=== PATIENT | male | born 1965 | race Caucasian/White ===

== ENCOUNTER 2016-12-20 04:27 | Emergency (ER) | payer SELFPAY ==
[~2016-12-20] VITALS: Ht 185.4 cm; Wt 84.0 kg
[2016-12-20 04:33] VITALS: BP 142/86; PULSE 84; RESP 14; TEMP 98.7; O2SAT 97
--- NOTE | 2016-12-20 04:48 | PD ---
HPI Chief Complaint: Anxiety Time Seen by Provider: 04:47 Travel History International Travel<30 days: No Contact w/Intl Traveler<30days: No Traveled to known affect area: No History of Present Illness HPI The patient is a 51 year old male who presents to the [facility] emergency department with a history of anxiety that began over the last 2 days. He awoke with a panic attack prior to arrival. He usually takes Citalopram for anxiety. However he has not been on it for the last 6 months. The patient reports that when he has a panic attack he develops palpitations, chest tightness, and shortness of breath. The patient denies having any prior history of heart disease. He denies having any prior history of hypertension, hyperlipidemia, or diabetes mellitus. On review of systems, he denies any recent fevers, cough , congestion, neck pain, abdominal pain, nausea, vomiting, diarrhea, diaphoresis , urinary symptoms, or neurologic symptoms. PFSH Past Medical History Narrative Medical The patient's past medical history is significant for anxiety disorder first diagnosed 15 years ago. PCP: Dr. Knight. Anxiety: Yes Cardiovascular Problems: Yes Diminished Hearing: No Tetanus Vaccination: Unknown Influenza Vaccination: No Past Surgical History Surgical History: No Previous Surgery Other Surgery: Yes (rebeca knee) Social History Alcohol Use: No Tobacco Use: Yes (1ppd) Substance Use: No Allergies-Medications (Allergen,Severity, Reaction): Coded Allergies: No Known Allergies (Unverified , 01/09/15) Reported Meds & Prescriptions Reported Meds & Active Scripts Active Citalopram (Citalopram Hydrobromide) 10 Mg Tab 10 Mg PO DAILY Review of Systems Except as stated in HPI: all other systems reviewed are Neg General / Constitutional: No: Fever Eyes: No: Visual changes HENT: No: Headaches Cardiovascular: Positive: Chest Pain or Discomfort, Palpitations Respiratory: Positive: Shortness of Breath Gastrointestinal: No: Abdominal Pain Genitourinary: No: Dysuria Musculoskeletal: No: Pain Skin: No Rash Neurologic: No: Weakness Psychiatric: Positive: Anxiety, Mood Disorder, No: Depression, Suicidal Ideations, Disorder of Thought, Substance Abuse, Homicidal Ideation Endocrine: No: Polydipsia Hematologic/Lymphatic: No: Easy Bruising Physical Exam Narrative General: The patient is a well-developed well-nourished male, anxious appearing on arrival, otherwise in no acute distress. Head and Neck exam: Head is normocephalic atraumatic. Eyes: EOMI, pupils are equal round and reactive to light. Nose: Midline septum with pink mucous membranes Mouth: Dentition unremarkable. Moist mucus membranes. Posterior oropharynx is not erythematous. No tonsillar hypertrophy. Uvula midline. Airway patent. Neck: No palpable lymphadenopathy. No nuchal rigidity. No thyromegaly. Cardiovascular: Regular rate and rhythm without murmurs, gallops, or rubs. Lungs: Clear to auscultation bilaterally. No wheezes, rhonchi, or rales. Abdomen: Soft, without tenderness to palpation in all 4 quadrants of the abdomen. No guarding, rebound, or rigidity. Normal bowel sounds are audible. No tenderness on palpation of McBurney's point. Extremities: No clubbing, cyanosis, or edema. 2+ pulses in all 4 extremities. No calf tenderness on palpation. Negative Homans sign. No palpable cords. Back: No spinous process tenderness to palpation. No costovertebral angle tenderness to palpation. Neurologic Exam: Grossly nonfocal. Skin Exam: No rash noted. Intact skin that is warm and dry. Data Data Last Documented VS Vital Signs Date Time Temp Pulse Resp B/P (MAP) Pulse Ox O2 Delivery O2 Flow Rate FiO2 12/20/16 07:02 80 16 120/80 (93) 100 12/20/16 04:33 98.7 Orders Orders Electrocardiogram (12/20/16 05:18) Complete Blood Count With Diff (12/20/16 05:18) Basic Metabolic Panel (Bmp) (12/20/16 05:18) Creatine Kinase (Cpk) (12/20/16 05:18) Ckmb (Isoenzyme) Profile (12/20/16 05:18) Troponin I (12/20/16 05:18) Chest, Single Ap (12/20/16 05:18) Iv Access Insert/Monitor (12/20/16 05:18) Ecg Monitoring (12/20/16 05:18) Oximetry (12/20/16 05:18) Hydroxyzine Pamoate (Vistaril) (12/20/16 05:30) CKMB (12/20/16 05:40) CKMB% (12/20/16 05:40) Labs Laboratory Tests Test 12/20/16 05:40 White Blood Count 11.6 TH/MM3 Red Blood Count 4.94 MIL/MM3 Hemoglobin 15.6 GM/DL Hematocrit 45.3 % Mean Corpuscular Volume 91.5 FL Mean Corpuscular Hemoglobin 31.6 PG Mean Corpuscular Hemoglobin Concent 34.5 % Red Cell Distribution Width 13.8 % Platelet Count 142 TH/MM3 Mean Platelet Volume 7.8 FL Neutrophils (%) (Auto) 65.1 % Lymphocytes (%) (Auto) 19.4 % Monocytes (%) (Auto) 6.7 % Eosinophils (%) (Auto) 6.6 % Basophils (%) (Auto) 2.2 % Neutrophils # (Auto) 7.5 TH/MM3 Lymphocytes # (Auto) 2.2 TH/MM3 Monocytes # (Auto) 0.8 TH/MM3 Eosinophils # (Auto) 0.8 TH/MM3 Basophils # (Auto) 0.3 TH/MM3 CBC Comment DIFF FINAL Differential Comment Blood Urea Nitrogen 13 MG/DL Creatinine 0.70 MG/DL Random Glucose 91 MG/DL Calcium Level 8.3 MG/DL Sodium Level 142 MEQ/L Potassium Level 3.8 MEQ/L Chloride Level 105 MEQ/L Carbon Dioxide Level 28.8 MEQ/L Anion Gap 8 MEQ/L Estimat Glomerular Filtration Rate 119 ML/MIN Total Creatine Kinase 173 U/L Creatine Kinase MB 3.1 NG/ML Troponin I LESS THAN 0.02 NG/ML MDM Medical Decision Making Medical Screen Exam Complete: Yes Emergency Medical Condition: Yes Medical Record Reviewed: Yes Interpretation(s) Last Impressions Chest X-Ray 12/20/16 0518 Signed Impressions: Service Date/Time: Tuesday, December 20, 2016 05:39 - CONCLUSION: No acute disease. Juan Castillo Jr., MD Differential Diagnosis Anxiety disorder, versus acute coronary syndrome, versus acid reflux, versus pneumothorax Narrative Course During the course of the patients emergency department visit, the patients history, examination, and differential diagnosis were reviewed with the patient. The patient had IV access obtained and blood work sent for analysis. The patient was placed on a music artist with oximetry and blood pressure monitoring. An ECG was done on arrival. The patient's ECG reveals a sinus rhythm of 83, no acute ST segment elevation. The patient was initially provided aspirin 324 mg by mouth times one, Vistaril 25 mg by mouth 1. The patients laboratory studies were reviewed and remarkable for a CBC that shows a white count 11.6, hemoglobin 15.6, platelets 142 with 6.6 eosinophils, basic metabolic profile is remarkable for a calcium of 8.3, CPK 173, CK-MB 3.1, troponin I less than 0.02 Radiology studies were reviewed and remarkable for a chest x-ray that shows no acute cardiopulmonary disease. The patient will be started back on citalopram. The patient is resting comfortably and feels better, is alert and in no distress. The patients results and examination findings were discussed with the patient. The repeat examination is unremarkable and benign. The history, exam, diagnostic testing, and current condition do not suggest any significant pathology to warrant further testing, continued ED treatment, admission, or surgical evaluation at this point. The vital signs have been stable. The patient does not have uncontrollable pain, intractable vomiting, or other significant symptoms. The patient's condition is stable and appropriate for discharge. The patient will pursue further outpatient evaluation with a primary care physician or other designated or consulting physician as indicated in the discharge instructions. The patient expressed understanding and was agreeable with this plan. Diagnosis Primary Impression: Acute anxiety Referrals: Primary Care Physician 2 days Patient Instructions: Anxiety (ED), General Instructions Med/Other Pt SpecificInfo: Prescription(s) given Scripts Citalopram (Citalopram) 10 Mg Tab 10 MG PO DAILY for Control Depression, #30 TAB 0 Refills Prov: April Collado MD 12/20/16 Disposition: DISCHARGE HOME Condition: Stable April Collado MD Dec 20, 2016 04:48
[2016-12-20] MEDS ORDERED: CITA10TA4 PO (05:17)
[2016-12-20] MEDS ORDERED: hydrOXYzine PAMOATE 25 MG CAP PO ONE (05:30)
--- NOTE | 2016-12-20 05:54 | RADRPT ---
EXAM DATE/TIME: 12/20/2016 05:39 [facility] COMPARISON: No previous studies available for comparison. INDICATIONS : Chest pain. MEDICAL HISTORY : None. SURGICAL HISTORY : None. ENCOUNTER: Initial ACUITY: 1 day PAIN SCORE: 0/10 LOCATION: Bilateral chest FINDINGS: 2 frontal views of the chest demonstrate the lungs to be symmetrically aerated without evidence of ma ss, infiltrate or effusion. The cardiomediastinal contours are unremarkable. Osseous structures are intact. CONCLUSION: No acute disease. Juan Castillo Jr., MD on December 20, 2016 at 5:53 Board Certified Radiologist. This report was verified electronically.
[2016-12-20 06:28] LABS: AUTOMATED NEUTROPHIL # 7.5 TH/MM3 (1.8-7.7); BASOPHIL # 0.3 TH/MM3 (0-0.2); BASOPHIL % 2.2 % (0.0-2.0); EOSINOPHIL # 0.8 TH/MM3 (0-0.4); EOSINOPHIL % 6.6 % (0.0-4.0); HEMATOCRIT 45.3 % (39.0-51.0); HEMO FLAGS DIFF FINAL; LYMPH % 19.4 % (9.0-44.0); LYMPHOCYTE # 2.2 TH/MM3 (1.0-4.8); MEAN CELL VOLUME 91.5 FL (80.0-100.0); MEAN CORPUSCULAR HEMOGLOBIN 31.6 PG (27.0-34.0); MEAN CORPUSCULAR HGB CONC 34.5 % (32.0-36.0); MONO % 6.7 % (0.0-8.0); NEUT % 65.1 % (16.0-70.0); PLATELET COUNT 142 TH/MM3 (150-450); RED BLOOD COUNT 4.94 MIL/MM3 (4.50-5.90); RED CELL DISTRIBUTION WIDTH 13.8 % (11.6-17.2); WHITE BLOOD COUNT 11.6 TH/MM3 (4.0-11.0)
[2016-12-20 06:49] LABS: ANION GAP 8 MEQ/L (5-15); BICARBONATE 28.8 MEQ/L (21.0-32.0); BLOOD UREA NITROGEN 13 MG/DL (7-18); CHLORIDE 105 MEQ/L (98-107); GLOMERULAR FILTRATION RATE 119 ML/MIN (>89); POTASSIUM 3.8 MEQ/L (3.5-5.1); SODIUM (NA) 142 MEQ/L (136-145)
[2016-12-20 06:53] LABS: CREATINE KINASE 173 U/L (39-308)
[2016-12-20 07:02] VITALS: BP 120/80
[2016-12-20 07:07] LABS: CKMB 3.1 NG/ML (0.5-3.6)
--- NOTE | 2016-12-20 14:07 | EKG ---
Date Performed: 12/20/2016 Time Performed: 04:35:22 PTAGE: 51 years EKG: Sinus rhythm NORMAL ECG Compared to prior tracing no significant change PREVIOUS TRACING : 01/09/2015 12.03 DOCTOR: Eze Walker Interpretating Date/Time 12/20/2016 14:05:32
== END 2016-12-20 07:03 | disposition home or self-care (01) ==
LOC: NEPC 04:27
DX: F41.9 Anxiety disorder, unspecified (principal); R07.9 Chest pain, unspecified; R00.2 Palpitations; R06.02 Shortness of breath; F17.200 Nicotine dependence, unspecified, uncomplicated
CPT/HCPCS: 71010; 80048; 82550; 82552; 84484; 85025; 93005; 99285; Q0177

== ENCOUNTER 2017-05-13 21:58 | Inpatient (IN) | payer SELFPAY ==
[~2017-05-13] VITALS: Ht 185.4 cm; Wt 81.5 kg
[~2017-05-13 21:58] MED LIST: CITA10TA4 PO
[2017-05-13 22:02] VITALS: BP 171/99; PULSE 123; RESP 20; TEMP 98.7; O2SAT 99
[2017-05-13] MEDS ORDERED: ceFAZolin 2 GM PREMIX 50 ML IV ONE (22:15)
[2017-05-13] MEDS ORDERED: DIPHTH/TETANUS/ACEL PERTUSSIS (BOOSTER) 0.5 ML VIAL/PFS IM ONE (22:15)
[2017-05-13 22:23] VITALS: RESP 16; O2SAT 98
--- NOTE | 2017-05-13 22:26 | RADRPT ---
EXAM DATE/TIME: 05/13/2017 22:19 [facility] COMPARISON: CHEST SINGLE AP, December 20, 2016, 5:39. INDICATIONS : Chest pain after fall. MEDICAL HISTORY : Cardiovascular disease. SURGICAL HISTORY : None. ENCOUNTER: Initial ACUITY: 1 day PAIN SCORE: 6/10 LOCATION: Left upper chest FINDINGS: A single view of the chest demonstrates the lungs to be symmetrically aerated without evidence of mas s, infiltrate or effusion. The cardiomediastinal contours are unremarkable. Stable healed fracture posterolateral left 6th rib.. CONCLUSION: No infiltrates seen. No evidence of pneumothorax. Juan Sun MD on May 13, 2017 at 22:23 Board Certified Radiologist. This report was verified electronically.
--- NOTE | 2017-05-13 22:36 | RADRPT ---
EXAM DATE/TIME: 05/13/2017 22:22 [facility] COMPARISON: CT BRAIN W/O CONTRAST, January 09, 2015, 13:14. INDICATIONS : Trauma, fell and hit forehead. RADIATION DOSE: 45.81 CTDIvol (mGy) MEDICAL HISTORY : Cardiovascular disease. SURGICAL HISTORY : None. ENCOUNTER: Initial ACUITY: 1 day PAIN SCALE: 6/10 LOCATION: cranial TECHNIQUE: Multiple contiguous axial images were obtained of the head. Using automated exposure control and adj ustment of the mA and/or kV according to patient size, radiation dose was kept as low as reasonably a chievable to obtain optimal diagnostic quality images. DICOM format image data is available electro nically for review and comparison. FINDINGS: CEREBRUM: Abnormal. There is a lobular hematoma in the posterior left parasagittal occipital lobe measuring 4. 1 cm. There is loss of the hayden/white matter differentiation in this area. No effacement of the occ ipital horn. The ventricles are symmetric in size. No evidence of midline shift. No extra-axial fl uid or blood. The right hemisphere is grossly unremarkable. POSTERIOR FOSSA: The cerebellum and brainstem are intact. The 4th ventricle is midline. The cerebellopontine angle i s unremarkable. EXTRACRANIAL: Abnormal appearance to the right ethmoid sinuses, partial opacification of the solid portion of the r ight maxillary sinus and several small flecks of gas within the right orbit chest orbital fracture; C T facial bones is pending. SKULL: Prominent soft tissue swelling in the frontal region extending to the right supraorbital region and l ateral orbital region, measuring up to 2.3 cm in thickness. No radiopaque foreign bodies. CONCLUSION: 1. Greater than 4 cm parenchymal hematoma left occipital lobe and prominent soft tissue swelling in t he right periorbital and frontal region suggests contrecoup injury. No significant mass effect or ce rebral edema at this point. 2. Suspected abnormalities in the right orbit, ethmoid sinus, and maxillary sinus. CT facial bones t o be performed. Juan Sun MD on May 13, 2017 at 22:30 Board Certified Radiologist. This report was verified electronically.
[2017-05-13 22:42] LABS: AUTOMATED NEUTROPHIL # 6.9 TH/MM3 (1.8-7.7); BASOPHIL % 0.3 % (0.0-2.0); HEMATOCRIT 39.9 % (39.0-51.0); LYMPHOCYTE # 0.6 TH/MM3 (1.0-4.8); MEAN CELL VOLUME 93.5 FL (80.0-100.0); MEAN CORPUSCULAR HEMOGLOBIN 32.9 PG (27.0-34.0); MEAN CORPUSCULAR HGB CONC 35.1 % (32.0-36.0); MEAN PLATELET VOLUME 8.3 FL (7.0-11.0); MONO % 6.8 % (0.0-8.0); MONOCYTE # 0.5 TH/MM3 (0-0.9); NEUT % 85.9 % (16.0-70.0); PLATELET COUNT 96 TH/MM3 (150-450); RED BLOOD COUNT 4.26 MIL/MM3 (4.50-5.90); RED CELL DISTRIBUTION WIDTH 13.8 % (11.6-17.2)
--- NOTE | 2017-05-13 22:44 | RADRPT ---
EXAM DATE/TIME: 05/13/2017 22:22 [facility] COMPARISON: No previous studies available for comparison. INDICATIONS : Trauma, fell and hit forehead. RADIATION DOSE: 21.66 CTDIvol (mGy) MEDICAL HISTORY : Cardiovascular disease. SURGICAL HISTORY : None. ENCOUNTER: Initial ACUITY: 1 day PAIN SCALE: 2/10 LOCATION: neck TECHNIQUE: Volumetric scanning of the cervical spine was performed. Multiplanar reconstructions in the sagittal, coronal and oblique axial planes were performed. Using automated exposure control and adjustment o f the mA and/or kV according to patient size, radiation dose was kept as low as reasonably achievable to obtain optimal diagnostic quality images. DICOM format image data is available electronically f or review and comparison. FINDINGS: There is reversal of the cervical lordosis from C2-C4. There is 2 mm retrolisthesis of C4 with respe ct to C5. Vertebral body height is maintained. Moderate discogenic degenerative changes with inters pace narrowing and both anterior and posterior osteophytes at C4-C6 levels stopped the posterior aniak ents remain in normal alignment without evidence of locked or per facets. The spinous processes are intact. The atlantoaxial articulation is intact. C2-C3: No fracture seen. Mild right bony neural foraminal narrowing. C3-C4: No fracture seen. The neural foramina are patent. C4-C5: No fracture seen. Mild bilateral bony neural foraminal narrowing C5-C6: No fracture seen. Moderate left sided bony neural foraminal narrowing. C6-C7: No fracture seen. Severe bilateral bony neural foraminal narrowing. C7-T1: No fracture seen. The neural foramina are patent. CONCLUSION: Moderately advanced discogenic degenerative changes C4-C6 with associated retrolisthesis of C4 to C5 and reversal of the upper cervical lordosis. No fracture seen. Juan Sun MD on May 13, 2017 at 22:36 Board Certified Radiologist. This report was verified electronically.
[2017-05-13] MEDS ORDERED: LIDOCAINE HCL 1% 30 ML VIAL INFIL ONE (22:45)
--- NOTE | 2017-05-13 22:49 | RADRPT ---
EXAM DATE/TIME: 05/13/2017 22:22 [facility] COMPARISON: No previous studies available for comparison. INDICATIONS : Trauma, fell and hit forehead. RADIATION DOSE: 63.54 CTDIvol (mGy) MEDICAL HISTORY : Cardiovascular disease. SURGICAL HISTORY : None. ENCOUNTER: Initial ACUITY: 1 day PAIN SCORE: 6/10 LOCATION: facial TECHNIQUE: Volumetric scanning of the facial bones was performed. Using automated exposure control and adjustme nt of the mA and/or kV according to patient size, radiation dose was kept as low as reasonably achiev able to obtain optimal diagnostic quality images. DICOM format image data is available electronicall y for review and comparison. FINDINGS: There is prominent soft tissue and scalp swelling in the frontal region extending lateral to the righ t orbit in the pre-septal space. Soft tissue thickening measures up to 2.2 cm. No radiopaque foreig n body seen. There is a mildly displaced fracture of the floor of the orbit which extends along the infraorbital c anal. There is inferior displacement of the medial fragment; the inferior rectus muscle remains with in the cord. There are also comminuted fractures of the lamina papyracea along the medial wall of th e orbit with some mildly displaced fragments extending slightly into the orbit and causing obscuratio n of the medial rectus muscle interface. The nasal bone and zygomatic arch appears to be intact. The posterolateral wall of the right maxilla ry sinus and pterygoid plate is intact. There is almost complete opacification of the right maxillar y sinus and multiple opacified right ethmoid air cells. No fracture is seen on the left side. The m andible is intact. CONCLUSION: Multiple fractures of the right orbit including the inferior orbital wall and comminuted fractures of the medial orbital wall. Intraorbital muscles remain within the orbit. There is associated opacifi cation of the right ethmoids and right maxillary sinus. There is also prominent alyssa-orbital soft ti ssue swelling extending into the frontal region. Juan Sun MD on May 13, 2017 at 22:43 Board Certified Radiologist. This report was verified electronically.
--- NOTE | 2017-05-13 22:54 | PD ---
HPI Chief Complaint: Fall Time Seen by Provider: 22:07 Travel History International Travel<30 days: No Contact w/Intl Traveler<30days: No Traveled to known affect area: No History of Present Illness HPI 51-year-old male came to the emergency room with history of a trip and fall as per him at 3 AM early this morning. Since then he has noticed that both his eyelids have been swelling up and is almost swelling shot so he cannot see out of them. His brought him to the emergency room. Patient denied drinking but as per the he does drink alcohol every day. Currently patient is sober and answering questions. Patient denies any assault. Vital signs are stable. No history of vomiting or loss of consciousness as per the . Patient does not recall his last tetanus shot. [facility] Past Medical History Narrative Medical List of his past medical, surgical, social and family history is reviewed from the nursing note. Medical History: Denies Significant Hx Anxiety: Yes Cardiovascular Problems: Yes Diminished Hearing: No Tetanus Vaccination: > 5 Years Past Surgical History Other Surgery: Yes (rebeca knee) Social History Alcohol Use: No Tobacco Use: Yes (1ppd) Substance Use: No Allergies-Medications (Allergen,Severity, Reaction): Coded Allergies: No Known Allergies (Unverified Allergy, Unknown, 05/13/17) Comments No known drug allergies. Reported Meds & Prescriptions Reported Meds & Active Scripts Active Citalopram (Citalopram Hydrobromide) 10 Mg Tab 10 Mg PO DAILY Narrative Medication List of his home medications reviewed from the nursing note. Review of Systems Except as stated in HPI: all other systems reviewed are Neg Physical Exam Narrative GENERAL: Awake, alert, moderate distress SKIN: Focused skin assessment warm/dry. Multiple old bruises on bilateral shins. Patient has significant periorbital ecchymosis bilaterally. Unable to part the eyelids to look into the globe. Unable to assess the extraocular eye movement HEAD: Patient has some abrasions on the scalp on the vertex EYES: Pupils equal and round. No scleral icterus. No injection or drainage. ENT: No nasal bleeding or discharge. Mucous membranes pink and moist. Severe bilateral periorbital ecchymosis. Unable to look into the globe. Cannot assess extraocular eye movements. There are multiple lacerations on both right upper and lower eyelids. NECK: Trachea midline. No JVD. CARDIOVASCULAR: Regular rate and rhythm. No murmur appreciated. RESPIRATORY: No accessory muscle use. Clear to auscultation. Breath sounds equal bilaterally. GASTROINTESTINAL: Abdomen soft, non-tender, nondistended. Hepatic and splenic margins not palpable. MUSCULOSKELETAL: No obvious deformities. No clubbing. No cyanosis. No edema. NEUROLOGICAL: Awake and alert. No obvious cranial nerve deficits. Motor grossly within normal limits. Normal speech. PSYCHIATRIC: Appropriate mood and affect; insight and judgment normal. Data Data Last Documented VS Vital Signs Date Time Temp Pulse Resp B/P (MAP) Pulse Ox O2 Delivery O2 Flow Rate FiO2 05/13/17 22:23 16 98 05/13/17 22:02 98.7 123 Orders Orders Basic Metabolic Panel (Bmp) (05/13/17 22:08) Complete Blood Count With Diff (05/13/17 22:08) Prothrombin Time / Inr (Pt) (05/13/17 22:08) Act Partial Throm Time (Ptt) (05/13/17 22:08) Type And Screen (05/13/17 22:08) Chest, Single Ap (05/13/17 22:08) Ct Brain W/O Iv Contrast(Rout) (05/13/17 22:08) Ct Cerv Spine W/O Contrast (05/13/17 22:08) Ct Facial Bones W/O Iv Cont (05/13/17 22:08) Apply Cervical Collar (05/13/17 22:08) Iv Access Insert/Monitor (05/13/17 22:08) Ecg Monitoring (05/13/17 22:08) Oximetry (05/13/17 22:08) Oxygen Administration (05/13/17 22:08) [id number] (Booster) Inj (Boostrix (05/13/17 22:15) Sodium Chloride 0.9% Flush (Ns Flush) (05/13/17 22:15) Cefazolin 2 Gm Premix (Ancef 2 Gm Premix (05/13/17 22:15) Lidocaine 1% Inj (Xylocaine 1% Inj) (05/13/17 22:45) Alcohol (Ethanol) (05/13/17 22:54) Platelet Pheresis (05/13/17 22:59) Blood Product Administration (05/13/17 22:59) Sodium Chlor 0.9% 250 Ml Inj (Ns 250 Ml (05/13/17 23:00) Admit Order (Ed Use Only) (05/13/17 22:59) Labs Laboratory Tests Test 05/13/17 22:10 White Blood Count 8.0 TH/MM3 Red Blood Count 4.26 MIL/MM3 Hemoglobin 14.0 GM/DL Hematocrit 39.9 % Mean Corpuscular Volume 93.5 FL Mean Corpuscular Hemoglobin 32.9 PG Mean Corpuscular Hemoglobin Concent 35.1 % Red Cell Distribution Width 13.8 % Platelet Count 96 TH/MM3 Mean Platelet Volume 8.3 FL Neutrophils (%) (Auto) 85.9 % Lymphocytes (%) (Auto) 7.0 % Monocytes (%) (Auto) 6.8 % Eosinophils (%) (Auto) 0.0 % Basophils (%) (Auto) 0.3 % Neutrophils # (Auto) 6.9 TH/MM3 Lymphocytes # (Auto) 0.6 TH/MM3 Monocytes # (Auto) 0.5 TH/MM3 Eosinophils # (Auto) 0.0 TH/MM3 Basophils # (Auto) 0.0 TH/MM3 CBC Comment AUTO DIFF Differential Comment AUTO DIFF CONFIRMED Platelet Estimate LOW Platelet Morphology Comment NORMAL Prothrombin Time 10.1 SEC Prothromb Time International Ratio 1.0 RATIO Activated Partial Thromboplast Time 27.7 SEC Blood Urea Nitrogen 9 MG/DL Creatinine 1.16 MG/DL Random Glucose 116 MG/DL Calcium Level 9.3 MG/DL Sodium Level 132 MEQ/L Potassium Level 3.1 MEQ/L Chloride Level 94 MEQ/L Carbon Dioxide Level 30.9 MEQ/L Anion Gap 7 MEQ/L Estimat Glomerular Filtration Rate 66 ML/MIN Ethyl Alcohol Level LESS THAN 3 MG/DL MDM Medical Decision Making Medical Screen Exam Complete: Yes Emergency Medical Condition: Yes Medical Record Reviewed: Yes Interpretation(s) Twelve-lead EKG was reviewed by me. Normal sinus rhythm, normal axis, tachycardia, nonspecific ST-T wave changes. Heart rate of 108 bpm. Differential Diagnosis Intracranial bleed, facial fracture, skull fracture, cervical fracture Narrative Course 10:53 PM patient was given tetanus as well as Ancef. CT scan of the brain shows a brain bleed which seems like a contrecoup injury. Awaiting for the neurosurgeon to call back. Awaiting for CT maxillofacial and cervical spine results. Patient will require admission. Awaiting for blood test results. My PA will take a look at the laceration and repair them as needed. Please refer to his procedure note. 11:[address] shows right sided facial fracture. There is no muscle entrapment or retrobulbar hematoma. I discussed the case with Dr. Way who will consult on the patient in the morning. I also spoke with the trauma surgeon Dr. Menjivar wants the patient to be admitted to the ICU and to give one unit of platelet transfusion since platelet count is less than 100, 000. In my opinion this is probably secondary to his chronic drinking. Awaiting for the INR. Was also discussed with the neurosurgeon Dr. Craven who agrees with the current management and he'll consult on the patient in the morning. Critical Care Narrative Aggregate critical care time was 60 minutes. Time to perform other separately billable procedures was not included in the critical care time. My time did not include minutes spent treating any other patients simultaneously or on activities that did not directly contribute to the patient's treatment. The services I provided to this patient were to treat and/or prevent clinically significant deterioration that could result in: Fall, intracranial bleed, maxillofacial fractures I provided critical care services requiring my management, as noted below: Chart data review, documentation time, medication orders and management, vital sign assessments/reviewing monitor data, ordering and reviewing lab tests, ordering and interpreting/reviewing x-rays and diagnostic studies, care of the patient and discussion of the patient with the admitting physicians. Procedures EKG Prior to Arrival: No Physician Communication Physician Communication Dr. Way, Dr. Menjivar, Dr. Craven Diagnosis Primary Impression: Fall Qualified Codes: W19.XXXA - Unspecified fall, initial encounter Additional Impressions: Intracranial bleed Facial fracture due to fall Qualified Codes: S02.92XA - Unspecified fracture of facial bones, initial encounter for closed fracture; W19.XXXA - Unspecified fall, initial encounter Admitting Information Admitting Physician Requests: Thor Cuba MD May 13, 2017 22:54
[2017-05-13] MEDS ORDERED: SODIUM CHLOR 0.9% 250 ML INJ 250 ML IV ONE (23:00)
[2017-05-13 23:09] LABS: BICARBONATE 30.9 MEQ/L (21.0-32.0); CALCIUM 9.3 MG/DL (8.5-10.1); CREATININE 1.16 MG/DL (0.60-1.30)
[2017-05-13 23:14] LABS: PROTHROMBIN TIME - PATIENT 10.1 SEC (9.8-11.6)
[2017-05-13] MEDS ORDERED: MAGNESIUM HYDROXIDE SUSP 30 ML CUP PO PRN (23:30)
[2017-05-13] MEDS ORDERED: BISACODYL 10 MG SUPP RECTAL PRN (23:30)
[2017-05-13] MEDS ORDERED: CHLORHEXIDINE GLUCONATE 2 % 1 PACK (2 CLOTHS) TOP PRN (23:30)
[2017-05-13] MEDS ORDERED: SENNOSIDES 8.6 MG TAB PO PRN (23:30)
[2017-05-13] MEDS ORDERED: LACTULOSE SYRUP 20 GM/30 ML CUP PO PRN (23:30)
[2017-05-13] MEDS ORDERED: ONDANSETRON HCL 4 MG/2 ML VIAL IV PUSH PRN (23:30)
[2017-05-13] MEDS ORDERED: MISCELLANEOUS NURSING INFORMATION XX SCH (23:30)
--- NOTE | 2017-05-13 23:30 | PD ---
Physical Exam Date Seen by Provider: May 13, 2017 Time Seen by Provider: 23:27 Narrative 51 yo male here for head injury. I was asked by my attending to repair laceration. Refer to her note. Data Data Last Documented VS Vital Signs Date Time Temp Pulse Resp B/P (MAP) Pulse Ox O2 Delivery O2 Flow Rate FiO2 05/13/17 22:23 16 98 05/13/17 22:02 98.7 123 Orders Orders Basic Metabolic Panel (Bmp) (05/13/17 22:08) Complete Blood Count With Diff (05/13/17 22:08) Prothrombin Time / Inr (Pt) (05/13/17 22:08) Act Partial Throm Time (Ptt) (05/13/17:08) Type And Screen (05/13/17:08) Chest, Single Ap (05/13/17 22:08) Ct Brain W/O Iv Contrast(Rout) (05/13/17 22:08) Ct Cerv Spine W/O Contrast (05/13/17 22:08) Ct Facial Bones W/O Iv Cont (05/13/17 22:08) Apply Cervical Collar (05/13/17 22:08) Iv Access Insert/Monitor (05/13/17 22:08) Ecg Monitoring (05/13/17 22:08) Oximetry (05/13/17 22:08) Oxygen Administration (05/13/17 22:08) Pouc-Stj-Wytdkj (Booster) Inj (Boostrix (05/13/17 22:15) Sodium Chloride 0.9% Flush (Ns Flush) (05/13/17 22:15) Cefazolin 2 Gm Premix (Ancef 2 Gm Premix (05/13/17 22:15) Lidocaine 1% Inj (Xylocaine 1% Inj) (05/13/17 22:45) Alcohol (Ethanol) (05/13/17 22:54) Drug Screen, Random Urine (05/13/17 22:54) Platelet Pheresis (05/13/17 22:59) Blood Product Administration (05/13/17 22:59) Sodium Chlor 0.9% 250 Ml Inj (Ns 250 Ml (05/13/17 23:00) Admit Order (Ed Use Only) (05/13/17 22:59) Labs Laboratory Tests Test 05/13/17 22:10 White Blood Count 8.0 TH/MM3 Red Blood Count 4.26 MIL/MM3 Hemoglobin 14.0 GM/DL Hematocrit 39.9 % Mean Corpuscular Volume 93.5 FL Mean Corpuscular Hemoglobin 32.9 PG Mean Corpuscular Hemoglobin Concent 35.1 % Red Cell Distribution Width 13.8 % Platelet Count 96 TH/MM3 Mean Platelet Volume 8.3 FL Neutrophils (%) (Auto) 85.9 % Lymphocytes (%) (Auto) 7.0 % Monocytes (%) (Auto) 6.8 % Eosinophils (%) (Auto) 0.0 % Basophils (%) (Auto) 0.3 % Neutrophils # (Auto) 6.9 TH/MM3 Lymphocytes # (Auto) 0.6 TH/MM3 Monocytes # (Auto) 0.5 TH/MM3 Eosinophils # (Auto) 0.0 TH/MM3 Basophils # (Auto) 0.0 TH/MM3 CBC Comment AUTO DIFF Differential Comment AUTO DIFF CONFIRMED Platelet Estimate LOW Platelet Morphology Comment NORMAL Prothrombin Time 10.1 SEC Prothromb Time International Ratio 1.0 RATIO Activated Partial Thromboplast Time 50.1 SEC Blood Urea Nitrogen 9 MG/DL Creatinine 1.16 MG/DL Random Glucose 116 MG/DL Calcium Level 9.3 MG/DL Sodium Level 132 MEQ/L Potassium Level 3.1 MEQ/L Chloride Level 94 MEQ/L Carbon Dioxide Level 30.9 MEQ/L Anion Gap 7 MEQ/L Estimat Glomerular Filtration Rate 66 ML/MIN [facility] Medical Record Reviewed: Yes Supervised Visit with CARMELA: No Procedures Procedure Narrative LACERATION LOCATION: right upper eyelid LENGTH: 2 cm lac NUMBER OF STITCHES/THERESA: 9 sutures REPAIR: The area of the laceration was prepped with Betadine and sterilely draped. The laceration was infiltrated with 1% Xylocaine. The wound was copiously irrigated and explored without evidence of foreign body, tendon injury or neurovascular injury. The wound was closed using 5-0 Ethilone. This was a 1 layer repair. A sterile dressing was applied. The patient was advised to keep the dressing clean and dry. Patient tolerated the procedure well. LACERATION LOCATION: right upper eyelid LENGTH: 0.5 cm lac NUMBER OF STITCHES/THERESA: 4 sutures REPAIR: The area of the laceration was prepped with Betadine and sterilely draped. The laceration was infiltrated with 1% Xylocaine. The wound was copiously irrigated and explored without evidence of foreign body, tendon injury or neurovascular injury. The wound was closed using 5-0 Ethilone. This was a 1 layer repair. A sterile dressing was applied. The patient was advised to keep the dressing clean and dry. Patient tolerated the procedure well. LACERATION LOCATION: right lower eyelid LENGTH: 0.5 cm lac NUMBER OF STITCHES/THERESA: 3 sutures REPAIR: The area of the laceration was prepped with Betadine and sterilely draped. The laceration was infiltrated with 1% Xylocaine. The wound was copiously irrigated and explored without evidence of foreign body, tendon injury or neurovascular injury. The wound was closed using 5-0 Ethilone. This was a 1 layer repair. A sterile dressing was applied. The patient was advised to keep the dressing clean and dry. Patient tolerated the procedure well. Diagnosis Primary Impression: Fall Qualified Codes: W19.XXXA - Unspecified fall, initial encounter Additional Impressions: Intracranial bleed Facial fracture due to fall Qualified Codes: S02.92XA - Unspecified fracture of facial bones, initial encounter for closed fracture; W19.XXXA - Unspecified fall, initial encounter Hussein Sanchez May 13, 2017 23:30
[2017-05-14] VITALS (15 sets, daily range): BP systolic 127–174; BP diastolic 74–101; PULSE 78–113; RESP 16–35; TEMP 98.4–101.2; O2SAT 95–99
--- NOTE | 2017-05-14 00:11 | HHI.HP ---
History of Present Illness Primary Care Physician Gideon Knight, DO Admission Diagnosis fall, intracranial hemorrhage, facial fracture Diagnoses: History of Present Illness 51 y.o male fell from ladder about 20 hrs ago-he was seen and worked up by the ER team.GCS 15,HD normal,c/o pain lower back,periorbital swelling and ecchymoses b/l,blurry vision right eye,neuro intact Review of Systems Constitutional: DENIES: Diaphoretic episodes, Fatigue, Fever, Weight gain, Weight loss, Chills, Dizziness, Change in appetite, Night Sweats Endocrine: DENIES: Heat/cold intolerance, Polydipsia, Polyuria, Polyphagia Eyes: COMPLAINS OF: Blurred vision, DENIES: Diplopia, Eye inflammation, Eye pain, Vision loss, Photosensitivity, Double Vision Ears, nose, mouth, throat: DENIES: Tinnitus, Hearing loss, Vertigo, Nasal discharge, Oral lesions, Throat pain, Hoarseness, Ear Pain, Running Nose, Epistaxis, Sinus Pain, Toothache, Odynophagia Respiratory: DENIES: Apneas, Cough, Snoring, Wheezing, Hemoptysis, Sputum production, Shortness of breath Cardiovascular: DENIES: Chest pain, Palpitations, Syncope, Dyspnea on Exertion , PND, Lower Extremity Edema, Orthopnea, Claudication Gastrointestinal: DENIES: Abdominal pain, Black stools, Bloody stools, Constipation, Diarrhea, Nausea, Vomiting, Difficulty Swallowing, Anorexia Genitourinary: DENIES: Sexual dysfunction, Urinary frequency, Urinary incontinence, Urgency, Hematuria, Dysuria, Nocturia, Penile Discharge, Testicular Pain, Testicular Swelling Musculoskeletal: COMPLAINS OF: Back pain Integumentary: DENIES: Abnormal pigmentation, Nail changes, Pruritus, Rash Hematologic/lymphatic: DENIES: Bruising, Lymphadenopathy Immunologic/allergic: DENIES: Eczema, Urticaria Neurologic: DENIES: Abnormal gait, Headache, Localized weakness, Paresthesias, Seizures, Speech Problems, Tremor, Poor Balance Psychiatric: DENIES: Anxiety, Confusion, Mood changes, Depression, Hallucinations, Agitation, Suicidal Ideation, Homicidal Ideation, Delusions Past Family Social History Allergies: Coded Allergies: No Known Allergies (Unverified Allergy, Unknown, 05/13/17) Past Medical History none Past Surgical History b/l knee Reported Medications citalopram Family History none Social History +etoh Physical Exam Vital Signs Vital Signs Date Time Temp Pulse Resp B/P (MAP) Pulse Ox O2 Delivery O2 Flow Rate FiO2 05/13/17 22:23 16 98 05/13/17 22:02 98.7 123 20 171/99 (123) 99 Physical Exam GENERAL: This is a well-nourished, well-developed patient, in no apparent distress. SKIN: . Cool and dry. HEAD: Atraumatic-periorbital swelling b/l EYES:right eye conjunctivitis blurry vision,left eye intact ENT: Nose without bleedig, Airway patent. NECK: Trachea midline. Supple, nontender, no meningeal signs. CARDIOVASCULAR: Regular rate and rhythm without murmurs, gallops, or rubs. RESPIRATORY: Clear to auscultation. Breath sounds equal bilaterally. No wheezes , rales, or rhonchi. GASTROINTESTINAL: Abdomen soft, non-tender, nondistended. No guarding. MUSCULOSKELETAL: Extremities without clubbing, cyanosis, or edema. No joint tenderness, effusion, or edema noted. NEUROLOGICAL: Awake and alert. Cranial nerves II through XII intact. Motor and sensory grossly within normal limits. Five out of 5 muscle strength in all muscle groups. Normal speech. Laboratory Laboratory Tests Test 05/13/17 22:10 White Blood Count 8.0 Red Blood Count 4.26 Hemoglobin 14.0 Hematocrit 39.9 Mean Corpuscular Volume 93.5 Mean Corpuscular Hemoglobin 32.9 Mean Corpuscular Hemoglobin Concent 35.1 Red Cell Distribution Width 13.8 Platelet Count 96 Mean Platelet Volume 8.3 Neutrophils (%) (Auto) 85.9 Lymphocytes (%) (Auto) 7.0 Monocytes (%) (Auto) 6.8 Eosinophils (%) (Auto) 0.0 Basophils (%) (Auto) 0.3 Neutrophils # (Auto) 6.9 Lymphocytes # (Auto) 0.6 Monocytes # (Auto) 0.5 Eosinophils # (Auto) 0.0 Basophils # (Auto) 0.0 CBC Comment AUTO DIFF Differential Comment AUTO DIFF CONFIRMED Platelet Estimate LOW Platelet Morphology Comment NORMAL Prothrombin Time 10.1 Prothromb Time International Ratio 1.0 Activated Partial Thromboplast Time 50.1 Blood Urea Nitrogen 9 Creatinine 1.16 Random Glucose 116 Calcium Level 9.3 Sodium Level 132 Potassium Level 3.1 Chloride Level 94 Carbon Dioxide Level 30.9 Anion Gap 7 Estimat Glomerular Filtration Rate 66 Result Diagram: 05/13/17220905/13/172209 Caprini VTE Risk Assessment Caprini VTE Risk Assessment: Mod/High Risk (score >= 2) VTE Pharm Contraindication: High risk for bleeding Caprini Risk Assessment Model Point Value = 1 Point Value = 2 Point Value = 3 Point Value = 5 Age 41-60 Minor surgery BMI > 25 kg/m2 Swollen legs Varicose veins or History of unexplained or recurrent spontaneous Oral contraceptives or hormone replacement Sepsis (< 1 month) Serious lung disease, including pneumonia (< 1 month) Abnormal pulmonary function Acute myocardial infarction Congestive heart failure (< 1 month) History of inflammatory bowel disease Medical patient at bed rest Age 61-74 Arthroscopic surgery Major open surgery (> 45 min) Laparoscopic surgery (> 45 min) Malignancy Confined to bed (> 72 hours) Immobilizing plaster cast Central venous access Age >= 75 History of VTE Family history of VTE Factor V Leiden Prothrombin [id number] Lupus anticoagulant Anticardiolipin antibodies Elevated serum homocysteine Heparin-induced thrombocytopenia Other congenital or acquired thrombophilia Stroke (< 1 month) Elective arthroplasty Hip, pelvis, or leg fracture Acute spinal cord injury (< 1 month) Prophylaxis Regimen Total Risk Factor Score Risk Level Prophylaxis Regimen 0-1 Low Early ambulation 2 Moderate Order ONE of the following: *Sequential Compression Device (SCD) *Heparin 5000 units SQ BID 3-4 Higher Order ONE of the following medications: *Heparin 5000 units SQ TID *Enoxaparin/Lovenox 40 mg SQ daily (WT < 150 kg, CrCl > 30 mL/min) *Enoxaparin/Lovenox 30 mg SQ daily (WT < 150 kg, CrCl > 10-29 mL/min) *Enoxaparin/Lovenox 30 mg SQ BID (WT < 150 kg, CrCl > 30 mL/min) AND/OR *Sequential Compression Device (SCD) 5 or more Highest Order ONE of the following medications: *Heparin 5000 units SQ TID (Preferred with Epidurals) *Enoxaparin/Lovenox 40 mg SQ daily (WT < 150 kg, CrCl > 30 mL/min) *Enoxaparin/Lovenox 30 mg SQ daily (WT < 150 kg, CrCl > 10-29 mL/min) *Enoxaparin/Lovenox 30 mg SQ BID (WT < 150 kg, CrCl > 30 mL/min) AND *Sequential Compression Device (SCD) Assessment and Plan Assessment and Plan TBI-IPH left occipital facial fx right orbital wall trauma right eye thrombocytopenia admit to ICU repeat CT head in AM CT AP/ chest NS,ophthalmology consult plt transfusion to keep plt >100.000 pain control Donna Menjivar MD May 14, 2017 00:10
[2017-05-14] MEDS: SODIUM CHLOR 0.9% 1000 ML INJ 1,000 ML IV SCH ×3 (00:20→20:59)
[2017-05-14] MEDS: ACETAMINOPHEN 1000 MG/100 ML 100 ML IV SCH ×4 (00:21→18:00)
--- NOTE | 2017-05-14 00:21 | PD.CONS ---
[facility] Service Critical Care Medicine Consult Requested By Primary Care Physician Gideon Knight DO History of Present Illness 51-year-old male came to the emergency room with history of a trip and fall as per him at 3 AM early this morning. Since then he has noticed that both his eyelids have been swelling up and is almost swelling shot so he cannot see. His brought him to the emergency room. Patient denied drinking but as per the he does drink alcohol every day. Currently patient is sober and answering questions. Patient denies any assault. Vital signs are stable. No history of vomiting or loss of consciousness as per the . Review of Systems Constitutional: DENIES: Diaphoretic episodes, Fatigue, Fever, Weight gain, Weight loss, Chills, Dizziness, Change in appetite, Night Sweats Endocrine: DENIES: Heat/cold intolerance, Polydipsia, Polyuria, Polyphagia Eyes: COMPLAINS OF: Blurred vision, DENIES: Diplopia, Eye inflammation, Eye pain, Vision loss, Photosensitivity, Double Vision Ears, nose, mouth, throat: DENIES: Tinnitus, Hearing loss, Vertigo, Nasal discharge, Oral lesions, Throat pain, Hoarseness, Ear Pain, Running Nose, Epistaxis, Sinus Pain, Toothache, Odynophagia Respiratory: DENIES: Apneas, Cough, Snoring, Wheezing, Hemoptysis, Sputum production, Shortness of breath Cardiovascular: DENIES: Chest pain, Palpitations, Syncope, Dyspnea on Exertion , PND, Lower Extremity Edema, Orthopnea, Claudication Gastrointestinal: DENIES: Abdominal pain, Black stools, Bloody stools, Constipation, Diarrhea, Nausea, Vomiting, Difficulty Swallowing, Anorexia Genitourinary: DENIES: Sexual dysfunction, Urinary frequency, Urinary incontinence, Urgency, Hematuria, Dysuria, Nocturia, Penile Discharge, Testicular Pain, Testicular Swelling Musculoskeletal: DENIES: Joint pain, Muscle aches, Stiffness, Joint Swelling, Back pain, Neck pain Integumentary: DENIES: Abnormal pigmentation, Nail changes, Pruritus, Rash Hematologic/lymphatic: DENIES: Bruising, Lymphadenopathy Immunologic/allergic: DENIES: Eczema, Urticaria Neurologic: COMPLAINS OF: Headache, DENIES: Abnormal gait, Localized weakness, Paresthesias, Seizures, Speech Problems, Tremor, Poor Balance Psychiatric: DENIES: Anxiety, Confusion, Mood changes, Depression, Hallucinations, Agitation, Suicidal Ideation, Homicidal Ideation, Delusions Past Family Social History Allergies: Coded Allergies: No Known Allergies (Unverified Allergy, Unknown, 05/13/17) Past Medical History No significant past medical history Past Surgical History No surgeries Reported Medications Reported Meds & Active Scripts Active Citalopram (Citalopram Hydrobromide) 10 Mg Tab 10 Mg PO DAILY Active Ordered Medications Current Medications Medications (Trade) Dose Ordered Sig/Rose Route PRN Reason Start Time Stop Time Status Last Admin Dose Admin Sodium Chloride (NS Flush) 2 ml UNSCH PRN IVF FLUSH AFTER USING IV ACCESS 05/13/17 22:15 Sodium Chloride 250 ml @ 15 mls/hr ONCE ONCE IV 05/13/17 23:00 05/14/17 15:39 Sodium Chloride 1,000 ml @ 100 mls/hr Q10H IV 05/13/17 23:30 Famotidine (Pepcid Inj) 20 mg Q12HR IV PUSH 05/14/17 09:00 Ondansetron HCl (Zofran Inj) 4 mg Q6H PRN IV PUSH NAUSEA OR VOMITING 05/13/17 23:30 Miscellaneous Information 1 [id number] XX 05/13/17 23:30 Chlorhexidine Gluconate (Chlorhexidine 2% Cloth) 3 pack Taper DAILY@04 TOP 05/14/17 04:00 05/10/18 03:59 Chlorhexidine Gluconate (Chlorhexidine 2% Cloth) 3 pack UNSCH PRN TOP HYGIENIC CARE 05/13/17 23:30 Senna/Docusate Sodium (Riya-Colace) 1 tab BID PO 05/14/17 09:00 Magnesium Hydroxide (Milk Of Magnesia Liq) 30 ml Q12H PRN PO Mild constipation 05/13/17 23:30 Sennosides (Senokot) 17.2 mg Q12H PRN PO Moderate constipation 05/13/17 23:30 Bisacodyl (Dulcolax Supp) 10 mg DAILY PRN RECTAL SEVERE CONSITIPATION 05/13/17 23:30 Lactulose (Lactulose Liq) 30 ml DAILY PRN PO SEVERE CONSITIPATION 05/13/17 23:30 Levetriacetam 500 mg/Sodium Chloride 105 ml @ 420 mls/hr Q12HR IV 05/13/17 23:45 Acetaminophen 100 ml @ 400 mls/hr Q6HR IV 05/14/17 00:00 05/14/17 18:14 Oxycodone HCl (Roxicodone) 5 mg Q4H PRN PO PAIN SCALE 4 TO 6 05/13/17 23:45 Oxycodone HCl (Roxicodone) 10 mg Q4H PRN PO PAIN SCALE 7 TO 10 05/13/17 23:45 Family History No family history significant of ICH Social History Smoked one pack per day Drinks daily socially No illicit drug abuse Physical Exam Vital Signs Vital Signs Date Time Temp Pulse Resp B/P (MAP) Pulse Ox O2 Delivery O2 Flow Rate FiO2 05/13/17 22:23 16 98 05/13/17 22:02 98.7 123 20 171/99 (123) 99 Physical Exam GENERAL: Awake, alert, moderate distress SKIN: Focused skin assessment warm/dry. Multiple old bruises on bilateral shins. Patient has significant periorbital ecchymosis bilaterally. Unable to part the eyelids to look into the globe. Unable to assess the extraocular eye movement HEAD: Patient has some abrasions on the scalp on the vertex EYES: Pupils equal and round. No scleral icterus. No injection or drainage. ENT: No nasal bleeding or discharge. Mucous membranes pink and moist. Severe bilateral periorbital ecchymosis. Unable to look into the globe. Cannot assess extraocular eye movements. There are multiple lacerations on both right upper and lower eyelids. NECK: Trachea midline. No JVD. CARDIOVASCULAR: Regular rate and rhythm. No murmur appreciated. RESPIRATORY: No accessory muscle use. Clear to auscultation. Breath sounds equal bilaterally. GASTROINTESTINAL: Abdomen soft, non-tender, nondistended. Hepatic and splenic margins not palpable. MUSCULOSKELETAL: No obvious deformities. No clubbing. No cyanosis. No edema. NEUROLOGICAL: Awake and alert. No obvious cranial nerve deficits. Motor grossly within normal limits. Normal speech. Laboratory Laboratory Tests Test 05/13/17 22:10 White Blood Count 8.0 Red Blood Count 4.26 Hemoglobin 14.0 Hematocrit 39.9 Mean Corpuscular Volume 93.5 Mean Corpuscular Hemoglobin 32.9 Mean Corpuscular Hemoglobin Concent 35.1 Red Cell Distribution Width 13.8 Platelet Count 96 Mean Platelet Volume 8.3 Neutrophils (%) (Auto) 85.9 Lymphocytes (%) (Auto) 7.0 Monocytes (%) (Auto) 6.8 Eosinophils (%) (Auto) 0.0 Basophils (%) (Auto) 0.3 Neutrophils # (Auto) 6.9 Lymphocytes # (Auto) 0.6 Monocytes # (Auto) 0.5 Eosinophils # (Auto) 0.0 Basophils # (Auto) 0.0 CBC Comment AUTO DIFF Differential Comment AUTO DIFF CONFIRMED Platelet Estimate LOW Platelet Morphology Comment NORMAL Prothrombin Time 10.1 Prothromb Time International Ratio 1.0 Activated Partial Thromboplast Time 50.1 Blood Urea Nitrogen 9 Creatinine 1.16 Random Glucose 116 Calcium Level 9.3 Sodium Level 132 Potassium Level 3.1 Chloride Level 94 Carbon Dioxide Level 30.9 Anion Gap 7 Estimat Glomerular Filtration Rate 66 Result Diagram: 05/13/17220905/13/172209 Imaging Last [address] 05/13/172207 Signed Impressions: Service Date/Time: Saturday, May 13, 2017 22:22 - CONCLUSION: Multiple fractures of the right orbit including the inferior orbital wall and comminuted fractures of the medial orbital wall. Intraorbital muscles remain within the orbit. There is associated opacification of the right ethmoids and right maxillary sinus. There is also prominent riya-orbital soft tissue swelling extending into the frontal region. Juan Sun MD Head CT 05/13/172207 Signed Impressions: Service Date/Time: Saturday, May 13, 2017 22:22 - CONCLUSION: 1. Greater than 4 cm parenchymal hematoma left occipital lobe and prominent soft tissue swelling in the right periorbital and frontal region suggests contrecoup injury. No significant mass effect or cerebral edema at this point. 2. Suspected abnormalities in the right orbit, ethmoid sinus, and maxillary sinus. CT facial bones to be performed. Juan Sun MD Chest X-Ray 05/13/172207 Signed Impressions: Service Date/Time: Saturday, May 13, 2017 22:19 - CONCLUSION: No infiltrates seen. No evidence of pneumothorax. Juan Sun MD Cervical Spine CT 05/13/172207 Signed Impressions: Service Date/Time: Saturday, May 13, 2017 22:22 - CONCLUSION: Moderately advanced discogenic degenerative changes C4-C6 with associated retrolisthesis of C4 to C5 and reversal of the upper cervical lordosis. No fracture seen. Juan Sun MD Septic Shock Reassessment Septic shock perfusion: reassessment completed Assessment and Plan Assessment and Plan ICH - Admit to ICU - Likely post fall - Transfuse platelets to keep count of 100 - Neuro checks per unit protocol - Further per neurosurgery - Kecesarra for seizure prophylaxis Multiple fractures of the right orbit - OMFS consultation Thrombocytopenia - EtOH??? - Transfuse to keep count > 100 Possible alcoholism - CIWA protocol - Benzodiazepines indicated DVT GI prophylaxis - Teds SCDs - No pharmacological DVT prophylaxis due to ICH - Early aggressive mobilization - Pepcid Critical Care: The total critical care time was 35 minutes. Time to perform other separately billable procedures was not included in the critical care time. João Jewell MD May 14, 2017 00:21
[2017-05-14] MEDS ORDERED: IOHEXOL 350 MG/ML 10 ML VIAL (for RAD DIAG) IVCONTRAST ONE (00:39)
--- NOTE | 2017-05-14 01:09 | RADRPT ---
EXAM DATE/TIME: 05/14/2017 00:39 [facility] COMPARISON: No previous studies available for comparison. INDICATIONS : Trauma; fall. IV CONTRAST: 94 cc Omnipaque 350 (iohexol) IV ; Cumulative dose for multiple exams. RADIATION DOSE: 12.71 CTDIvol (mGy) ; Combined studies - Thorax/Abdomen/Pelvis MEDICAL HISTORY : Cardiovascular disease. SURGICAL HISTORY : None. ENCOUNTER: Initial ACUITY: 1 day PAIN SCALE: 3/10 LOCATION: chest TECHNIQUE: Volumetric scanning of the chest was performed. Using automated exposure control and adjustment of t he mA and/or kV according to patient size, radiation dose was kept as low as reasonably achievable to obtain optimal diagnostic quality images. DICOM format image data is available electronically for review and comparison. Follow-up recommendations for detected pulmonary nodules are based at a minimum on nodule size and pa tient risk factors according to Fleischner Society Guidelines. FINDINGS: LUNGS: There is no consolidation or pneumothorax. No concerning pulmonary nodule is visualized. PLEURA: There is no pleural thickening or pleural effusion. MEDIASTINUM: The heart and great vessels demonstrate no acute abnormality. There is no mediastinal or hilar lymph adenopathy. AXILLAE: Within normal limits. No lymphadenopathy. SKELETAL: Within normal limits for patient age. MISCELLANEOUS: The visualized upper abdominal organs demonstrate no acute abnormality. CONCLUSION: 1. Negative for acute traumatic injury within the thorax. Fatty infiltration of the liver. Arsh Leslie MD on May 14, 2017 at 1:03 Board Certified Radiologist. This report was verified electronically.
--- NOTE | 2017-05-14 01:24 | RADRPT ---
EXAM DATE/TIME: 05/14/2017 00:39 [facility] COMPARISON: No previous studies available for comparison. INDICATIONS : Trauma; fall. IV CONTRAST: 94 cc Omnipaque 350 (iohexol) IV ; Cumulative dose for multiple exams. ORAL CONTRAST: No oral contrast ingested. RADIATION DOSE: 12.71 CTDIvol (mGy) ; Combined studies - Thorax/Abdomen/Pelvis MEDICAL HISTORY : None SURGICAL HISTORY : None. ENCOUNTER: Initial ACUITY: 1 day PAIN SCALE: 5/10 LOCATION: abdomen TECHNIQUE: Volumetric scanning of the abdomen and pelvis was performed. Using automated exposure control and ad justment of the mA and/or kV according to patient size, radiation dose was kept as low as reasonably achievable to obtain optimal diagnostic quality images. DICOM format image data is available electro nically for review and comparison. FINDINGS: Minimal dependent atelectasis in the lungs. Diffuse fatty liver. Spleen, adrenals, kidneys and pancre as unremarkable. No calcified gallstones or biliary ductal dilatation. No free fluid. No bowel obstruction. No adenopathy. CONCLUSION: 1. Negative for acute traumatic injury within the abdomen or pelvis. Fatty liver. Arsh Leslie MD on May 14, 2017 at 1:20 Board Certified Radiologist. This report was verified electronically.
[2017-05-14] MEDS: levETIRAcetam INJ 500 MG in SODIUM CHLORIDE 0.9% INJ 100 ML IV SCH ×3 (01:43→20:59)
[2017-05-14] MEDS: CHLORHEXIDINE GLUCONATE 2 % 1 PACK (2 CLOTHS) TOP SCH ×2 (03:52→20:01)
[2017-05-14 05:33] LABS: AUTOMATED NEUTROPHIL # 6.2 TH/MM3 (1.8-7.7); BASOPHIL % 0.5 % (0.0-2.0); EOSINOPHIL % 0.1 % (0.0-4.0); HEMATOCRIT 34.8 % (39.0-51.0); HEMOGLOBIN 12.3 GM/DL (13.0-17.0); LYMPH % 9.5 % (9.0-44.0); LYMPHOCYTE # 0.7 TH/MM3 (1.0-4.8); MEAN CELL VOLUME 93.3 FL (80.0-100.0); MEAN CORPUSCULAR HGB CONC 35.4 % (32.0-36.0); MEAN PLATELET VOLUME 8.2 FL (7.0-11.0); MONO % 6.7 % (0.0-8.0); MONOCYTE # 0.5 TH/MM3 (0-0.9); NEUT % 83.2 % (16.0-70.0); PLATELET COUNT 103 TH/MM3 (150-450); RED BLOOD COUNT 3.73 MIL/MM3 (4.50-5.90); RED CELL DISTRIBUTION WIDTH 14.1 % (11.6-17.2); WHITE BLOOD COUNT 7.4 TH/MM3 (4.0-11.0)
[2017-05-14 05:46] LABS: PROTHROMBIN TIME - PATIENT 10.4 SEC (9.8-11.6)
[2017-05-14 06:13] LABS: BICARBONATE 29.7 MEQ/L (21.0-32.0); CALCIUM 8.6 MG/DL (8.5-10.1); CREATININE 0.83 MG/DL (0.60-1.30)
[2017-05-14] MEDS ORDERED: MAGNESIUM SULFATE INJ 2 GM in SODIUM CHLORIDE 0.9% INJ 96 ML IV PRN (07:15)
[2017-05-14] MEDS ORDERED: ICU - D/C ICU ELECTROLYTE ORDERS PRN (07:15)
[2017-05-14] MEDS ORDERED: POTASSIUM PHOSPHATE MONOBASIC 500 MG TAB PO PRN (07:15)
[2017-05-14] MEDS ORDERED: ICU - MAGNESIUM SULFATE 2 GM/NS 100 ML IV PRN ×2 (07:15)
[2017-05-14] MEDS ORDERED: POTASSIUM PHOSPHATE MONOBASIC 500 MG TAB PO/TUBE PRN (07:15)
[2017-05-14] MEDS ORDERED: ICU - SODIUM PHOSPHATE 30 MMOL/NS 250 ML IV PRN ×2 (07:15)
[2017-05-14] MEDS ORDERED: MAGNESIUM SULFATE INJ 4 GM in SODIUM CHLORIDE 0.9% INJ 92 ML IV PRN (07:15)
[2017-05-14] MEDS ORDERED: ICU - MAGNESIUM SULFATE 4 GM/NS 100 ML IV PRN ×2 (07:15)
[2017-05-14] MEDS ORDERED: SODIUM PHOSPHATE INJ 30 MMOL in SODIUM CHLOR 0.9% 250 ML INJ 240 ML IV PRN (07:15)
[2017-05-14] MEDS ORDERED: MAGNESIUM OXIDE 400 MG TAB PO PRN (07:15)
[2017-05-14] MEDS ORDERED: POTASSIUM CHLOR 20 MEQ PREMIX 100 ML IV PRN ×2 (07:15)
[2017-05-14] MEDS ORDERED: POTASSIUM PHOSPHATE INJ 30 MMOL in SODIUM CHLOR 0.9% 250 ML INJ 250 ML IV PRN (07:15)
[2017-05-14] MEDS ORDERED: ICU - CALL ORDERING PHYSICIAN PRN (07:15)
[2017-05-14] MEDS ORDERED: POTASSIUM CHLOR 40 MEQ PREMIX 100 ML IV PRN ×2 (07:15)
[2017-05-14] MEDS ORDERED: ICU - POTASSIUM PHOSPHATE 30 MMOL/NS 250 ML IV PRN ×2 (07:15)
[2017-05-14] MEDS ORDERED: ICU - POTASSIUM CHLORIDE/AQUEOUS SOLN 40 MEQ/100 ML IVPB IV PRN (07:15)
[2017-05-14] MEDS ORDERED: ICU - POTASSIUM PHOSPHATE MONOBASIC 500 MG TAB PO PRN (07:15)
[2017-05-14] MEDS ORDERED: POTASSIUM CHLORIDE 25 MEQ EFFERVESCENT TAB PO PRN (07:15)
[2017-05-14] MEDS ORDERED: ICU - MAGNESIUM OXIDE 400 MG TAB PO PRN (07:15)
[2017-05-14] MEDS ORDERED: LORazepam 2 MG/ML VIAL IV PUSH PRN ×2 (08:30→09:45)
[2017-05-14] MEDS ORDERED: PNEUMOCOCCAL POLYVALENT INJ 25 MCG/0.5 ML SYR IM ONE (09:00)
[2017-05-14] MEDS ORDERED: POTASSIUM CHLORIDE 25 MEQ EFFERVESCENT TAB PO ONE (09:00)
[2017-05-14] MEDS ORDERED: INFLUENZA VIRUS VACCINE (QUADRIVALENT) 0.5 ML SYR IM ONE (09:00)
[2017-05-14] MEDS: DIAZEPAM 5 MG TAB PO SCH ×3 (09:39→23:31)
[2017-05-14] MEDS: DOCUSATE SODIUM 50 MG/SENNA 8.6 MG TAB PO SCH ×2 (09:39→20:00)
[2017-05-14] MEDS: FAMOTIDINE 20 MG/2 ML VIAL IV PUSH SCH ×2 (09:39→20:58)
[2017-05-14] MEDS: ICU - POTASSIUM CHLORIDE/AQUEOUS SOLN 20 MEQ/100 ML IVPB IV PRN (09:40)
[2017-05-14] MEDS: FOLIC ACID 1 MG TAB PO SCH (11:00)
[2017-05-14] MEDS: MULTIVITAMINS/MINERALS THERAPEUTIC TAB PO SCH (11:00)
[2017-05-14] MEDS: THIAMINE HCL 100 MG TAB PO SCH (11:00)
[2017-05-14] MEDS: SODIUM CHLORIDE 1 GRAM TAB PO SCH (11:00)
--- NOTE | 2017-05-14 12:51 | HHI.CCPN ---
Subjective Brief History 51-year-old male came to the emergency room with history of a trip and fall as per him at 3 AM early this morning. Since then he has noticed that both his eyelids have been swelling up and is almost swelling shot so he cannot see. His brought him to the emergency room. Patient denied drinking but as per the he does drink alcohol every day. Currently patient is sober and answering questions. Patient denies any assault. Vital signs are stable. No history of vomiting or loss of consciousness as per the . 24 Hour Review/Hospital Course 05/15 Patient was slightly confused in the morning he urinated to the floor Since then he has been more stable Patient is alcoholic he was started on the CIWA protocol The CT scan of the head is pending, his GCS is [address] scan of the abdomen and pelvis and chest were negative for any injuries Neurosurgical ophthalmology and OMFS consults are pending Objective Vital Signs Date Time Temp Pulse Resp B/P (MAP) Pulse Ox O2 Delivery O2 Flow Rate FiO2 05/14/17 08:00 98.5 85 24 142/74 (96) 98 05/14/17 07:00 Room Air Intake and Output 05/14/17 05/14/17 05/15/17 08:00 16:00 00:00 Intake Total 294 ml Output Total 300 ml Balance -6 ml Result Diagram: 05/14/17 0505 05/14/17 0505 Imaging Last [address] 05/14/17 0000 Signed Impressions: Service Date/Time: Sunday, May 14, 2017 00:39 - CONCLUSION: 1. Negative for acute traumatic injury within the thorax. Fatty infiltration of the liver. Arsh Leslie MD Abdomen/Pelvis CT 05/14/17 0000 Signed Impressions: Service Date/Time: Sunday, May 14, 2017 00:39 - CONCLUSION: 1. Negative for acute traumatic injury within the abdomen or pelvis. Fatty liver. Arsh Leslie MD Maxillofacial CT 05/13/17 2208 Signed Impressions: Service Date/Time: Saturday, May 13, 2017 22:22 - CONCLUSION: Multiple fractures of the right orbit including the inferior orbital wall and comminuted fractures of the medial orbital wall. Intraorbital muscles remain within the orbit. There is associated opacification of the right ethmoids and right maxillary sinus. There is also prominent alyssa-orbital soft tissue swelling extending into the frontal region. Juan Sun MD Head CT 05/13/172207 Signed Impressions: Service Date/Time: Saturday, May 13, 2017 22:22 - CONCLUSION: 1. Greater than 4 cm parenchymal hematoma left occipital lobe and prominent soft tissue swelling in the right periorbital and frontal region suggests contrecoup injury. No significant mass effect or cerebral edema at this point. 2. Suspected abnormalities in the right orbit, ethmoid sinus, and maxillary sinus. CT facial bones to be performed. Juan Sun MD Chest X-Ray 05/13/172207 Signed Impressions: Service Date/Time: Saturday, May 13, 2017 22:19 - CONCLUSION: No infiltrates seen. No evidence of pneumothorax. Juan Sun MD Cervical Spine CT 05/13/172207 Signed Impressions: Service Date/Time: Saturday, May 13, 2017 22:22 - CONCLUSION: Moderately advanced discogenic degenerative changes C4-C6 with associated retrolisthesis of C4 to C5 and reversal of the upper cervical lordosis. No fracture seen. Juan Sun MD Exam ASSEMBLY HAND Guy Coma Score is 15 Hemodynamic/Cardiac Stable Pulmonary/Respiratory Clear breath sounds bilateral Abdomen/GI Nutrition Soft Urinary Catheter Assessment Urinary Catheter: No Vascular Central Line Catheter Vascular Central Line Catheter: No Assessment and Plan Plan Traumatic brain injury with large occipital intraparenchymal hemorrhage, facial fractures, possible injury of the right eye Repeat CT of the head today Continue Keppra, monitor sodium and start patient on salt tablets Continue to monitor in the ICU Donna Menjivar MD May 14, 2017 12:51
[2017-05-14] MEDS ORDERED: LORazepam 2 MG TAB PO ONE (13:00)
--- NOTE | 2017-05-14 13:11 | PD.CONS ---
History of Present Illness Service Neurosurgery Consult Requested By General surgery trauma service Reason for Consult Traumatic brain injury Primary Care Physician Gideon Knight DO Diagnoses: History of Present Illness The patient is a 51-year-old male who reportedly fell from a ladder approximately 3 AM on 05/13/2017. He waited until last evening to come to the emergency room, apparently due to progressive swelling around his eyes. No seizure activity reported. No emesis reported. No definite loss of consciousness. He does have a history of alcohol abuse. He complains of blurred vision. Review of Systems Constitutional: DENIES: Fever Eyes: COMPLAINS OF: Blurred vision Ears, nose, mouth, throat: DENIES: Hearing loss, Vertigo Respiratory: DENIES: Shortness of breath Cardiovascular: DENIES: Chest pain Gastrointestinal: DENIES: Abdominal pain, Nausea, Vomiting Genitourinary: DENIES: Urinary incontinence Musculoskeletal: COMPLAINS OF: Back pain, DENIES: Neck pain Hematologic/lymphatic: COMPLAINS OF: Bruising Neurologic: DENIES: Abnormal gait, Headache Psychiatric: DENIES: Confusion Past Family Social History Allergies: Coded Allergies: No Known Allergies (Unverified Allergy, Unknown, 05/13/17) Past Medical History No history of significant cardiac, gastrointestinal, pulmonary disease, diabetes or hypertension Past Surgical History Knee surgery Reported Medications Reported Meds & Active Scripts Active Citalopram (Citalopram Hydrobromide) 10 Mg Tab 10 Mg PO DAILY Family History Negative cancer, diabetes, cardiac disease Social History Drinks alcohol. No cigarettes Physical Exam Vital Signs Vital Signs Date Time Temp Pulse Resp B/P (MAP) Pulse Ox O2 Delivery O2 Flow Rate FiO2 05/14/17 08:00 98.5 85 24 142/74 (96) 98 05/14/17 07:00 91 05/14/17 07:00 100 Room Air 05/14/17 04:45 142/85 (104) 05/14/17 04:00 99.5 100 35 171/77 (108) 98 05/14/17 03:00 97 Room Air 05/14/17 03:00 142/84 (103) 05/14/17 02:41 101.2 98 22 150/80 (103) 97 05/14/17 01:54 05/14/17 01:45 100.0 91 16 98 05/14/17 00:55 99.7 101 16 157/101 97 05/14/17 00:21 113 16 157/101 (119) 97 05/13/17 22:23 16 98 05/13/17 22:02 98.7 123 20 171/99 (123) 99 Physical Exam GENERAL: This is a well-nourished, well-developed patient, no apparent distress. SKIN: No abrasions, contusion, rash noted. Skin warm and dry. HEAD: Right frontal edema and ecchymosis, subgaleal hematoma. Focal right scalp contusion over the forehead. EYES: Right greater than left periorbital edema, ecchymosis. Right conjunctival edema, ecchymosis ENT: Positive right facial edema and ecchymosis. Positive periorbital edema. No CSF otorrhea or rhinorrhea. No palpable facial fracture or deformity. NECK: Trachea midline. No cervical spine tenderness. CARDIOVASCULAR: Regular rate and rhythm without murmurs, gallops, or rubs. RESPIRATORY: Clear to auscultation. Breath sounds equal bilaterally. No wheezes , rales, or rhonchi. GASTROINTESTINAL: Abdomen soft, non-tender, nondistended. No hepato-splenomegaly , or palpable masses. No guarding. MUSCULOSKELETAL: Extremities without cyanosis, or edema. No joint tenderness, or edema noted. No calf tenderness. Dorsalis pedis pulses 2+ bilateral NEUROLOGICAL: Mild lethargy. Arouses easily to voice Oriented X 3 Speech is mildly slow but clear Conversant and appropriate Follow simple commands well Answers questions appropriately Reasonable judgment and insight Recent and remote memory are intact No evidence of anxiety or depression Pupils are equal and reactive to accommodation. Extra-ocular movements, visual kern to confrontation appear within normal limits, difficult to accurately assess due to periorbital edema. Facial sensorimotor, tongue, palate, sternocleidomastoid testing, hearing to finger rub testing, and bilateral shoulder shrug are all intact. Sensation is intact to light touch in all extremities Strength normal major flexion and extension groups all extremities Miguelina's absent bilaterally No ankle clonus Plantar responses absent bilateral Fine motor movements intact upper extremities Laboratory Laboratory Tests Test 05/13/17 22:10 05/14/17 05:05 White Blood Count 8.0 7.4 Red Blood Count 4.26 3.73 Hemoglobin 14.0 12.3 Hematocrit 39.9 34.8 Mean Corpuscular Volume 93.5 93.3 Mean Corpuscular Hemoglobin 32.9 33.0 Mean Corpuscular Hemoglobin Concent 35.1 35.4 Red Cell Distribution Width 13.8 14.1 Platelet Count 96 103 Mean Platelet Volume 8.3 8.2 Neutrophils (%) (Auto) 85.9 83.2 Lymphocytes (%) (Auto) 7.0 9.5 Monocytes (%) (Auto) 6.8 6.7 Eosinophils (%) (Auto) 0.0 0.1 Basophils (%) (Auto) 0.3 0.5 Neutrophils # (Auto) 6.9 6.2 Lymphocytes # (Auto) 0.6 0.7 Monocytes # (Auto) 0.5 0.5 Eosinophils # (Auto) 0.0 0.0 Basophils # (Auto) 0.0 0.0 CBC Comment AUTO DIFF DIFF FINAL Differential Comment AUTO DIFF CONFIRMED Platelet Estimate LOW Platelet Morphology Comment NORMAL Prothrombin Time 10.1 10.4 Prothromb Time International Ratio 1.0 1.0 Activated Partial Thromboplast Time 27.7 Blood Urea Nitrogen 9 8 Creatinine 1.16 0.83 Random Glucose 116 102 Calcium Level 9.3 8.6 Sodium Level 132 134 Potassium Level 3.1 2.9 Chloride Level 94 97 Carbon Dioxide Level 30.9 29.7 Anion Gap 7 7 Estimat Glomerular Filtration Rate 66 98 Ethyl Alcohol Level LESS THAN 3 Phosphorus Level 1.9 Result Diagram: 05/14/17 0505 05/14/17 0505 Imaging 05/13/2017 CT scan head, cervical spine, maxillofacial CT images are reviewed by the undersigned. Agree with findings as noted below: Chest CT 05/14/17 0000 Signed Impressions: Service Date/Time: Sunday, May 14, 2017 00:39 - CONCLUSION: 1. Negative for acute traumatic injury within the thorax. Fatty infiltration of the liver. Arsh Leslie MD Abdomen/Pelvis CT 05/14/17 0000 Signed Impressions: Service Date/Time: Sunday, May 14, 2017 00:39 - CONCLUSION: 1. Negative for acute traumatic injury within the abdomen or pelvis. Fatty liver. Arsh Leslie MD Maxillofacial CT 05/13/17 2208 Signed Impressions: Service Date/Time: Saturday, May 13, 2017 22:22 - CONCLUSION: Multiple fractures of the right orbit including the inferior orbital wall and comminuted fractures of the medial orbital wall. Intraorbital muscles remain within the orbit. There is associated opacification of the right ethmoids and right maxillary sinus. There is also prominent alyssa-orbital soft tissue swelling extending into the frontal region. Juan Sun MD Head CT 05/13/172207 Signed Impressions: Service Date/Time: Saturday, May 13, 2017 22:22 - CONCLUSION: 1. Greater than 4 cm parenchymal hematoma left occipital lobe and prominent soft tissue swelling in the right periorbital and frontal region suggests contrecoup injury. No significant mass effect or cerebral edema at this point. 2. Suspected abnormalities in the right orbit, ethmoid sinus, and maxillary sinus. CT facial bones to be performed. Juan Sun MD Chest X-Ray 05/13/172207 Signed Impressions: Service Date/Time: Saturday, May 13, 2017 22:19 - CONCLUSION: No infiltrates seen. No evidence of pneumothorax. Juan Sun MD Cervical Spine CT 05/13/172207 Signed Impressions: Service Date/Time: Saturday, May 13, 2017 22:22 - CONCLUSION: Moderately advanced discogenic degenerative changes C4-C6 with associated retrolisthesis of C4 to C5 and reversal of the upper cervical lordosis. No fracture seen. Juan Sun MD Assessment and Plan Assessment and Plan Impression: 1. Traumatic brain injury with left occipital hemorrhagic contusion. 2. Right frontal contusion with subgaleal hematoma 3. Right orbital fracture Plan: Continue ISC neurologic checks Follow-up CT scan 05/14/2017 Non-chemical DVT prophylaxis Ulcer prophylaxis Mobilize out of bed as tolerated Advance diet as tolerated Regan Craven MD May 14, 2017 13:11
[2017-05-14] MEDS: LORazepam 2 MG/ML VIAL IV PUSH PRN (14:00)
[2017-05-14] MEDS: DEXMEDETOMIDINE INJ 200 MCG in SODIUM CHLORIDE 0.9% INJ 50 ML IV PRN ×4 (14:30→23:31)
--- NOTE | 2017-05-14 15:58 | PD.CONS ---
History of Present Illness Service Ophthalmology Consult Requested By Reason for Consult injury to right eye Primary Care Physician Gideon Knight, DO Diagnoses: History of Present Illness 51 yo M who fell 2 nights ago - did not come to the ED until the following day due to progressive swelling around the eyes. CT parenchymal hematoma of the right occipital lobe, inferior and medial wall right orbital fracture. Ophthalmology consulted because the patient was complaining of blurry vision. Currently the pt is very agitated, restrained, and refusing to cooperate or answer questions. Past Family Social History Allergies: Coded Allergies: No Known Allergies (Unverified Allergy, Unknown, 05/13/17) Physical Exam Vital Signs Vital Signs Date Time Temp Pulse Resp B/P (MAP) Pulse Ox O2 Delivery O2 Flow Rate FiO2 05/14/17 15:00 93 05/14/17 12:00 98.4 92 31 140/94 (109) 98 05/14/17 08:00 98.5 85 24 142/74 (96) 98 05/14/17 07:00 91 05/14/17 07:00 100 Room Air 05/14/17 04:45 142/85 (104) 05/14/17 04:00 99.5 100 35 171/77 (108) 98 05/14/17 03:00 97 Room Air 05/14/17 03:00 142/84 (103) 05/14/17 02:41 101.2 98 22 150/80 (103) 97 05/14/17 01:54 05/14/17 01:45 100.0 91 16 98 05/14/17 00:55 99.7 101 16 157/101 97 05/14/17 00:21 113 16 157/101 (119) 97 05/13/17 22:23 16 98 05/13/17 22:02 98.7 123 20 171/99 (123) 99 Physical Exam Va unable EOM full OU CVF unable Pupils 2-1 no APD OU IOP normal to palpation OU Anterior exam OD - eyelid sutures, ecchymoses, ANGELICA, K clear, AC deep, pupil round, lens clear OS - eyelid ecchymoses,ANGELICA, K clear, AC deep, pupil round, lens clear Laboratory Laboratory Tests Test 05/13/17 22:10 05/14/17 05:05 White Blood Count 8.0 7.4 Red Blood Count 4.26 3.73 Hemoglobin 14.0 12.3 Hematocrit 39.9 34.8 Mean Corpuscular Volume 93.5 93.3 Mean Corpuscular Hemoglobin 32.9 33.0 Mean Corpuscular Hemoglobin Concent 35.1 35.4 Red Cell Distribution Width 13.8 14.1 Platelet Count 96 103 Mean Platelet Volume 8.3 8.2 Neutrophils (%) (Auto) 85.9 83.2 Lymphocytes (%) (Auto) 7.0 9.5 Monocytes (%) (Auto) 6.8 6.7 Eosinophils (%) (Auto) 0.0 0.1 Basophils (%) (Auto) 0.3 0.5 Neutrophils # (Auto) 6.9 6.2 Lymphocytes # (Auto) 0.6 0.7 Monocytes # (Auto) 0.5 0.5 Eosinophils # (Auto) 0.0 0.0 Basophils # (Auto) 0.0 0.0 CBC Comment AUTO DIFF DIFF FINAL Differential Comment AUTO DIFF CONFIRMED Platelet Estimate LOW Platelet Morphology Comment NORMAL Prothrombin Time 10.1 10.4 Prothromb Time International Ratio 1.0 1.0 Activated Partial Thromboplast Time 27.7 Blood Urea Nitrogen 9 8 Creatinine 1.16 0.83 Random Glucose 116 102 Calcium Level 9.3 8.6 Sodium Level 132 134 Potassium Level 3.1 2.9 Chloride Level 94 97 Carbon Dioxide Level 30.9 29.7 Anion Gap 7 7 Estimat Glomerular Filtration Rate 66 98 Ethyl Alcohol Level LESS THAN 3 Phosphorus Level 1.9 Result Diagram: 05/14/17 0505 05/14/17 0505 Assessment and Plan Problem List: (1) Traumatic ecchymosis of eyelid ICD Codes: S00.10XA - Contusion of unspecified eyelid and periocular area, initial encounter Plan: s/p sutures to RUL. No ocular seen on exam. (2) Subconjunctival hemorrhage of both eyes ICD Codes: H11.33 - Conjunctival hemorrhage, bilateral Plan: Will resolve on its own. Unable to check vision due to lack of cooperation. Follow up as outpatient PRN. Marilyn Gonzalez MD May 14, 2017 15:58
--- NOTE | 2017-05-14 16:37 | MB ---
cc: FEDERICO WAY DMD DATE OF CONSULTATION 05/14/2017 REASON FOR CONSULTATION Facial fractures. HISTORY OF THE PRESENT ILLNESS There is a 51-year-old male who apparently tripped and fell early yesterday morning. He did not come to the ER until the evening because he noticed that his eyes began to swell up bilaterally. He has got a history of alcohol use daily. I have seen and examined this patient today. His nurse is at bedside. She is feeding him lunch. He is alert, awake but not very oriented. He denies any facial pain. Any visual disturbances. PAST MEDICAL HISTORY As per the report. History of anxiety. ALLERGIES NO KNOWN DRUG ALLERGIES. MEDICATIONS Citalopram. SOCIAL HISTORY Drains alcohol. PHYSICAL EXAMINATION VITAL SIGNS: Temperature 98.5, pulse is 85, respirations 24, blood pressure 142/74, oxygen saturation of 98%. HEAD AND NECK: Examination of the facial and nasal bones have been palpated. No crepitus. No tenderness noted. Bilateral periorbital ecchymosis and edema that is noted. Able to gently open up the eyes. He has got bilateral subconjunctival hemorrhage. Pupils are equal, round, react to light and accommodation. Extraocular movements are intact. No entrapment noted. Appears to have positive good visual acuity. Has got some little bruising, some edema on the forehead but no gross tenderness to palpation at this point. The rest of the facial bones have been palpated. Bite appears to be in occlusion. No tenderness. No false point of movement of the maxilla or the mandible. IMAGING The CT scan of the facial bones shows a minimally displaced right orbital floor fracture. Appears to have an maxillary sinus fracture. Appears to have an old fracture of the left zygoma. Also the right orbital wall appears to have a fracture extending to the medial orbital wall. I do not appreciate any entrapment clinically or radiographically. Fluid levels noted in the right maxillary sinus. LABORATORY DATA White count is 10.4 with H&H of 12.3 and 34.8 with platelets of 103. PT is 10.4. INR is 1.0. IMPRESSION AND PLAN This is a 51-year-old male status post fall with bilateral periorbital edema / ecchymosis, appears to be slowly resolving. Minimally displaced right orbital floor fracture, nondisplaced right maxillary sinus fracture. Fluid in the right maxillary sinus. Appears to have also some old fractures on the left zygoma region. At this point surgical intervention needed from oral maxillofacial surgery standpoint. Advised the patient be with on sinus precautions. Ice on bilateral face / eye region 20 minutes on and 20 minutes off for 24 hours. Oral maxillofacial surgery service signing off. Please recall as required. Federico Way DMD RRT/FRANCK /2:05 PM /4:02 PM
--- NOTE | 2017-05-14 17:05 | EKG ---
Date Performed: 05/13/2017 Time Performed: 22:10:54 PTAGE: 51 years EKG: SINUS TACHYCARDIA ABNORMAL RHYTHM ECG Compared to prior tracing, rate has increased DOCTOR: Mike Ni Interpretating Date/Time 05/14/2017 17:04:22
--- NOTE | 2017-05-14 20:10 | RADRPT ---
EXAM DATE/TIME: 05/14/2017 19:31 [facility] COMPARISON: CT BRAIN W/O CONTRAST, May 13, 2017, 22:22. INDICATIONS : Altered mental status. RADIATION DOSE: 55.69 CTDIvol (mGy) MEDICAL HISTORY : Stroke. SURGICAL HISTORY : Non-responsive. ENCOUNTER: Initial ACUITY: 1 day PAIN SCALE: Non-responsive LOCATION: Bilateral head TECHNIQUE: Multiple contiguous axial images were obtained of the head. Using automated exposure control and adj ustment of the mA and/or kV according to patient size, radiation dose was kept as low as reasonably a chievable to obtain optimal diagnostic quality images. DICOM format image data is available electro nically for review and comparison. FINDINGS: Stable lobular shape hematoma in the left posterior parasagittal occipital lobe. The opacity and siz e is unchanged. The ventricles are similar in appearance. No new areas of hemorrhage seen. No evid ence of intraventricular blood. No midline shift. Posterior fossa structures are intact. Wide wind ows for bony detail demonstrate the calvarium to be intact. There is stable opacification of the rig ht maxillary sinus and stable soft tissue swelling/hematoma in the right frontal and periorbital renée on measuring up to 1.7 cm. CONCLUSION: No acute findings. Stable 4 cm left occipital hematoma and stable right frontal scalp swelling/hemat dano. Juan Sun MD on May 14, 2017 at 20:05 Board Certified Radiologist. This report was verified electronically.
[2017-05-15] VITALS (9 sets, daily range): BP systolic 125–153; BP diastolic 79–89; PULSE 82–98; RESP 23–36; TEMP 98.6–99.5; O2SAT 90–100
[2017-05-15] MEDS: ICU - POTASSIUM CHLORIDE/AQUEOUS SOLN 20 MEQ/100 ML IVPB IV PRN ×6 (00:19→21:12)
[2017-05-15] MEDS: LORazepam 2 MG/ML VIAL IV PUSH PRN ×6 (02:43→22:52)
[2017-05-15] MEDS: DEXMEDETOMIDINE INJ 200 MCG in SODIUM CHLORIDE 0.9% INJ 50 ML IV PRN ×4 (02:46→08:55)
--- NOTE | 2017-05-15 05:21 | RADRPT ---
EXAM DATE/TIME: 05/15/2017 05:06 [facility] COMPARISON: CT BRAIN W/O CONTRAST, May 14, 2017, 19:31. INDICATIONS : Follow bleed. RADIATION DOSE: 60.21 CTDIvol (mGy) ; Tabletop CT Head MEDICAL HISTORY : Non-responsive. SURGICAL HISTORY : Non-responsive. ENCOUNTER: Subsequent ACUITY: 1 day PAIN SCALE: Non-responsive LOCATION: cranial TECHNIQUE: Multiple contiguous axial images were obtained of the head. Using automated exposure control and adj ustment of the mA and/or kV according to patient size, radiation dose was kept as low as reasonably a chievable to obtain optimal diagnostic quality images. DICOM format image data is available electro nically for review and comparison. FINDINGS: Reidentified is a hematoma in the left occipital lobe with surrounding edema. On the current examinat ion the area of edema and hemorrhage measures approximately 6 cm in maximal dimension, previously 5.3 cm. There is a small amount of intraventricular hemorrhage in the posterior horn of left lateral tiffanie tricle. Opacification of the right maxillary sinus and ethmoid air cells is identified. There is righ t frontal scalp hematoma. CONCLUSION: Left occipital hematoma and right frontal scalp hematoma identified. The extent of edema in the left occipital lobe is slightly increased in size today. Dion Lugo MD on May 15, 2017 at 5:17 Board Certified Radiologist. This report was verified electronically.
[2017-05-15] MEDS: SODIUM CHLOR 0.9% 1000 ML INJ 1,000 ML IV SCH ×2 (05:29→10:41)
[2017-05-15 06:48] LABS: AUTOMATED NEUTROPHIL # 5.6 TH/MM3 (1.8-7.7); BASOPHIL % 0.6 % (0.0-2.0); EOSINOPHIL % 0.2 % (0.0-4.0); HEMATOCRIT 33.7 % (39.0-51.0); LYMPH % 10.4 % (9.0-44.0); LYMPHOCYTE # 0.7 TH/MM3 (1.0-4.8); MEAN CORPUSCULAR HEMOGLOBIN 33.3 PG (27.0-34.0); MEAN CORPUSCULAR HGB CONC 35.5 % (32.0-36.0); MEAN PLATELET VOLUME 8.8 FL (7.0-11.0); MONOCYTE # 0.4 TH/MM3 (0-0.9); NEUT % 82.8 % (16.0-70.0); PLATELET COUNT 83 TH/MM3 (150-450); RED BLOOD COUNT 3.58 MIL/MM3 (4.50-5.90); RED CELL DISTRIBUTION WIDTH 13.7 % (11.6-17.2); WHITE BLOOD COUNT 6.8 TH/MM3 (4.0-11.0)
[2017-05-15 07:09] LABS: ALBUMIN 2.7 GM/DL (3.4-5.0); AST (GOT) 217 U/L (15-37); BICARBONATE 23.1 MEQ/L (21.0-32.0); BLOOD UREA NITROGEN 9 MG/DL (7-18); CALCIUM 8.4 MG/DL (8.5-10.1); CHLORIDE 100 MEQ/L (98-107); CREATININE 0.57 MG/DL (0.60-1.30); GLOMERULAR FILTRATION RATE 151 ML/MIN (>89); GLUCOSE,RANDOM 83 MG/DL (74-106); SODIUM (NA) 132 MEQ/L (136-145)
[2017-05-15 07:11] LABS: ALT (GPT) 135 U/L (12-78)
[2017-05-15 07:12] LABS: ALKALINE PHOSPHATASE 145 U/L (45-117); TOTAL PROTEIN 6.4 GM/DL (6.4-8.2)
[2017-05-15 07:44] LABS: BANDS 15 % (0-6); BASOPHILS 2 % (0-2); LYMPHOCYTES 14 % (9-44); MONOCYTES 1 % (0-8); NEUTROPHIL # MANUAL DIFF 5.6 TH/MM3 (1.8-7.7); POLYS (SEG NEUTROPHILS) 68 % (16-70)
[2017-05-15] MEDS: DIAZEPAM 5 MG TAB PO SCH ×2 (08:36→18:24)
[2017-05-15] MEDS: SODIUM CHLORIDE 1 GRAM TAB PO SCH (08:36)
[2017-05-15] MEDS: levETIRAcetam INJ 500 MG in SODIUM CHLORIDE 0.9% INJ 100 ML IV SCH ×2 (08:36→20:36)
[2017-05-15] MEDS: FOLIC ACID 1 MG TAB PO SCH (08:36)
[2017-05-15] MEDS: FAMOTIDINE 20 MG/2 ML VIAL IV PUSH SCH ×2 (08:36→20:37)
[2017-05-15] MEDS: MULTIVITAMINS/MINERALS THERAPEUTIC TAB PO SCH (08:36)
[2017-05-15] MEDS: DOCUSATE SODIUM 50 MG/SENNA 8.6 MG TAB PO SCH ×2 (08:36→20:37)
[2017-05-15] MEDS: THIAMINE HCL 100 MG TAB PO SCH (08:36)
--- NOTE | 2017-05-15 09:45 | HHI.NSPN ---
History Interval History History of Present Illness The patient is a 51-year-old male who reportedly fell from a ladder approximately 3 AM on 05/13/2017. He waited until last evening to come to the emergency room, apparently due to progressive swelling around his eyes. No seizure activity reported. No emesis reported. No definite loss of consciousness. He does have a history of alcohol abuse. He complains of blurred vision. 05/15/17: Remains confused. He was agitated last evening-placed on Precedex Exam Results Vital Signs Date Time Temp Pulse Resp B/P (MAP) Pulse Ox O2 Delivery O2 Flow Rate FiO2 05/15/17 04:00 98.9 88 30 144/89 (107) 91 05/14/17 20:00 Room Air Intake and Output 05/15/17 05/15/17 05/15/17 07:59 15:59 23:59 Intake Total 1860 ml Output Total 850 ml Balance 1010 ml Physical Examination Patient is in bed in 4. restraints He has mild to moderate dysarthria, moderate slowing of speech and thought processes. He does not know where he is. Remains moderately confused with mild agitation. Pupils mid range reactive. Facial motor intact. Extraocular movements and visual kern to confrontation intact Sensation intact light touch all extremities Moves all extremities with good strength to command Lab, Micro, Other Results 05/15/2017 CT scan head images reviewed by the undersigned. Relatively stable left occipital hemorrhagic contusion. Head CT 05/15/17 0600 Signed Impressions: Service Date/Time: Monday, May 15, 2017 05:06 - CONCLUSION: Left occipital hematoma and right frontal scalp hematoma identified. The extent of edema in the left occipital lobe is slightly increased in size today. Dion Lugo MD Laboratory Tests Test 05/14/17 23:07 05/15/17 05:30 Potassium Level 3.2 MEQ/L 3.8 MEQ/L White Blood Count 6.8 TH/MM3 Red Blood Count 3.58 MIL/MM3 Hemoglobin 12.0 GM/DL Hematocrit 33.7 % Mean Corpuscular Volume 94.0 FL Mean Corpuscular Hemoglobin 33.3 PG Mean Corpuscular Hemoglobin Concent 35.5 % Red Cell Distribution Width 13.7 % Platelet Count 83 TH/MM3 Mean Platelet Volume 8.8 FL Neutrophils (%) (Auto) 82.8 % Lymphocytes (%) (Auto) 10.4 % Monocytes (%) (Auto) 6.0 % Eosinophils (%) (Auto) 0.2 % Basophils (%) (Auto) 0.6 % Neutrophils # (Auto) 5.6 TH/MM3 Lymphocytes # (Auto) 0.7 TH/MM3 Monocytes # (Auto) 0.4 TH/MM3 Eosinophils # (Auto) 0.0 TH/MM3 Basophils # (Auto) 0.0 TH/MM3 CBC Comment AUTO DIFF Differential Total Cells Counted 100 Neutrophils % (Manual) 68 % Band Neutrophils % 15 % Lymphocytes % 14 % Monocytes % 1 % Basophils % 2 % Neutrophils # (Manual) 5.6 TH/MM3 Differential Comment FINAL DIFF MANUAL Platelet Estimate LOW Platelet Morphology Comment NORMAL Blood Urea Nitrogen 9 MG/DL Creatinine 0.57 MG/DL Random Glucose 83 MG/DL Total Protein 6.4 GM/DL Albumin 2.7 GM/DL Calcium Level 8.4 MG/DL Alkaline Phosphatase 145 U/L Aspartate Amino Transf (AST/SGOT) 217 U/L Alanine Aminotransferase (ALT/SGPT) 135 U/L Total Bilirubin 1.0 MG/DL Sodium Level 132 MEQ/L Chloride Level 100 MEQ/L Carbon Dioxide Level 23.1 MEQ/L Anion Gap 9 MEQ/L Estimat Glomerular Filtration Rate 151 ML/MIN Medical Decision Making Impression and Plan Impression: 1. Traumatic brain injury with left occipital hemorrhagic contusion. Relatively stable on follow-up CT scan of 05/15/17-mild increased edema. 2. Right frontal scalp contusion with subgaleal hematoma 3. Right orbital fracture Plan: Continue ISC neurologic checks Discussed with nursing staff. Weaning off Precedex as tolerated today Continue Non-chemical DVT prophylaxis Ulcer prophylaxis Mobilize out of bed as tolerated Advance diet as tolerated Regan Craven MD May 15, 2017 09:45
[2017-05-15] MEDS: SODIUM CHLORIDE 23.4% INJ 188 MEQ in SODIUM CHLOR 0.9% 1000 ML INJ 1,000 ML IV SCH (10:41)
[2017-05-15] MEDS ORDERED: DEXMEDETOMIDINE INJ 1,000 MCG in SODIUM CHLOR 0.9% 250 ML INJ 240 ML IV PRN (13:00)
--- NOTE | 2017-05-15 15:30 | HHI.CCPN ---
Subjective Brief History 51-year-old male came to the emergency room with history of a trip and fall as per him at 3 AM early this morning. Since then he has noticed that both his eyelids have been swelling up and is almost swelling shot so he cannot see. His brought him to the emergency room. Patient denied drinking but as per the he does drink alcohol every day. Currently patient is sober and answering questions. Patient denies any assault. Vital signs are stable. No history of vomiting or loss of consciousness as per the . 24 Hour Review/Hospital Course 05/15 Patient was slightly confused in the morning he urinated to the floor Since then he has been more stable Patient is alcoholic he was started on the CIWA protocol The CT scan of the head is pending, his GCS is [address] scan of the abdomen and pelvis and chest were negative for any injuries Neurosurgical ophthalmology and OMFS consults are pending 05/15/2017 This morning patient is somewhat confused but awake Adamantly denies alcohol use however went into delirium tremens had to be placed on Precedex drip and CIWA protocol Pupils equal reactive bruising over the both orbits and forehead Hemodynamically stable Bilateral good breath sounds Neurologically patient remains stable and can transfer to the floor once off Precedex Patient remains in the ICU due to delirium tremens and no specific traumatic injury Objective Vital Signs Date Time Temp Pulse Resp B/P (MAP) Pulse Ox O2 Delivery O2 Flow Rate FiO2 05/15/17 15:00 89 05/15/17 12:00 99.1 24 132/80 (97) 95 05/15/17 08:00 Room Air Intake and Output 05/15/17 05/15/17 05/16/17 08:00 16:00 00:00 Intake Total 1860 ml Output Total 850 ml Balance 1010 ml Result Diagram: 05/15/17 0530 05/15/17 0530 Imaging Last [address] 05/15/17 0600 Signed Impressions: Service Date/Time: Monday, May 15, 2017 05:06 - CONCLUSION: Left occipital hematoma and right frontal scalp hematoma identified. The extent of edema in the left occipital lobe is slightly increased in size today. Dion Lugo MD Exam [employer] This morning patient is somewhat confused but awake Adamantly denies alcohol use however went into delirium tremens had to be placed on Precedex drip and CIWA protocol Pupils equal reactive bruising over the both orbits and forehead Hemodynamic/Cardiac Hemodynamically intact Pulmonary/Respiratory Hemodynamically stable Bilateral good breath sounds Neurologically patient remains stable and can transfer to the floor once off Precedex Patient remains in the ICU due to delirium tremens and no specific traumatic injury Abdomen/GI Nutrition Abdomen soft diet tolerated Metabolic/Acid-Base Preserved renal function Assessment and Plan Plan Traumatic brain injury with large occipital intraparenchymal hemorrhage, facial fractures, possible injury of the right eye Repeat CT of the head today Continue Keppra, monitor sodium and start patient on salt tablets Continue to monitor in the ICU Attestation Critical care time 32 minutes Douglas Tinsley MD May 15, 2017 15:30
--- NOTE | 2017-05-15 18:12 | HHI.CCPN ---
Subjective Remarks/Hospital Course Hospital Course: 51-year-old male came to the emergency room with history of a trip and fall as per him at 3 AM early this morning. Since then he has noticed that both his eyelids have been swelling up and is almost swelling shot so he cannot see. His brought him to the emergency room. Patient denied drinking but as per the he does drink alcohol every day. Currently patient is sober and answering questions. Patient denies any assault. Vital signs are stable. No history of vomiting or loss of consciousness as per the . Subjective: 05/15: still delirious, in etoh withdraw. some increase in cerebral edema, bleeds stable in size. remains on precedex. Objective Vital Signs Date Time Temp Pulse Resp B/P (MAP) Pulse Ox O2 Delivery O2 Flow Rate FiO2 05/15/17 15:00 89 05/15/17 12:00 99.1 24 132/80 (97) 95 05/15/17 08:00 Room Air Intake and Output 05/15/17 05/15/17 05/16/17 08:00 16:00 00:00 Intake Total 1860 ml Output Total 850 ml Balance 1010 ml Result Diagram: 05/15/17 0530 05/15/17 1615 Imaging Last [address] 05/13/172207 Signed Impressions: Service Date/Time: Saturday, May 13, 2017 22:22 - CONCLUSION: Multiple fractures of the right orbit including the inferior orbital wall and comminuted fractures of the medial orbital wall. Intraorbital muscles remain within the orbit. There is associated opacification of the right ethmoids and right maxillary sinus. There is also prominent alyssa-orbital soft tissue swelling extending into the frontal region. Juan Sun MD Head CT 05/13/172207 Signed Impressions: Service Date/Time: Saturday, May 13, 2017 22:22 - CONCLUSION: 1. Greater than 4 cm parenchymal hematoma left occipital lobe and prominent soft tissue swelling in the right periorbital and frontal region suggests contrecoup injury. No significant mass effect or cerebral edema at this point. 2. Suspected abnormalities in the right orbit, ethmoid sinus, and maxillary sinus. CT facial bones to be performed. Juan Sun MD Chest X-Ray 05/13/172207 Signed Impressions: Service Date/Time: Saturday, May 13, 2017 22:19 - CONCLUSION: No infiltrates seen. No evidence of pneumothorax. Juan Sun MD Cervical Spine CT 05/13/172207 Signed Impressions: Service Date/Time: Saturday, May 13, 2017 22:22 - CONCLUSION: Moderately advanced discogenic degenerative changes C4-C6 with associated retrolisthesis of C4 to C5 and reversal of the upper cervical lordosis. No fracture seen. Juan Sun MD Objective Remarks GENERAL: Awake, CAM+, delirious. 4-point restraints. SKIN: Focused skin assessment warm/dry. Multiple old bruises on bilateral shins. Patient has significant periorbital ecchymosis bilaterally. HEAD: Patient has some abrasions on the scalp on the vertex EYES: Pupils equal and round. ENT: No nasal bleeding or discharge. Mucous membranes pink and moist. Severe bilateral periorbital ecchymosis. NECK: Trachea midline. No JVD. CARDIOVASCULAR: Regular rate and rhythm. RESPIRATORY: No accessory muscle use. equal chest rise. GASTROINTESTINAL: Abdomen soft, non-tender, nondistended. MUSCULOSKELETAL: No obvious deformities. No clubbing. No cyanosis. No edema. NEUROLOGICAL: RASS +1. CAM+. follows commands. very agitated and delirious. A/P Assessment and Plan Assessment: 51yM with etoh withdraw and ICH s/p fall. Agitated Delirium remains severe requiring iv sedation with dexmedetomidine. continue to wean as tolerated. frequent neuro checks for ICH. Agree with 2% for cerebral edema. Agitated Delirium Etoh Withdraw - scheduled benzos - precedex - frequent neuro checks - difficult to balance benzos/sedatives for etoh withdraw with need for accurate neuro assessment with ICH. ICH - remain in ICU - Likely post fall - Transfuse platelets to keep count of 100 - Neuro checks per unit protocol - Further per neurosurgery - Fadyra for seizure prophylaxis Multiple fractures of the right orbit - OMFS consultation: non-op Thrombocytopenia - EtOH??? - Transfuse to keep count > 100 - 4t score: low probability for HIT. no recent heparin exposure. DVT GI prophylaxis - Teds SCDs - No pharmacological DVT prophylaxis due to ICH - Early aggressive mobilization - Panchito Cheney MD May 15, 2017 18:12
[2017-05-16] VITALS (7 sets, daily range): BP systolic 110–141; BP diastolic 67–80; PULSE 85–104; RESP 24–35; TEMP 98.5–101.8; O2SAT 93–97
[2017-05-16] MEDS: DIAZEPAM 5 MG TAB PO SCH ×3 (01:00→17:25)
[2017-05-16] MEDS: SODIUM CHLOR 0.9% 1000 ML INJ 1,000 ML IV SCH ×3 (01:30→11:36)
[2017-05-16] MEDS: CHLORHEXIDINE GLUCONATE 2 % 1 PACK (2 CLOTHS) TOP SCH (01:57)
[2017-05-16 05:22] LABS: AUTOMATED NEUTROPHIL # 6.9 TH/MM3 (1.8-7.7); BASOPHIL % 0.6 % (0.0-2.0); EOSINOPHIL % 0.2 % (0.0-4.0); HEMATOCRIT 32.7 % (39.0-51.0); HEMOGLOBIN 11.6 GM/DL (13.0-17.0); LYMPH % 12.8 % (9.0-44.0); LYMPHOCYTE # 1.1 TH/MM3 (1.0-4.8); MEAN CORPUSCULAR HEMOGLOBIN 33.4 PG (27.0-34.0); MEAN CORPUSCULAR HGB CONC 35.5 % (32.0-36.0); MEAN PLATELET VOLUME 8.5 FL (7.0-11.0); MONO % 7.5 % (0.0-8.0); MONOCYTE # 0.7 TH/MM3 (0-0.9); NEUT % 78.9 % (16.0-70.0); PLATELET COUNT 95 TH/MM3 (150-450); RED BLOOD COUNT 3.48 MIL/MM3 (4.50-5.90); RED CELL DISTRIBUTION WIDTH 13.7 % (11.6-17.2); WHITE BLOOD COUNT 8.7 TH/MM3 (4.0-11.0)
[2017-05-16 05:43] LABS: ALBUMIN 2.4 GM/DL (3.4-5.0); ALT (GPT) 91 U/L (12-78); AST (GOT) 103 U/L (15-37); BICARBONATE 22.3 MEQ/L (21.0-32.0); BLOOD UREA NITROGEN 12 MG/DL (7-18); CALCIUM 7.7 MG/DL (8.5-10.1); CHLORIDE 98 MEQ/L (98-107); CREATININE 0.59 MG/DL (0.60-1.30); GLOMERULAR FILTRATION RATE 145 ML/MIN (>89); GLUCOSE,RANDOM 85 MG/DL (74-106); SODIUM (NA) 130 MEQ/L (136-145)
[2017-05-16 05:44] LABS: ALKALINE PHOSPHATASE 130 U/L (45-117); TOTAL BILIRUBIN ADULT 0.9 MG/DL (0.2-1.0); TOTAL PROTEIN 6.2 GM/DL (6.4-8.2)
[2017-05-16] MEDS: ICU - POTASSIUM CHLORIDE/AQUEOUS SOLN 20 MEQ/100 ML IVPB IV PRN ×2 (05:47→07:57)
[2017-05-16 06:44] LABS: BANDS 17 % (0-6); LYMPHOCYTES 10 % (9-44); MONOCYTES 5 % (0-8); NEUTROPHIL # MANUAL DIFF 7.4 TH/MM3 (1.8-7.7); POLYS (SEG NEUTROPHILS) 68 % (16-70)
[2017-05-16] MEDS: FAMOTIDINE 20 MG/2 ML VIAL IV PUSH SCH ×2 (08:01→20:14)
[2017-05-16] MEDS: FOLIC ACID 1 MG TAB PO SCH (08:01)
[2017-05-16] MEDS: DOCUSATE SODIUM 50 MG/SENNA 8.6 MG TAB PO SCH ×2 (08:01→20:04)
[2017-05-16] MEDS: MULTIVITAMINS/MINERALS THERAPEUTIC TAB PO SCH (08:01)
[2017-05-16] MEDS: THIAMINE HCL 100 MG TAB PO SCH (08:01)
[2017-05-16] MEDS: SODIUM CHLORIDE 0.9% FLUSH 10 ML FLUSH IVF PRN ×2 (08:01→20:15)
[2017-05-16] MEDS: levETIRAcetam INJ 500 MG in SODIUM CHLORIDE 0.9% INJ 100 ML IV SCH (08:01)
--- NOTE | 2017-05-16 08:23 | PD.HHIRBSE ---
Patient History Record/History Review Reason for Referral: The patient is a 51 year old right handed male status post traumatic brain injury secondary to a fall from a ladder sustained on 05/13/2017. His GCS was 15 on admission. He has a history of ETOH abuse. Head CT showed left occipital hemorrhage contusion. Presently, he is in alcohol withdrawals and has been placed on CIWA protocol and Precedex drip. He is referred for baseline neurobehavioral status examination per trauma protocol to assess cognitive, behavioral and emotional aspects of the injury and to provide treatment recommendations. Neuropsych Precautions: To be determined. Past Surgical/Medical History Past Surgery: Yes (right knee) Major surgery in last 100 days: Unknown Hx Anesthesia Reactions: No Hx Orthopedic Surgery: Yes (right hand ) Hx Cardiac Surgery: No Hx Chest Surgery: No Hx Abdominal Surgery: No Hx Genitourinary Surgery: No Hx Endocrine Surgery: No Hx Eye Surgery: No Hx Ear Surgery: No Hx Oral Surgery: Yes History of Transplant: No Hx Seizures: No Cephalgia (Headaches): Yes Hx Migraines: Yes Hx Head Injury: No Hx Falls: Yes (2018) Hx Cerebrovascular Accident: No Hx Dizziness: No Hx Numbness: No Hx Arthritis: Yes (hands ) Hx Osteoporosis: No Hx Neck Problems: No Hx Back Problem: Yes (pain, back goes out) Hx of Cardiovascular Prob: No Hypertension (High Blood Press: No Hx Clotting Problems: No Venous Thromboembolism Present: No Hx Chest Pain: No Hx Lightheadedness: No Hx Congestive Heart Failure: No Syncope (Fainting): Yes Hx of Respiratory Problem: No Hx Asthma: No Hx Wheezing: No Hx Chronic Obstructive Pulmona: No Hx Dyspnea: No Hx Snoring: No Hx Emphysema: No Hx Sleep Apnea: No Hx of GI Problems: No (black and bloody stools prior to admission) Hx Heartburn: Yes (rare) Hx Hiatal Hernia: No Hx Ulcer: No Hx Liver Disease: Yes Hx Gallbladder Disease: No Hx Inflammatory Bowel Disease: No Hx of Problems: No Hx of Immuno Disor: No Hx Autoimmune Disease: No Hx of Endocrine Problems: No Hx Thyroid Disease: No Hx Diabetes: No Hx of Eye Probl: No Hx Dental Problems: Yes Dental Problems: Chipped Teeth Hx Anxiety: Yes Hx Blood Dyscrasias: No Hx of MDRO: No Hx of Tuberculosis: No Hx Chicken Pox: Yes Hx Measles: Yes Hx of Body/Medical Devices: No Blood Transfusion History Will receive Blood /Blood prod: Yes Hx Blood Transfusions: No Medication Active Medications Dexmedetomidine HCl 1000 mcg/ Sodium Chloride 250 ml @ 4.33 mls/hr TITRATE PRN IV Last administered on 05/15/17at 13:28; Admin Dose 17.34 MLS/HR; Start 03/20 at 13:00 Sodium Chloride 188 meq/Sodium Chloride 1,047 ml @ 40 mls/hr Q24H IV Last administered on 05/15/17at 10:41; Admin Dose 40 MLS/HR; Start 05/15/17 at 11:00 Mental Status Assessment Orientation: oriented to Self, disoriented to Place, disoriented to Time, disoriented to Situation Mental Status: WFL: Language/Interactions, Impaired: Thought processing, Attention, Learning/Memory, Problem-Solving Observation The patient is alert but only consistently oriented to person; he is not consistently oriented to place, time and circumstances surrounding the reason for hospitalization. In terms of attention skills, the patient was able to remain on task and remember basic but not complex instructions. In terms of memory functioning, the patient was unable] to demosntrate adequate carryover of information. The patient initiated spontaneous conversation. Speech was characterized by adequate prosody, grammar, articulation, volume and rate. Basic naming skills were intact. Language repetition skills were deferred. The patients comprehensions for basic one- and two-stage commands was attenuated by his delirium. Basic verbal abstraction and problem-solving skills were deferred. The patient appears to posses poor insight and awareness into their situation and within the limits of this brief evaluation, poor judgment. Adjustment/Coping Assessment Adjustment/Coping: Severe: Awareness, Insight Observation The patients thought content was free from suicidal, homicidal or paranoid ideation, and the patients thought processes were tangential and bradyphrenic. The patients mood was anxious, and the affect was labile. LTG Status: Deferred STG Status: Deferred Team Members: Neuropsychologist Behavior Assessment Agitation: Moderate Treatment Engagement: Minimal Observation Behaviorally, the patient demonstrated signs of agitation, impulsivity and disinhibition related to his withdrawal issues. There was no remarkable evidence of a formal thought disorder or psychosis. LTG - Status: Deferred STG Status: Deferred Team Members: Neuropsychologist Diagnosis/Discharge Plan Impression 51 year old male s/p TBI 2T fall from ladder on 05/13/2017, now in alcohol withdrawals. Diagnosis: (1) Alcohol dependence in controlled environment (2) Mild major neurocognitive disorder due to traumatic brain injury with behavioral disturbance [facility] Level: IV:Confused/Agitated-maximal assist Maximizing acute care outcome It is recommended that the patient be monitored for emergent behavioral impulsivity as the medical condition evolves. This patients neuropathological challenges may limit his rehabilitation potential going forward, and these challenges will require specialized therapeutic skills to maximize outcome. At this point in the recovery process, the patient does not have cognitive capacity as the patient is unable to understand a situation and its likely consequences, nor is he able to manipulate information rationally. Cognitive capacity will be assessed throughout the recovery process. Discharge Planning Anticipated Problems Ongoing areas of concern will include behavioral impulsivity, lack of insight and judgment, which is expected to improve with time and treatment. Presently , the patient is in delirium 2T alcohol withdrawals. Given the severity of the patient's injuries it is my clinical opinion that this patient will be unable to return to any type of productive employment for at least one year, perhaps longer and likely never. This patient is not considered safe to discharge home with supervision. Treatment Plan This clinician will continue to follow with you throughout the course of this patients critical care treatment, and I will be available to meet with the patients family/support system to facilitate their understanding and the ongoing care of their family member. The goals of neuropsychological intervention shall be both educational and supportive to the family/support system as is deemed clinically appropriate. Discharge Needs To be determined. Thank you Thank you for the opportunity to assist in this patients care. Meño Angel, Ph.D., ABPP Board Certified in Clinical Neuropsychology [place] [employer] [place] Licensed Psychologist #[id number] Meño Angel PhD May 16, 2017 8:23 am
--- NOTE | 2017-05-16 08:59 | HHI.NSPN ---
(Andi Green) History Chief Complaint: Cough (Eriberto Greeneden SHI) Interval History 05/14: The patient is a 51-year-old male who reportedly fell from a ladder approximately 3 AM on 05/13/2017. He waited until last evening to come to the emergency room, apparently due to progressive swelling around his eyes. No seizure activity reported. No emesis reported. No definite loss of consciousness. He does have a history of alcohol abuse. He complains of blurred vision. 05/15/17: Remains confused. He was agitated last evening-placed on Precedex 05/16: This morning the patient is awake and alert in bed visiting with his . The dexmedetomidine drip is on hold. He does have a soft wrist restraint to the right wrist due to his pulling at the [place]. He says he is doing well. He denies any headache or dizziness. He has some blurry vision when he first opens his eyes but it quickly clears. He denies any double vision. He denies any pain, numbness, tingling or weakness to the extremities. His only complaint is an occasional cough. His muscle strength and sensation remain intact. His confusion and speech are improved. (NormaAndi SHI) Exam Results 05/14/17 05/14/17 05/15/17 05/15/17 05/16/17 05/16/17 06:00 18:00 06:00 18:00 06:00 18:00 Intake Total 294 ml 600 ml 1860 ml 359 ml 1316 ml 120 ml Output Total 300 ml 850 ml 850 ml 750 ml Balance -6 ml -250 ml 1010 ml 359 ml 1316 ml -630 ml Intake Oral 600 ml 420 ml 120 ml IV Total 100 ml 1440 ml 359 ml 1316 ml Platelets 194 ml Output Urine Total 300 ml 850 ml 850 ml 750 ml # Bowel Movements 2 3 Vital Signs Date Time Temp Pulse Resp B/P (MAP) Pulse Ox O2 Delivery O2 Flow Rate FiO2 05/16/17 04:00 98.5 89 35 118/70 (86) 95 05/16/17 00:00 98.5 89 27 128/78 (95) 95 05/15/17 23:00 90 05/15/17 22:00 98.6 91 30 130/80 (97) 97 05/15/17 20:00 94 Room Air 05/15/17 20:00 99.3 98 36 153/79 (103) 90 05/15/17 16:00 99.2 88 23 125/81 (96) 95 05/15/17 15:00 89 05/15/17 12:00 99.1 84 24 132/80 (97) 95 05/15/17 08:00 95 Room Air 05/15/17 08:00 99.5 86 28 132/89 (103) 95 05/15/17 08:00 87 05/15/17 04:00 98.9 88 30 144/89 (107) 91 05/15/17 00:00 99.0 82 24 134/85 (101) 100 05/14/17 23:00 93 05/14/17 20:30 141/87 (105) 05/14/17 20:00 99 Room Air 05/14/17 20:00 99.5 78 25 174/93 (120) 99 05/14/17 16:00 98.5 86 20 127/90 (102) 95 05/14/17 15:00 93 05/14/17 12:00 98.4 92 31 140/94 (109) 98 05/14/17 08:00 98.5 85 24 142/74 (96) 98 05/14/17 07:00 91 05/14/17 07:00 100 Room Air 05/14/17 04:45 142/85 (104) 05/14/17 04:00 99.5 100 35 171/77 (108) 98 05/14/17 03:00 97 Room Air 05/14/17 03:00 142/84 (103) 05/14/17 02:41 101.2 98 22 150/80 (103) 97 05/14/17 01:54 05/14/17 01:45 100.0 91 16 98 05/14/17 00:55 99.7 101 16 157/101 97 05/14/17 00:21 113 16 157/101 (119) 97 05/13/17 22:23 16 98 2/10/18 22:02 98.7 123 20 171/99 (123) 99 (Andi Green) Physical Examination GENERAL: Awake & alert in bed visiting w/his . Readily interacts. Affect essentially normal. No evident distress. The dexmedetomidine drip is on hold. HEENT: Right-sided facial swelling, ecchymosis, abrasions & lacerations. Bilateral periorbital ecchymosis. PERRLA 3 mm brisk, bilateral subconjuctival haemorrhages, EOMI. No otorrhea or rhinorrhea. MMM & pink, tongue midline to protrusion. MUSCULOSKELETAL: THIBODEAUX w/o difficulty. No evident clubbing or deformity. NEUROLOGICAL: Awake & alert, oriented to person, place, president & year but not month. Speech fairly clear, some mild dysarthria, mild slowing of speech and though processes. CN II to XII appear grossly intact. Sensation is intact to light touch to all extremities. Muscle strength is 5/5 to all major flexion & extension muscle groups of the extremities, to include wrist flexors & extensors and hand intrinsics & extrinsics. (Andi Green) Lab, Micro, Other Results Recent Impressions Head CT 05/15/17 0600 Signed Impressions: Service Date/Time: Monday, May 15, 2017 05:06 - CONCLUSION: Left occipital hematoma and right frontal scalp hematoma identified. The extent of edema in the left occipital lobe is slightly increased in size today. Dion Lugo MD Head CT 05/14/17 0600 Signed Impressions: Service Date/Time: Sunday, May 14, 2017 19:31 - CONCLUSION: No acute findings. Stable 4 cm left occipital hematoma and stable right frontal scalp swelling/hematoma. Juan Sun MD Chest CT 05/14/17 0000 Signed Impressions: Service Date/Time: Sunday, May 14, 2017 00:39 - CONCLUSION: 1. Negative for acute traumatic injury within the thorax. Fatty infiltration of the liver. Arsh Leslie MD Abdomen/Pelvis CT 05/14/17 0000 Signed Impressions: Service Date/Time: Sunday, May 14, 2017 00:39 - CONCLUSION: 1. Negative for acute traumatic injury within the abdomen or pelvis. Fatty liver. Arsh Leslie MD Maxillofacial CT 05/13/178 Signed Impressions: Service Date/Time: Saturday, May 13, 2017 22:22 - CONCLUSION: Multiple fractures of the right orbit including the inferior orbital wall and comminuted fractures of the medial orbital wall. Intraorbital muscles remain within the orbit. There is associated opacification of the right ethmoids and right maxillary sinus. There is also prominent alyssa-orbital soft tissue swelling extending into the frontal region. Juan Sun MD Head CT 05/13/172207 Signed Impressions: Service Date/Time: Saturday, May 13, 2017 22:22 - CONCLUSION: 1. Greater than 4 cm parenchymal hematoma left occipital lobe and prominent soft tissue swelling in the right periorbital and frontal region suggests contrecoup injury. No significant mass effect or cerebral edema at this point. 2. Suspected abnormalities in the right orbit, ethmoid sinus, and maxillary sinus. CT facial bones to be performed. Juan Sun MD Chest X-Ray 05/13/172207 Signed Impressions: Service Date/Time: Saturday, May 13, 2017 22:19 - CONCLUSION: No infiltrates seen. No evidence of pneumothorax. Juan Sun MD Cervical Spine CT 05/13/172207 Signed Impressions: Service Date/Time: Saturday, May 13, 2017 22:22 - CONCLUSION: Moderately advanced discogenic degenerative changes C4-C6 with associated retrolisthesis of C4 to C5 and reversal of the upper cervical lordosis. No fracture seen. Juan Sun MD Laboratory Tests Test 05/13/17 22:10 05/14/17 05:05 05/14/17 23:07 05/15/17 05:30 White Blood Count 8.0 TH/MM3 7.4 TH/MM3 6.8 TH/MM3 Red Blood Count 4.26 MIL/MM3 3.73 MIL/MM3 3.58 MIL/MM3 Hemoglobin 14.0 GM/DL 12.3 GM/DL 12.0 GM/DL Hematocrit 39.9 % 34.8 % 33.7 % Mean Corpuscular Volume 93.5 FL 93.3 FL 94.0 FL Mean Corpuscular Hemoglobin 32.9 PG 33.0 PG 33.3 PG Mean Corpuscular Hemoglobin Concent 35.1 % 35.4 % 35.5 % Red Cell Distribution Width 13.8 % 14.1 % 13.7 % Platelet Count 96 TH/MM3 103 TH/MM3 83 TH/MM3 Mean Platelet Volume 8.3 FL 8.2 FL 8.8 FL Neutrophils (%) (Auto) 85.9 % 83.2 % 82.8 % Lymphocytes (%) (Auto) 7.0 % 9.5 % 10.4 % Monocytes (%) (Auto) 6.8 % 6.7 % 6.0 % Eosinophils (%) (Auto) 0.0 % 0.1 % 0.2 % Basophils (%) (Auto) 0.3 % 0.5 % 0.6 % Neutrophils # (Auto) 6.9 TH/MM3 6.2 TH/MM3 5.6 TH/MM3 Lymphocytes # (Auto) 0.6 TH/MM3 0.7 TH/MM3 0.7 TH/MM3 Monocytes # (Auto) 0.5 TH/MM3 0.5 TH/MM3 0.4 TH/MM3 Eosinophils # (Auto) 0.0 TH/MM3 0.0 TH/MM3 0.0 TH/MM3 Basophils # (Auto) 0.0 TH/MM3 0.0 TH/MM3 0.0 TH/MM3 CBC Comment AUTO DIFF DIFF FINAL AUTO DIFF Differential Comment AUTO DIFF CONFIRMED FINAL DIFF MANUAL Platelet Estimate LOW LOW Platelet Morphology Comment NORMAL NORMAL Prothrombin Time 10.1 SEC 10.4 SEC Prothromb Time International Ratio 1.0 RATIO 1.0 RATIO Activated Partial Thromboplast Time 27.7 SEC Blood Urea Nitrogen 9 MG/DL 8 MG/DL 9 MG/DL Creatinine 1.16 MG/DL 0.83 MG/DL 0.57 MG/DL Random Glucose 116 MG/DL 102 MG/DL 83 MG/DL Calcium Level 9.3 MG/DL 8.6 MG/DL 8.4 MG/DL Sodium Level 132 MEQ/L 134 MEQ/L 132 MEQ/L Potassium Level 3.1 MEQ/L 2.9 MEQ/L 3.2 MEQ/L 3.8 MEQ/L Chloride Level 94 MEQ/L 97 MEQ/L 100 MEQ/L Carbon Dioxide Level 30.9 MEQ/L 29.7 MEQ/L 23.1 MEQ/L Anion Gap 7 MEQ/L 7 MEQ/L 9 MEQ/L Estimat Glomerular Filtration Rate 66 ML/MIN 98 ML/MIN 151 ML/MIN Ethyl Alcohol Level LESS THAN 3 MG/DL Phosphorus Level 1.9 MG/DL Differential Total Cells Counted 100 Neutrophils % (Manual) 68 % Band Neutrophils % 15 % Lymphocytes % 14 % Monocytes % 1 % Basophils % 2 % Neutrophils # (Manual) 5.6 TH/MM3 Total Protein 6.4 GM/DL Albumin 2.7 GM/DL Alkaline Phosphatase 145 U/L Aspartate Amino Transf (AST/SGOT) 217 U/L Alanine Aminotransferase (ALT/SGPT) 135 U/L Total Bilirubin 1.0 MG/DL Test 05/15/17 16:15 05/16/17 05:01 Potassium Level 3.4 MEQ/L 3.3 MEQ/L White Blood Count 8.7 TH/MM3 Red Blood Count 3.48 MIL/MM3 Hemoglobin 11.6 GM/DL Hematocrit 32.7 % Mean Corpuscular Volume 94.0 FL Mean Corpuscular Hemoglobin 33.4 PG Mean Corpuscular Hemoglobin Concent 35.5 % Red Cell Distribution Width 13.7 % Platelet Count 95 TH/MM3 Mean Platelet Volume 8.5 FL Neutrophils (%) (Auto) 78.9 % Lymphocytes (%) (Auto) 12.8 % Monocytes (%) (Auto) 7.5 % Eosinophils (%) (Auto) 0.2 % Basophils (%) (Auto) 0.6 % Neutrophils # (Auto) 6.9 TH/MM3 Lymphocytes # (Auto) 1.1 TH/MM3 Monocytes # (Auto) 0.7 TH/MM3 Eosinophils # (Auto) 0.0 TH/MM3 Basophils # (Auto) 0.0 TH/MM3 CBC Comment AUTO DIFF Differential Total Cells Counted 100 Neutrophils % (Manual) 68 % Band Neutrophils % 17 % Lymphocytes % 10 % Monocytes % 5 % Neutrophils # (Manual) 7.4 TH/MM3 Differential Comment FINAL DIFF MANUAL Platelet Estimate LOW Platelet Morphology Comment NORMAL Blood Urea Nitrogen 12 MG/DL Creatinine 0.59 MG/DL Random Glucose 85 MG/DL Total Protein 6.2 GM/DL Albumin 2.4 GM/DL Calcium Level 7.7 MG/DL Alkaline Phosphatase 130 U/L Aspartate Amino Transf (AST/SGOT) 103 U/L Alanine Aminotransferase (ALT/SGPT) 91 U/L Total Bilirubin 0.9 MG/DL Sodium Level 130 MEQ/L Chloride Level 98 MEQ/L Carbon Dioxide Level 22.3 MEQ/L Anion Gap 10 MEQ/L Estimat Glomerular Filtration Rate 145 ML/MIN (Andi Green) Medical Decision Making Impression and Plan Impression: 1. Traumatic brain injury with left occipital hemorrhagic contusion. 2. Right frontal scalp contusion with subgaleal hematoma 3. Right orbital fracture The patient is doing better today. He is more oriented, his speech is improved and he is less agitated. Still requires soft wrist restraint on right due to pulling at [place]. His dexmedetomidine drip is on hold. Reviewed labs for today. Mild decrease in haemoglobin. Interval improvement in thrombocytopenia. Sodium 130. Hypokalemia. Improvement in LFTs. CT brain w/relatively stable occipital haemorrhage, mild increase in edema. Plan: Primary management per Trauma. Critical care management per Watch Inspector Final Movement. Neuro checks. Stat CT brain for any decline in neuro status. Hold pharmacological DVT prophylaxis. Mechanical DVT prophylaxis. Stress ulcer prophylaxis. Mobilise patient w/assistance. Physical, Occupational & Speech Therapy. Monitor sodium level and keep WNL w/2% hypertonic saline. (Andi Green) Attending Statement The exam, history, and the medical decision-making described in the above note were completed with the assistance of the mid-level provider. I reviewed and agree with the findings presented. I attest that I had a [id number] encounter with the patient on the same day, and personally performed and documented my assessment and findings in the medical record. On my examination 05/16/2017, the patient is a little more alert and cooperative. He is off the Precedex drip. Still with moderate confusion. No focal motor deficit 05/15/17 CT scan head with relatively stable left occipital hemorrhage. Continue to increase diet, activity as tolerated Continue therapy modalities. (Regan Craven MD) Andi Green May 16, 2017 08:59 Regan Craven MD May 16, 2017 20:35
--- NOTE | 2017-05-16 12:00 | HHI.CCPN ---
Subjective Remarks/Hospital Course Hospital Course: 51-year-old male came to the emergency room with history of a trip and fall as per him at 3 AM early this morning. Since then he has noticed that both his eyelids have been swelling up and is almost swelling shot so he cannot see. His brought him to the emergency room. Patient denied drinking but as per the he does drink alcohol every day. Currently patient is sober and answering questions. Patient denies any assault. Vital signs are stable. No history of vomiting or loss of consciousness as per the . Subjective: 05/15: still delirious, in etoh withdraw. some increase in cerebral edema, bleeds stable in size. remains on precedex. 05/16: Remains on Precedex gtt. Drowsy, arousable. Objective Vital Signs Date Time Temp Pulse Resp B/P (MAP) Pulse Ox O2 Delivery O2 Flow Rate FiO2 05/16/17 08:00 85 05/16/17 08:00 93 Room Air 05/16/17 08:00 99.0 26 110/74 (86) Intake and Output 05/16/17 05/16/17 05/17/17 08:00 16:00 00:00 Intake Total 1136 ml Output Total 750 ml Balance 386 ml Result Diagram: 05/16/17 0501 05/16/17 0501 Imaging Last [address] 05/13/172207 Signed Impressions: Service Date/Time: Saturday, May 13, 2017 22:22 - CONCLUSION: Multiple fractures of the right orbit including the inferior orbital wall and comminuted fractures of the medial orbital wall. Intraorbital muscles remain within the orbit. There is associated opacification of the right ethmoids and right maxillary sinus. There is also prominent alyssa-orbital soft tissue swelling extending into the frontal region. Juan Sun MD Head CT 05/13/172207 Signed Impressions: Service Date/Time: Saturday, May 13, 2017 22:22 - CONCLUSION: 1. Greater than 4 cm parenchymal hematoma left occipital lobe and prominent soft tissue swelling in the right periorbital and frontal region suggests contrecoup injury. No significant mass effect or cerebral edema at this point. 2. Suspected abnormalities in the right orbit, ethmoid sinus, and maxillary sinus. CT facial bones to be performed. Juan Sun MD Chest X-Ray 05/13/172207 Signed Impressions: Service Date/Time: Saturday, May 13, 2017 22:19 - CONCLUSION: No infiltrates seen. No evidence of pneumothorax. Juan Sun MD Cervical Spine CT 05/13/172207 Signed Impressions: Service Date/Time: Saturday, May 13, 2017 22:22 - CONCLUSION: Moderately advanced discogenic degenerative changes C4-C6 with associated retrolisthesis of C4 to C5 and reversal of the upper cervical lordosis. No fracture seen. Juan Sun MD Objective Remarks GENERAL: Awake, CAM+, delirious. 4-point restraints. SKIN: Focused skin assessment warm/dry. Multiple old bruises on bilateral shins. Patient has significant periorbital ecchymosis bilaterally. HEAD: Patient has some abrasions on the scalp on the vertex EYES: Pupils equal and round. ENT: No nasal bleeding or discharge. Mucous membranes pink and moist. Severe bilateral periorbital ecchymosis. NECK: Trachea midline. No JVD. CARDIOVASCULAR: Regular rate and rhythm. RESPIRATORY: No accessory muscle use. equal chest rise. GASTROINTESTINAL: Abdomen soft, non-tender, nondistended. MUSCULOSKELETAL: No obvious deformities. No clubbing. No cyanosis. No edema. NEUROLOGICAL: RASS +1. CAM+. follows commands. very agitated and delirious. A/P Assessment and Plan Assessment: 51yM with etoh withdraw and ICH s/p fall. Agitated Delirium remains severe requiring iv sedation with dexmedetomidine. continue to wean as tolerated. frequent neuro checks for ICH. Agree with 2% for cerebral edema. Agitated Delirium Etoh Withdraw - scheduled benzos - precedex - frequent neuro checks - difficult to balance benzos/sedatives for etoh withdraw with need for accurate neuro assessment with ICH. ICH - remain in ICU - Likely post fall - Transfuse platelets to keep count of 100 - Neuro checks per unit protocol - Further per neurosurgery - Keppra for seizure prophylaxis Multiple fractures of the right orbit - OMFS consultation: non-op Thrombocytopenia - EtOH??? - Transfuse to keep count > 100 - 4t score: low probability for HIT. no recent heparin exposure. DVT GI prophylaxis - Teds SCDs - No pharmacological DVT prophylaxis due to ICH - Early aggressive mobilization - Cristiano Bartlett MD May 16, 2017 12:00
--- NOTE | 2017-05-16 12:22 | RADRPT ---
EXAM DATE/TIME: 05/16/2017 10:30 [facility] COMPARISON: No previous studies available for comparison. INDICATIONS : Syncope. MEDICAL HISTORY : Arthritis. Syncope. Migraines. Liver disease. Anxiety. Tobacco use. SURGICAL HISTORY : Oral lesions. Right hand surgery. ENCOUNTER: Initial ACUITY: 1 week PAIN SCORE: 4/10 LOCATION: Bilateral neck PEAK SYSTOLIC VELOCITIES (cm/sec): ICA/CCA RATIO: Right: 0.7 Left: 0.7 ICA: Right: 76 Left: 63 CCA: Right: 115 Left: 92 ECA: Right: 87 Left: 92 VERTEBRAL: Right: 46 antegrade Left: 55 antegrade Elevated flow velocities and ICA/CCA ratios have been found to correlate with increased degrees of vessel stenosis, calculated as percentage of diameter relative to a normal segment of distal ICA/CCA FINDINGS: RIGHT CAROTID: Minimal plaque. No significant stenosis is visualized. The waveforms are within normal limits. LEFT CAROTID: Scattered atherosclerotic plaque present involving the common carotid artery. No significant stenosis is visualized. The waveforms are within normal limits. VERTEBRAL ARTERIES: Antegrade flow is seen in both vertebral arteries. MISCELLANEOUS: None. CONCLUSION: 1. Mild plaque with patent carotid arteries bilaterally. 2. Antegrade flow involving both vertebral arteries. Juan Castillo Jr., MD on May 16, 2017 at 12:18 Board Certified Radiologist. This report was verified electronically.
[2017-05-16] MEDS: SODIUM CHLORIDE 23.4% INJ 188 MEQ in SODIUM CHLOR 0.9% 1000 ML INJ 1,000 ML IV SCH (13:08)
--- NOTE | 2017-05-16 15:35 | HHI.CCPN ---
Subjective Brief History 51-year-old male came to the emergency room with history of a trip and fall as per him at 3 AM early this morning. Since then he has noticed that both his eyelids have been swelling up and is almost swelling shot so he cannot see. His brought him to the emergency room. Patient denied drinking but as per the he does drink alcohol every day. Currently patient is sober and answering questions. Patient denies any assault. Vital signs are stable. No history of vomiting or loss of consciousness as per the . 24 Hour Review/Hospital Course 05/15 Patient was slightly confused in the morning he urinated to the floor Since then he has been more stable Patient is alcoholic he was started on the CIWA protocol The CT scan of the head is pending, his GCS is [address] scan of the abdomen and pelvis and chest were negative for any injuries Neurosurgical ophthalmology and OMFS consults are pending 05/15/2017 This morning patient is somewhat confused but awake Adamantly denies alcohol use however went into delirium tremens had to be placed on Precedex drip and CIWA protocol Pupils equal reactive bruising over the both orbits and forehead Hemodynamically stable Bilateral good breath sounds Neurologically patient remains stable and can transfer to the floor once off Precedex Patient remains in the ICU due to delirium tremens and no specific traumatic injury 05/16/2017 Patient doing much better today neurologically Off Precedex Per neuropsychologist patient placed on appropriate regimen int face of alcoholism He is awake alert but disoriented at times Communicates with short sentences Pupils equal reactive and facial bruising is slowly receding Moves all 4 extremities does not have appreciable motoric deficit Bilateral breath sounds good inspiratory effort Tolerates diet well Transfer to floor when bed available Objective Vital Signs Date Time Temp Pulse Resp B/P (MAP) Pulse Ox O2 Delivery O2 Flow Rate FiO2 05/16/17 12:00 98.7 90 26 119/67 (84) 96 05/16/17 08:00 Room Air Intake and Output 05/16/17 05/16/17 05/17/17 08:00 16:00 00:00 Intake Total 1136 ml Output Total 750 ml Balance 386 ml Result Diagram: 05/16/17 0501 05/16/17 0501 Imaging Last 24 hours Impressions Carotid Artery Ultrasound 05/16/17 0000 Signed Impressions: Service Date/Time: Tuesday, May 16, 2017 10:30 - CONCLUSION: 1. Mild plaque with patent carotid arteries bilaterally. 2. Antegrade flow involving both vertebral arteries. Juan Castillo Jr., MD Disinhibition Score: 21.00 Aggression Score: 14.00 Lability Score: 14.00 Agitated Behavior Total Score: 18 Assessment and Plan Plan Traumatic brain injury with large occipital intraparenchymal hemorrhage, facial fractures, possible injury of the right eye Repeat CT of the head today Continue Keppra, monitor sodium and start patient on salt tablets Continue to monitor in the ICU Attestation Critical care time 32 minutes Douglas Tinsley MD May 16, 2017 15:35
[2017-05-16] MEDS: levETIRAcetam 500 MG TAB PO SCH (20:14)
[2017-05-16] MEDS: ACETAMINOPHEN 325 MG TAB PO PRN (20:24)
[2017-05-16] MEDS: LORazepam 2 MG/ML VIAL IV PUSH PRN (22:09)
[2017-05-17] VITALS (13 sets, daily range): BP systolic 113–145; BP diastolic 66–85; PULSE 85–117; RESP 18–58; TEMP 98.9–102.4; O2SAT 94–100
[2017-05-17] MEDS: DIAZEPAM 5 MG TAB PO SCH ×2 (00:01→09:00)
[2017-05-17] MEDS: LORazepam 2 MG/ML VIAL IV PUSH PRN ×7 (00:18→05:57)
[2017-05-17] MEDS ORDERED: LORazepam 2 MG/ML VIAL IV PUSH PRN ×4 (02:00)
[2017-05-17] MEDS ORDERED: LORazepam 1 MG TAB PO PRN (02:00)
[2017-05-17] MEDS ORDERED: LORazepam 2 MG TAB PO PRN (02:00)
[2017-05-17] MEDS ORDERED: FLUMAZENIL 0.5 MG/5 ML VIAL IV PUSH PRN (02:00)
[2017-05-17] MEDS: chlordiazePOXIDE 25 MG CAP PO SCH ×4 (02:00→20:29)
--- NOTE | 2017-05-17 02:08 | HHI.CCPN ---
Subjective Remarks/Hospital Course Hospital Course: 51-year-old male came to the emergency room with history of a trip and fall as per him at 3 AM early this morning. Since then he has noticed that both his eyelids have been swelling up and is almost swelling shot so he cannot see. His brought him to the emergency room. Patient denied drinking but as per the he does drink alcohol every day. Currently patient is sober and answering questions. Patient denies any assault. Vital signs are stable. No history of vomiting or loss of consciousness as per the . Subjective: 05/15: still delirious, in etoh withdraw. some increase in cerebral edema, bleeds stable in size. remains on precedex. 05/16: Remains on Precedex gtt. Drowsy, arousable. 05/17: At 2 AM rapid response team called for patients tachypnea tachycardia and altered mental status. Has received 10 mg of Ativan per [facility] Nurse orders Objective Vital Signs Date Time Temp Pulse Resp B/P (MAP) Pulse Ox O2 Delivery O2 Flow Rate FiO2 05/17/17 00:00 99.9 97 18 132/77 (95) 96 05/16/17 19:00 Room Air Result Diagram: 05/16/17 0501 05/16/17 0501 Imaging Last [address] 05/13/172207 Signed Impressions: Service Date/Time: Saturday, May 13, 2017 22:22 - CONCLUSION: Multiple fractures of the right orbit including the inferior orbital wall and comminuted fractures of the medial orbital wall. Intraorbital muscles remain within the orbit. There is associated opacification of the right ethmoids and right maxillary sinus. There is also prominent alyssa-orbital soft tissue swelling extending into the frontal region. Juan Sun MD Head CT 05/13/172207 Signed Impressions: Service Date/Time: Saturday, May 13, 2017 22:22 - CONCLUSION: 1. Greater than 4 cm parenchymal hematoma left occipital lobe and prominent soft tissue swelling in the right periorbital and frontal region suggests contrecoup injury. No significant mass effect or cerebral edema at this point. 2. Suspected abnormalities in the right orbit, ethmoid sinus, and maxillary sinus. CT facial bones to be performed. Juan Sun MD Chest X-Ray 05/13/172207 Signed Impressions: Service Date/Time: Saturday, May 13, 2017 22:19 - CONCLUSION: No infiltrates seen. No evidence of pneumothorax. Juan Sun MD Cervical Spine CT 05/13/172207 Signed Impressions: Service Date/Time: Saturday, May 13, 2017 22:22 - CONCLUSION: Moderately advanced discogenic degenerative changes C4-C6 with associated retrolisthesis of C4 to C5 and reversal of the upper cervical lordosis. No fracture seen. Juan Sun MD Objective Remarks GENERAL: Awake, CAM+, delirious SKIN: Focused skin assessment warm/dry. Multiple old bruises on bilateral shins. Patient has significant periorbital ecchymosis bilaterally. HEAD: Patient has some abrasions on the scalp on the vertex EYES: Pupils equal and round. ENT: No nasal bleeding or discharge. Mucous membranes pink and moist. Severe bilateral periorbital ecchymosis. NECK: Trachea midline. No JVD. CARDIOVASCULAR: Regular rate and rhythm. RESPIRATORY: No accessory muscle use. equal chest rise. GASTROINTESTINAL: Abdomen soft, non-tender, nondistended. MUSCULOSKELETAL: No obvious deformities. No clubbing. No cyanosis. No edema. NEUROLOGICAL: RASS +1. CAM+. follows commands. very agitated and delirious. A/P Assessment and Plan Assessment: 51yM with etoh withdraw and ICH s/p fall. Agitated Delirium remains severe requiring iv sedation with dexmedetomidine. Patient was transferred to [facility] floor by trauma services Dr. Tinsley . The Precedex drip was discontinued, the patient developed severe alcohol withdrawals requiring transfer back to ICU. Agitated Delirium Etoh Withdraw - Librium taper - precedex when necessary - frequent neuro checks - difficult to balance benzos/sedatives for etoh withdraw with need for accurate neuro assessment with ICH. ICH - re-admit to in ICU - ICH post fall - CT head stat - Transfuse platelets to keep count of 100 - Neuro checks per unit protocol - Further per neurosurgery - Tuyetra for seizure prophylaxis Multiple fractures of the right orbit - OMFS consultation: non-op Thrombocytopenia - EtOH??? - Transfuse to keep count > 100 - 4t score: low probability for HIT. no recent heparin exposure. DVT GI prophylaxis - Teds SCDs - No pharmacological DVT prophylaxis due to ICH - Early aggressive mobilization - Pepcid Patient transferred back to ICU due to severe alcohol withdrawal/delirium. Critical Care: The total critical care time was 35 minutes. Time to perform other separately billable procedures was not included in the critical care time. João Jewell MD May 17, 2017 2:08 am
[2017-05-17] MEDS ORDERED: POTASSIUM CHLORIDE 25 MEQ EFFERVESCENT TAB PO PRN (02:45)
[2017-05-17] MEDS ORDERED: POTASSIUM CHLOR 20 MEQ PREMIX 100 ML IV PRN (02:45)
[2017-05-17] MEDS ORDERED: POTASSIUM PHOSPHATE INJ 30 MMOL in SODIUM CHLOR 0.9% 250 ML INJ 250 ML IV PRN (02:45)
[2017-05-17] MEDS ORDERED: SODIUM PHOSPHATE INJ 30 MMOL in SODIUM CHLOR 0.9% 250 ML INJ 240 ML IV PRN (02:45)
[2017-05-17] MEDS ORDERED: MAGNESIUM SULFATE INJ 2 GM in SODIUM CHLORIDE 0.9% INJ 96 ML IV PRN (02:45)
[2017-05-17] MEDS ORDERED: POTASSIUM PHOSPHATE MONOBASIC 500 MG TAB PO PRN (02:45)
[2017-05-17] MEDS ORDERED: MAGNESIUM SULFATE INJ 4 GM in SODIUM CHLORIDE 0.9% INJ 92 ML IV PRN (02:45)
[2017-05-17] MEDS ORDERED: MAGNESIUM OXIDE 400 MG TAB PO PRN (02:45)
[2017-05-17] MEDS ORDERED: POTASSIUM CHLOR 40 MEQ PREMIX 100 ML IV PRN ×2 (02:45)
[2017-05-17] MEDS ORDERED: POTASSIUM PHOSPHATE MONOBASIC 500 MG TAB PO/TUBE PRN (02:45)
--- NOTE | 2017-05-17 02:57 | RADRPT ---
EXAM DATE/TIME: 05/17/2017 02:29 [facility] COMPARISON: CT BRAIN W/O CONTRAST, May 15, 2017, 5:06. INDICATIONS : Change in mental status; trauma three days ago. RADIATION DOSE: 35.82 CTDIvol (mGy) ; Patient motion MEDICAL HISTORY : ETOH abuse. SURGICAL HISTORY : None. ENCOUNTER: Initial ACUITY: 1 day PAIN SCALE: 8/10 LOCATION: Bilateral cranial TECHNIQUE: Multiple contiguous axial images were obtained of the head. Using automated exposure control and adj ustment of the mA and/or kV according to patient size, radiation dose was kept as low as reasonably a chievable to obtain optimal diagnostic quality images. DICOM format image data is available electro nically for review and comparison. FINDINGS: Circumferential mucosal thickening and air-fluid level in the right maxillary sinus and anterior ethm oid opacification. Right frontal scalp soft tissue swelling is noted. A left occipital hematoma with surrounding vasogenic edema is again noted, with a small amount of hemorrhage in the posterior horn o f left lateral ventricle again seen. The extent of edema is slightly decreased today to 5.6 cm. There is no midline shift. No new areas of hemorrhage are seen. CONCLUSION: Slightly decreased edema left occipital hematoma. No new bleed. Dion Lugo MD on May 17, 2017 at 2:53 Board Certified Radiologist. This report was verified electronically.
[2017-05-17] MEDS: FLUMAZENIL 0.5 MG/5 ML VIAL IV PUSH PRN ×2 (03:03→03:35)
[2017-05-17] MEDS: ACETAMINOPHEN 1000 MG/100 ML 100 ML IV PRN ×2 (03:28→12:30)
[2017-05-17] MEDS: CHLORHEXIDINE GLUCONATE 2 % 1 PACK (2 CLOTHS) TOP SCH (04:00)
[2017-05-17] MEDS ORDERED: MULTIVITAMIN INJ 10 ML, THIAMINE INJ 100 MG, FOLIC ACID INJ 1 MG in SODIUM CHLOR 0.45% ... IV ONE (04:00)
[2017-05-17 05:13] LABS: AUTOMATED NEUTROPHIL # 6.2 TH/MM3 (1.8-7.7); BASOPHIL % 0.3 % (0.0-2.0); EOSINOPHIL % 0.2 % (0.0-4.0); HEMATOCRIT 31.7 % (39.0-51.0); HEMOGLOBIN 11.1 GM/DL (13.0-17.0); LYMPH % 6.3 % (9.0-44.0); LYMPHOCYTE # 0.5 TH/MM3 (1.0-4.8); MEAN CELL VOLUME 93.9 FL (80.0-100.0); MEAN CORPUSCULAR HEMOGLOBIN 32.8 PG (27.0-34.0); MEAN CORPUSCULAR HGB CONC 34.9 % (32.0-36.0); MEAN PLATELET VOLUME 7.9 FL (7.0-11.0); MONO % 10.6 % (0.0-8.0); MONOCYTE # 0.8 TH/MM3 (0-0.9); NEUT % 82.6 % (16.0-70.0); PLATELET COUNT 130 TH/MM3 (150-450); RED BLOOD COUNT 3.37 MIL/MM3 (4.50-5.90); RED CELL DISTRIBUTION WIDTH 13.6 % (11.6-17.2); WHITE BLOOD COUNT 7.5 TH/MM3 (4.0-11.0)
[2017-05-17 05:29] LABS: ALBUMIN 2.4 GM/DL (3.4-5.0); ALT (GPT) 88 U/L (12-78); AST (GOT) 107 U/L (15-37); BICARBONATE 23.6 MEQ/L (21.0-32.0); BLOOD UREA NITROGEN 9 MG/DL (7-18); CALCIUM 7.7 MG/DL (8.5-10.1); CHLORIDE 100 MEQ/L (98-107); CREATININE 0.56 MG/DL (0.60-1.30); GLOMERULAR FILTRATION RATE 154 ML/MIN (>89); GLUCOSE,RANDOM 100 MG/DL (74-106); PHOSPHORUS 2.3 MG/DL (2.5-4.9); SODIUM (NA) 133 MEQ/L (136-145)
[2017-05-17 05:31] LABS: ALKALINE PHOSPHATASE 124 U/L (45-117); TOTAL BILIRUBIN ADULT 0.9 MG/DL (0.2-1.0); TOTAL PROTEIN 6.2 GM/DL (6.4-8.2)
[2017-05-17] MEDS: ICU - POTASSIUM CHLORIDE/AQUEOUS SOLN 20 MEQ/100 ML IVPB IV PRN ×4 (05:38→12:53)
[2017-05-17] MEDS: POTASSIUM CHLOR 20 MEQ PREMIX 100 ML IV PRN (05:40)
--- NOTE | 2017-05-17 08:22 | HHI.PR ---
Neuropsych Behavior Behavior: Mild: Impulsive/Agitated, Unable to Asses: Behavior, Coping/ Acceptance, Cooperative w/ Treatment, Motivation, Frustration Tolerance/[place], Suicidal/Homicidal Risk Cognitive Cognitive: Severe: Cognitive, Attention/Concentration, Confused/Orientation, Insight/Awareness, Judgement/Problem-Solving, Memory Progress Notes/Response to Tx Contents of Sessions: Adjustment, Level of Consciousness Time with Patient: 15 minutes Premorbid psychological status Premorbid Cognitive, Emotional and Behavioral Status: Stable. The patient has high school years of education and recently took a job in [employer]. The patient has no known prior psychiatric difficulties, as described above. Substance abuse history includes alcohol dependence. Behavioral Reactions of Patient and Family/Support System: Deferred. The patients family is experiencing ongoing issues of adjustment given the nature of the injury, and this aspect of recovery will require ongoing monitoring. Emotional/Behavioral Status of Patient and Family/Support System: Stable. Pertinent issues, if appropriate to this patients clinical care, are described in detail above. Maximizing acute care outcome It is recommended that the patient be monitored for emergent behavioral impulsivity as the medical condition evolves. This patients neuropathological challenges may limit his rehabilitation potential going forward, and these challenges will require specialized therapeutic skills to maximize outcome. At this point in the recovery process, the patient does not have cognitive capacity as the patient is unable to understand a situation and its likely consequences, nor is he able to manipulate information rationally. Cognitive capacity will be assessed throughout the recovery process. Anticipated Problems Ongoing areas of concern will include behavioral impulsivity, lack of insight and judgment, which is expected to improve with time and treatment. Presently , the patient is in delirium 2T alcohol withdrawals. Given the severity of the patient's injuries it is my clinical opinion that this patient will be unable to return to any type of productive employment for at least one year, perhaps longer and likely never. This patient is not considered safe to discharge home with supervision. Treatment Plan This clinician will continue to follow with you throughout the course of this patients acute care treatment, and I will be available to meet with the patient s family/support system to facilitate their understanding and the ongoing care of their family member. The goals of neuropsychological intervention shall be both educational and supportive to the family/support system as is deemed clinically appropriate. [facility] Level: IV:Confused/Agitated-maximal assist Disinhibition Score: 22.68 Aggression Score: 14.00 Lability Score: 18.62 Agitated Behavior Total Score: 20 Impression 51 year old male s/p TBI 2T fall from ladder on 05/13/2017, now in alcohol withdrawals. Diagnosis: (1) Alcohol dependence in controlled environment (2) Mild major neurocognitive disorder due to traumatic brain injury with behavioral disturbance Progress Note Narrative PTD 4. The patient was improving but had episode of tachycardia exacerbated with alcohol withdrawal delirium. His agitation/restlessness scores reflect such neurobehavioral issues, with ABS of 20 (22.6,14, 18.6). He was transferred to the floor last night from the ICU where he was administered over the course of ninety minutes 10 mg of Ativan as part of the CIWA protocol, which required a return to the ICU. At this point, the patient remains quite lethargic, and Dr. Chilel instructed the trauma team to d/c CIWA. In order to manage this patient's agitation/restlessness, the following was started to manage both brain injury agitation sequelae and residual alcohol withdrawal issues, including Valproic Acid 250 TID, Seroquel 50 q8H and Haldol PRN. The patient is a [place]o IV. I will continue to closely follow this patient. Meño Angel PhD May 17, 2017 8:22 am
[2017-05-17] MEDS: levETIRAcetam 500 MG TAB PO SCH (09:00)
[2017-05-17] MEDS: DOCUSATE SODIUM 50 MG/SENNA 8.6 MG TAB PO SCH ×2 (09:00→20:37)
--- NOTE | 2017-05-17 09:46 | HHI.NSPN ---
(Andi Green) History Chief Complaint: Unable to obtain due to patient's mental status. (Andi Green) Interval History 05/14: The patient is a 51-year-old male who reportedly fell from a ladder approximately 3 AM on 05/13/2017. He waited until last evening to come to the emergency room, apparently due to progressive swelling around his eyes. No seizure activity reported. No emesis reported. No definite loss of consciousness. He does have a history of alcohol abuse. He complains of blurred vision. 05/15/17: Remains confused. He was agitated last evening-placed on Precedex 05/16: This morning the patient is awake and alert in bed visiting with his . The dexmedetomidine drip is on hold. He does have a soft wrist restraint to the right wrist due to his pulling at the [place]. He says he is doing well. He denies any headache or dizziness. He has some blurry vision when he first opens his eyes but it quickly clears. He denies any double vision. He denies any pain, numbness, tingling or weakness to the extremities. His only complaint is an occasional cough. His muscle strength and sensation remain intact. His confusion and speech are improved. 05/17: When seen this morning the patient had returned to [facility] from the med/surg floor due to delirium tremens and being overdosed on lorazepam. He was given flumazenil to reverse the lorazepam. He had a decrease level of consciousness but did interact with coaxing and followed some commands correctly. (Andi Green) System Review Comments Unable to obtain due to patient's mental status. (Andi Green) Exam Results 05/15/17 05/15/17 05/16/17 05/16/17 05/17/17 05/17/17 06:00 18:00 06:00 18:00 06:00 18:00 Intake Total 1860 ml 359 ml 1316 ml 1952 ml 900 ml 275 ml Output Total 850 ml 1550 ml Balance 1010 ml 359 ml 1316 ml 402 ml 900 ml 275 ml Intake Oral 420 ml 1180 ml IV Total 1440 ml 359 ml 1316 ml 772 ml 900 ml 275 ml Output Urine Total 850 ml 1550 ml # Bowel Movements 2 9 4 Vital Signs Date Time Temp Pulse Resp B/P (MAP) Pulse Ox O2 Delivery O2 Flow Rate FiO2 05/17/17 07:00 98 Nasal Cannula 2.00 05/17/17 06:00 102 05/17/17 04:00 112 05/17/17 04:00 101.5 112 28 145/78 (100) 99 05/17/17 03:15 94 Nasal Cannula 2.00 05/17/17 03:00 108 05/17/17 01:00 98.9 117 58 145/85 (105) 94 05/17/17 00:00 99.9 97 18 132/77 (95) 96 05/16/17 21:15 18 05/16/17 20:00 101.8 104 26 141/80 (100) 97 05/16/17 19:00 98 Room Air 05/16/17 16:00 98.8 99 24 130/69 (89) 93 05/16/17 15:00 98 05/16/17 12:00 98.7 90 26 119/67 (84) 96 05/16/17 08:00 85 05/16/17 08:00 93 Room Air 05/16/17 08:00 99.0 85 26 110/74 (86) 93 05/16/17 04:00 98.5 89 35 118/70 (86) 95 05/16/17 00:00 98.5 89 27 128/78 (95) 95 05/15/17 23:00 90 05/15/17 22:00 98.6 91 30 130/80 (97) 97 05/15/17 20:00 94 Room Air 05/15/17 20:00 99.3 98 36 153/79 (103) 90 05/15/17 16:00 99.2 88 23 125/81 (96) 95 05/15/17 15:00 89 05/15/17 12:00 99.1 84 24 132/80 (97) 95 05/15/17 08:00 95 Room Air 05/15/17 08:00 99.5 86 28 132/89 (103) 95 05/15/17 08:00 87 05/15/17 04:00 98.9 88 30 144/89 (107) 91 05/15/17 00:00 99.0 82 24 134/85 (101) 100 05/14/17 23:00 93 05/14/17 20:30 141/87 (105) 05/14/17 20:00 99 Room Air 05/14/17 20:00 99.5 78 25 174/93 (120) 99 05/14/17 16:00 98.5 86 20 127/90 (102) 95 05/14/17 15:00 93 05/14/17 12:00 98.4 92 31 140/94 (109) 98 (Andi Green) Physical Examination GENERAL: Drowsy in bed. Tremors to upper extremities noted. Interacts with coaxing. Minimally distressed. HEENT: Right-sided facial swelling, ecchymosis, abrasions & lacerations. Bilateral periorbital ecchymosis. PERRLA 3 mm brisk, bilateral subconjuctival haemorrhages. No otorrhea or rhinorrhea. MMM & pink,. MUSCULOSKELETAL: THIBODEAUX w/o difficulty. No evident clubbing or deformity. NEUROLOGICAL: Drowsy, oriented to person, place, & year but not month. Speech garbled, dysarthric, slowing of speech and though processes. Follows some commands correctly with coaxing. Unable to assess CN function. Muscle strength appears normal but patient not able to fully cooperate with assessment. (Andi Green) Lab, Micro, Other Results This practitioner reviewed the CT brain completed this morning and compared it with that on . There was continued evolution of the left occipital haematoma w/o any evidence of a new haemorrhage. Recent Impressions Head CT 05/17/17 0000 Signed Impressions: Service Date/Time: Wednesday, May 17, 2017 02:29 - CONCLUSION: Slightly decreased edema left occipital hematoma. No new bleed. Dion Lugo MD Carotid Artery Ultrasound 05/16/17 0000 Signed Impressions: Service Date/Time: Tuesday, May 16, 2017 10:30 - CONCLUSION: 1. Mild plaque with patent carotid arteries bilaterally. 2. Antegrade flow involving both vertebral arteries. Juan Castillo Jr., MD Head CT 05/15/17 0600 Signed Impressions: Service Date/Time: Monday, May 15, 2017 05:06 - CONCLUSION: Left occipital hematoma and right frontal scalp hematoma identified. The extent of edema in the left occipital lobe is slightly increased in size today. Dion Lugo MD Laboratory Tests Test 05/14/17 23:07 05/15/17 05:30 05/15/17 16:15 05/16/17 05:01 Potassium Level 3.2 MEQ/L 3.8 MEQ/L 3.4 MEQ/L 3.3 MEQ/L White Blood Count 6.8 TH/MM3 8.7 TH/MM3 Red Blood Count 3.58 MIL/MM3 3.48 MIL/MM3 Hemoglobin 12.0 GM/DL 11.6 GM/DL Hematocrit 33.7 % 32.7 % Mean Corpuscular Volume 94.0 FL 94.0 FL Mean Corpuscular Hemoglobin 33.3 PG 33.4 PG Mean Corpuscular Hemoglobin Concent 35.5 % 35.5 % Red Cell Distribution Width 13.7 % 13.7 % Platelet Count 83 TH/MM3 95 TH/MM3 Mean Platelet Volume 8.8 FL 8.5 FL Neutrophils (%) (Auto) 82.8 % 78.9 % Lymphocytes (%) (Auto) 10.4 % 12.8 % Monocytes (%) (Auto) 6.0 % 7.5 % Eosinophils (%) (Auto) 0.2 % 0.2 % Basophils (%) (Auto) 0.6 % 0.6 % Neutrophils # (Auto) 5.6 TH/MM3 6.9 TH/MM3 Lymphocytes # (Auto) 0.7 TH/MM3 1.1 TH/MM3 Monocytes # (Auto) 0.4 TH/MM3 0.7 TH/MM3 Eosinophils # (Auto) 0.0 TH/MM3 0.0 TH/MM3 Basophils # (Auto) 0.0 TH/MM3 0.0 TH/MM3 CBC Comment AUTO DIFF AUTO DIFF Differential Total Cells Counted 100 100 Neutrophils % (Manual) 68 % 68 % Band Neutrophils % 15 % 17 % Lymphocytes % 14 % 10 % Monocytes % 1 % 5 % Basophils % 2 % Neutrophils # (Manual) 5.6 TH/MM3 7.4 TH/MM3 Differential Comment FINAL DIFF MANUAL FINAL DIFF MANUAL Platelet Estimate LOW LOW Platelet Morphology Comment NORMAL NORMAL Blood Urea Nitrogen 9 MG/DL 12 MG/DL Creatinine 0.57 MG/DL 0.59 MG/DL Random Glucose 83 MG/DL 85 MG/DL Total Protein 6.4 GM/DL 6.2 GM/DL Albumin 2.7 GM/DL 2.4 GM/DL Calcium Level 8.4 MG/DL 7.7 MG/DL Alkaline Phosphatase 145 U/L 130 U/L Aspartate Amino Transf (AST/SGOT) 217 U/L 103 U/L Alanine Aminotransferase (ALT/SGPT) 135 U/L 91 U/L Total Bilirubin 1.0 MG/DL 0.9 MG/DL Sodium Level 132 MEQ/L 130 MEQ/L Chloride Level 100 MEQ/L 98 MEQ/L Carbon Dioxide Level 23.1 MEQ/L 22.3 MEQ/L Anion Gap 9 MEQ/L 10 MEQ/L Estimat Glomerular Filtration Rate 151 ML/MIN 145 ML/MIN Test 05/17/17 04:30 White Blood Count 7.5 TH/MM3 Red Blood Count 3.37 MIL/MM3 Hemoglobin 11.1 GM/DL Hematocrit 31.7 % Mean Corpuscular Volume 93.9 FL Mean Corpuscular Hemoglobin 32.8 PG Mean Corpuscular Hemoglobin Concent 34.9 % Red Cell Distribution Width 13.6 % Platelet Count 130 TH/MM3 Mean Platelet Volume 7.9 FL Neutrophils (%) (Auto) 82.6 % Lymphocytes (%) (Auto) 6.3 % Monocytes (%) (Auto) 10.6 % Eosinophils (%) (Auto) 0.2 % Basophils (%) (Auto) 0.3 % Neutrophils # (Auto) 6.2 TH/MM3 Lymphocytes # (Auto) 0.5 TH/MM3 Monocytes # (Auto) 0.8 TH/MM3 Eosinophils # (Auto) 0.0 TH/MM3 Basophils # (Auto) 0.0 TH/MM3 CBC Comment DIFF FINAL Differential Comment Blood Urea Nitrogen 9 MG/DL Creatinine 0.56 MG/DL Random Glucose 100 MG/DL Total Protein 6.2 GM/DL Albumin 2.4 GM/DL Calcium Level 7.7 MG/DL Phosphorus Level 2.3 MG/DL Alkaline Phosphatase 124 U/L Aspartate Amino Transf (AST/SGOT) 107 U/L Alanine Aminotransferase (ALT/SGPT) 88 U/L Total Bilirubin 0.9 MG/DL Sodium Level 133 MEQ/L Potassium Level 3.0 MEQ/L Chloride Level 100 MEQ/L Carbon Dioxide Level 23.6 MEQ/L Anion Gap 9 MEQ/L Estimat Glomerular Filtration Rate 154 ML/MIN (Andi Green) Medical Decision Making Impression and Plan Impression: 1. Traumatic brain injury with left occipital hemorrhagic contusion. 2. Right frontal scalp contusion with subgaleal hematoma 3. Right orbital fracture The patient has deterioration of mental status and ability to cooperate due to delirium tremens. He is oriented though to person, place and year but is not able to follow commands consistently. T max 101.8 yesterday evening. Reviewed labs for today. Mild decrease in haemoglobin. Interval improvement in thrombocytopenia. Improvement in sodium level to 133. Interval worsening of hypokalemia. Mixed changes in LFTs. CT brain demonstrated continued evolution of the left occipital haematoma w/slight decrease in edema. No evidence of a new haemorrhage. Plan: Primary management per Trauma. Critical care management per Blood Bank Worker. Neuro checks. Stat CT brain for any decline in neuro status. Hold pharmacological DVT prophylaxis. Mechanical DVT prophylaxis. Stress ulcer prophylaxis. Mobilise patient w/assistance. Physical, Occupational & Speech Therapy. Monitor sodium level and keep WNL w/2% hypertonic saline. (Andi Green) Attending Statement The exam, history, and the medical decision-making described in the above note were completed with the assistance of the mid-level provider. I reviewed and agree with the findings presented. I attest that I had a [id number] encounter with the patient on the same day, and personally performed and documented my assessment and findings in the medical record. Examination remains relatively stable. Continued agitation likely related to alcohol a trial Persistent hyponatremia Continue close neurologic checks Follow-up sodium (Regan Craven MD) Andi Green May 17, 2017 09:46 Regan Craven MD Jun 02, 2017 20:36
[2017-05-17] MEDS: SODIUM CHLOR 0.9% 1000 ML INJ 1,000 ML IV SCH ×2 (11:02→22:00)
[2017-05-17] MEDS: SODIUM CHLORIDE 23.4% INJ 188 MEQ in SODIUM CHLOR 0.9% 1000 ML INJ 1,000 ML IV SCH (11:15)
[2017-05-17] MEDS: QUEtiapine FUMARATE 25 MG TAB PO SCH ×2 (12:00→20:00)
--- NOTE | 2017-05-17 12:19 | RADRPT ---
EXAM DATE/TIME: 05/17/2017 11:56 [facility] COMPARISON: CHEST SINGLE AP, May 13, 2017, 22:19. INDICATIONS : Evaluate for aspiration. MEDICAL HISTORY : Cardiovascular disease. SURGICAL HISTORY : None. ENCOUNTER: Subsequent ACUITY: 4 - 6 days PAIN SCORE: 0/10 LOCATION: Bilateral chest FINDINGS: A single view of the chest demonstrates the lungs to be hypoinflated. Bibasilar areas of increased de nsity could represent atelectatic changes however, bibasilar pneumonic infiltrates is also a possibil ity. Heart size is normal. Osseous structures are intact CONCLUSION: 1. Hypoinflation with bibasilar areas of increased density characteristic of either atelectasis or ea rly infiltrates. 2. Heart size is normal Tristan Valle MD on May 17, 2017 at 12:15 Board Certified Radiologist. This report was verified electronically.
[2017-05-17] MEDS: FAMOTIDINE 20 MG/2 ML VIAL IV PUSH SCH ×2 (12:44→20:29)
[2017-05-17] MEDS ORDERED: VALPROIC ACID 250 MG CAP PO SCH (13:00)
--- NOTE | 2017-05-17 13:16 | HHI.CCPN ---
Subjective Brief History 51-year-old male came to the emergency room with history of a trip and fall as per him at 3 AM early this morning. Since then he has noticed that both his eyelids have been swelling up and is almost swelling shot so he cannot see. His brought him to the emergency room. Patient denied drinking but as per the he does drink alcohol every day. Currently patient is sober and answering questions. Patient denies any assault. Vital signs are stable. No history of vomiting or loss of consciousness as per the . 24 Hour Review/Hospital Course 05/15 Patient was slightly confused in the morning he urinated to the floor Since then he has been more stable Patient is alcoholic he was started on the CIWA protocol The CT scan of the head is pending, his GCS is [address] scan of the abdomen and pelvis and chest were negative for any injuries Neurosurgical ophthalmology and OMFS consults are pending 05/15/2017 This morning patient is somewhat confused but awake Adamantly denies alcohol use however went into delirium tremens had to be placed on Precedex drip and CIWA protocol Pupils equal reactive bruising over the both orbits and forehead Hemodynamically stable Bilateral good breath sounds Neurologically patient remains stable and can transfer to the floor once off Precedex Patient remains in the ICU due to delirium tremens and no specific traumatic injury 05/16/2017 Patient doing much better today neurologically Off Precedex Per neuropsychologist patient placed on appropriate regimen int face of alcoholism He is awake alert but disoriented at times Communicates with short sentences Pupils equal reactive and facial bruising is slowly receding Moves all 4 extremities does not have appreciable motoric deficit Bilateral breath sounds good inspiratory effort Tolerates diet well Transfer to floor when bed available 05/17/2017 Patient with above noted head injury was transferred to floor yesterday but became restless was given 10 mg of Ativan within 15 minute time which of course lead to respiratory depression, hypotension and distress and patient was transferred back to the ICU Patient remains confused with [place] Coma Scale of about 11 CT scan reveals resolving left occipital cerebral contusion/ hematoma Hemodynamically patient is stable Bilateral breath sounds decreased over the both lung kern consistent with likely aspiration into the both lungs Chest x-ray also reveals bilateral pulmonary infiltrates in the bases I found patient this morning lying in Trendelenburg position which is invariably the cause of patient's aspiration Abdomen is soft Plan Medications have been adjusted with brain injury patient can be a candidate for Ativan CIWA protocol yet administering 10 mg of Ativan in very short period of time is clearly not the way to go Ativan has been DC'd Assistance from Dr. Angel is greatly appreciated Will manage patient expectantly and if he worsens he will require intubation and ventilatory support to the lung function improves Objective Vital Signs Date Time Temp Pulse Resp B/P (MAP) Pulse Ox O2 Delivery O2 Flow Rate FiO2 05/17/17 07:00 98 Nasal Cannula 2.00 05/17/17 06:00 102 05/17/17 04:00 101.5 28 145/78 (100) Intake and Output 05/17/17 05/17/17 05/18/17 08:00 16:00 00:00 Intake Total 1175 ml 329 ml Balance 1175 ml 329 ml Result Diagram: 05/17/17 0430 05/17/17 0430 Other Results Laboratory Tests Test 05/17/17 11:40 Blood Gas Puncture Site RT RADIAL Blood Gas Patient Temperature 98.6 Blood Gas HCO3 23 mmol/L (22-26) Blood Gas Base Excess -0.4 mmol/L (-2-2) Blood Gas Oxygen Saturation 95 % (90-100) Arterial Blood pH 7.47 (7.380-7.420) Arterial Blood Partial Pressure CO2 32 mmHg (38-42) Arterial Blood Partial Pressure O2 80 mmHG (61-120) Arterial Blood Oxygen Content 14.7 Vol % (12.0-20.0) Arterial Blood Carboxyhemoglobin 1.8 % (0-4) Arterial Blood Methemoglobin 0.5 % (0-2) Blood Gas Hemoglobin 11.0 G/DL (12.0-16.0) Oxygen Delivery Device NASAL CANNULA Blood Gas Liter Flow 2 L/M Imaging Last [address] 05/17/17 0000 Signed Impressions: Service Date/Time: Wednesday, May 17, 2017 02:29 - CONCLUSION: Slightly decreased edema left occipital hematoma. No new bleed. Dion Lugo MD Chest X-Ray 05/17/17 0000 Signed Impressions: Service Date/Time: Wednesday, May 17, 2017 11:56 - CONCLUSION: 1. Hypoinflation with bibasilar areas of increased density characteristic of either atelectasis or early infiltrates. 2. Heart size is normal Tristan Valle MD Disinhibition Score: 22.68 Aggression Score: 14.00 Lability Score: 18.62 Agitated Behavior Total Score: 20 Exam [employer] [place] Coma Scale around 11 Patient answer simple questions and then doses off Does not clear secretions very well Hemodynamic/Cardiac Hemodynamically stable Pulmonary/Respiratory bilateral breath sounds decreased so the both lung fieldsBasally consistent with bilateral pulmonary infiltrates Abdomen/GI Nutrition Abdomen soft diet as tolerated Renal/I&O Preserved renal function Assessment and Plan Plan Traumatic brain injury with large occipital intraparenchymal hemorrhage, facial fractures, possible injury of the right eye Repeat CT of the head today Continue Keppra, monitor sodium and start patient on salt tablets Continue to monitor in the ICU Attestation Critical care time 38 minutes Douglas Tinsley MD May 17, 2017 13:16
[2017-05-17 13:38] LABS: BILIRUBIN, URINE NEG (NEG); BLOOD, URINE TRACE (NEG); GLUCOSE,URINE NEG (NEG); KETONE, URINE 10 mg/dL (NEG); NITRITE,URINE NEG (NEG); PH, URINE 6.5 (5.0-8.5); SQUAMOUS EPITHELIAL CELL URINE <1 /hpf (0-5); URINE COLOR YELLOW (YELLW/STRAW); URINE LEUKOCYTE ESTERASE NEG (NEG)
[2017-05-17] MEDS ORDERED: ACETAMINOPHEN 1000 MG/100 ML 100 ML IV PRN (18:00)
[2017-05-17] MEDS: VALPROATE INJ 250 MG in SODIUM CHLORIDE 0.9% INJ 100 ML IV SCH ×2 (18:03→22:00)
[2017-05-17] MEDS: BISACODYL 10 MG SUPP RECTAL SCH (20:00)
[2017-05-17] MEDS: levETIRAcetam INJ 500 MG in SODIUM CHLORIDE 0.9% INJ 100 ML IV SCH (20:30)
[2017-05-18] VITALS (13 sets, daily range): BP systolic 102–151; BP diastolic 58–77; PULSE 86–110; RESP 25–39; TEMP 98.4–100.2; O2SAT 94–100
[2017-05-18] MEDS: chlordiazePOXIDE 25 MG CAP PO SCH ×4 (01:20→20:00)
[2017-05-18] MEDS: QUEtiapine FUMARATE 25 MG TAB PO SCH ×3 (03:08→21:27)
[2017-05-18] MEDS: SODIUM CHLOR 0.9% 1000 ML INJ 1,000 ML IV SCH ×4 (03:30→21:30)
[2017-05-18] MEDS: CHLORHEXIDINE GLUCONATE 2 % 1 PACK (2 CLOTHS) TOP SCH ×2 (04:00→21:31)
[2017-05-18 04:39] LABS: AUTOMATED NEUTROPHIL # 5.6 TH/MM3 (1.8-7.7); BASOPHIL % 0.5 % (0.0-2.0); EOSINOPHIL % 0.4 % (0.0-4.0); HEMATOCRIT 32.1 % (39.0-51.0); HEMOGLOBIN 11.2 GM/DL (13.0-17.0); LYMPH % 10.1 % (9.0-44.0); LYMPHOCYTE # 0.8 TH/MM3 (1.0-4.8); MEAN CELL VOLUME 95.1 FL (80.0-100.0); MEAN CORPUSCULAR HEMOGLOBIN 33.3 PG (27.0-34.0); MONO % 16.1 % (0.0-8.0); MONOCYTE # 1.2 TH/MM3 (0-0.9); NEUT % 72.9 % (16.0-70.0); PLATELET COUNT 160 TH/MM3 (150-450); RED BLOOD COUNT 3.37 MIL/MM3 (4.50-5.90); RED CELL DISTRIBUTION WIDTH 13.7 % (11.6-17.2); WHITE BLOOD COUNT 7.7 TH/MM3 (4.0-11.0)
[2017-05-18 04:58] LABS: ALBUMIN 2.2 GM/DL (3.4-5.0); AST (GOT) 76 U/L (15-37); BICARBONATE 24.5 MEQ/L (21.0-32.0); BLOOD UREA NITROGEN 5 MG/DL (7-18); CALCIUM 8.1 MG/DL (8.5-10.1); CHLORIDE 101 MEQ/L (98-107); CREATININE 0.54 MG/DL (0.60-1.30); GLOMERULAR FILTRATION RATE 160 ML/MIN (>89); GLUCOSE,RANDOM 77 MG/DL (74-106); SODIUM (NA) 137 MEQ/L (136-145)
[2017-05-18 05:02] LABS: ALKALINE PHOSPHATASE 109 U/L (45-117); ALT (GPT) 74 U/L (12-78); TOTAL BILIRUBIN ADULT 0.9 MG/DL (0.2-1.0)
[2017-05-18] MEDS: VALPROATE INJ 250 MG in SODIUM CHLORIDE 0.9% INJ 100 ML IV SCH ×3 (05:15→22:06)
[2017-05-18] MEDS: SODIUM CHLORIDE 23.4% INJ 188 MEQ in SODIUM CHLOR 0.9% 1000 ML INJ 1,000 ML IV SCH ×2 (06:01→22:05)
[2017-05-18] MEDS: ICU - POTASSIUM CHLORIDE/AQUEOUS SOLN 20 MEQ/100 ML IVPB IV PRN ×4 (06:25→12:29)
--- NOTE | 2017-05-18 08:09 | HHI.PR ---
Neuropsych Emotional Emotional: UnabletoAssess: Emotional, Anxious/Fearful, Depressed/Sad, Hostile/ Resentful, Irritable/Angry/Frustrate, Labile, Constricted/Blunted Behavior Behavior: Intact: Impulsive/Agitated, Unable to Asses: Behavior, Coping/ Acceptance, Cooperative w/ Treatment, Motivation, Frustration Tolerance/[place], Suicidal/Homicidal Risk Cognitive Cognitive: Unable to Asses: Cognitive, Attention/Concentration, Confused/ Orientation, Insight/Awareness, Judgement/Problem-Solving, Memory Psychosocial Psychosocial: Moderate: Psychosocial, Family/Other Adjustment, Realistic Expectation, Unable to Asses: Self-Esteem/Confidence Progress Notes/Response to Tx Contents of Sessions: Adjustment, Level of Consciousness Time with Patient: 30 minutes Premorbid psychological status Premorbid Cognitive, Emotional and Behavioral Status: Stable. The patient has high school years of education and recently took a job in [place]. The patient has no known prior psychiatric difficulties, as described above. Substance abuse history includes alcohol dependence. Behavioral Reactions of Patient and Family/Support System: Deferred. The patients family is experiencing ongoing issues of adjustment given the nature of the injury, and this aspect of recovery will require ongoing monitoring. Emotional/Behavioral Status of Patient and Family/Support System: Stable. Pertinent issues, if appropriate to this patients clinical care, are described in detail above. Maximizing acute care outcome It is recommended that the patient be monitored for emergent behavioral impulsivity as the medical condition evolves. This patients neuropathological challenges may limit his rehabilitation potential going forward, and these challenges will require specialized therapeutic skills to maximize outcome. At this point in the recovery process, the patient does not have cognitive capacity as the patient is unable to understand a situation and its likely consequences, nor is he able to manipulate information rationally. Cognitive capacity will be assessed throughout the recovery process. Anticipated Problems Ongoing areas of concern will include behavioral impulsivity, lack of insight and judgment, which is expected to improve with time and treatment. Presently , the patient is in delirium 2T alcohol withdrawals. Given the severity of the patient's injuries it is my clinical opinion that this patient will be unable to return to any type of productive employment for at least one year, perhaps longer and likely never. This patient is not considered safe to discharge home with supervision. Treatment Plan This clinician will continue to follow with you throughout the course of this patients acute care treatment, and I will be available to meet with the patient s family/support system to facilitate their understanding and the ongoing care of their family member. The goals of neuropsychological intervention shall be both educational and supportive to the family/support system as is deemed clinically appropriate. [place] Level: IV:Confused/Agitated-maximal assist Disinhibition Score: 19.18 Aggression Score: 14.00 Lability Score: 14.00 Agitated Behavior Total Score: 17 Impression 51 year old male s/p TBI 2T fall from ladder on 05/13/2017, now in alcohol withdrawals. Diagnosis: (1) Alcohol dependence in controlled environment (2) Mild major neurocognitive disorder due to traumatic brain injury with behavioral disturbance Progress Note Narrative PTD 5. The patient's agitation/restlessness is better controlled with Valproic Acid 250 TID and Seroquel 50 TID, and he has not required Haldol PRN. Also started by trauma surgeon was propranolol 10 q8H. CIWA was discontinued per trauma surgeon. His ABS is 17 (19.18,14,14) down significantly from yesterday which was 20 (22.6, 14, 18.6), and as such his current agitation scores are not clinically significant meaning that he is adequately managed. He remains Ranch[place] IV. I will follow. Meño Angel PhD May 18, 2017 8:09 am
[2017-05-18] MEDS: DOCUSATE SODIUM 50 MG/SENNA 8.6 MG TAB PO SCH ×2 (09:00→21:29)
[2017-05-18] MEDS: BISACODYL 10 MG SUPP RECTAL SCH (09:00)
[2017-05-18] MEDS: FAMOTIDINE 20 MG/2 ML VIAL IV PUSH SCH ×2 (09:01→21:28)
[2017-05-18] MEDS: levETIRAcetam INJ 500 MG in SODIUM CHLORIDE 0.9% INJ 100 ML IV SCH ×2 (09:01→21:28)
--- NOTE | 2017-05-18 09:12 | HHI.NSPN ---
(Andi Green) History Chief Complaint: "A little bit" of a headache. (Andi Green) Interval History 05/14: The patient is a 51-year-old male who reportedly fell from a ladder approximately 3 AM on 05/13/2017. He waited until last evening to come to the emergency room, apparently due to progressive swelling around his eyes. No seizure activity reported. No emesis reported. No definite loss of consciousness. He does have a history of alcohol abuse. He complains of blurred vision. 05/15/17: Remains confused. He was agitated last evening-placed on Precedex 05/16: This morning the patient is awake and alert in bed visiting with his . The dexmedetomidine drip is on hold. He does have a soft wrist restraint to the right wrist due to his pulling at the [place]. He says he is doing well. He denies any headache or dizziness. He has some blurry vision when he first opens his eyes but it quickly clears. He denies any double vision. He denies any pain, numbness, tingling or weakness to the extremities. His only complaint is an occasional cough. His muscle strength and sensation remain intact. His confusion and speech are improved. 05/17: When seen this morning the patient had returned to [facility] from the med/surg floor due to delirium tremens and being overdosed on lorazepam. He was given flumazenil to reverse the lorazepam. He had a decrease level of consciousness but did interact with coaxing and followed some commands correctly. 05/18: The patient is in four point soft restraints when seen this morning. He was asleep but awoke to voice. Mild tremors were noted to his upper extremities when awake. He did endorse "A little bit" of a headache but no dizziness or blurry or double vision. He had no pain, numbness, tingling or weakness to the extremities. He did follow commands and his muscle strength and sensation were good. (Andi Green) Exam Results 2/13/18 2/1305/17/17 05/17/17 05/18/17 05/18/17 06:00 18:00 06:00 18:00 06:00 18:00 Intake Total 1316 ml 1952 ml 900 ml 1992 ml 2779 ml Output Total 1550 ml 1150 ml 1200 ml Balance 1316 ml 402 ml 900 ml 842 ml 1579 ml Intake Oral 1180 ml 50 ml 480 ml IV Total 1316 ml 772 ml 900 ml 1942 ml 2299 ml Output Urine Total 1550 ml 800 ml 1200 ml Stool Total 350 ml # Bowel Movements 2 9 4 1 2 Vital Signs Date Time Temp Pulse Resp B/P (MAP) Pulse Ox O2 Delivery O2 Flow Rate FiO2 05/18/17 07:00 99 Nasal Cannula 2.00 05/18/17 06:00 102 05/18/17 04:00 99.4 91 28 136/77 (96) 100 05/18/17 04:00 91 05/18/17 02:00 86 05/18/17 00:00 99.9 96 25 128/63 (84) 94 05/18/17 00:00 96 05/17/17 22:00 104 05/17/17 20:00 110 05/17/17 20:00 101.4 104 28 144/74 (97) 97 05/17/17 19:00 100 Nasal Cannula 2.00 05/17/17 18:00 112 05/17/17 16:00 93 05/17/17 16:00 101.5 112 39 113/66 (82) 99 05/17/17 14:00 85 05/17/17 12:00 103 05/17/17 12:00 102.4 103 43 133/70 (91) 97 05/17/17 10:00 103 05/17/17 08:00 101.3 105 28 136/83 (100) 100 05/17/17 08:00 105 05/17/17 07:00 98 Nasal Cannula 2.00 05/17/17 06:00 102 05/17/17 04:00 112 05/17/17 04:00 101.5 112 28 145/78 (100) 99 05/17/17 03:15 94 Nasal Cannula 2.00 05/17/17 03:00 108 05/17/17 01:00 98.9 117 58 145/85 (105) 94 05/17/17 00:00 99.9 97 18 132/77 (95) 96 05/16/17 21:15 18 05/16/17 20:00 101.8 104 26 141/80 (100) 97 05/16/17 19:00 98 Room Air 05/16/17 16:00 98.8 99 24 130/69 (89) 93 05/16/17 15:00 98 05/16/17 12:00 98.7 90 26 119/67 (84) 96 05/16/17 08:00 85 05/16/17 08:00 93 Room Air 05/16/17 08:00 99.0 85 26 110/74 (86) 93 05/16/17 04:00 98.5 89 35 118/70 (86) 95 05/16/17 00:00 98.5 89 27 128/78 (95) 95 05/15/17 23:00 90 05/15/17 22:00 98.6 91 30 130/80 (97) 97 05/15/17 20:00 94 Room Air 05/15/17 20:00 99.3 98 36 153/79 (103) 90 05/15/17 16:00 99.2 88 23 125/81 (96) 95 05/15/17 15:00 89 05/15/17 12:00 99.1 84 24 132/80 (97) 95 (Andi Green) Physical Examination GENERAL: Asleep but awakens to voice. Tremors to upper extremities noted when awake. Interacts, requires some coaxing. No apparent distress. In 4 point soft restraints. HEENT: Right-sided facial swelling, ecchymosis, abrasions & lacerations. Bilateral periorbital ecchymosis. PERRLA 3 mm brisk, bilateral subconjuctival haemorrhages. No otorrhea or rhinorrhea. MMM & pink, tongue midline to protrusion. MUSCULOSKELETAL: THIBODEAUX w/o difficulty. No evident clubbing or deformity. NEUROLOGICAL: Drowsy, oriented to person, place, & year but not month. Speech garbled, dysarthric, slowing of speech and though processes. Follows simple commands correctly with minimal coaxing. CN II through XII appear grossly intact. Sensation intact to light touch to all extremities. Muscle strength strong to limited testing due to restraints. (Andi Green) Lab, Micro, Other Results Recent Impressions Head CT 05/17/17 0000 Signed Impressions: Service Date/Time: Wednesday, May 17, 2017 02:29 - CONCLUSION: Slightly decreased edema left occipital hematoma. No new bleed. Dion Lugo MD Chest X-Ray 05/17/17 0000 Signed Impressions: Service Date/Time: Wednesday, May 17, 2017 11:56 - CONCLUSION: 1. Hypoinflation with bibasilar areas of increased density characteristic of either atelectasis or early infiltrates. 2. Heart size is normal Tristan Valle MD Carotid Artery Ultrasound 05/16/17 0000 Signed Impressions: Service Date/Time: Tuesday, May 16, 2017 10:30 - CONCLUSION: 1. Mild plaque with patent carotid arteries bilaterally. 2. Antegrade flow involving both vertebral arteries. Juan Castillo Jr., MD Laboratory Tests Test 05/15/17 16:15 05/16/17 05:01 05/17/17 04:30 05/17/17 10:50 Potassium Level 3.4 MEQ/L 3.3 MEQ/L 3.0 MEQ/L White Blood Count 8.7 TH/MM3 7.5 TH/MM3 Red Blood Count 3.48 MIL/MM3 3.37 MIL/MM3 Hemoglobin 11.6 GM/DL 11.1 GM/DL Hematocrit 32.7 % 31.7 % Mean Corpuscular Volume 94.0 FL 93.9 FL Mean Corpuscular Hemoglobin 33.4 PG 32.8 PG Mean Corpuscular Hemoglobin Concent 35.5 % 34.9 % Red Cell Distribution Width 13.7 % 13.6 % Platelet Count 95 TH/MM3 130 TH/MM3 Mean Platelet Volume 8.5 FL 7.9 FL Neutrophils (%) (Auto) 78.9 % 82.6 % Lymphocytes (%) (Auto) 12.8 % 6.3 % Monocytes (%) (Auto) 7.5 % 10.6 % Eosinophils (%) (Auto) 0.2 % 0.2 % Basophils (%) (Auto) 0.6 % 0.3 % Neutrophils # (Auto) 6.9 TH/MM3 6.2 TH/MM3 Lymphocytes # (Auto) 1.1 TH/MM3 0.5 TH/MM3 Monocytes # (Auto) 0.7 TH/MM3 0.8 TH/MM3 Eosinophils # (Auto) 0.0 TH/MM3 0.0 TH/MM3 Basophils # (Auto) 0.0 TH/MM3 0.0 TH/MM3 CBC Comment AUTO DIFF DIFF FINAL Differential Total Cells Counted 100 Neutrophils % (Manual) 68 % Band Neutrophils % 17 % Lymphocytes % 10 % Monocytes % 5 % Neutrophils # (Manual) 7.4 TH/MM3 Differential Comment FINAL DIFF MANUAL Platelet Estimate LOW Platelet Morphology Comment NORMAL Blood Urea Nitrogen 12 MG/DL 9 MG/DL Creatinine 0.59 MG/DL 0.56 MG/DL Random Glucose 85 MG/DL 100 MG/DL Total Protein 6.2 GM/DL 6.2 GM/DL Albumin 2.4 GM/DL 2.4 GM/DL Calcium Level 7.7 MG/DL 7.7 MG/DL Alkaline Phosphatase 130 U/L 124 U/L Aspartate Amino Transf (AST/SGOT) 103 U/L 107 U/L Alanine Aminotransferase (ALT/SGPT) 91 U/L 88 U/L Total Bilirubin 0.9 MG/DL 0.9 MG/DL Sodium Level 130 MEQ/L 133 MEQ/L Chloride Level 98 MEQ/L 100 MEQ/L Carbon Dioxide Level 22.3 MEQ/L 23.6 MEQ/L Anion Gap 10 MEQ/L 9 MEQ/L Estimat Glomerular Filtration Rate 145 ML/MIN 154 ML/MIN Phosphorus Level 2.3 MG/DL Ammonia LESS THAN 10 MCMOL/L Test 05/17/17 11:40 05/17/17 13:10 05/18/17 03:51 Blood Gas Puncture Site RT RADIAL Blood Gas Patient Temperature 98.6 Blood Gas HCO3 23 mmol/L Blood Gas Base Excess -0.4 mmol/L Blood Gas Oxygen Saturation 95 % Arterial Blood pH 7.47 Arterial Blood Partial Pressure CO2 32 mmHg Arterial Blood Partial Pressure O2 80 mmHG Arterial Blood Oxygen Content 14.7 Vol % Arterial Blood Carboxyhemoglobin 1.8 % Arterial Blood Methemoglobin 0.5 % Blood Gas Hemoglobin 11.0 G/DL Oxygen Delivery Device NASAL CANNULA Blood Gas Liter Flow 2 L/M Urine Color YELLOW Urine Turbidity CLEAR Urine pH 6.5 Urine Specific Latty 1.015 Urine Protein TRACE mg/dL Urine Glucose (UA) NEG mg/dL Urine Ketones 10 mg/dL Urine Occult Blood TRACE Urine Nitrite NEG Urine Bilirubin NEG Urine Urobilinogen LESS THAN 2.0 MG/DL Urine Leukocyte Esterase NEG Urine RBC 2 /hpf Urine WBC 2 /hpf Urine Squamous Epithelial Cells <1 /hpf Microscopic Urinalysis Comment CULT NOT INDICATED White Blood Count 7.7 TH/MM3 Red Blood Count 3.37 MIL/MM3 Hemoglobin 11.2 GM/DL Hematocrit 32.1 % Mean Corpuscular Volume 95.1 FL Mean Corpuscular Hemoglobin 33.3 PG Mean Corpuscular Hemoglobin Concent 35.0 % Red Cell Distribution Width 13.7 % Platelet Count 160 TH/MM3 Mean Platelet Volume 8.0 FL Neutrophils (%) (Auto) 72.9 % Lymphocytes (%) (Auto) 10.1 % Monocytes (%) (Auto) 16.1 % Eosinophils (%) (Auto) 0.4 % Basophils (%) (Auto) 0.5 % Neutrophils # (Auto) 5.6 TH/MM3 Lymphocytes # (Auto) 0.8 TH/MM3 Monocytes # (Auto) 1.2 TH/MM3 Eosinophils # (Auto) 0.0 TH/MM3 Basophils # (Auto) 0.0 TH/MM3 CBC Comment DIFF FINAL Differential Comment Blood Urea Nitrogen 5 MG/DL Creatinine 0.54 MG/DL Random Glucose 77 MG/DL Total Protein 6.0 GM/DL Albumin 2.2 GM/DL Calcium Level 8.1 MG/DL Alkaline Phosphatase 109 U/L Aspartate Amino Transf (AST/SGOT) 76 U/L Alanine Aminotransferase (ALT/SGPT) 74 U/L Total Bilirubin 0.9 MG/DL Sodium Level 137 MEQ/L Potassium Level 3.1 MEQ/L Chloride Level 101 MEQ/L Carbon Dioxide Level 24.5 MEQ/L Anion Gap 12 MEQ/L Estimat Glomerular Filtration Rate 160 ML/MIN (Andi Green) Medical Decision Making Impression and Plan Impression: 1. Traumatic brain injury with left occipital hemorrhagic contusion. 2. Right frontal scalp contusion with subgaleal hematoma 3. Right orbital fracture The patient has improvement in his mental status today. He is oriented to person , place & year, follows simple commands and his muscle strength and sensation are intact. T max 102.4 yesterday at noon. Reviewed labs for today. Haemoglobin level essentially stable. Interval resolution in thrombocytopenia. Improvement in sodium level to 137. Minimal interval improvement in hypokalemia. Interval improvement in AST, ALT & alk phos CT brain demonstrated continued evolution of the left occipital haematoma w/slight decrease in edema. No evidence of a new haemorrhage. Plan: Discussed plan of care with patient and . Primary management per Trauma. Critical care management per Credit Director. Neuro checks. Stat CT brain for any decline in neuro status. Hold pharmacological DVT prophylaxis. Mechanical DVT prophylaxis. Stress ulcer prophylaxis. Mobilise patient w/assistance. Physical, Occupational & Speech Therapy. Monitor sodium level and keep WNL w/2% hypertonic saline. (Andi Green) Attending Statement The exam, history, and the medical decision-making described in the above note were completed with the assistance of the mid-level provider. I reviewed and agree with the findings presented. I attest that I had a [id number] encounter with the patient on the same day, and personally performed and documented my assessment and findings in the medical record. Remains agitated, confused but improved compared to past 2 days prior to examination of 05/18/2017. 05/17/2017 CT scan head with anticipated evolution of hemorrhagic contusion. Stable overall neurologic exam Continuing close ISC neurochecks Restraints as needed for agitation Follow-up sodium (Regan Craven MD) Andi Green May 18, 2017 09:12 Regan Craven MD Jun 02, 2017 20:38
[2017-05-18] MEDS: HEPARIN SODIUM - SQ 10,000 UNITS/ML VIAL SQ SCH ×2 (12:49→21:29)
--- NOTE | 2017-05-18 15:39 | HHI.CCPN ---
Subjective Brief History 51-year-old male came to the emergency room with history of a trip and fall as per him at 3 AM early this morning. Since then he has noticed that both his eyelids have been swelling up and is almost swelling shot so he cannot see. His brought him to the emergency room. Patient denied drinking but as per the he does drink alcohol every day. Currently patient is sober and answering questions. Patient denies any assault. Vital signs are stable. No history of vomiting or loss of consciousness as per the . 24 Hour Review/Hospital Course 05/15 Patient was slightly confused in the morning he urinated to the floor Since then he has been more stable Patient is alcoholic he was started on the CIWA protocol The CT scan of the head is pending, his GCS is [address] scan of the abdomen and pelvis and chest were negative for any injuries Neurosurgical ophthalmology and OMFS consults are pending 05/15/2017 This morning patient is somewhat confused but awake Adamantly denies alcohol use however went into delirium tremens had to be placed on Precedex drip and CIWA protocol Pupils equal reactive bruising over the both orbits and forehead Hemodynamically stable Bilateral good breath sounds Neurologically patient remains stable and can transfer to the floor once off Precedex Patient remains in the ICU due to delirium tremens and no specific traumatic injury 05/16/2017 Patient doing much better today neurologically Off Precedex Per neuropsychologist patient placed on appropriate regimen int face of alcoholism He is awake alert but disoriented at times Communicates with short sentences Pupils equal reactive and facial bruising is slowly receding Moves all 4 extremities does not have appreciable motoric deficit Bilateral breath sounds good inspiratory effort Tolerates diet well Transfer to floor when bed available 05/17/2017 Patient with above noted head injury was transferred to floor yesterday but became restless was given 10 mg of Ativan within 15 minute time which of course lead to respiratory depression, hypotension and distress and patient was transferred back to the ICU Patient remains confused with [place] Coma Scale of about 11 CT scan reveals resolving left occipital cerebral contusion/ hematoma Hemodynamically patient is stable Bilateral breath sounds decreased over the both lung kern consistent with likely aspiration into the both lungs Chest x-ray also reveals bilateral pulmonary infiltrates in the bases I found patient this morning lying in Trendelenburg position which is invariably the cause of patient's aspiration Abdomen is soft Plan Medications have been adjusted with brain injury patient can be a candidate for Ativan CIWA protocol yet administering 10 mg of Ativan in very short period of time is clearly not the way to go Ativan has been DC'd Assistance from Dr. Angel is greatly appreciated Will manage patient expectantly and if he worsens he will require intubation and ventilatory support to the lung function improves 05/18 Patient is awake alert today in the morning His sodium is 136 breath sounds are equal bilaterally today Clearly more awake since the Ativan has been DC'd He is on Seroquel and valproic acid, swelling of his face is clearly better Abdomen is soft Objective Vital Signs Date Time Temp Pulse Resp B/P (MAP) Pulse Ox O2 Delivery O2 Flow Rate FiO2 05/18/17 14:00 105 05/18/17 12:00 100.1 30 117/70 (86) 94 05/18/17 07:00 Nasal Cannula 2.00 Intake and Output 05/18/17 05/18/17 05/19/17 08:00 16:00 00:00 Intake Total 2779 ml 100 ml Output Total 1200 ml Balance 1579 ml 100 ml Result Diagram: 05/18/17 0351 05/18/17 1130 Disinhibition Score: 19.18 Aggression Score: 14.00 Lability Score: 14.00 Agitated Behavior Total Score: 17 Exam HEEL BLACKER gcs 14 Hemodynamic/Cardiac stable Pulmonary/Respiratory Clear bilateral Abdomen/GI Nutrition Soft benign Vascular Central Line Catheter Vascular Central Line Catheter: No Assessment and Plan Plan Continue current care like that the sodium in the hot high 130s at least Start DVT prophylaxis Continue measures for alcohol withdrawal Patient has MRSA in blood will start him on vancomycin and will get an ID consult as well continue ICU treatment Donna Menjivar MD May 18, 2017 15:39
--- NOTE | 2017-05-18 18:13 | HHI.CCPN ---
Subjective Remarks/Hospital Course Hospital Course: 51-year-old male came to the emergency room with history of a trip and fall as per him at 3 AM early this morning. Since then he has noticed that both his eyelids have been swelling up and is almost swelling shot so he cannot see. His brought him to the emergency room. Patient denied drinking but as per the he does drink alcohol every day. Currently patient is sober and answering questions. Patient denies any assault. Vital signs are stable. No history of vomiting or loss of consciousness as per the . Subjective: 05/15: still delirious, in etoh withdraw. some increase in cerebral edema, bleeds stable in size. remains on precedex. 05/16: Remains on Precedex gtt. Drowsy, arousable. 05/17: At 2 AM rapid response team called for patients tachypnea tachycardia and altered mental status. Has received 10 mg of Ativan per [facility] Nurse orders 05/18: Tachypneic with fluctuating mental status today. Blood cultures growing MRSA. Patient is drowsy but easily arousable, following commands. Knows he is in the hospital. On 2 L nasal cannula maintaining O2 sats around 92%. Gets tachypneic with respiratory rate 30s at times. Objective Vital Signs Date Time Temp Pulse Resp B/P (MAP) Pulse Ox O2 Delivery O2 Flow Rate FiO2 05/18/17 16:00 98 05/18/17 16:00 100.2 39 102/58 (73) 96 05/18/17 07:00 Nasal Cannula 2.00 Intake and Output 05/18/17 05/18/17 05/19/17 08:00 16:00 00:00 Intake Total 2779 ml 100 ml Output Total 1200 ml Balance 1579 ml 100 ml Result Diagram: 05/18/17 0351 05/18/17 1605 Other Results Laboratory Tests Test 05/18/17 17:53 Blood Gas Puncture Site RT RADIAL Blood Gas Patient Temperature 98.6 Blood Gas HCO3 22 mmol/L (22-26) Blood Gas Base Excess -1.5 mmol/L (-2-2) Blood Gas Oxygen Saturation 92 % (90-100) Arterial Blood pH 7.49 (7.380-7.420) Arterial Blood Partial Pressure CO2 28 mmHg (38-42) Arterial Blood Partial Pressure O2 66 mmHg (61-120) Arterial Blood Oxygen Content 12.2 Vol % (12.0-20.0) Arterial Blood Carboxyhemoglobin 1.9 % (0-4) Arterial Blood Methemoglobin 0.7 % (0-2) Blood Gas Hemoglobin 9.4 G/DL (12.0-16.0) Oxygen Delivery Device NASAL CANNULA Blood Gas Liter Flow 4 L/M Imaging Last [address] 05/13/172207 Signed Impressions: Service Date/Time: Saturday, May 13, 2017 22:22 - CONCLUSION: Multiple fractures of the right orbit including the inferior orbital wall and comminuted fractures of the medial orbital wall. Intraorbital muscles remain within the orbit. There is associated opacification of the right ethmoids and right maxillary sinus. There is also prominent alyssa-orbital soft tissue swelling extending into the frontal region. Juan Sun MD Head CT 05/13/172207 Signed Impressions: Service Date/Time: Saturday, May 13, 2017 22:22 - CONCLUSION: 1. Greater than 4 cm parenchymal hematoma left occipital lobe and prominent soft tissue swelling in the right periorbital and frontal region suggests contrecoup injury. No significant mass effect or cerebral edema at this point. 2. Suspected abnormalities in the right orbit, ethmoid sinus, and maxillary sinus. CT facial bones to be performed. Juan Sun MD Chest X-Ray 05/13/172207 Signed Impressions: Service Date/Time: Saturday, May 13, 2017 22:19 - CONCLUSION: No infiltrates seen. No evidence of pneumothorax. Juan Sun MD Cervical Spine CT 05/13/172207 Signed Impressions: Service Date/Time: Saturday, May 13, 2017 22:22 - CONCLUSION: Moderately advanced discogenic degenerative changes C4-C6 with associated retrolisthesis of C4 to C5 and reversal of the upper cervical lordosis. No fracture seen. Juan Sun MD Disinhibition Score: 19.18 Aggression Score: 14.00 Lability Score: 14.00 Agitated Behavior Total Score: 17 Objective Remarks GENERAL: Awake, CAM+, delirious SKIN: Focused skin assessment warm/dry. Multiple old bruises on bilateral shins. Patient has significant periorbital ecchymosis bilaterally. HEAD: Patient has some abrasions on the scalp on the vertex EYES: Pupils equal and round. ENT: No nasal bleeding or discharge. Mucous membranes pink and moist. Severe bilateral periorbital ecchymosis. NECK: Trachea midline. No JVD. CARDIOVASCULAR: Regular rate and rhythm. RESPIRATORY: No accessory muscle use. equal chest rise. GASTROINTESTINAL: Abdomen soft, non-tender, nondistended. MUSCULOSKELETAL: No obvious deformities. No clubbing. No cyanosis. No edema. NEUROLOGICAL: Drowsy, easily arousable, knows he is at the hospital. Moves all 4 extremities. Vascular Central Line Catheter: No A/P Assessment and Plan Assessment: 51yM with etoh withdraw and ICH s/p fall. Agitated Delirium remains severe requiring iv sedation with dexmedetomidine. Patient was transferred to [facility] floor by trauma services. Transferred back to ICU for altered mental status thought to be secondary to Ativan with subsequent fevers, delirium and MRSA bacteremia. Agitated Delirium Etoh Withdraw -Off benzodiazepines. On Seroquel and valproate per trauma team. - precedex gtt ordered for delirium - frequent neuro checks ICH - re-admit to in ICU - ICH post fall - CT head stat - Transfuse platelets to keep count of 100 - Neuro checks per unit protocol - Remains on 2% saline to bring up sodium levels closer to 145 - Further per neurosurgery - Keppra for seizure prophylaxis Multiple fractures of the right orbit - OMFS consultation: non-op MRSA bacteremia Severe sepsis Being started on IV vancomycin. ID consulted by trauma team. Probably has MRSA pneumonia as primary source. Does not have any central lines. Peripheral IV sites look good. Check ABG and lactic acid. Add CMP labs drawn earlier. Follow-up chest x-ray Thrombocytopenia - EtOH??? - Transfuse to keep count > 100 - 4t score: low probability for HIT. no recent heparin exposure. DVT GI prophylaxis - Teds SCDs - No pharmacological DVT prophylaxis due to ICH - Early aggressive mobilization - Pepcid Discussed with Dr. Menjivar. Critical care will continue to follow. Cristiano Hamilton MD May 18, 2017 18:13
[2017-05-18] MEDS ORDERED: DEXMEDETOMIDINE HCL 200 MCG/2 ML VIAL IV PUSH ONE (18:15)
[2017-05-18] MEDS: VANCOMYCIN INJ 1,000 MG in SODIUM CHLOR 0.9% 250 ML INJ 250 ML IV SCH (18:22)
[2017-05-18] MEDS: DEXMEDETOMIDINE INJ 200 MCG in SODIUM CHLORIDE 0.9% INJ 50 ML IV PRN ×2 (18:23→21:30)
--- NOTE | 2017-05-18 18:44 | RADRPT ---
EXAM DATE/TIME: 05/18/2017 18:06 [facility] COMPARISON: CHEST SINGLE AP, May 17, 2017, 11:56. INDICATIONS : Evaluate for infiltrates MEDICAL HISTORY : Cardiovascular disease. SURGICAL HISTORY : None. ENCOUNTER: Subsequent ACUITY: 4 - 6 days PAIN SCORE: 10/10 LOCATION: chest FINDINGS: A single view of the chest demonstrates cardiomegaly. Slight increase in perihilar and basilar airspa ce disease since May 17. No effusions or pneumothorax. The no acute bony abnormality. CONCLUSION: 1. Slight worsening of perihilar airspace disease. Differential diagnosis includes pulmonary edema an d infection. Arsh Leslie MD on May 18, 2017 at 18:41 Board Certified Radiologist. This report was verified electronically.
[2017-05-18] MEDS ORDERED: FUROSEMIDE 20 MG/2 ML VIAL IV PUSH ONE (20:00)
[2017-05-18 23:03] LABS: ALT (GPT) 70 U/L (12-78); AST (GOT) 83 U/L (15-37); BICARBONATE 24.5 MEQ/L (21.0-32.0); BLOOD UREA NITROGEN 4 MG/DL (7-18); CALCIUM 7.6 MG/DL (8.5-10.1); CHLORIDE 103 MEQ/L (98-107); CREATININE 0.45 MG/DL (0.60-1.30); GLOMERULAR FILTRATION RATE 198 ML/MIN (>89); GLUCOSE,RANDOM 108 MG/DL (74-106); SODIUM (NA) 136 MEQ/L (136-145)
[2017-05-18 23:06] LABS: ALKALINE PHOSPHATASE 106 U/L (45-117); TOTAL BILIRUBIN ADULT 0.7 MG/DL (0.2-1.0); TOTAL PROTEIN 5.9 GM/DL (6.4-8.2)
[2017-05-18] MEDS: POTASSIUM CHLOR 20 MEQ PREMIX 100 ML IV PRN (23:58)
[2017-05-19] VITALS (14 sets, daily range): BP systolic 104–126; BP diastolic 60–67; PULSE 56–86; RESP 27–34; TEMP 98.7–99.8; O2SAT 3–97
[2017-05-19] MEDS: chlordiazePOXIDE 25 MG CAP PO SCH ×4 (01:41→19:21)
[2017-05-19] MEDS: QUEtiapine FUMARATE 25 MG TAB PO SCH ×3 (01:41→19:21)
[2017-05-19] MEDS: DEXMEDETOMIDINE INJ 200 MCG in SODIUM CHLORIDE 0.9% INJ 50 ML IV PRN ×3 (03:15→17:13)
[2017-05-19 04:22] LABS: AUTOMATED NEUTROPHIL # 6.8 TH/MM3 (1.8-7.7); BASOPHIL % 0.4 % (0.0-2.0); EOSINOPHIL % 0.5 % (0.0-4.0); HEMATOCRIT 29.3 % (39.0-51.0); HEMOGLOBIN 10.2 GM/DL (13.0-17.0); LYMPH % 11.1 % (9.0-44.0); MEAN CELL VOLUME 94.7 FL (80.0-100.0); MEAN CORPUSCULAR HEMOGLOBIN 33.1 PG (27.0-34.0); MEAN CORPUSCULAR HGB CONC 34.9 % (32.0-36.0); MEAN PLATELET VOLUME 7.9 FL (7.0-11.0); MONO % 11.7 % (0.0-8.0); MONOCYTE # 1.1 TH/MM3 (0-0.9); NEUT % 76.3 % (16.0-70.0); PLATELET COUNT 227 TH/MM3 (150-450); RED CELL DISTRIBUTION WIDTH 13.6 % (11.6-17.2)
[2017-05-19] MEDS: POTASSIUM CHLOR 20 MEQ PREMIX 100 ML IV PRN (04:24)
[2017-05-19 04:44] LABS: BICARBONATE 25.7 MEQ/L (21.0-32.0); CALCIUM 7.8 MG/DL (8.5-10.1); CREATININE 0.44 MG/DL (0.60-1.30)
[2017-05-19] MEDS: HEPARIN SODIUM - SQ 10,000 UNITS/ML VIAL SQ SCH ×3 (06:01→21:38)
[2017-05-19] MEDS: VALPROATE INJ 250 MG in SODIUM CHLORIDE 0.9% INJ 100 ML IV SCH ×3 (06:02→21:37)
--- NOTE | 2017-05-19 08:04 | HHI.CCPN ---
Subjective Remarks/Hospital Course Hospital Course: 51-year-old male came to the emergency room with history of a trip and fall as per him at 3 AM early this morning. Since then he has noticed that both his eyelids have been swelling up and is almost swelling shot so he cannot see. His brought him to the emergency room. Patient denied drinking but as per the he does drink alcohol every day. Currently patient is sober and answering questions. Patient denies any assault. Vital signs are stable. No history of vomiting or loss of consciousness as per the . Subjective: 05/15: still delirious, in etoh withdraw. some increase in cerebral edema, bleeds stable in size. remains on precedex. 05/16: Remains on Precedex gtt. Drowsy, arousable. 05/17: At 2 AM rapid response team called for patients tachypnea tachycardia and altered mental status. Has received 10 mg of Ativan per [facility] Nurse orders 05/18: Tachypneic with fluctuating mental status today. Blood cultures growing MRSA. Patient is drowsy but easily arousable, following commands. Knows he is in the hospital. On 2 L nasal cannula maintaining O2 sats around 92%. Gets tachypneic with respiratory rate 30s at times. 05/19: Remains tachypneic. Bilateral crackles. Stop iv fluid and start diuretics. Apparently agitated last night. Calm now on precedex. Objective Vital Signs Date Time Temp Pulse Resp B/P (MAP) Pulse Ox O2 Delivery O2 Flow Rate FiO2 05/19/17 07:00 93 Nasal Cannula 4.00 05/19/17 06:00 76 05/19/17 04:00 98.7 28 110/67 (81) Intake and Output 05/19/17 05/19/17 05/20/17 08:00 16:00 00:00 Intake Total 240 ml Output Total 2203 ml Balance -1963 ml Result Diagram: 05/19/17 0344 05/19/17 0344 Other Results Laboratory Tests Test 05/18/17 17:53 Blood Gas Puncture Site RT RADIAL Blood Gas Patient Temperature 98.6 Blood Gas HCO3 22 mmol/L (22-26) Blood Gas Base Excess -1.5 mmol/L (-2-2) Blood Gas Oxygen Saturation 92 % (90-100) Arterial Blood pH 7.49 (7.380-7.420) Arterial Blood Partial Pressure CO2 28 mmHg (38-42) Arterial Blood Partial Pressure O2 66 mmHg (61-120) Arterial Blood Oxygen Content 12.2 Vol % (12.0-20.0) Arterial Blood Carboxyhemoglobin 1.9 % (0-4) Arterial Blood Methemoglobin 0.7 % (0-2) Blood Gas Hemoglobin 9.4 G/DL (12.0-16.0) Oxygen Delivery Device NASAL CANNULA Blood Gas Liter Flow 4 L/M Imaging Last [address] 05/13/172207 Signed Impressions: Service Date/Time: Saturday, May 13, 2017 22:22 - CONCLUSION: Multiple fractures of the right orbit including the inferior orbital wall and comminuted fractures of the medial orbital wall. Intraorbital muscles remain within the orbit. There is associated opacification of the right ethmoids and right maxillary sinus. There is also prominent alyssa-orbital soft tissue swelling extending into the frontal region. Juan Sun MD Head CT 05/13/172207 Signed Impressions: Service Date/Time: Saturday, May 13, 2017 22:22 - CONCLUSION: 1. Greater than 4 cm parenchymal hematoma left occipital lobe and prominent soft tissue swelling in the right periorbital and frontal region suggests contrecoup injury. No significant mass effect or cerebral edema at this point. 2. Suspected abnormalities in the right orbit, ethmoid sinus, and maxillary sinus. CT facial bones to be performed. Juan Sun MD Chest X-Ray 05/13/172207 Signed Impressions: Service Date/Time: Saturday, May 13, 2017 22:19 - CONCLUSION: No infiltrates seen. No evidence of pneumothorax. Juan Sun MD Cervical Spine CT 05/13/172207 Signed Impressions: Service Date/Time: Saturday, May 13, 2017 22:22 - CONCLUSION: Moderately advanced discogenic degenerative changes C4-C6 with associated retrolisthesis of C4 to C5 and reversal of the upper cervical lordosis. No fracture seen. Juan Sun MD Disinhibition Score: 26.18 Aggression Score: 17.50 Lability Score: 14.00 Agitated Behavior Total Score: 21 Objective Remarks GENERAL: Awake, CAM+, delirious SKIN: Focused skin assessment warm/dry. Multiple old bruises on bilateral shins , periorbital ecchymosis bilaterally. HEAD: Patient has some dry abrasions on the scalp on the vertex EYES: Pupils equal and round. ENT: No nasal bleeding or discharge. Mucous membranes pink and moist. Severe bilateral periorbital ecchymosis. NECK: Trachea midline, airway widely patent. CARDIOVASCULAR: Regular rate and rhythm. Neck veins are full. RESPIRATORY: No accessory muscle use. equal chest rise. Crackles. GASTROINTESTINAL: Abdomen soft, non-tender, nondistended. BS active. MUSCULOSKELETAL: No obvious deformities. No clubbing. No cyanosis. No edema. NEUROLOGICAL: Drowsy, arousable, knows he is at the hospital. Moves all 4 extremities. A/P Assessment and Plan Assessment: 51yM with etoh withdraw and ICH s/p fall. Agitated Delirium remains severe requiring iv sedation with dexmedetomidine. Patient was transferred to [facility] floor by trauma services. Transferred back to ICU for altered mental status thought to be secondary to Ativan with subsequent fevers, delirium and MRSA bacteremia. Agitated Delirium Etoh Withdraw -Off benzodiazepines. On Seroquel and valproate per trauma team. - precedex gtt ordered for delirium - frequent neuro checks ICH - re-admit to in ICU - ICH post fall - CT head stat - Transfuse platelets to keep count of 100 - Neuro checks per unit protocol - Remains on 2% saline to bring up sodium levels closer to 145 - Further per neurosurgery - Rob for seizure prophylaxis Multiple fractures of the right orbit - OMFS consultation: non-op MRSA bacteremia Severe sepsis Being started on IV vancomycin. ID consulted by trauma team. Probably has MRSA pneumonia as primary source. Does not have any central lines. Peripheral IV sites look good. Check ABG and lactic acid. Add CMP labs drawn earlier. Follow-up chest x-ray Thrombocytopenia - EtOH??? - Transfuse to keep count > 100 - 4t score: low probability for HIT. no recent heparin exposure. DVT GI prophylaxis - Teds SCDs - No pharmacological DVT prophylaxis due to ICH - Early aggressive mobilization - Pepcid Overall impression: Calm on precedex. Apparently received 10 mg ativan on floor. Suspect fluid overload. Winston Myers MD May 19, 2017 08:04
--- NOTE | 2017-05-19 08:13 | HHI.PR ---
Neuropsych Behavior Behavior: Moderate: Impulsive/Agitated Cognitive Cognitive: Severe: Cognitive, Attention/Concentration, Confused/Orientation, Insight/Awareness, Judgement/Problem-Solving, Memory Psychosocial Psychosocial: Mild: Psychosocial, Family/Other Adjustment, Realistic Expectation, Unable to Asses: Self-Esteem/Confidence Progress Notes/Response to Tx Contents of Sessions: Adjustment, Level of Consciousness Time with Patient: 15 minutes Premorbid psychological status Premorbid Cognitive, Emotional and Behavioral Status: Stable. 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 The patient has no known prior psychiatric difficulties, as described above. Substance abuse history includes alcohol dependence. Behavioral Reactions of Patient and Family/Support System: Deferred. The patients family is experiencing ongoing issues of adjustment given the nature of the injury, and this aspect of recovery will require ongoing monitoring. Emotional/Behavioral Status of Patient and Family/Support System: Stable. Pertinent issues, if appropriate to this patients clinical care, are described in detail above. Maximizing acute care outcome It is recommended that the patient be monitored for emergent behavioral impulsivity as the medical condition evolves. This patients neuropathological challenges may limit his rehabilitation potential going forward, and these challenges will require specialized therapeutic skills to maximize outcome. At this point in the recovery process, the patient does not have cognitive capacity as the patient is unable to understand a situation and its likely consequences, nor is he able to manipulate information rationally. Cognitive capacity will be assessed throughout the recovery process. Anticipated Problems Ongoing areas of concern will include behavioral impulsivity, lack of insight and judgment, which is expected to improve with time and treatment. Presently , the patient is in delirium 2T alcohol withdrawals. Given the severity of the patient's injuries it is my clinical opinion that this patient will be unable to return to any type of productive employment for at least one year, perhaps longer and likely never. This patient is not considered safe to discharge home with supervision. Treatment Plan This clinician will continue to follow with you throughout the course of this patients acute care treatment, and I will be available to meet with the patient s family/support system to facilitate their understanding and the ongoing care of their family member. The goals of neuropsychological intervention shall be both educational and supportive to the family/support system as is deemed clinically appropriate. [facility] Level: IV:Confused/Agitated-maximal assist Disinhibition Score: 26.18 Aggression Score: 17.50 Lability Score: 14.00 Agitated Behavior Total Score: 21 Impression 51 year old male s/p TBI 2T fall from ladder on 05/13/2017, now in alcohol withdrawals. Diagnosis: (1) Alcohol dependence in controlled environment (2) Mild major neurocognitive disorder due to traumatic brain injury with behavioral disturbance Progress Note Narrative PTD 6. The patient is awake and more alert, less sedated now off Ativan. He did become somewhat agitated last night, calmed with Precedex. He remains on Valproic Acid 250 TID and Seroquel 50 TID, and yesterday started propranolol 10 q8H. Still noted to be tachypneic. His ABS score today is 21 (26.1, 17, 14) up from 17 yesterday. Still recovering from withdrawal issues with additional sequelae from TBI agitation. He is [place]o IV. I will follow. Meño Angel PhD May 19, 2017 8:13 am
[2017-05-19] MEDS ORDERED: FUROSEMIDE 40 MG/4 ML VIAL IV PUSH ONE (08:15)
[2017-05-19] MEDS: DOCUSATE SODIUM 50 MG/SENNA 8.6 MG TAB PO SCH ×2 (09:00→21:00)
[2017-05-19] MEDS: BISACODYL 10 MG SUPP RECTAL SCH (09:00)
[2017-05-19] MEDS: levETIRAcetam INJ 500 MG in SODIUM CHLORIDE 0.9% INJ 100 ML IV SCH ×2 (09:11→19:20)
[2017-05-19] MEDS: FAMOTIDINE 20 MG/2 ML VIAL IV PUSH SCH ×2 (09:12→19:20)
--- NOTE | 2017-05-19 09:57 | HHI.NSPN ---
(Andi Green) History Chief Complaint: Unable to specify other than "It's a little rough this morning." (NormaAndi SHI) Interval History 05/14: The patient is a 51-year-old male who reportedly fell from a ladder approximately 3 AM on 05/13/2017. He waited until last evening to come to the emergency room, apparently due to progressive swelling around his eyes. No seizure activity reported. No emesis reported. No definite loss of consciousness. He does have a history of alcohol abuse. He complains of blurred vision. 05/15/17: Remains confused. He was agitated last evening-placed on Precedex 05/16: This morning the patient is awake and alert in bed visiting with his . The dexmedetomidine drip is on hold. He does have a soft wrist restraint to the right wrist due to his pulling at the [place]. He says he is doing well. He denies any headache or dizziness. He has some blurry vision when he first opens his eyes but it quickly clears. He denies any double vision. He denies any pain, numbness, tingling or weakness to the extremities. His only complaint is an occasional cough. His muscle strength and sensation remain intact. His confusion and speech are improved. 05/17: When seen this morning the patient had returned to [facility] from the med/surg floor due to delirium tremens and being overdosed on lorazepam. He was given flumazenil to reverse the lorazepam. He had a decrease level of consciousness but did interact with coaxing and followed some commands correctly. 05/18: The patient is in four point soft restraints when seen this morning. He was asleep but awoke to voice. Mild tremors were noted to his upper extremities when awake. He did endorse "A little bit" of a headache but no dizziness or blurry or double vision. He had no pain, numbness, tingling or weakness to the extremities. He did follow commands and his muscle strength and sensation were good. 05/19: This morning the patient seems to be lethargic. He does awaken to voice but drifts back off to sleep readily. He stated that "It's a little rough this morning." He interacted with repeated verbal stimulation. His motor and sensory exam were stable. He is confused as to time. He is now in contact isolation due to blood cultures with MRSA in three bottles. (Andi Green) Exam Results 05/17/17 05/17/17 05/18/17 05/18/17 05/19/17 05/19/17 06:00 18:00 06:00 18:00 06:00 18:00 Intake Total 900 ml 1992 ml 2779 ml 760 ml 2213 ml Output Total 1150 ml 1200 ml 1300 ml 2553 ml Balance 900 ml 842 ml 1579 ml -540 ml -340 ml Intake Oral 50 ml 480 ml 360 ml 240 ml IV Total 900 ml 1942 ml 2299 ml 400 ml 1973 ml Output Urine Total 800 ml 1200 ml 1300 ml 2550 ml Stool Total 350 ml 3 ml # Bowel Movements 4 1 2 3 Vital Signs Date Time Temp Pulse Resp B/P (MAP) Pulse Ox O2 Delivery O2 Flow Rate FiO2 05/19/17 08:00 75 05/19/17 08:00 98.8 74 31 104/60 (75) 93 05/19/17 07:00 93 Nasal Cannula 4.00 05/19/17 06:00 76 05/19/17 04:00 98.7 81 28 110/67 (81) 93 05/19/17 04:00 56 05/19/17 03:43 95 Nasal Cannula 4.00 05/19/17 02:00 76 05/19/17 00:00 98.9 85 34 106/60 (75) 3 05/19/17 00:00 85 05/18/17 22:00 91 05/18/17 20:47 98 Nasal Cannula 4.00 05/18/17 20:00 99.2 96 27 134/65 (88) 96 05/18/17 20:00 86 05/18/17 19:00 92 Nasal Cannula 4.00 05/18/17 18:00 101 05/18/17 16:00 98 05/18/17 16:00 100.2 98 39 102/58 (73) 96 05/18/17 14:00 105 05/18/17 12:00 100.1 110 30 117/70 (86) 94 05/18/17 12:00 110 05/18/17 10:00 101 05/18/17 08:00 103 05/18/17 08:00 98.4 103 31 151/77 (101) 100 05/18/17 07:00 99 Nasal Cannula 2.00 05/18/17 06:00 102 05/18/17 04:00 99.4 91 28 136/77 (96) 100 05/18/17 04:00 91 05/18/17 02:00 86 05/18/17 00:00 99.9 96 25 128/63 (84) 94 05/18/17 00:00 96 05/17/17 22:00 104 05/17/17 20:00 110 05/17/17 20:00 101.4 104 28 144/74 (97) 97 05/17/17 19:00 100 Nasal Cannula 2.00 05/17/17 18:00 112 05/17/17 16:00 93 05/17/17 16:00 101.5 112 39 113/66 (82) 99 05/17/17 14:00 85 05/17/17 12:00 103 05/17/17 12:00 102.4 103 43 133/70 (91) 97 05/17/17 10:00 103 05/17/17 08:00 101.3 105 28 136/83 (100) 100 05/17/17 08:00 105 05/17/17 07:00 98 Nasal Cannula 2.00 05/17/17 06:00 102 05/17/17 04:00 112 05/17/17 04:00 101.5 112 28 145/78 (100) 99 05/17/17 03:15 94 Nasal Cannula 2.00 05/17/17 03:00 108 05/17/17 01:00 98.9 117 58 145/85 (105) 94 05/17/17 00:00 99.9 97 18 132/77 (95) 96 05/16/17 21:15 18 05/16/17 20:00 101.8 104 26 141/80 (100) 97 05/16/17 19:00 98 Room Air 05/16/17 16:00 98.8 99 24 130/69 (89) 93 05/16/17 15:00 98 05/16/17 12:00 98.7 90 26 119/67 (84 96 (Andi Green) Physical Examination GENERAL: Lethargic but awakens briefly to voice. Requires repeated verbal stimulation in order to interact. No apparent distress. In soft wrist restraints. HEENT: Right-sided facial swelling, ecchymosis, abrasions & lacerations. Bilateral periorbital ecchymosis w/crusting to right eyelid. PERRLA 3 mm brisk, bilateral subconjuctival haemorrhages. No otorrhea or rhinorrhea. MUSCULOSKELETAL: THIBODEAUX w/o difficulty. No evident clubbing or deformity. NEUROLOGICAL: Lethargic requiring repeated verbal stimulation, oriented to person & place but not time. No eye opening to voice or command. Speech garbled, dysarthric, slowing of speech and though processes. Follows some simple commands with coaxing. Sensation intact to light touch to all extremities. Muscle strength remains strong to all extremities. (Andi Green) Lab, Micro, Other Results Recent Impressions Chest X-Ray 05/18/17 0000 Signed Impressions: Service Date/Time: May 18:06 - CONCLUSION: 1. Slight worsening of perihilar airspace disease. Differential diagnosis includes pulmonary edema and infection. Arsh Leslie MD Head CT 05/17/17 0000 Signed Impressions: Service Date/Time: Wednesday, May 17, 2017 02:29 - CONCLUSION: Slightly decreased edema left occipital hematoma. No new bleed. Dion Lugo MD Chest X-Ray 05/17/17 0000 Signed Impressions: Service Date/Time: Wednesday, May 17, 2017 11:56 - CONCLUSION: 1. Hypoinflation with bibasilar areas of increased density characteristic of either atelectasis or early infiltrates. 2. Heart size is normal Tristan Valle MD Laboratory Tests Test 05/17/17 04:30 05/17/17 10:50 05/17/17 11:40 05/17/17 13:10 White Blood Count 7.5 TH/MM3 Red Blood Count 3.37 MIL/MM3 Hemoglobin 11.1 GM/DL Hematocrit 31.7 % Mean Corpuscular Volume 93.9 FL Mean Corpuscular Hemoglobin 32.8 PG Mean Corpuscular Hemoglobin Concent 34.9 % Red Cell Distribution Width 13.6 % Platelet Count 130 TH/MM3 Mean Platelet Volume 7.9 FL Neutrophils (%) (Auto) 82.6 % Lymphocytes (%) (Auto) 6.3 % Monocytes (%) (Auto) 10.6 % Eosinophils (%) (Auto) 0.2 % Basophils (%) (Auto) 0.3 % Neutrophils # (Auto) 6.2 TH/MM3 Lymphocytes # (Auto) 0.5 TH/MM3 Monocytes # (Auto) 0.8 TH/MM3 Eosinophils # (Auto) 0.0 TH/MM3 Basophils # (Auto) 0.0 TH/MM3 CBC Comment DIFF FINAL Differential Comment Blood Urea Nitrogen 9 MG/DL Creatinine 0.56 MG/DL Random Glucose 100 MG/DL Total Protein 6.2 GM/DL Albumin 2.4 GM/DL Calcium Level 7.7 MG/DL Phosphorus Level 2.3 MG/DL Alkaline Phosphatase 124 U/L Aspartate Amino Transf (AST/SGOT) 107 U/L Alanine Aminotransferase (ALT/SGPT) 88 U/L Total Bilirubin 0.9 MG/DL Sodium Level 133 MEQ/L Potassium Level 3.0 MEQ/L Chloride Level 100 MEQ/L Carbon Dioxide Level 23.6 MEQ/L Anion Gap 9 MEQ/L Estimat Glomerular Filtration Rate 154 ML/MIN Ammonia LESS THAN 10 MCMOL/L Blood Gas Puncture Site RT RADIAL Blood Gas Patient Temperature 98.6 Blood Gas HCO3 23 mmol/L Blood Gas Base Excess -0.4 mmol/L Blood Gas Oxygen Saturation 95 % Arterial Blood pH 7.47 Arterial Blood Partial Pressure CO2 32 mmHg Arterial Blood Partial Pressure O2 80 mmHG Arterial Blood Oxygen Content 14.7 Vol % Arterial Blood Carboxyhemoglobin 1.8 % Arterial Blood Methemoglobin 0.5 % Blood Gas Hemoglobin 11.0 G/DL Oxygen Delivery Device NASAL CANNULA Blood Gas Liter Flow 2 L/M Urine Color YELLOW Urine Turbidity CLEAR Urine pH 6.5 Urine Specific [place] 1.015 Urine Protein TRACE mg/dL Urine Glucose (UA) NEG mg/dL Urine Ketones 10 mg/dL Urine Occult Blood TRACE Urine Nitrite NEG Urine Bilirubin NEG Urine Urobilinogen LESS THAN 2.0 MG/DL Urine Leukocyte Esterase NEG Urine RBC 2 /hpf Urine WBC 2 /hpf Urine Squamous Epithelial Cells <1 /hpf Microscopic Urinalysis Comment CULT NOT INDICATED Test 05/18/17 03:51 05/18/17 11:30 05/18/17 15:15 05/18/17 16:05 White Blood Count 7.7 TH/MM3 Red Blood Count 3.37 MIL/MM3 Hemoglobin 11.2 GM/DL Hematocrit 32.1 % Mean Corpuscular Volume 95.1 FL Mean Corpuscular Hemoglobin 33.3 PG Mean Corpuscular Hemoglobin Concent 35.0 % Red Cell Distribution Width 13.7 % Platelet Count 160 TH/MM3 Mean Platelet Volume 8.0 FL Neutrophils (%) (Auto) 72.9 % Lymphocytes (%) (Auto) 10.1 % Monocytes (%) (Auto) 16.1 % Eosinophils (%) (Auto) 0.4 % Basophils (%) (Auto) 0.5 % Neutrophils # (Auto) 5.6 TH/MM3 Lymphocytes # (Auto) 0.8 TH/MM3 Monocytes # (Auto) 1.2 TH/MM3 Eosinophils # (Auto) 0.0 TH/MM3 Basophils # (Auto) 0.0 TH/MM3 CBC Comment DIFF FINAL Differential Comment Blood Urea Nitrogen 5 MG/DL Creatinine 0.54 MG/DL Random Glucose 77 MG/DL Total Protein 6.0 GM/DL Albumin 2.2 GM/DL Calcium Level 8.1 MG/DL Alkaline Phosphatase 109 U/L Aspartate Amino Transf (AST/SGOT) 76 U/L Alanine Aminotransferase (ALT/SGPT) 74 U/L Total Bilirubin 0.9 MG/DL Sodium Level 137 MEQ/L 136 MEQ/L 136 MEQ/L Potassium Level 3.1 MEQ/L 3.3 MEQ/L Chloride Level 101 MEQ/L Carbon Dioxide Level 24.5 MEQ/L Anion Gap 12 MEQ/L Estimat Glomerular Filtration Rate 160 ML/MIN Stool C. difficile Toxin (PCR) NEGATIVE Stl C. difficile Toxin Epiderm 027 PRESUMPTIVE NEGATIVE Test 05/18/17 17:53 05/18/17 17:54 05/18/17 22:20 05/19/17 03:44 Blood Gas Puncture Site RT RADIAL Blood Gas Patient Temperature 98.6 Blood Gas HCO3 22 mmol/L Blood Gas Base Excess -1.5 mmol/L Blood Gas Oxygen Saturation 92 % Arterial Blood pH 7.49 Arterial Blood Partial Pressure CO2 28 mmHg Arterial Blood Partial Pressure O2 66 mmHg Arterial Blood Oxygen Content 12.2 Vol % Arterial Blood Carboxyhemoglobin 1.9 % Arterial Blood Methemoglobin 0.7 % Blood Gas Hemoglobin 9.4 G/DL Oxygen Delivery Device NASAL CANNULA Blood Gas Liter Flow 4 L/M Lactic Acid Level 0.8 mmol/L Blood Urea Nitrogen 4 MG/DL 5 MG/DL Creatinine 0.45 MG/DL 0.44 MG/DL Random Glucose 108 MG/DL 99 MG/DL Total Protein 5.9 GM/DL Albumin 2.0 GM/DL Calcium Level 7.6 MG/DL 7.8 MG/DL Alkaline Phosphatase 106 U/L Aspartate Amino Transf (AST/SGOT) 83 U/L Alanine Aminotransferase (ALT/SGPT) 70 U/L Total Bilirubin 0.7 MG/DL Sodium Level 136 MEQ/L 140 MEQ/L Potassium Level 3.1 MEQ/L 3.3 MEQ/L Chloride Level 103 MEQ/L 105 MEQ/L Carbon Dioxide Level 24.5 MEQ/L 25.7 MEQ/L Anion Gap 9 MEQ/L 8 MEQ/L Estimat Glomerular Filtration Rate 198 ML/MIN 203 ML/MIN White Blood Count 9.0 TH/MM3 Red Blood Count 3.10 MIL/MM3 Hemoglobin 10.2 GM/DL Hematocrit 29.3 % Mean Corpuscular Volume 94.7 FL Mean Corpuscular Hemoglobin 33.1 PG Mean Corpuscular Hemoglobin Concent 34.9 % Red Cell Distribution Width 13.6 % Platelet Count 227 TH/MM3 Mean Platelet Volume 7.9 FL Neutrophils (%) (Auto) 76.3 % Lymphocytes (%) (Auto) 11.1 % Monocytes (%) (Auto) 11.7 % Eosinophils (%) (Auto) 0.5 % Basophils (%) (Auto) 0.4 % Neutrophils # (Auto) 6.8 TH/MM3 Lymphocytes # (Auto) 1.0 TH/MM3 Monocytes # (Auto) 1.1 TH/MM3 Eosinophils # (Auto) 0.0 TH/MM3 Basophils # (Auto) 0.0 TH/MM3 CBC Comment DIFF FINAL Differential Comment (Andi Green) Medical Decision Making Impression and Plan Impression: 1. Traumatic brain injury with left occipital hemorrhagic contusion. 2. Right frontal scalp contusion with subgaleal hematoma 3. Right orbital fracture The patient is lethargic today and confused as to time. He is oriented to person & place, follows simple commands and his muscle strength and sensation are intact. T max 100.2 yesterday at noon. Reviewed labs for today. Interval drop in haemoglobin level. Improvement in sodium level to 139. Interval improvement in hypokalemia from last night. CT brain demonstrated continued evolution of the left occipital haematoma w/slight decrease in edema. No evidence of a new haemorrhage. Plan: Discussed plan of care with patient and . Primary management per Trauma. Critical care management per Electrical Engineer Mep. Neuro checks. Stat CT brain for any decline in neuro status. Hold pharmacological DVT prophylaxis. Mechanical DVT prophylaxis. Stress ulcer prophylaxis. Mobilise patient w/assistance. Physical, Occupational & Speech Therapy. Monitor sodium level and keep WNL w/2% hypertonic saline. (Andi Green) Attending Statement The exam, history, and the medical decision-making described in the above note were completed with the assistance of the mid-level provider. I reviewed and agree with the findings presented. I attest that I had a [id number] encounter with the patient on the same day, and personally performed and documented my assessment and findings in the medical record. Remains with moderate confusion, mild agitation No focal neurologic deficit Continuing ISC neurologic checks Follow-up CT scan next week (Regan Craven MD) Andi Green May 19, 2017 09:56 Regan Craven MD Jun 02, 2017 20:39
[2017-05-19] MEDS: ICU - POTASSIUM CHLORIDE/AQUEOUS SOLN 20 MEQ/100 ML IVPB IV PRN ×2 (10:00→12:42)
[2017-05-19] MEDS: SODIUM CHLORIDE 23.4% INJ 188 MEQ in SODIUM CHLOR 0.9% 1000 ML INJ 1,000 ML IV SCH (12:00)
--- NOTE | 2017-05-19 14:57 | HHI.CCPN ---
Subjective Brief History 51-year-old male came to the emergency room with history of a trip and fall as per him at 3 AM early this morning. Since then he has noticed that both his eyelids have been swelling up and is almost swelling shot so he cannot see. His brought him to the emergency room. Patient denied drinking but as per the he does drink alcohol every day. Currently patient is sober and answering questions. Patient denies any assault. Vital signs are stable. No history of vomiting or loss of consciousness as per the . 24 Hour Review/Hospital Course 05/15 Patient was slightly confused in the morning he urinated to the floor Since then he has been more stable Patient is alcoholic he was started on the CIWA protocol The CT scan of the head is pending, his GCS is [address] scan of the abdomen and pelvis and chest were negative for any injuries Neurosurgical ophthalmology and OMFS consults are pending 05/15/2017 This morning patient is somewhat confused but awake Adamantly denies alcohol use however went into delirium tremens had to be placed on Precedex drip and CIWA protocol Pupils equal reactive bruising over the both orbits and forehead Hemodynamically stable Bilateral good breath sounds Neurologically patient remains stable and can transfer to the floor once off Precedex Patient remains in the ICU due to delirium tremens and no specific traumatic injury 05/16/2017 Patient doing much better today neurologically Off Precedex Per neuropsychologist patient placed on appropriate regimen int face of alcoholism He is awake alert but disoriented at times Communicates with short sentences Pupils equal reactive and facial bruising is slowly receding Moves all 4 extremities does not have appreciable motoric deficit Bilateral breath sounds good inspiratory effort Tolerates diet well Transfer to floor when bed available 05/17/2017 Patient with above noted head injury was transferred to floor yesterday but became restless was given 10 mg of Ativan within 15 minute time which of course lead to respiratory depression, hypotension and distress and patient was transferred back to the ICU Patient remains confused with [place] Coma Scale of about 11 CT scan reveals resolving left occipital cerebral contusion/ hematoma Hemodynamically patient is stable Bilateral breath sounds decreased over the both lung kern consistent with likely aspiration into the both lungs Chest x-ray also reveals bilateral pulmonary infiltrates in the bases I found patient this morning lying in Trendelenburg position which is invariably the cause of patient's aspiration Abdomen is soft Plan Medications have been adjusted with brain injury patient can be a candidate for Ativan CIWA protocol yet administering 10 mg of Ativan in very short period of time is clearly not the way to go Ativan has been DC'd Assistance from Dr. Angel is greatly appreciated Will manage patient expectantly and if he worsens he will require intubation and ventilatory support to the lung function improves 05/18 Patient is awake alert today in the morning His sodium is 136 breath sounds are equal bilaterally today Clearly more awake since the Ativan has been DC'd He is on Seroquel and valproic acid, swelling of his face is clearly better Abdomen is soft 05/19 Patient's tachypnea improved, he sats are mid 90s on supplemental oxygen His sodium is 136 he is on Precedex and ordered Blood cultures show MRSA and patient has been started on vancomycin His white cell count is within normal limits Chest x-ray yesterday showed fluid overload/infiltrate Patient is on hypertonic saline Objective Vital Signs Date Time Temp Pulse Resp B/P (MAP) Pulse Ox O2 Delivery O2 Flow Rate FiO2 05/19/17 12:00 82 05/19/17 12:00 99.8 32 126/67 (86) 95 05/19/17 07:00 Nasal Cannula 4.00 Intake and Output 05/19/17 05/19/17 05/20/17 08:00 16:00 00:00 Intake Total 240 ml Output Total 2203 ml Balance -1963 ml Result Diagram: 05/19/17 0344 05/19/17 1000 Other Results Laboratory Tests Test 05/18/17 17:53 Blood Gas Puncture Site RT RADIAL Blood Gas Patient Temperature 98.6 Blood Gas HCO3 22 mmol/L (22-26) Blood Gas Base Excess -1.5 mmol/L (-2-2) Blood Gas Oxygen Saturation 92 % (90-100) Arterial Blood pH 7.49 (7.380-7.420) Arterial Blood Partial Pressure CO2 28 mmHg (38-42) Arterial Blood Partial Pressure O2 66 mmHg (61-120) Arterial Blood Oxygen Content 12.2 Vol % (12.0-20.0) Arterial Blood Carboxyhemoglobin 1.9 % (0-4) Arterial Blood Methemoglobin 0.7 % (0-2) Blood Gas Hemoglobin 9.4 G/DL (12.0-16.0) Oxygen Delivery Device NASAL CANNULA Blood Gas Liter Flow 4 L/M Disinhibition Score: 21.00 Aggression Score: 14.00 Lability Score: 14.00 Agitated Behavior Total Score: 18 Exam FIN[employer]CIAL INSTITUTION MANAGER GCS 13 Hemodynamic/Cardiac stable Pulmonary/Respiratory crackles B/L Abdomen/GI Nutrition soft,npo Urinary Catheter Assessment Urinary Catheter: Yes Assessment and Plan Plan Patient diuresis today. For fluid overload by trauma service, this was continued by the batch maker I believe will need gradually to wean his hypertonic saline monitoring his sodium His mental status is secondary to combination of sepsis TBI and alcohol withdrawal Continue DVT prophylaxis Monitor respiratory status closely Continue Precedex for now Donna Menjivar MD May 19, 2017 14:57
[2017-05-19] MEDS: VANCOMYCIN INJ 1,000 MG in SODIUM CHLOR 0.9% 250 ML INJ 250 ML IV SCH (16:00)
--- NOTE | 2017-05-19 17:03 | PD.ID.CON ---
History of Present Illness Service ID Consult Requested By Reason for Consult Evaluation and Mment of MRSA bacteremia. Primary Care Physician Gideon Knight, DO Diagnoses: History of Present Illness Most of the history is obtained by review of medical records and also partly from patient's . Mr. Nogueira is a 51-year-old male with past medical history significant for alcoholism reportedly was in alcoholic anonymous and possibly relapsed per . Patient was brought into the emergency room with a history of fall at 3 AM on the day of admission 05/13/2017. Patient and his went to bed at approximately 12 midnight. Patient's was awoken up by the sound of her shouting out for help. When she went looking for him she noticed he was covered in blood and there was a puddle of blood on the floor as well. She goes on to report that she found blood in almost all the house especially on the [place]. Despite all this patient refuses admission and for approximately 12 hours continue to remain in his own home. Patient's noted that he had both eyelids are swelling up to the point that he could not see. His brought him to the emergency room. Patient denies drinking but as per the he does drink alcohol on most every day. Blood alcohol level was less than 3. No history of any trauma or assault. On arrival in the emergency department patient's vital signs are stable. There is no history of vomiting and no clear-cut history of loss of consciousness per the . Patient does not have any history of seizure disorder. It is not clear if patient was found down on the floor for an extended period of time even on repeated questioning the . Patient was evaluated by trauma team and admission. Patient had a CT scan maxillofacial which showed multiple fractures of the right orbit including the inferior orbital wall and community fractures of the medial orbital wall. Intraorbital muscles remain within the orbit. There is also prominent periorbital soft tissue swelling extending into the frontal region. Chest x-ray showed some perihilar disease consistent with either pulmonary edema or infection. A CT of the head shows left occipital hematoma. Patient was seen by oral maxillofacial surgeon and no surgical interventions planned. Patient was also seen by ophthalmology. On 212 patient became delirious appeared to be in alcohol withdrawal per notes. A CT showed increase in cerebral edema but the bleeds sites with stable. Patient is started on Precedex. On 214 a rapid response team was called for tachypnea and tachycardia and altered mental status and was evaluated by the [facility] Team. Patient did have fevers and the first day of admission with thereafter. To be resolved and then recurred leading to blood cultures. These blood cultures are positive for MRSA and infectious disease is consulted for evaluation of this MRSA bacteremia in a patient status post trauma. Upon discussion with the : No history of skin abscesses or MRSA in the past. No history of any trauma or skin tears in the recent past. No history of being treated for endocarditis for epidural abscess. No history of any intravenous drug abuse h/o myalgias and body aches with sniffles prior to admission. Review of Systems ROS Limitations: Altered Mental Status Past Family Social History Allergies: Coded Allergies: No Known Allergies (Unverified Allergy, Unknown, 05/13/17) Past Medical History Alcoholism Depression Past Surgical History Per history of presenting illness Reported Medications Reported Meds & Active Scripts Active Citalopram (Citalopram Hydrobromide) 10 Mg Tab 10 Mg PO DAILY Active Ordered Medications Current Medications Medications (Trade) Dose Ordered Sig/Rose Route Start Time Stop Time Status Last Admin (NS Flush) 2 ml UNSCH PRN IVF 05/13/17 22:15 05/16/17 20:15 (Pepcid Inj) 20 mg Q12HR IV PUSH 05/14/17 09:00 05/19/17 09:12 (Zofran Inj) 4 mg Q6H PRN IV PUSH 05/13/17 23:30 Miscellaneous Information 1 Q361D XX 05/13/17 23:30 (Chlorhexidine 2% Cloth) Taper DAILY@04 TOP 05/14/17 04:00 05/10/18 03:59 (Chlorhexidine 2% Cloth) 3 pack UNSCH PRN TOP 05/13/17 23:30 (Riya-Colace) 1 tab BID PO 05/14/17 09:00 05/18/17 21:29 (Milk Of Magnesia Liq) 30 ml Q12H PRN PO 05/13/17 23:30 (Senokot) 17.2 mg Q12H PRN PO 05/13/17 23:30 (Lactulose Liq) 30 ml DAILY PRN PO 05/13/17 23:30 (Roxicodone) 5 mg Q4H PRN PO 05/13/17 23:45 05/14/17 04:06 (Roxicodone) 10 mg Q4H PRN PO 05/13/17 23:45 05/16/17 20:15 Miscellaneous Information D/C ICU ELECTROLYTE ORDERS... UNSCH PRN .XX 05/14/17 07:15 Miscellaneous Information ICU - CALL ORDERING PHYSIC... UNSCH PRN .XX 05/14/17 07:15 Potassium Chloride 100 ml @ 25 mls/hr UNSCH PRN IV 05/14/17 07:15 (K-Lyte Cl Eff) 50 meq UNSCH PRN PO 05/14/17 07:15 Potassium Chloride 100 ml @ 50 mls/hr UNSCH PRN IV 05/14/17 07:15 05/19/17 12:42 Magnesium Sulfate 4 gm/Sodium Chloride 108 ml @ 54 mls/hr UNSCH PRN IV 05/14/17 07:15 Magnesium Sulfate 2 gm/Sodium Chloride 104 ml @ 52 mls/[facility] 05/14/17 07:15 (Mag-Ox) 800 mg UNSCH PRN PO 05/14/17 07:15 Sodium Phosphate 30 mmol/Sodium Chloride 260 ml @ 43.333 mls/ hr UNSCH PRN IV 05/14/17 07:15 (K-Phos) 2,000 mg [facility] PRN PO 05/14/17 07:15 Potassium Phosphate 30 mmol/ Sodium Chloride 260 ml @ 43.333 mls/ hr [facility] IV 05/14/17 07:15 (Valium) 5 mg Q8H PO 05/14/17 09:00 Future Hold 05/17/17 00:01 (Tylenol) 650 mg Q6HR PRN PO 05/16/17 10:15 05/16/17 20:24 (Librium) 25 mg Taper Q6H PO 05/17/17 02:00 05/25/17 01:59 05/19/17 12:42 Potassium Chloride 100 ml @ 50 mls/hr Q2H PRN IV 05/17/17 02:45 Potassium Chloride 100 ml @ 50 mls/hr Q2H PRN IV 05/17/17 02:45 05/19/17 04:24 (K-Lyte Cl Eff) 50 meq UNSCH PRN PO 05/17/17 02:45 Potassium Chloride 100 ml @ 25 mls/hr UNSCH PRN IV 05/17/17 02:45 Potassium Chloride 100 ml @ 50 mls/hr Q2H PRN IV 05/17/17 02:45 Magnesium Sulfate 4 gm/Sodium Chloride 100 ml @ 50 mls/hr UNSCH PRN IV 05/17/17 02:45 (Mag-Ox) 800 mg UNSCH PRN PO 05/17/17 02:45 Magnesium Sulfate 2 gm/Sodium Chloride 100 ml @ 50 mls/hr UNSCH PRN IV 05/17/17 02:45 (K-Phos) 2,000 mg Q4H PRN PO 05/17/17 02:45 Sodium Phosphate 30 mmol/Sodium Chloride 250 ml @ 42 mls/hr UNSCH PRN IV 05/17/17 02:45 (K-Phos) 2,000 mg UNSCH PRN PO/TUBE 05/17/17 02:45 Potassium Phosphate 30 mmol/ Sodium Chloride 260 ml @ 42 mls/hr UNSCH PRN IV 05/17/17 02:45 (SEROquel) 50 mg Q8H PO 05/17/17 12:00 05/19/17 12:41 (Haldol Inj) 5 mg Q6H PRN IV PUSH 05/17/17 09:45 Acetaminophen 100 ml @ 400 mls/hr Q6H PRN IV 05/17/17 18:00 05/17/17 22:51 (Dulcolax Supp) 10 mg DAILY RECTAL 05/17/17 20:00 Valproate Sodium 250 mg/Sodium Chloride 102.5 ml @ 105 mls/hr Q8HR IV 05/17/17 18:00 05/19/17 12:41 Levetriacetam 500 mg/Sodium Chloride 105 ml @ 420 mls/hr Q12HR IV 05/17/17 21:00 05/19/17 09:11 (Heparin Inj) 5,000 units Q8HR SQ 05/18/17 14:00 05/19/17 12:42 Vancomycin HCl 1000 mg/Sodium Chloride 250 ml @ 250 mls/hr Q24H IV 05/18/17 16:00 05/19/17 16:00 Dexmedetomidine HCl 200 mcg/ Sodium Chloride 52 ml @ 4.69 mls/hr TITRATE PRN IV 05/18/17 18:15 05/19/17 17:13 Sodium Chloride 188 meq/Sodium Chloride 1,047 ml @ 60 mls/hr [id number] IV 05/19/17 12:00 05/19/17 12:00 Family History Reviewed and noncontributory to current illness Social History Lives at home with his . Prior history of alcoholism. Smokes one pack per day for at least 40 years. No reported history of intravenous or other illicit drug abuse. Physical Exam Vital Signs Vital Signs Date Time Temp Pulse Resp B/P (MAP) Pulse Ox O2 Delivery O2 Flow Rate FiO2 05/19/17 12:00 82 05/19/17 12:00 99.8 82 32 126/67 (86) 95 05/19/17 10:00 86 05/19/17 08:00 75 05/19/17 08:00 98.8 74 31 104/60 (75) 93 05/19/17 07:00 93 Nasal Cannula 4.00 05/19/17 06:00 76 05/19/17 04:00 98.7 81 28 110/67 (81) 93 05/19/17 04:00 56 05/19/17 03:43 95 Nasal Cannula 4.00 05/19/17 02:00 76 05/19/17 00:00 98.9 85 34 106/60 (75) 3 05/19/17 00:00 85 05/18/17 22:00 91 05/18/17 20:47 98 Nasal Cannula 4.00 05/18/17 20:00 99.2 96 27 134/65 (88) 96 05/18/17 20:00 86 05/18/17 19:00 92 Nasal Cannula 4.00 05/18/17 18:00 101 Physical Exam GENERAL: Critically ill appearing patient, in no apparent distress. SKIN: Multiple areas of ecchymosis. HEAD: Atraumatic. Normocephalic. No temporal or scalp tenderness. EYES: Severe Periorbital edema and ecchymosis noted. On left forehead just above the eye there is a golf ball size. ENT: Nose without bleeding, purulent drainage or septal hematoma. Throat without erythema, tonsillar hypertrophy or exudate. Uvula midline. Airway patent. NECK: Trachea midline. Supple, nontender, no meningeal signs. CARDIOVASCULAR: HS audible. RESPIRATORY: Clear to auscultation. Breath sounds equal bilaterally. No wheezes , rales, or rhonchi. GASTROINTESTINAL: Abdomen soft, non-tender, nondistended. MUSCULOSKELETAL: Extremities without clubbing, cyanosis, or edema. NEUROLOGICAL: Drowsy,arousable, knows he is at the hospital. Moves all 4 extremities. Psych could not be assessed IV line sites with no e.o infection Laboratory Laboratory Tests Test 05/18/17 17:53 05/18/17 17:54 05/18/17 22:20 05/19/17 03:44 Blood Gas Puncture Site RT RADIAL Blood Gas Patient Temperature 98.6 Blood Gas HCO3 22 Blood Gas Base Excess -1.5 Blood Gas Oxygen Saturation 92 Arterial Blood pH 7.49 Arterial Blood Partial Pressure CO2 28 Arterial Blood Partial Pressure O2 66 Arterial Blood Oxygen Content 12.2 Arterial Blood Carboxyhemoglobin 1.9 Arterial Blood Methemoglobin 0.7 Blood Gas Hemoglobin 9.4 Oxygen Delivery Device NASAL CANNULA Blood Gas Liter Flow 4 Lactic Acid Level 0.8 Blood Urea Nitrogen 4 5 Creatinine 0.45 0.44 Random Glucose 108 99 Total Protein 5.9 Albumin 2.0 Calcium Level 7.6 7.8 Alkaline Phosphatase 106 Aspartate Amino Transf (AST/SGOT) 83 Alanine Aminotransferase (ALT/SGPT) 70 Total Bilirubin 0.7 Sodium Level 136 140 Potassium Level 3.1 3.3 Chloride Level 103 105 Carbon Dioxide Level 24.5 25.7 Anion Gap 9 8 Estimat Glomerular Filtration Rate 198 203 White Blood Count 9.0 Red Blood Count 3.10 Hemoglobin 10.2 Hematocrit 29.3 Mean Corpuscular Volume 94.7 Mean Corpuscular Hemoglobin 33.1 Mean Corpuscular Hemoglobin Concent 34.9 Red Cell Distribution Width 13.6 Platelet Count 227 Mean Platelet Volume 7.9 Neutrophils (%) (Auto) 76.3 Lymphocytes (%) (Auto) 11.1 Monocytes (%) (Auto) 11.7 Eosinophils (%) (Auto) 0.5 Basophils (%) (Auto) 0.4 Neutrophils # (Auto) 6.8 Lymphocytes # (Auto) 1.0 Monocytes # (Auto) 1.1 Eosinophils # (Auto) 0.0 Basophils # (Auto) 0.0 CBC Comment DIFF FINAL Differential Comment Test 05/19/17 10:00 Sodium Level 139 Date/Time Source Procedure Growth Status 05/17/17 13:55 Blood Peripheral Aerobic Blood Culture - Preliminary NO GROWTH IN 2 DAYS Resulted 05/17/17 13:55 Anaerobic Blood Culture - Preliminary S. Aureus Mrsa Resulted Result Diagram: 05/19/17 0344 05/19/17 1000 Imaging Last Impressions Chest X-Ray 05/18/17 0000 Signed Impressions: Service Date/Time: May 18:06 - CONCLUSION: 1. Slight worsening of perihilar airspace disease. Differential diagnosis includes pulmonary edema and infection. Arsh Leslie MD Head CT 05/17/17 0000 Signed Impressions: Service Date/Time: Wednesday, May 17, 2017 02:29 - CONCLUSION: Slightly decreased edema left occipital hematoma. No new bleed. Dion Lugo MD Carotid Artery Ultrasound 05/16/17 0000 Signed Impressions: Service Date/Time: Tuesday, May 16, 2017 10:30 - CONCLUSION: 1. Mild plaque with patent carotid arteries bilaterally. 2. Antegrade flow involving both vertebral arteries. Juan Castillo Jr., MD Chest CT 05/14/17 0000 Signed Impressions: Service Date/Time: Sunday, May 14, 2017 00:39 - CONCLUSION: 1. Negative for acute traumatic injury within the thorax. Fatty infiltration of the liver. Arsh Leslie MD Abdomen/Pelvis CT 05/14/17 0000 Signed Impressions: Service Date/Time: Sunday, May 14, 2017 00:39 - CONCLUSION: 1. Negative for acute traumatic injury within the abdomen or pelvis. Fatty liver. Arsh Leslie MD Maxillofacial CT 05/13/172207 Signed Impressions: Service Date/Time: Saturday, May 13, 2017 22:22 - CONCLUSION: Multiple fractures of the right orbit including the inferior orbital wall and comminuted fractures of the medial orbital wall. Intraorbital muscles remain within the orbit. There is associated opacification of the right ethmoids and right maxillary sinus. There is also prominent riya-orbital soft tissue swelling extending into the frontal region. Juan Sun MD Cervical Spine CT 05/13/172207 Signed Impressions: Service Date/Time: Saturday, May 13, 2017 22:22 - CONCLUSION: Moderately advanced discogenic degenerative changes C4-C6 with associated retrolisthesis of C4 to C5 and reversal of the upper cervical lordosis. No fracture seen. Juan Sun MD Assessment and Plan Assessment and Plan MRSA bacteremia: likely secondary to Infected hematoma. Other possibility is MRSA pneumonia (post flu or post aspiration) Multiple facial fractures Orbital fractures with periorbital hematoma Alcoholism Recs: Continue Vanco IV (target 15-20) Repeat blood cultures x 2 gives h/o myalgia and body ache prior to admission ? post influenza MRSA pneumonia. Check Influenza PCR by using Resp panel. If bacteremia is persistent and ECHO negative will consider US of hematoma and repeat imaging of CT facial bones to r/o abscess of periorbital and orbital region. Also sheila Chau possible need for aspirating or exploring the periorbital hematoma which could be infected. Follow cultures follow clinically. sheila Zurita patients danielito RN [place] covering for me this weekend. Olivia Hamilton MD May 19, 2017 17:03
[2017-05-19] MEDS ORDERED: Vancomycin Consult Pharmacy 1 EA OTHER SCH (18:00)
[2017-05-19] MEDS ORDERED: VANCOMYCIN 1 GM/200 ML PREMIX IV ONE (21:00)
[2017-05-20] VITALS (11 sets, daily range): BP systolic 93–139; BP diastolic 50–90; PULSE 8–90; RESP 20–31; TEMP 97.9–98.9; O2SAT 89–97
[2017-05-20 02:52] LABS: AUTOMATED NEUTROPHIL # 8.6 TH/MM3 (1.8-7.7); BASOPHIL # 0.1 TH/MM3 (0-0.2); EOSINOPHIL # 0.1 TH/MM3 (0-0.4); EOSINOPHIL % 0.9 % (0.0-4.0); HEMATOCRIT 31.5 % (39.0-51.0); HEMOGLOBIN 10.7 GM/DL (13.0-17.0); LYMPH % 8.7 % (9.0-44.0); LYMPHOCYTE # 0.9 TH/MM3 (1.0-4.8); MEAN CELL VOLUME 95.5 FL (80.0-100.0); MEAN CORPUSCULAR HEMOGLOBIN 32.4 PG (27.0-34.0); MEAN CORPUSCULAR HGB CONC 33.9 % (32.0-36.0); MEAN PLATELET VOLUME 8.1 FL (7.0-11.0); MONO % 8.8 % (0.0-8.0); MONOCYTE # 0.9 TH/MM3 (0-0.9); NEUT % 80.6 % (16.0-70.0); PLATELET COUNT 318 TH/MM3 (150-450); RED BLOOD COUNT 3.29 MIL/MM3 (4.50-5.90); WHITE BLOOD COUNT 10.7 TH/MM3 (4.0-11.0)
[2017-05-20 03:05] LABS: BICARBONATE 24.9 MEQ/L (21.0-32.0); CALCIUM 8.2 MG/DL (8.5-10.1); CREATININE 0.48 MG/DL (0.60-1.30)
[2017-05-20] MEDS: chlordiazePOXIDE 25 MG CAP PO SCH ×4 (03:24→20:44)
[2017-05-20] MEDS: CHLORHEXIDINE GLUCONATE 2 % 1 PACK (2 CLOTHS) TOP SCH (03:24)
[2017-05-20] MEDS: QUEtiapine FUMARATE 25 MG TAB PO SCH ×3 (03:24→21:33)
[2017-05-20] MEDS: DEXMEDETOMIDINE INJ 200 MCG in SODIUM CHLORIDE 0.9% INJ 50 ML IV PRN (03:29)
[2017-05-20] MEDS: VANCOMYCIN INJ 1,750 MG in SODIUM CHLORID 0.9% 500 ML INJ 500 ML IV SCH ×2 (05:10→18:12)
[2017-05-20] MEDS: VALPROATE INJ 250 MG in SODIUM CHLORIDE 0.9% INJ 100 ML IV SCH ×3 (05:11→21:32)
[2017-05-20] MEDS: HEPARIN SODIUM - SQ 10,000 UNITS/ML VIAL SQ SCH ×3 (05:22→21:32)
[2017-05-20] MEDS: SODIUM CHLORIDE 23.4% INJ 188 MEQ in SODIUM CHLOR 0.9% 1000 ML INJ 1,000 ML IV SCH (05:27)
--- NOTE | 2017-05-20 06:04 | RADRPT ---
EXAM DATE/TIME: 05/20/2017 04:37 [facility] COMPARISON: CHEST SINGLE AP, May 18, 2017, 18:06. INDICATIONS : Infiltrate. MEDICAL HISTORY : Cardiovascular disease. SURGICAL HISTORY : None. ENCOUNTER: Subsequent ACUITY: 1 week PAIN SCORE: 10/10 LOCATION: Bilateral chest FINDINGS: There is slight worsening in diffuse pulmonary edema bilaterally. Left basilar opacity is present may be due to a combination of consolidation and or pleural effusion. CONCLUSION: Worsening pulmonary edema. Netta Mojica MD on May 20, 2017 at 6:02 Board Certified Radiologist. This report was verified electronically.
[2017-05-20] MEDS: DOCUSATE SODIUM 50 MG/SENNA 8.6 MG TAB PO SCH ×2 (07:46→21:00)
[2017-05-20] MEDS: BISACODYL 10 MG SUPP RECTAL SCH (07:46)
[2017-05-20] MEDS: FAMOTIDINE 20 MG/2 ML VIAL IV PUSH SCH ×2 (07:46→20:44)
[2017-05-20] MEDS: levETIRAcetam INJ 500 MG in SODIUM CHLORIDE 0.9% INJ 100 ML IV SCH ×2 (07:47→20:44)
--- NOTE | 2017-05-20 13:35 | HHI.CCPN ---
Subjective Remarks/Hospital Course Hospital Course: 51-year-old male came to the emergency room with history of a trip and fall as per him at 3 AM early this morning. Since then he has noticed that both his eyelids have been swelling up and is almost swelling shot so he cannot see. His brought him to the emergency room. Patient denied drinking but as per the he does drink alcohol every day. Currently patient is sober and answering questions. Patient denies any assault. Vital signs are stable. No history of vomiting or loss of consciousness as per the . Subjective: 05/15: still delirious, in etoh withdraw. some increase in cerebral edema, bleeds stable in size. remains on precedex. 05/16: Remains on Precedex gtt. Drowsy, arousable. 05/17: At 2 AM rapid response team called for patients tachypnea tachycardia and altered mental status. Has received 10 mg of Ativan per [facility] Nurse orders 05/18: Tachypneic with fluctuating mental status today. Blood cultures growing MRSA. Patient is drowsy but easily arousable, following commands. Knows he is in the hospital. On 2 L nasal cannula maintaining O2 sats around 92%. Gets tachypneic with respiratory rate 30s at times. 05/19: Remains tachypneic. Bilateral crackles. Stop iv fluid and start diuretics. Apparently agitated last night. Calm now on precedex. 05/20: Persistent failure despite diuresis. Objective Vital Signs Date Time Temp Pulse Resp B/P (MAP) Pulse Ox O2 Delivery O2 Flow Rate FiO2 05/20/17 10:00 8 05/20/17 08:00 98.9 31 129/60 (83) 93 05/20/17 07:00 Nasal Cannula 4.00 Intake and Output 05/20/17 05/20/17 05/21/17 08:00 16:00 00:00 Intake Total 50 ml Output Total 1000 ml Balance -950 ml Result Diagram: 05/20/17 0224 05/20/17 0224 Other Results Microbiology Date/Time Source Procedure Growth Status 05/17/17 13:55 Blood Peripheral Aerobic Blood Culture - Final S. Aureus Mrsa Complete 05/17/17 13:55 Anaerobic Blood Culture - Final S. Aureus Mrsa Complete 05/17/17 13:50 Blood Peripheral Aerobic Blood Culture - Final S. Aureus Mrsa Complete 05/17/17 13:50 Anaerobic Blood Culture - Final S. Aureus Mrsa Complete Imaging Last [address] 05/13/172207 Signed Impressions: Service Date/Time: Saturday, May 13, 2017 22:22 - CONCLUSION: Multiple fractures of the right orbit including the inferior orbital wall and comminuted fractures of the medial orbital wall. Intraorbital muscles remain within the orbit. There is associated opacification of the right ethmoids and right maxillary sinus. There is also prominent alyssa-orbital soft tissue swelling extending into the frontal region. Juan Sun MD Head CT 05/13/172207 Signed Impressions: Service Date/Time: Saturday, May 13, 2017 22:22 - CONCLUSION: 1. Greater than 4 cm parenchymal hematoma left occipital lobe and prominent soft tissue swelling in the right periorbital and frontal region suggests contrecoup injury. No significant mass effect or cerebral edema at this point. 2. Suspected abnormalities in the right orbit, ethmoid sinus, and maxillary sinus. CT facial bones to be performed. Juan Sun MD Chest X-Ray 05/13/172207 Signed Impressions: Service Date/Time: Saturday, May 13, 2017 22:19 - CONCLUSION: No infiltrates seen. No evidence of pneumothorax. Juan Sun MD Cervical Spine CT 05/13/172207 Signed Impressions: Service Date/Time: Saturday, May 13, 2017 22:22 - CONCLUSION: Moderately advanced discogenic degenerative changes C4-C6 with associated retrolisthesis of C4 to C5 and reversal of the upper cervical lordosis. No fracture seen. Juan Sun MD Disinhibition Score: 19.18 Aggression Score: 14.00 Lability Score: 14.00 Agitated Behavior Total Score: 17 Objective Remarks GENERAL: Awake, CAM+, delirious SKIN: Focused skin assessment warm/dry. Multiple old bruises on bilateral shins , periorbital ecchymosis bilaterally. HEAD: Patient has some dry abrasions on the scalp on the vertex EYES: Pupils equal and round. ENT: No nasal bleeding or discharge. Mucous membranes pink and moist. Severe bilateral periorbital ecchymosis. NECK: Trachea midline, airway widely patent. CARDIOVASCULAR: Regular rate and rhythm. Neck veins are full. RESPIRATORY: No accessory muscle use. equal chest rise. Crackles. GASTROINTESTINAL: Abdomen soft, non-tender, nondistended. BS active. MUSCULOSKELETAL: No obvious deformities. No clubbing. No cyanosis. No edema. NEUROLOGICAL: Drowsy, arousable, knows he is at the hospital. Moves all 4 extremities. A/P Assessment and Plan Assessment: 51yM with etoh withdraw and ICH s/p fall. Agitated Delirium remains severe requiring iv sedation with dexmedetomidine. Patient was transferred to [facility] floor by trauma services. Transferred back to ICU for altered mental status thought to be secondary to Ativan with subsequent fevers, delirium and MRSA bacteremia. Agitated Delirium Etoh Withdraw -Off benzodiazepines. On Seroquel and valproate per trauma team. - precedex gtt ordered for delirium - frequent neuro checks ICH - re-admit to in ICU - ICH post fall - CT head stat - Transfuse platelets to keep count of 100 - Neuro checks per unit protocol - Remains on 2% saline to bring up sodium levels closer to 145 - Further per neurosurgery - Keppra for seizure prophylaxis Multiple fractures of the right orbit - OMFS consultation: non-op MRSA bacteremia Severe sepsis Being started on IV vancomycin. ID consulted by trauma team. Probably has MRSA pneumonia as primary source. Does not have any central lines. Peripheral IV sites look good. Check ABG and lactic acid. Add CMP labs drawn earlier. Follow-up chest x-ray Thrombocytopenia - EtOH??? - Transfuse to keep count > 100 - 4t score: low probability for HIT. no recent heparin exposure. DVT GI prophylaxis - Teds SCDs - No pharmacological DVT prophylaxis due to ICH - Early aggressive mobilization - Pepcid Pulmonary Edema/Heart Failure - BID lasix. - Reduce IV fluid. - ECHO pending Overall impression: Calm on precedex. Heart failure / fluid overload. Winston Myers MD May 20, 2017 13:35
--- NOTE | 2017-05-20 14:33 | HHI.CCPN ---
Subjective Brief History 51-year-old male came to the emergency room with history of a trip and fall as per him at 3 AM early this morning. Since then he has noticed that both his eyelids have been swelling up and is almost swelling shot so he cannot see. His brought him to the emergency room. Patient denied drinking but as per the he does drink alcohol every day. Currently patient is sober and answering questions. Patient denies any assault. Vital signs are stable. No history of vomiting or loss of consciousness as per the . 24 Hour Review/Hospital Course 05/15 Patient was slightly confused in the morning he urinated to the floor Since then he has been more stable Patient is alcoholic he was started on the CIWA protocol The CT scan of the head is pending, his GCS is [address] scan of the abdomen and pelvis and chest were negative for any injuries Neurosurgical ophthalmology and OMFS consults are pending 05/15/2017 This morning patient is somewhat confused but awake Adamantly denies alcohol use however went into delirium tremens had to be placed on Precedex drip and CIWA protocol Pupils equal reactive bruising over the both orbits and forehead Hemodynamically stable Bilateral good breath sounds Neurologically patient remains stable and can transfer to the floor once off Precedex Patient remains in the ICU due to delirium tremens and no specific traumatic injury 05/16/2017 Patient doing much better today neurologically Off Precedex Per neuropsychologist patient placed on appropriate regimen int face of alcoholism He is awake alert but disoriented at times Communicates with short sentences Pupils equal reactive and facial bruising is slowly receding Moves all 4 extremities does not have appreciable motoric deficit Bilateral breath sounds good inspiratory effort Tolerates diet well Transfer to floor when bed available 05/17/2017 Patient with above noted head injury was transferred to floor yesterday but became restless was given 10 mg of Ativan within 15 minute time which of course lead to respiratory depression, hypotension and distress and patient was transferred back to the ICU Patient remains confused with [place] Coma Scale of about 11 CT scan reveals resolving left occipital cerebral contusion/ hematoma Hemodynamically patient is stable Bilateral breath sounds decreased over the both lung kern consistent with likely aspiration into the both lungs Chest x-ray also reveals bilateral pulmonary infiltrates in the bases I found patient this morning lying in Trendelenburg position which is invariably the cause of patient's aspiration Abdomen is soft Plan Medications have been adjusted with brain injury patient can be a candidate for Ativan CIWA protocol yet administering 10 mg of Ativan in very short period of time is clearly not the way to go Ativan has been DC'd Assistance from Dr. Angel is greatly appreciated Will manage patient expectantly and if he worsens he will require intubation and ventilatory support to the lung function improves 05/18 Patient is awake alert today in the morning His sodium is 136 breath sounds are equal bilaterally today Clearly more awake since the Ativan has been DC'd He is on Seroquel and valproic acid, swelling of his face is clearly better Abdomen is soft 05/19 Patient's tachypnea improved, he sats are mid 90s on supplemental oxygen His sodium is 136 he is on Precedex and ordered Blood cultures show MRSA and patient has been started on vancomycin His white cell count is within normal limits Chest x-ray yesterday showed fluid overload/infiltrate Patient is on hypertonic saline 05/20/2018 Patient slightly improved Still seems to be confused and answering questions intermittently with nodding and grunting Hemodynamically stable Bilateral breath sounds with coarse rhonchi bilateral PO2 FiO2 gradient gradually improving as hypovolemia is being addressed in fluid overload has been addressed Abdomen is soft patient is taking p.o. diet with assistance Still swollen lower extremities and patient being diuresed gently MRSA blood cultures 3. In this particular individual this is not unusual or surprising for patient ripped out about 7 or 8 IV sites in the past and each time IV had to be restarted so at some point MRSA from the skin was introduced into the bloodstream Infectious disease help greatly appreciated Objective Vital Signs Date Time Temp Pulse Resp B/P (MAP) Pulse Ox O2 Delivery O2 Flow Rate FiO2 05/20/17 10:00 8 05/20/17 08:00 98.9 31 129/60 (83) 93 05/20/17 07:00 Nasal Cannula 4.00 Intake and Output 05/20/17 05/20/17 05/21/17 08:00 16:00 00:00 Intake Total 50 ml Output Total 1000 ml Balance -950 ml Result Diagram: 05/20/1722305/20/174 Imaging Last 24 hours Impressions Chest X-Ray 05/20/17 0600 Signed Impressions: Service Date/Time: Saturday, May 20, 2017 04:37 - CONCLUSION: Worsening pulmonary edema. Netta Mojica MD Disinhibition Score: 19.18 Aggression Score: 14.00 Lability Score: 14.00 Agitated Behavior Total Score: 17 Exam STAFF ELECTRICAL ENGINEER Still seems to be confused and answering questions intermittently with nodding and grunting Patient requiring sedation due to delirium tremens and confusion Remains on small dose Precedex, valproic acid and as needed Haldol As noted above patient received 10 mg of Ativan on the floor in the very short span of time and ended up in hemodynamic and respiratory distress has the return to the ICU Hemodynamic/Cardiac Hemodynamically stable Bilateral breath sounds with coarse rhonchi bilateral PO2 FiO2 gradient gradually improving as hypovolemia is being addressed in fluid overload has been addressed Abdomen/GI Nutrition Abdomen is soft patient is taking p.o. diet with assistance Still swollen lower extremities and patient being diuresed gently Hematologic MRSA blood cultures 3. In this particular individual this is not unusual or surprising for patient ripped out about 7 or 8 IV sites in the past and each time IV had to be restarted so at some point MRSA from the skin was introduced into the bloodstream Infectious disease help greatly appreciated Assessment and Plan Plan Patient diuresis today. For fluid overload by trauma service, this was continued by the key bed installer I believe will need gradually to wean his hypertonic saline monitoring his sodium His mental status is secondary to combination of sepsis TBI and alcohol withdrawal Continue DVT prophylaxis Monitor respiratory status closely Continue Precedex for now Attestation Critical care time 35 minutes Douglas Tinsley MD May 20, 2017 14:33
[2017-05-20] MEDS: POTASSIUM CHLOR 20 MEQ PREMIX 100 ML IV SCH ×2 (14:54→18:06)
[2017-05-20] MEDS: FUROSEMIDE 40 MG/4 ML VIAL IV PUSH SCH ×2 (14:57→18:12)
[2017-05-20] MEDS: MAGNESIUM HYDROXIDE SUSP 30 ML CUP PO SCH ×2 (14:57→23:30)
[2017-05-21] VITALS (8 sets, daily range): BP systolic 105–147; BP diastolic 63–81; PULSE 81–102; RESP 18–24; TEMP 98.2–99.9; O2SAT 92–100
[2017-05-21] MEDS: SODIUM CHLORIDE 23.4% INJ 188 MEQ in SODIUM CHLOR 0.9% 1000 ML INJ 1,000 ML IV SCH (02:57)
[2017-05-21] MEDS: chlordiazePOXIDE 25 MG CAP PO SCH ×4 (03:46→20:19)
[2017-05-21] MEDS: QUEtiapine FUMARATE 25 MG TAB PO SCH ×3 (03:46→20:19)
[2017-05-21] MEDS: CHLORHEXIDINE GLUCONATE 2 % 1 PACK (2 CLOTHS) TOP SCH (04:00)
--- NOTE | 2017-05-21 04:24 | RADRPT ---
EXAM DATE/TIME: 05/21/2017 02:52 [facility] COMPARISON: No previous studies available for comparison. INDICATIONS : Evaluate post Fall MEDICAL HISTORY : Cardiovascular disease. SURGICAL HISTORY : None. ENCOUNTER: Subsequent ACUITY: 1 week PAIN SCORE: Non-responsive. LOCATION: Bilateral chest FINDINGS: A single view of the chest demonstrates a basilar airspace disease, left greater than right slightly improved from 317. No significant effusion. No pneumothorax. CONCLUSION: Basilar airspace disease, improved from May 20. Arsh Leslie MD on May 21, 2017 at 4:22 Board Certified Radiologist. This report was verified electronically.
[2017-05-21] MEDS: HEPARIN SODIUM - SQ 10,000 UNITS/ML VIAL SQ SCH ×3 (05:09→22:38)
[2017-05-21] MEDS: VALPROATE INJ 250 MG in SODIUM CHLORIDE 0.9% INJ 100 ML IV SCH ×3 (05:09→23:00)
[2017-05-21] MEDS: VANCOMYCIN INJ 1,750 MG in SODIUM CHLORID 0.9% 500 ML INJ 500 ML IV SCH ×2 (05:31→17:41)
[2017-05-21] MEDS ORDERED: PHARMACY ORDERED LAB ONE ×2 (05:45)
[2017-05-21 06:25] LABS: CALCIUM 8.1 MG/DL (8.5-10.1); VANCOMYCIN TROUGH 14.1 MCG/ML (5.0-10.0)
[2017-05-21] MEDS: levETIRAcetam INJ 500 MG in SODIUM CHLORIDE 0.9% INJ 100 ML IV SCH (07:38)
[2017-05-21] MEDS: FAMOTIDINE 20 MG/2 ML VIAL IV PUSH SCH ×2 (07:38→20:20)
[2017-05-21] MEDS: POTASSIUM CHLOR 20 MEQ PREMIX 100 ML IV PRN ×2 (07:38→09:40)
[2017-05-21] MEDS: HALOPERIDOL LACTATE 5 MG/ML AMP IV PUSH PRN ×2 (07:41→23:04)
[2017-05-21] MEDS: BISACODYL 10 MG SUPP RECTAL SCH (09:00)
[2017-05-21] MEDS: DOCUSATE SODIUM 50 MG/SENNA 8.6 MG TAB PO SCH ×2 (09:00→20:19)
[2017-05-21] MEDS: FUROSEMIDE 40 MG/4 ML VIAL IV PUSH SCH ×2 (10:29→17:41)
[2017-05-21] MEDS: MAGNESIUM HYDROXIDE SUSP 30 ML CUP PO SCH ×2 (10:29→20:20)
[2017-05-21] MEDS: POTASSIUM CHLORIDE 10 MEQ CONTROLLED RELEASE TAB PO PRN ×2 (11:04→14:27)
--- NOTE | 2017-05-21 11:14 | HHI.CCPN ---
Subjective Remarks/Hospital Course Hospital Course: 51-year-old male came to the emergency room with history of a trip and fall as per him at 3 AM early this morning. Since then he has noticed that both his eyelids have been swelling up and is almost swelling shot so he cannot see. His brought him to the emergency room. Patient denied drinking but as per the he does drink alcohol every day. Currently patient is sober and answering questions. Patient denies any assault. Vital signs are stable. No history of vomiting or loss of consciousness as per the . Subjective: 05/15: still delirious, in etoh withdraw. some increase in cerebral edema, bleeds stable in size. remains on precedex. 05/16: Remains on Precedex gtt. Drowsy, arousable. 05/17: At 2 AM rapid response team called for patients tachypnea tachycardia and altered mental status. Has received 10 mg of Ativan per [facility] Nurse orders 05/18: Tachypneic with fluctuating mental status today. Blood cultures growing MRSA. Patient is drowsy but easily arousable, following commands. Knows he is in the hospital. On 2 L nasal cannula maintaining O2 sats around 92%. Gets tachypneic with respiratory rate 30s at times. 05/19: Remains tachypneic. Bilateral crackles. Stop iv fluid and start diuretics. Apparently agitated last night. Calm now on precedex. 05/20: Persistent failure despite diuresis. 05/21: Breathing much improved after 5.5 liter diuresis. CXR still reveals cephalization of flow and overload; continue BID lasix. Objective Vital Signs Date Time Temp Pulse Resp B/P (MAP) Pulse Ox O2 Delivery O2 Flow Rate FiO2 05/21/17 08:00 99.9 86 20 147/81 (103) 100 05/20/17 19:00 Nasal Cannula 4.00 Intake and Output 05/21/17 05/21/17 05/21/17 07:59 15:59 23:59 Intake Total 1300 ml 600 ml Output Total 2000 ml Balance -700 ml 600 ml Result Diagram: 05/20/17 0224 05/21/17 0525 Imaging Last [address] 05/13/17 2602 Signed Impressions: Service Date/Time: Saturday, May 13, 2017 22:22 - CONCLUSION: Multiple fractures of the right orbit including the inferior orbital wall and comminuted fractures of the medial orbital wall. Intraorbital muscles remain within the orbit. There is associated opacification of the right ethmoids and right maxillary sinus. There is also prominent alyssa-orbital soft tissue swelling extending into the frontal region. Juan Sun MD Head CT 05/13/172207 Signed Impressions: Service Date/Time: Saturday, May 13, 2017 22:22 - CONCLUSION: 1. Greater than 4 cm parenchymal hematoma left occipital lobe and prominent soft tissue swelling in the right periorbital and frontal region suggests contrecoup injury. No significant mass effect or cerebral edema at this point. 2. Suspected abnormalities in the right orbit, ethmoid sinus, and maxillary sinus. CT facial bones to be performed. Juan Sun MD Chest X-Ray 05/13/172207 Signed Impressions: Service Date/Time: Saturday, May 13, 2017 22:19 - CONCLUSION: No infiltrates seen. No evidence of pneumothorax. Juan Sun MD Cervical Spine CT 05/13/172207 Signed Impressions: Service Date/Time: Saturday, May 13, 2017 22:22 - CONCLUSION: Moderately advanced discogenic degenerative changes C4-C6 with associated retrolisthesis of C4 to C5 and reversal of the upper cervical lordosis. No fracture seen. Juan Sun MD Disinhibition Score: 19.18 Aggression Score: 14.00 Lability Score: 14.00 Agitated Behavior Total Score: 17 Objective Remarks GENERAL: Awake, conversant. SKIN: Focused skin assessment warm/dry. Multiple old bruises on bilateral shins , periorbital ecchymosis bilaterally, resolving. HEAD: Patient has some dry abrasions on the scalp on the vertex EYES: Pupils equal and round. ENT: No nasal bleeding or discharge. Mucous membranes pink and moist. Bilateral periorbital ecchymosis, resolving.. NECK: Trachea midline, airway widely patent. Clears throat well. CARDIOVASCULAR: Regular rate and rhythm. Neck veins remain full. RESPIRATORY: No accessory muscle use. Equal chest rise. Good air movement. GASTROINTESTINAL: Abdomen soft, non-tender, nondistended. BS active. No guarding. MUSCULOSKELETAL: No obvious deformities. No clubbing. No cyanosis. No edema. NEUROLOGICAL: Alert, cooperative. Follows commands. Moves all 4 extremities. A/P Assessment and Plan Assessment: 51yM with etoh withdraw and ICH s/p fall. Agitated Delirium remains severe requiring iv sedation with dexmedetomidine. Patient was transferred to [facility] floor by trauma services. Transferred back to ICU for altered mental status thought to be secondary to Ativan with subsequent fevers, delirium and MRSA bacteremia. Agitated Delirium Etoh Withdraw -Off benzodiazepines. On Seroquel and valproate per trauma team. - precedex gtt ordered for delirium - frequent neuro checks ICH - re-admit to in ICU - ICH post fall - CT head stat - Transfuse platelets to keep count of 100 - Neuro checks per unit protocol - Remains on 2% saline to bring up sodium levels closer to 145, reduce volume - Further per neurosurgery - Keppra for seizure prophylaxis Multiple fractures of the right orbit - OMFS consultation: non-op MRSA bacteremia Severe sepsis Being started on IV vancomycin. ID consulted by trauma team. Probably has MRSA pneumonia as primary source. Follow-up chest x-ray Thrombocytopenia - EtOH??? - Transfuse to keep count > 100 - 4t score: low probability for HIT. no recent heparin exposure. DVT GI prophylaxis - Teds SCDs - No pharmacological DVT prophylaxis due to ICH - Early aggressive mobilization - Pepcid Pulmonary Edema/Heart Failure - BID lasix. - Reduce IV fluid. - ECHO pending Overall impression: Calm on precedex. Heart failure / fluid overload improving, continue aggressive diuresis. Replace lytes. Winston Myers MD May 21, 2017 11:14
[2017-05-21] MEDS ORDERED: ARTIFICIAL TEARS OPTH SOLN 15 ML BTL EACH EYE PRN (12:00)
--- NOTE | 2017-05-21 13:51 | HHI.CCPN ---
Subjective Brief History 51-year-old male came to the emergency room with history of a trip and fall as per him at 3 AM early this morning. Since then he has noticed that both his eyelids have been swelling up and is almost swelling shot so he cannot see. His brought him to the emergency room. Patient denied drinking but as per the he does drink alcohol every day. Currently patient is sober and answering questions. Patient denies any assault. Vital signs are stable. No history of vomiting or loss of consciousness as per the . 24 Hour Review/Hospital Course 05/15 Patient was slightly confused in the morning he urinated to the floor Since then he has been more stable Patient is alcoholic he was started on the CIWA protocol The CT scan of the head is pending, his GCS is [address] scan of the abdomen and pelvis and chest were negative for any injuries Neurosurgical ophthalmology and OMFS consults are pending 05/15/2017 This morning patient is somewhat confused but awake Adamantly denies alcohol use however went into delirium tremens had to be placed on Precedex drip and CIWA protocol Pupils equal reactive bruising over the both orbits and forehead Hemodynamically stable Bilateral good breath sounds Neurologically patient remains stable and can transfer to the floor once off Precedex Patient remains in the ICU due to delirium tremens and no specific traumatic injury 05/16/2017 Patient doing much better today neurologically Off Precedex Per neuropsychologist patient placed on appropriate regimen int face of alcoholism He is awake alert but disoriented at times Communicates with short sentences Pupils equal reactive and facial bruising is slowly receding Moves all 4 extremities does not have appreciable motoric deficit Bilateral breath sounds good inspiratory effort Tolerates diet well Transfer to floor when bed available 05/17/2017 Patient with above noted head injury was transferred to floor yesterday but became restless was given 10 mg of Ativan within 15 minute time which of course lead to respiratory depression, hypotension and distress and patient was transferred back to the ICU Patient remains confused with [place] Coma Scale of about 11 CT scan reveals resolving left occipital cerebral contusion/ hematoma Hemodynamically patient is stable Bilateral breath sounds decreased over the both lung kern consistent with likely aspiration into the both lungs Chest x-ray also reveals bilateral pulmonary infiltrates in the bases I found patient this morning lying in Trendelenburg position which is invariably the cause of patient's aspiration Abdomen is soft Plan Medications have been adjusted with brain injury patient can be a candidate for Ativan CIWA protocol yet administering 10 mg of Ativan in very short period of time is clearly not the way to go Ativan has been DC'd Assistance from Dr. Angel is greatly appreciated Will manage patient expectantly and if he worsens he will require intubation and ventilatory support to the lung function improves 05/18 Patient is awake alert today in the morning His sodium is 136 breath sounds are equal bilaterally today Clearly more awake since the Ativan has been DC'd He is on Seroquel and valproic acid, swelling of his face is clearly better Abdomen is soft 05/19 Patient's tachypnea improved, he sats are mid 90s on supplemental oxygen His sodium is 136 he is on Precedex and ordered Blood cultures show MRSA and patient has been started on vancomycin His white cell count is within normal limits Chest x-ray yesterday showed fluid overload/infiltrate Patient is on hypertonic saline 05/20/2018 Patient slightly improved Still seems to be confused and answering questions intermittently with nodding and grunting Hemodynamically stable Bilateral breath sounds with coarse rhonchi bilateral PO2 FiO2 gradient gradually improving as hypovolemia is being addressed in fluid overload has been addressed Abdomen is soft patient is taking p.o. diet with assistance Still swollen lower extremities and patient being diuresed gently MRSA blood cultures 3. In this particular individual this is not unusual or surprising for patient ripped out about 7 or 8 IV sites in the past and each time IV had to be restarted so at some point MRSA from the skin was introduced into the bloodstream Infectious disease help greatly appreciated 05/21/[address] is [address] more awake and alert today Gets restless and requires small dose of Haldol or Librium but definitely greatly improved over last few days DC Precedex today Responds to simple questions appropriately tolerates diet p.o. 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 Arsh Leslie MD Disinhibition Score: 19.18 Aggression Score: 14.00 Lability Score: 14.00 Agitated Behavior Total Score: 17 Assessment and Plan Plan Patient diuresis today. For fluid overload by trauma service, this was continued by the director medicare sales I believe will need gradually to wean his hypertonic saline monitoring his sodium His mental status is secondary to combination of sepsis TBI and alcohol withdrawal Continue DVT prophylaxis Monitor respiratory status closely Continue Precedex for now Douglas Tinsley MD May 21, 2017 13:51
[2017-05-21 16:37] LABS: AUTOMATED NEUTROPHIL # 8.4 TH/MM3 (1.8-7.7); BASOPHIL # 0.1 TH/MM3 (0-0.2); BASOPHIL % 0.8 % (0.0-2.0); EOSINOPHIL # 0.1 TH/MM3 (0-0.4); EOSINOPHIL % 0.7 % (0.0-4.0); HEMOGLOBIN 10.6 GM/DL (13.0-17.0); LYMPH % 9.1 % (9.0-44.0); LYMPHOCYTE # 0.9 TH/MM3 (1.0-4.8); MEAN CELL VOLUME 96.5 FL (80.0-100.0); MEAN CORPUSCULAR HGB CONC 34.3 % (32.0-36.0); MEAN PLATELET VOLUME 8.1 FL (7.0-11.0); MONO % 7.8 % (0.0-8.0); MONOCYTE # 0.8 TH/MM3 (0-0.9); NEUT % 81.6 % (16.0-70.0); PLATELET COUNT 473 TH/MM3 (150-450); RED BLOOD COUNT 3.22 MIL/MM3 (4.50-5.90); WHITE BLOOD COUNT 10.3 TH/MM3 (4.0-11.0)
[2017-05-21] MEDS: levETIRAcetam 500 MG TAB PO SCH (20:19)
[2017-05-22] VITALS (12 sets, daily range): BP systolic 114–145; BP diastolic 66–79; PULSE 77–103; RESP 16–27; TEMP 98.1–99.9; O2SAT 92–100
[2017-05-22] MEDS: CHLORHEXIDINE GLUCONATE 2 % 1 PACK (2 CLOTHS) TOP SCH (02:56)
[2017-05-22] MEDS: QUEtiapine FUMARATE 25 MG TAB PO SCH ×3 (03:01→20:41)
[2017-05-22] MEDS: chlordiazePOXIDE 25 MG CAP PO SCH ×4 (03:01→20:42)
[2017-05-22] MEDS: SODIUM CHLORIDE 23.4% INJ 188 MEQ in SODIUM CHLOR 0.9% 1000 ML INJ 1,000 ML IV SCH (05:09)
[2017-05-22] MEDS: VANCOMYCIN INJ 1,750 MG in SODIUM CHLORID 0.9% 500 ML INJ 500 ML IV SCH (05:09)
[2017-05-22] MEDS: HEPARIN SODIUM - SQ 10,000 UNITS/ML VIAL SQ SCH ×3 (05:09→20:42)
[2017-05-22] MEDS: VALPROATE INJ 250 MG in SODIUM CHLORIDE 0.9% INJ 100 ML IV SCH ×3 (05:09→21:07)
[2017-05-22 05:13] LABS: BASOPHIL # 0.1 TH/MM3 (0-0.2); BASOPHIL % 0.8 % (0.0-2.0); EOSINOPHIL # 0.1 TH/MM3 (0-0.4); HEMATOCRIT 31.8 % (39.0-51.0); HEMOGLOBIN 10.7 GM/DL (13.0-17.0); LYMPH % 12.3 % (9.0-44.0); LYMPHOCYTE # 1.2 TH/MM3 (1.0-4.8); MEAN CELL VOLUME 96.2 FL (80.0-100.0); MEAN CORPUSCULAR HEMOGLOBIN 32.5 PG (27.0-34.0); MEAN CORPUSCULAR HGB CONC 33.7 % (32.0-36.0); MEAN PLATELET VOLUME 8.3 FL (7.0-11.0); MONO % 6.5 % (0.0-8.0); MONOCYTE # 0.7 TH/MM3 (0-0.9); NEUT % 79.4 % (16.0-70.0); PLATELET COUNT 468 TH/MM3 (150-450); WHITE BLOOD COUNT 10.1 TH/MM3 (4.0-11.0)
[2017-05-22 05:37] LABS: AST (GOT) 64 U/L (15-37); BICARBONATE 28.4 MEQ/L (21.0-32.0); BLOOD UREA NITROGEN 14 MG/DL (7-18); CALCIUM 8.7 MG/DL (8.5-10.1); CHLORIDE 109 MEQ/L (98-107); GLOMERULAR FILTRATION RATE 58 ML/MIN (>89); GLUCOSE,RANDOM 93 MG/DL (74-106); MAGNESIUM 2.1 MG/DL (1.5-2.5); SODIUM (NA) 146 MEQ/L (136-145)
[2017-05-22 05:41] LABS: ALKALINE PHOSPHATASE 91 U/L (45-117); ALT (GPT) 57 U/L (12-78); TOTAL BILIRUBIN ADULT 0.4 MG/DL (0.2-1.0); TOTAL PROTEIN 6.1 GM/DL (6.4-8.2)
--- NOTE | 2017-05-22 07:46 | HHI.CCPN ---
Subjective Remarks/Hospital Course Hospital Course: 51-year-old male came to the emergency room with history of a trip and fall as per him at 3 AM early this morning. Since then he has noticed that both his eyelids have been swelling up and is almost swelling shot so he cannot see. His brought him to the emergency room. Patient denied drinking but as per the he does drink alcohol every day. Currently patient is sober and answering questions. Patient denies any assault. Vital signs are stable. No history of vomiting or loss of consciousness as per the . Subjective: 05/15: still delirious, in etoh withdraw. some increase in cerebral edema, bleeds stable in size. remains on precedex. 05/16: Remains on Precedex gtt. Drowsy, arousable. 05/17: At 2 AM rapid response team called for patients tachypnea tachycardia and altered mental status. Has received 10 mg of [facility] Nurse orders 05/18: Tachypneic with fluctuating mental status today. Blood cultures growing MRSA. Patient is drowsy but easily arousable, following commands. Knows he is in the hospital. On 2 L nasal cannula maintaining O2 sats around 92%. Gets tachypneic with respiratory rate 30s at times. 05/19: Remains tachypneic. Bilateral crackles. Stop iv fluid and start diuretics. Apparently agitated last night. Calm now on precedex. 05/20: Persistent failure despite diuresis. 05/21: Breathing much improved after 5.5 liter diuresis. CXR still reveals cephalization of flow and overload; continue BID lasix. 05/22: Per nursing patient was agitated throughout the night. This AM more calm , awake, responding t some questions. Diuresed well, negative 2833 ml in the last 24 hours. His father is at bedside. ROS - limited by patient's mental status - but denies CP, SOB, palpitations, KENDRICK. Objective Vital Signs Date Time Temp Pulse Resp B/P (MAP) Pulse Ox O2 Delivery O2 Flow Rate FiO2 05/22/17 06:00 92 05/22/17 04:00 99.9 24 121/71 (88) 93 05/21/17 19:00 Room Air 05/21/17 08:00 4.00 Intake and Output 05/22/17 05/22/17 05/23/17 08:00 16:00 00:00 Intake Total 1087 ml Output Total 1800 ml Balance -713 ml Result Diagram: 05/22/17 0413 05/22/17 0413 Imaging Last [address] 05/13/172207 Signed Impressions: Service Date/Time: Saturday, May 13, 2017 22:22 - CONCLUSION: Multiple fractures of the right orbit including the inferior orbital wall and comminuted fractures of the medial orbital wall. Intraorbital muscles remain within the orbit. There is associated opacification of the right ethmoids and right maxillary sinus. There is also prominent alyssa-orbital soft tissue swelling extending into the frontal region. Juan Sun MD Head CT 05/13/172207 Signed Impressions: Service Date/Time: Saturday, May 13, 2017 22:22 - CONCLUSION: 1. Greater than 4 cm parenchymal hematoma left occipital lobe and prominent soft tissue swelling in the right periorbital and frontal region suggests contrecoup injury. No significant mass effect or cerebral edema at this point. 2. Suspected abnormalities in the right orbit, ethmoid sinus, and maxillary sinus. CT facial bones to be performed. Juan Sun MD Chest X-Ray 05/13/172207 Signed Impressions: Service Date/Time: Saturday, May 13, 2017 22:19 - CONCLUSION: No infiltrates seen. No evidence of pneumothorax. Juan Sun MD Cervical Spine CT 05/13/172207 Signed Impressions: Service Date/Time: Saturday, May 13, 2017 22:22 - CONCLUSION: Moderately advanced discogenic degenerative changes C4-C6 with associated retrolisthesis of C4 to C5 and reversal of the upper cervical lordosis. No fracture seen. Juan Sun MD Disinhibition Score: 35.00 Aggression Score: 35.00 Lability Score: 18.62 Agitated Behavior Total Score: 30 Objective Remarks GENERAL: Middle age gentleman, awake, agitated at times, ill appearing. SKIN: Focused skin assessment warm/dry. Multiple old bruises on bilateral shins , periorbital ecchymosis bilaterally, resolving. HEAD: Dry abrasions on the scalp on the vertex EYES: Pupils equal and round, reactive, subconjunctival hemorrhage. No icterus. ENT: No nasal bleeding or discharge. Mucous membranes dry, no thrush. Bilateral periorbital ecchymosis, resolving. NECK: Trachea midline, airway widely patent. CARDIOVASCULAR: Regular rate and rhythm. Neck veins remain full. RESPIRATORY: No cackles, no wheezes. Equal chest rise. Good air movement. GASTROINTESTINAL: Abdomen is soft, non-tender, nondistended. BS active. No guarding. No hepatomegaly, no splenomegaly. MUSCULOSKELETAL: No obvious deformities. No clubbing. No cyanosis. No edema. NEUROLOGICAL: Alert. Follows commands. Moves all 4 extremities. A/P Assessment and Plan Agitated Delirium Etoh Withdraw - Off benzodiazepines. On Seroquel and valproate per trauma team. - restart precedex as needed for agitation - frequent neuro checks ICH - re-admitted to ICU - ICH post fall - CT head stat with any change in neuro status - Neuro checks per unit protocol - Na at 146, on 2% NS - Further per neurosurgery - Off Keppra on Valproate Multiple fractures of the right orbit - OMFS consultation: non-op MRSA bacteremia Severe sepsis - On iv Vanco, followed by ID - Repeat blood cx are with NGTD - ECHO DVT GI prophylaxis - Teds SCDs - No pharmacological DVT prophylaxis due to ICH - Early aggressive mobilization - Pepcid Pulmonary Edema/Heart Failure - On lasix BID - Replete potassium, check magnesium - Reduce IV fluid - ECHO pending Todd Araujo MD May 22, 2017 07:46
--- NOTE | 2017-05-22 08:13 | HHI.PR ---
Neuropsych Behavior Behavior: Moderate: Impulsive/Agitated Cognitive Cognitive: Moderate: Cognitive, Attention/Concentration, Confused/Orientation, Insight/Awareness, Judgement/Problem-Solving, Memory Psychosocial Psychosocial: Moderate: Psychosocial, Family/Other Adjustment, Realistic Expectation, Unable to Asses: Self-Esteem/Confidence Progress Notes/Response to Tx Contents of Sessions: Adjustment, Level of Consciousness Time with Patient: 15 minutes Premorbid psychological status Premorbid Cognitive, Emotional and Behavioral Status: Stable. 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 The patient has no known prior psychiatric difficulties, as described above. Substance abuse history includes alcohol dependence. Behavioral Reactions of Patient and Family/Support System: Deferred. The patients family is experiencing ongoing issues of adjustment given the nature of the injury, and this aspect of recovery will require ongoing monitoring. Emotional/Behavioral Status of Patient and Family/Support System: Stable. Pertinent issues, if appropriate to this patients clinical care, are described in detail above. Maximizing acute care outcome It is recommended that the patient be monitored for emergent behavioral impulsivity as the medical condition evolves. This patients neuropathological challenges may limit his rehabilitation potential going forward, and these challenges will require specialized therapeutic skills to maximize outcome. At this point in the recovery process, the patient does not have cognitive capacity as the patient is unable to understand a situation and its likely consequences, nor is he able to manipulate information rationally. Cognitive capacity will be assessed throughout the recovery process. Anticipated Problems Ongoing areas of concern will include behavioral impulsivity, lack of insight and judgment, which is expected to improve with time and treatment. Presently , the patient is in delirium 2T alcohol withdrawals. Given the severity of the patient's injuries it is my clinical opinion that this patient will be unable to return to any type of productive employment for at least one year, perhaps longer and likely never. This patient is not considered safe to discharge home with supervision. Treatment Plan This clinician will continue to follow with you throughout the course of this patients acute care treatment, and I will be available to meet with the patient s family/support system to facilitate their understanding and the ongoing care of their family member. The goals of neuropsychological intervention shall be both educational and supportive to the family/support system as is deemed clinically appropriate. [facility] Level: IV:Confused/Agitated-maximal assist Disinhibition Score: 35.00 Aggression Score: 35.00 Lability Score: 18.62 Agitated Behavior Total Score: 30 Impression 51 year old male s/p TBI 2T fall from ladder on 05/13/2017, now in alcohol withdrawals. Diagnosis: (1) Alcohol dependence in controlled environment (2) Mild major neurocognitive disorder due to traumatic brain injury with behavioral disturbance Progress Note Narrative PTD 9. The patient, while improved neurologically, has been agitated throughout the night, receing Haldol PRN at 2304. Additional medications included Seroquel 50 TID and Valproic 250 TID. His ABS = 30 (35,35,18.6) which reflects moderate agitation. Unless medically contraindicated, consider increasing Seroquel to 75 TID or titrate precedex. He is Rancho IV. I will follow. Meño Angel PhD May 22, 2017 8:13 am
--- NOTE | 2017-05-22 09:02 | HHI.NSPN ---
(Eriberto Greeneden SHI) History Chief Complaint: "A little wobbly." (Andi GreenLorraine SHI) Interval History 05/14: The patient is a 51-year-old male who reportedly fell from a ladder approximately 3 AM on 05/13/2017. He waited until last evening to come to the emergency room, apparently due to progressive swelling around his eyes. No seizure activity reported. No emesis reported. No definite loss of consciousness. He does have a history of alcohol abuse. He complains of blurred vision. 05/15/17: Remains confused. He was agitated last evening-placed on Precedex 05/16: This morning the patient is awake and alert in bed visiting with his . The dexmedetomidine drip is on hold. He does have a soft wrist restraint to the right wrist due to his pulling at the [place]. He says he is doing well. He denies any headache or dizziness. He has some blurry vision when he first opens his eyes but it quickly clears. He denies any double vision. He denies any pain, numbness, tingling or weakness to the extremities. His only complaint is an occasional cough. His muscle strength and sensation remain intact. His confusion and speech are improved. 05/17: When seen this morning the patient had returned to [facility] from the med/surg floor due to delirium tremens and being overdosed on lorazepam. He was given flumazenil to reverse the lorazepam. He had a decrease level of consciousness but did interact with coaxing and followed some commands correctly. 05/18: The patient is in four point soft restraints when seen this morning. He was asleep but awoke to voice. Mild tremors were noted to his upper extremities when awake. He did endorse "A little bit" of a headache but no dizziness or blurry or double vision. He had no pain, numbness, tingling or weakness to the extremities. He did follow commands and his muscle strength and sensation were good. 05/19: This morning the patient seems to be lethargic. He does awaken to voice but drifts back off to sleep readily. He stated that "It's a little rough this morning." He interacted with repeated verbal stimulation. His motor and sensory exam were stable. He is confused as to time. He is now in contact isolation due to blood cultures with MRSA in three bottles. 05/22: The patient has his eyes closed this morning when seen but he is talking with his . He readily responds and interacts although his speech is somewhat garbled, dysarthric and slow. He is in four point soft restraints. He follows commands. He is confused and having hallucinations, reporting a flying saucer struck him. He denies any headache or dizziness but does state that he is "A little wobbly." He has no pain, numbness, tingling or weakness to the extremities. (Andi Green) Exam Results 05/20/17 05/20/17 05/21/17 05/21/17 05/22/17 05/22/17 06:00 18:00 06:00 18:00 06:00 18:00 Intake Total 1272.4 ml 780 ml 1400 ml 1480 ml 1087 ml Output Total 1000 ml 3500 ml 2000 ml 3600 ml 1800 ml Balance 272.4 ml -2720 ml -600 ml -2120 ml -713 ml Intake Oral 680 ml 200 ml 680 ml IV Total 1272.4 ml 100 ml 1200 ml 800 ml 1087 ml Output Urine Total 1000 ml 3500 ml 2000 ml 3600 ml 1800 ml # Bowel Movements 0 0 2 3 Vital Signs Date Time Temp Pulse Resp B/P (MAP) Pulse Ox O2 Delivery O2 Flow Rate FiO2 05/22/17 06:00 92 05/22/17 04:00 99.9 80 24 121/71 (88) 93 05/22/17 04:00 88 05/22/17 02:00 89 05/22/17 00:00 99.8 98 22 114/69 (84) 92 05/22/17 00:00 88 05/21/17 20:00 99.6 84 24 113/67 (82) 92 05/21/17 20:00 88 05/21/17 19:00 95 Room Air 05/21/17 16:00 95 Room Air 05/21/17 16:00 102 05/21/17 12:00 91 05/21/17 12:00 98.2 91 18 105/64 (78) 100 05/21/17 08:00 99.9 86 20 147/81 (103) 100 05/21/17 08:00 100 Nasal Cannula 4.00 05/21/17 08:00 86 18 06:00 90 18 04:00 81 05/21/17 04:00 98.9 81 19 118/70 (86) 97 05/21/17 02:00 87 05/21/17 00:00 85 05/21/17 00:00 98.9 87 21 115/63 (80) 97 05/20/17 22:00 89 05/20/17 20:00 89 05/20/17 20:00 97.9 89 20 93/50 (64) 97 05/20/17 19:00 93 Nasal Cannula 4.00 05/20/17 16:00 90 05/20/17 12:00 98.0 68 28 139/90 (106) 97 05/20/17 12:00 68 05/20/17 10:00 8 05/20/17 08:00 71 05/20/17 08:00 98.9 71 31 129/60 (83) 93 05/20/17 07:00 96 Nasal Cannula 4.00 05/20/17 06:08 97 Nasal Cannula 4.00 05/20/17 06:00 76 05/20/17 04:00 98.6 82 26 136/82 (100) 89 05/20/17 04:00 76 05/20/17 02:00 85 05/20/17 00:00 98.7 77 21 120/67 (84) 96 05/20/17 00:00 78 05/19/17 22:52 96 Nasal Cannula 4.00 05/19/17 22:00 75 18 20:00 98.9 73 27 97 18 20:00 79 18 19:00 95 Nasal Cannula 4.00 05/19/17 18:00 72 18 16:00 73 05/19/18 16:00 99.2 73 33 109/67 (81) 95 18 14:00 79 18 12:00 82 18 12:00 99.8 82 32 126/67 (86) 95 2/16/18 10:00 86 (Andi Green) Physical Examination GENERAL: Eyes closed but talking with . Readily responds & interacts. No apparent distress. In 4-point soft restraints. HEENT: Right-sided facial swelling & ecchymosis resolving w/abrasions & lacerations healing w/o complication. Bilateral periorbital ecchymosis. PERRLA 3 mm brisk, bilateral subconjuctival haemorrhages R>L. No otorrhea or rhinorrhea. MUSCULOSKELETAL: THIBODEAUX w/o difficulty. No evident clubbing or deformity. NEUROLOGICAL: Eyes closed but talking w/, readily responds & interacts. Ooriented to person, place & president but not time. Eye opening to command. Speech garbled, dysarthric, slowing of speech and though processes. Follows simple commands. Sensation intact to light touch to all extremities. Muscle strength w/o any apparent deffict. (Andi Green) Lab, Micro, Other Results Recent Impressions Chest X-Ray 05/21/17 06 Signed Impressions: Service Date/Time: Sunday, May 21, 2017 02:52 - CONCLUSION: Basilar airspace disease, improved from May 20. Arsh Leslie MD Chest X-Ray 05/20/17599 Signed Impressions: Service Date/Time: Saturday, May 20, 2017 04:37 - CONCLUSION: Worsening pulmonary edema. Netta Mojica MD Laboratory Tests Test 05/19/17 10:00 05/19/17 16:45 05/20/17 02:24 05/21/17 05:25 Sodium Level 139 MEQ/L 141 MEQ/L 143 MEQ/L 141 MEQ/L White Blood Count 10.7 TH/MM3 Red Blood Count 3.29 MIL/MM3 Hemoglobin 10.7 GM/DL Hematocrit 31.5 % Mean Corpuscular Volume 95.5 FL Mean Corpuscular Hemoglobin 32.4 PG Mean Corpuscular Hemoglobin Concent 33.9 % Red Cell Distribution Width 14.0 % Platelet Count 318 TH/MM3 Mean Platelet Volume 8.1 FL Neutrophils (%) (Auto) 80.6 % Lymphocytes (%) (Auto) 8.7 % Monocytes (%) (Auto) 8.8 % Eosinophils (%) (Auto) 0.9 % Basophils (%) (Auto) 1.0 % Neutrophils # (Auto) 8.6 TH/MM3 Lymphocytes # (Auto) 0.9 TH/MM3 Monocytes # (Auto) 0.9 TH/MM3 Eosinophils # (Auto) 0.1 TH/MM3 Basophils # (Auto) 0.1 TH/MM3 CBC Comment DIFF FINAL Differential Comment Blood Urea Nitrogen 11 MG/DL 12 MG/DL Creatinine 0.48 MG/DL 1.00 MG/DL Random Glucose 87 MG/DL 94 MG/DL Calcium Level 8.2 MG/DL 8.1 MG/DL Potassium Level 3.4 MEQ/L 2.9 MEQ/L Chloride Level 108 MEQ/L 104 MEQ/L Carbon Dioxide Level 24.9 MEQ/L 27.0 MEQ/L Anion Gap 10 MEQ/L 10 MEQ/L Estimat Glomerular Filtration Rate 184 ML/MIN 79 ML/MIN B-Type Natriuretic Peptide 427 PG/ML Vancomycin Level Trough 14.1 MCG/ML Test 05/21/17 13:42 05/21/17 14:30 05/21/17 16:07 05/22/17 04:13 Potassium Level 3.4 MEQ/L 3.1 MEQ/L White Blood Count 10.3 TH/MM3 10.1 TH/MM3 Red Blood Count 3.22 MIL/MM3 3.30 MIL/MM3 Hemoglobin 10.6 GM/DL 10.7 GM/DL Hematocrit 31.0 % 31.8 % Mean Corpuscular Volume 96.5 FL 96.2 FL Mean Corpuscular Hemoglobin 33.0 PG 32.5 PG Mean Corpuscular Hemoglobin Concent 34.3 % 33.7 % Red Cell Distribution Width 14.0 % 14.0 % Platelet Count 473 TH/MM3 468 TH/MM3 Mean Platelet Volume 8.1 FL 8.3 FL Neutrophils (%) (Auto) 81.6 % 79.4 % Lymphocytes (%) (Auto) 9.1 % 12.3 % Monocytes (%) (Auto) 7.8 % 6.5 % Eosinophils (%) (Auto) 0.7 % 1.0 % Basophils (%) (Auto) 0.8 % 0.8 % Neutrophils # (Auto) 8.4 TH/MM3 8.0 TH/MM3 Lymphocytes # (Auto) 0.9 TH/MM3 1.2 TH/MM3 Monocytes # (Auto) 0.8 TH/MM3 0.7 TH/MM3 Eosinophils # (Auto) 0.1 TH/MM3 0.1 TH/MM3 Basophils # (Auto) 0.1 TH/MM3 0.1 TH/MM3 CBC Comment DIFF FINAL DIFF FINAL Differential Comment Blood Urea Nitrogen 14 MG/DL Creatinine 1.30 MG/DL Random Glucose 93 MG/DL Total Protein 6.1 GM/DL Albumin 2.0 GM/DL Calcium Level 8.7 MG/DL Magnesium Level 2.1 MG/DL Alkaline Phosphatase 91 U/L Aspartate Amino Transf (AST/SGOT) 64 U/L Alanine Aminotransferase (ALT/SGPT) 57 U/L Total Bilirubin 0.4 MG/DL Sodium Level 146 MEQ/L Chloride Level 109 MEQ/L Carbon Dioxide Level 28.4 MEQ/L Anion Gap 9 MEQ/L Estimat Glomerular Filtration Rate 58 ML/MIN (Andi Green) Medical Decision Making Impression and Plan Impression: 1. Traumatic brain injury with left occipital hemorrhagic contusion. 2. Right frontal scalp contusion with subgaleal hematoma 3. Right orbital fracture The patient is confused & having hallucinations. He is oriented to person & place, follows simple commands and his muscle strength and sensation appear intact. Afebrile past 24 hours. Reviewed labs for today. Haemoglobin level essentially stable. Slight improvement in thrombocytosis. Improvement in sodium level 146. Overall interval improvement in hypokalemia from yesterday morning but drop from yesterday afternoon. Worsening renal function. Improvement in AST since . CT brain demonstrated continued evolution of the left occipital haematoma w/slight decrease in edema. No evidence of a new haemorrhage. Plan: Discussed plan of care with patient and . Primary management per Trauma. Critical care management per Physician Advisor. Neuro checks. Stat CT brain for any decline in neuro status. Hold pharmacological DVT prophylaxis. Mechanical DVT prophylaxis. Stress ulcer prophylaxis. Mobilise patient w/assistance. Physical, Occupational & Speech Therapy. Monitor sodium level and keep WNL w/2% hypertonic saline. (Andi Green) Attending Statement The exam, history, and the medical decision-making described in the above note were completed with the assistance of the mid-level provider. I reviewed and agree with the findings presented. I attest that I had a [id number] encounter with the patient on the same day, and personally performed and documented my assessment and findings in the medical record. (Eulogio Martins MD) Andi Green May 22, 2017 09:02 Eulogio Martins MD May 22, 2017 17:44
[2017-05-22] MEDS: SODIUM CHLOR 0.9% 1000 ML INJ 1,000 ML IV SCH (09:34)
[2017-05-22] MEDS: SODIUM CHLORIDE 0.9% FLUSH 10 ML FLUSH IVF PRN (09:34)
[2017-05-22] MEDS: FAMOTIDINE 20 MG/2 ML VIAL IV PUSH SCH ×2 (09:35→20:42)
[2017-05-22] MEDS: levETIRAcetam 500 MG TAB PO SCH ×2 (09:35→20:42)
[2017-05-22] MEDS: DOCUSATE SODIUM 50 MG/SENNA 8.6 MG TAB PO SCH ×2 (09:35→20:43)
[2017-05-22] MEDS: POTASSIUM CHLOR 20 MEQ PREMIX 100 ML IV PRN ×3 (09:35→15:01)
--- NOTE | 2017-05-22 11:52 | RADRPT ---
EXAM DATE/TIME: 05/22/2017 11:25 [facility] COMPARISON: No previous studies available for comparison. INDICATIONS : Evaluate for NG Tube placement. MEDICAL HISTORY : None. SURGICAL HISTORY : None. ENCOUNTER: Subsequent ACUITY: 1 week PAIN SCORE: Non-responsive. LOCATION: Bilateral Abdomen FINDINGS: Examination of the abdomen demonstrates a normal bowel gas pattern. No free air is identified. No o rganomegaly is evident. Osseous structures are intact. A weighted feeding tube is seen with the tip in the region of the body of the stomach. CONCLUSION: Tip of the weighted feeding tube in the region of the body of the stomach. Juan Castillo Jr., MD on May 22, 2017 at 11:49 Board Certified Radiologist. This report was verified electronically.
--- NOTE | 2017-05-22 14:39 | HHI.CCPN ---
Subjective Brief History 51-year-old male came to the emergency room with history of a trip and fall as per him at 3 AM early this morning. Since then he has noticed that both his eyelids have been swelling up and is almost swelling shot so he cannot see. His brought him to the emergency room. Patient denied drinking but as per the he does drink alcohol every day. Currently patient is sober and answering questions. Patient denies any assault. Vital signs are stable. No history of vomiting or loss of consciousness as per the . 24 Hour Review/Hospital Course 05/15 Patient was slightly confused in the morning he urinated to the floor Since then he has been more stable Patient is alcoholic he was started on the CIWA protocol The CT scan of the head is pending, his GCS is [address] scan of the abdomen and pelvis and chest were negative for any injuries Neurosurgical ophthalmology and OMFS consults are pending 05/15/2017 This morning patient is somewhat confused but awake Adamantly denies alcohol use however went into delirium tremens had to be placed on Precedex drip and CIWA protocol Pupils equal reactive bruising over the both orbits and forehead Hemodynamically stable Bilateral good breath sounds Neurologically patient remains stable and can transfer to the floor once off Precedex Patient remains in the ICU due to delirium tremens and no specific traumatic injury 05/16/2017 Patient doing much better today neurologically Off Precedex Per neuropsychologist patient placed on appropriate regimen int face of alcoholism He is awake alert but disoriented at times Communicates with short sentences Pupils equal reactive and facial bruising is slowly receding Moves all 4 extremities does not have appreciable motoric deficit Bilateral breath sounds good inspiratory effort Tolerates diet well Transfer to floor when bed available 05/17/2017 Patient with above noted head injury was transferred to floor yesterday but became restless was given 10 mg of Ativan within 15 minute time which of course lead to respiratory depression, hypotension and distress and patient was transferred back to the ICU Patient remains confused with [place] Coma Scale of about 11 CT scan reveals resolving left occipital cerebral contusion/ hematoma Hemodynamically patient is stable Bilateral breath sounds decreased over the both lung kern consistent with likely aspiration into the both lungs Chest x-ray also reveals bilateral pulmonary infiltrates in the bases I found patient this morning lying in Trendelenburg position which is invariably the cause of patient's aspiration Abdomen is soft Plan Medications have been adjusted with brain injury patient can be a candidate for Ativan CIWA protocol yet administering 10 mg of Ativan in very short period of time is clearly not the way to go Ativan has been DC'd Assistance from Dr. Angel is greatly appreciated Will manage patient expectantly and if he worsens he will require intubation and ventilatory support to the lung function improves 05/18 Patient is awake alert today in the morning His sodium is 136 breath sounds are equal bilaterally today Clearly more awake since the Ativan has been DC'd He is on Seroquel and valproic acid, swelling of his face is clearly better Abdomen is soft 05/19 Patient's tachypnea improved, he sats are mid 90s on supplemental oxygen His sodium is 136 he is on Precedex and ordered Blood cultures show MRSA and patient has been started on vancomycin His white cell count is within normal limits Chest x-ray yesterday showed fluid overload/infiltrate Patient is on hypertonic saline 05/20/2018 Patient slightly improved Still seems to be confused and answering questions intermittently with nodding and grunting Hemodynamically stable Bilateral breath sounds with coarse rhonchi bilateral PO2 FiO2 gradient gradually improving as hypovolemia is being addressed in fluid overload has been addressed Abdomen is soft patient is taking p.o. diet with assistance Still swollen lower extremities and patient being diuresed gently MRSA blood cultures 3. In this particular individual this is not unusual or surprising for patient ripped out about 7 or 8 IV sites in the past and each time IV had to be restarted so at some point MRSA from the skin was introduced into the bloodstream Infectious disease help greatly appreciated 05/21/[address] is [address] more awake and alert today Gets restless and requires small dose of Haldol or Librium but definitely greatly improved over last few days DC Precedex today Responds to simple questions appropriately tolerates diet p.o. Bilateral breath sounds and improving PO2 FiO2 gradient Abdomen soft active bowel sounds Medical avionics system engineer help greatly appreciated 05/22 more awake alert still confused has dysphagia-seen and confirmed by speech and swallow na 146-off 2% Na-has been diuresed recently-will hold for now rising Cr Objective Vital Signs Date Time Temp Pulse Resp B/P (MAP) Pulse Ox O2 Delivery O2 Flow Rate FiO2 05/22/17 14:00 103 05/22/17 12:00 98.3 27 145/79 (101) 100 05/22/17 08:00 Nasal Cannula 3.00 Intake and Output 05/22/17 05/22/17 05/23/17 08:00 16:00 00:00 Intake Total 1087 ml 260 ml Output Total 1800 ml Balance -713 ml 260 ml Result Diagram: 05/22/17 0413 05/22/17 1234 Imaging Last 24 hours Impressions Abdomen X-Ray 05/22/17 0000 Signed Impressions: Service Date/Time: Monday, May 22, 2017 11:25 - CONCLUSION: Tip of the weighted feeding tube in the region of the body of the stomach. Juan Castillo Jr., MD Disinhibition Score: 31.50 Aggression Score: 14.00 Lability Score: 28.00 Agitated Behavior Total Score: 27 Exam BANQUET LINE COOK GCS 13-14 Hemodynamic/Cardiac stable Pulmonary/Respiratory crackles b/l Abdomen/GI Nutrition soft Vascular Central Line Catheter Vascular Central Line Catheter: No Assessment and Plan Plan slowly improving MRSA -sepsis -vanco IV-ID hold diuresis for now start NS@50 cc/hr monitor Na,volume status start tube feeds Donna Menjivar MD May 22, 2017 14:39
--- NOTE | 2017-05-22 14:50 | ECHRPT ---
Indication: sepsis endocarditis CONCLUSIONS Normal left ventricular size. Wall thickness is normal. The left ventricular systolic function normal with an estimated ejection fraction in the range of 50 -55%. No definite wall motion abnormalities. No valvular abnormalities are identified. BP: / HR: 90 Rhythm: MEASUREMENTS (Male / Female) Normal Values Technical Quality:Good 2D ECHO LV Diastolic Diameter PLAX 5.2 cm 4.2 - 5.9 / 3.9 - 5.3 cm LV Systolic Diameter PLAX 4.2 cm IVS Diastolic Thickness 0.8 cm 0.6 - 1.0 / 0.6 - 0.9 cm LVPW Diastolic Thickness 0.9 cm 0.6 - 1.0 / 0.6 - 0.9 cm LV Relative Wall Thickness 0.3 LA Systolic Diameter LX 3.6 cm 3.0 - 4.0 / 2.7 - 3.8 cm DOPPLER Mitral E Point Velocity 52.8 cm/s Mitral A Point Velocity 69.1 cm/s Mitral E to A Ratio 0.8 FINDINGS LEFT VENTRICLE Normal left ventricular size. Wall thickness is normal. The left ventricular systolic function normal with an estimated ejection fraction in the range of 50 -55%. No definite wall motion abnormalities. RIGHT VENTRICLE Normal right ventricular size and systolic function. LEFT ATRIUM The left atrial size is normal. RIGHT ATRIUM The right atrial size is normal. ATRIAL SEPTUM Normal atrial septal thickness without atrial level shunting by limited color doppler interrogation. AORTA The aortic root and proximal ascending aorta are normal in size on limited imaging. MITRAL VALVE Structurally normal mitral valve. No mitral valve stenosis or regurgitation. AORTIC VALVE Trileaflet aortic valve. No aortic valve stenosis or regurgitation. TRICUSPID VALVE Structurally normal tricuspid valve. No tricuspid valve stenosis or regurgitation. PULMONARY VALVE The pulmonary valve is not well visualized. VESSELS The inferior vena cava is normal in size. PERICARDIUM No pericardial effusion. Faustino Pelayo MD (Electronically Signed) Final Date:22 May 2017 14:49
--- NOTE | 2017-05-22 14:54 | HHI.IDPN ---
Subjective Subjective Remarks Mr. Nogueira is a 51-year-old male with past medical history significant for alcoholism reportedly was in alcoholic anonymous and possibly relapsed per . Patient was brought into the emergency room with a history of fall at 3 AM on the day of admission 05/13/2017. Patient and his went to bed at approximately 12 midnight. Patient's was awoken up by the sound of her shouting out for help. When she went looking for him she noticed he was covered in blood and there was a puddle of blood on the floor as well. She goes on to report that she found blood in almost all the house especially on the [place]. Despite all this patient refuses admission and for approximately 12 hours continue to remain in his own home. Patient's noted that he had both eyelids are swelling up to the point that he could not see. His brought him to the emergency room. Patient denies drinking but as per the he does drink alcohol on most every day. Blood alcohol level was less than 3. No history of any trauma or assault. On arrival in the emergency department patient's vital signs are stable. There is no history of vomiting and no clear-cut history of loss of consciousness per the . Patient does not have any history of seizure disorder. It is not clear if patient was found down on the floor for an extended period of time even on repeated questioning the . Patient was evaluated by trauma team and admission. Patient had a CT scan maxillofacial which showed multiple fractures of the right orbit including the inferior orbital wall and community fractures of the medial orbital wall. Intraorbital muscles remain within the orbit. There is also prominent periorbital soft tissue swelling extending into the frontal region. Chest x-ray showed some perihilar disease consistent with either pulmonary edema or infection. A CT of the head shows left occipital hematoma. Patient was seen by oral maxillofacial surgeon and no surgical interventions planned. Patient was also seen by ophthalmology. On patient became delirious appeared to be in alcohol withdrawal per notes. A CT showed increase in cerebral edema but the bleeds sites with stable. Patient is started on Precedex. On a rapid response team was called for tachypnea and tachycardia and altered mental status and was evaluated by the [facility] Team. Patient did have fevers and the first day of admission with thereafter. To be resolved and then recurred leading to blood cultures. These blood cultures are positive for MRSA and infectious disease is consulted for evaluation of this MRSA bacteremia in a patient status post trauma. Upon discussion with the : No history of skin abscesses or MRSA in the past. No history of any trauma or skin tears in the recent past. No history of being treated for endocarditis for epidural abscess. No history of any intravenous drug abuse h/o myalgias and body aches with sniffles prior to admission. Past Medical History Alcoholism Depression Overnight events reviewed. No rash No diarrhea Failed swallow eval. No fevers. Antibiotics Vanco IV Lines Line sites with no e.o infection Past Medical History reviewed. Allergies: Coded Allergies: No Known Allergies (Unverified Allergy, Unknown, 05/13/17) Objective . Vital Signs Date Time Temp Pulse Resp B/P (MAP) Pulse Ox O2 Delivery O2 Flow Rate FiO2 05/22/17 14:00 103 05/22/17 12:00 85 05/22/17 12:00 98.3 77 27 145/79 (101) 100 05/22/17 10:00 90 05/22/17 08:00 99.7 84 16 118/77 (91) 98 05/22/17 08:00 99 Nasal Cannula 3.00 05/22/17 08:00 91 05/22/17 06:00 92 05/22/17 04:00 99.9 80 24 121/71 (88) 93 05/22/17 04:00 88 05/22/17 02:00 89 05/22/17 00:00 99.8 98 22 114/69 (84) 92 05/22/17 00:00 88 05/21/17 20:00 99.6 84 24 113/67 (82) 92 05/21/17 20:00 88 05/21/17 19:00 95 Room Air 05/21/17 16:00 95 Room Air 05/21/17 16:00 102 05/22/17 05/22/17 05/23/17 15:00 23:00 07:00 Intake Total 260 ml Balance 260 ml IV Total 260 ml . Laboratory Tests Test 05/21/17 16:07 05/22/17 04:13 White Blood Count 10.3 TH/MM3 10.1 TH/MM3 Red Blood Count 3.22 MIL/MM3 3.30 MIL/MM3 Hemoglobin 10.6 GM/DL 10.7 GM/DL Hematocrit 31.0 % 31.8 % Mean Corpuscular Volume 96.5 FL 96.2 FL Mean Corpuscular Hemoglobin 33.0 PG 32.5 PG Mean Corpuscular Hemoglobin Concent 34.3 % 33.7 % Red Cell Distribution Width 14.0 % 14.0 % Platelet Count 473 TH/MM3 468 TH/MM3 Mean Platelet Volume 8.1 FL 8.3 FL Neutrophils (%) (Auto) 81.6 % 79.4 % Lymphocytes (%) (Auto) 9.1 % 12.3 % Monocytes (%) (Auto) 7.8 % 6.5 % Eosinophils (%) (Auto) 0.7 % 1.0 % Basophils (%) (Auto) 0.8 % 0.8 % Neutrophils # (Auto) 8.4 TH/MM3 8.0 TH/MM3 Lymphocytes # (Auto) 0.9 TH/MM3 1.2 TH/MM3 Monocytes # (Auto) 0.8 TH/MM3 0.7 TH/MM3 Eosinophils # (Auto) 0.1 TH/MM3 0.1 TH/MM3 Basophils # (Auto) 0.1 TH/MM3 0.1 TH/MM3 CBC Comment DIFF FINAL DIFF FINAL Differential Comment Laboratory Tests Test 05/21/17 05:25 05/21/17 13:42 05/22/17 04:13 05/22/17 12:34 Blood Urea Nitrogen 12 MG/DL 14 MG/DL Creatinine 1.00 MG/DL 1.30 MG/DL Random Glucose 94 MG/DL 93 MG/DL Calcium Level 8.1 MG/DL 8.7 MG/DL Sodium Level 141 MEQ/L 146 MEQ/L 147 MEQ/L Potassium Level 2.9 MEQ/L 3.4 MEQ/L 3.1 MEQ/L Chloride Level 104 MEQ/L 109 MEQ/L Carbon Dioxide Level 27.0 MEQ/L 28.4 MEQ/L Anion Gap 10 MEQ/L 9 MEQ/L Estimat Glomerular Filtration Rate 79 ML/MIN 58 ML/MIN B-Type Natriuretic Peptide 427 PG/ML Total Protein 6.1 GM/DL Albumin 2.0 GM/DL Magnesium Level 2.1 MG/DL Alkaline Phosphatase 91 U/L Aspartate Amino Transf (AST/SGOT) 64 U/L Alanine Aminotransferase (ALT/SGPT) 57 U/L Total Bilirubin 0.4 MG/DL Microbiology Date/Time Source Procedure Growth Status 05/19/17 16:45 Blood Peripheral Aerobic Blood Culture - Preliminary NO GROWTH IN 3 DAYS Resulted 05/19/17 16:45 Blood Peripheral Anaerobic Blood Culture - Preliminary NO GROWTH IN 3 DAYS Resulted 05/19/17 16:45 Blood Peripheral Aerobic Blood Culture - Preliminary NO GROWTH IN 3 DAYS Resulted 05/19/17 16:45 Blood Peripheral Anaerobic Blood Culture - Preliminary NO GROWTH IN 3 DAYS Resulted Imaging Last Impressions Abdomen X-Ray 05/22/17 0000 Signed Impressions: Service Date/Time: Monday, May 22, 2017 11:25 - CONCLUSION: Tip of the weighted feeding tube in the region of the body of the stomach. Juan Castillo Jr., MD Chest X-Ray 05/21/17 0600 Signed Impressions: Service Date/Time: Sunday, May 21, 2017 02:52 - CONCLUSION: Basilar airspace disease, improved from May 20. Arsh Leslie MD Head CT 05/17/17 0000 Signed Impressions: Service Date/Time: Wednesday, May 17, 2017 02:29 - CONCLUSION: Slightly decreased edema left occipital hematoma. No new bleed. Dion Lugo MD Carotid Artery Ultrasound 05/16/17 0000 Signed Impressions: Service Date/Time: Tuesday, May 16, 2017 10:30 - CONCLUSION: 1. Mild plaque with patent carotid arteries bilaterally. 2. Antegrade flow involving both vertebral arteries. Juan Castillo Jr., MD Chest CT 05/14/17 0000 Signed Impressions: Service Date/Time: Sunday, May 14, 2017 00:39 - CONCLUSION: 1. Negative for acute traumatic injury within the thorax. Fatty infiltration of the liver. Arsh Leslie MD Abdomen/Pelvis CT 05/14/17 0000 Signed Impressions: Service Date/Time: Sunday, May 14, 2017 00:39 - CONCLUSION: 1. Negative for acute traumatic injury within the abdomen or pelvis. Fatty liver. Arsh Leslie MD Maxillofacial CT 05/13/172207 Signed Impressions: Service Date/Time: Saturday, May 13, 2017 22:22 - CONCLUSION: Multiple fractures of the right orbit including the inferior orbital wall and comminuted fractures of the medial orbital wall. Intraorbital muscles remain within the orbit. There is associated opacification of the right ethmoids and right maxillary sinus. There is also prominent alyssa-orbital soft tissue swelling extending into the frontal region. Juan Sun MD Cervical Spine CT 05/13/17 2208 Signed Impressions: Service Date/Time: Saturday, May 13, 2017 22:22 - CONCLUSION: Moderately advanced discogenic degenerative changes C4-C6 with associated retrolisthesis of C4 to C5 and reversal of the upper cervical lordosis. No fracture seen. Juan Sun MD Physical Exam GENERAL: Critically ill appearing patient, in no apparent distress. SKIN: Multiple areas of ecchymosis. HEAD: Atraumatic. Normocephalic. No temporal or scalp tenderness. EYES: Severe Periorbital edema and ecchymosis noted. On left forehead just above the eye there is a golf ball size. ENT: Nose without bleeding, purulent drainage or septal hematoma. Throat without erythema, tonsillar hypertrophy or exudate. Uvula midline. Airway patent. NECK: Trachea midline. Supple, nontender, no meningeal signs. CARDIOVASCULAR: HS audible. RESPIRATORY: Clear to auscultation. Breath sounds equal bilaterally. No wheezes , rales, or rhonchi. GASTROINTESTINAL: Abdomen soft, non-tender, nondistended. MUSCULOSKELETAL: Extremities without clubbing, cyanosis, or edema. NEUROLOGICAL: Drowsy,arousable, knows he is at the hospital. Moves all 4 extremities. Psych could not be assessed IV line sites with no e.o infection Assessment & Plan Remarks MRSA bacteremia: likely secondary to Infected hematoma. Other possibility is MRSA pneumonia (post flu or post aspiration) Multiple facial fractures Orbital fractures with periorbital hematoma Alcoholism Recs: Continue Vanco IV (target 15-20) follow repeat blood cultures x 2 Influenza PCR negative. ECHO negative for vegetations. Follow cultures follow clinically. sheila Chau patients Olivia Hamilton MD May 22, 2017 14:54
[2017-05-22] MEDS: ICU - POTASSIUM CHLORIDE/AQUEOUS SOLN 20 MEQ/100 ML IVPB IV PRN ×2 (15:01→17:48)
[2017-05-22] MEDS: SODIUM CHLORIDE 1 GRAM TAB PO SCH (21:26)
[2017-05-22] MEDS: MAGNESIUM HYDROXIDE SUSP 30 ML CUP PO SCH (23:30)
[2017-05-23] VITALS (14 sets, daily range): BP systolic 121–164; BP diastolic 67–94; PULSE 68–96; RESP 19–26; TEMP 97.9–100.1; O2SAT 95–99
[2017-05-23] MEDS: SODIUM CHLOR 0.9% 1000 ML INJ 1,000 ML IV SCH (00:07)
[2017-05-23] MEDS: HALOPERIDOL LACTATE 5 MG/ML AMP IV PUSH PRN (02:32)
[2017-05-23] MEDS: chlordiazePOXIDE 25 MG CAP PO SCH ×2 (02:37→20:13)
[2017-05-23] MEDS: CHLORHEXIDINE GLUCONATE 2 % 1 PACK (2 CLOTHS) TOP SCH (04:00)
[2017-05-23] MEDS: QUEtiapine FUMARATE 25 MG TAB PO SCH (04:00)
--- NOTE | 2017-05-23 05:26 | RADRPT ---
EXAM DATE/TIME: 05/23/2017 03:50 [facility] COMPARISON: CHEST SINGLE AP, May 21, 2017, 2:52. INDICATIONS : Short of breath. MEDICAL HISTORY : Cardiovascular disease. SURGICAL HISTORY : None. ENCOUNTER: Subsequent ACUITY: 1 week PAIN SCORE: Non-responsive. LOCATION: Bilateral chest FINDINGS: A single AP portable semierect view of the chest was obtained and again demonstrate hazy opacity in t he perihilar regions and both lung bases. Left costophrenic angle may be minimally blunted. The heart size appears mildly prominent. There is a feeding tube extending through the esophagus into the stom ach. The bony thorax remains intact. CONCLUSION: Hazy airspace disease remains in both lungs without significant change. Gerardo Sharp MD on May 23, 2017 at 5:23 Board Certified Radiologist. This report was verified electronically.
[2017-05-23 05:35] LABS: AUTOMATED NEUTROPHIL # 8.7 TH/MM3 (1.8-7.7); BASOPHIL # 0.1 TH/MM3 (0-0.2); BASOPHIL % 0.7 % (0.0-2.0); EOSINOPHIL # 0.1 TH/MM3 (0-0.4); EOSINOPHIL % 1.1 % (0.0-4.0); HEMATOCRIT 28.2 % (39.0-51.0); HEMOGLOBIN 9.6 GM/DL (13.0-17.0); LYMPH % 7.2 % (9.0-44.0); LYMPHOCYTE # 0.7 TH/MM3 (1.0-4.8); MEAN CELL VOLUME 96.6 FL (80.0-100.0); MEAN CORPUSCULAR HEMOGLOBIN 32.9 PG (27.0-34.0); MEAN PLATELET VOLUME 7.6 FL (7.0-11.0); MONO % 7.2 % (0.0-8.0); MONOCYTE # 0.7 TH/MM3 (0-0.9); NEUT % 83.8 % (16.0-70.0); PLATELET COUNT 488 TH/MM3 (150-450); RED BLOOD COUNT 2.92 MIL/MM3 (4.50-5.90); RED CELL DISTRIBUTION WIDTH 14.3 % (11.6-17.2); WHITE BLOOD COUNT 10.3 TH/MM3 (4.0-11.0)
[2017-05-23] MEDS: HEPARIN SODIUM - SQ 10,000 UNITS/ML VIAL SQ SCH ×2 (06:02→22:10)
[2017-05-23] MEDS: VALPROATE INJ 250 MG in SODIUM CHLORIDE 0.9% INJ 100 ML IV SCH ×2 (06:02→22:10)
[2017-05-23 06:10] LABS: ALKALINE PHOSPHATASE 81 U/L (45-117); ALT (GPT) 48 U/L (12-78); AST (GOT) 48 U/L (15-37); BICARBONATE 27.3 MEQ/L (21.0-32.0); BLOOD UREA NITROGEN 12 MG/DL (7-18); CALCIUM 7.8 MG/DL (8.5-10.1); CHLORIDE 115 MEQ/L (98-107); CREATININE 1.13 MG/DL (0.60-1.30); GLOMERULAR FILTRATION RATE 68 ML/MIN (>89); GLUCOSE,RANDOM 128 MG/DL (74-106); MAGNESIUM 2.1 MG/DL (1.5-2.5); RANDOM VANCOMYCIN 15.1 COMMENT; SODIUM (NA) 149 MEQ/L (136-145); TOTAL BILIRUBIN ADULT 0.2 MG/DL (0.2-1.0); TOTAL PROTEIN 6.1 GM/DL (6.4-8.2)
--- NOTE | 2017-05-23 08:18 | HHI.PR ---
Neuropsych Behavior Behavior: Intact: Impulsive/Agitated Cognitive Cognitive: Unable to Asses: Cognitive, Attention/Concentration, Confused/ Orientation, Insight/Awareness, Judgement/Problem-Solving, Memory Psychosocial Psychosocial: Moderate: Psychosocial, Family/Other Adjustment, Realistic Expectation, Unable to Asses: Self-Esteem/Confidence Progress Notes/Response to Tx Contents of Sessions: Adjustment, Level of Consciousness Time with Patient: 30 minutes Premorbid psychological status Premorbid Cognitive, Emotional and Behavioral Status: Stable. 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 The patient has no known prior psychiatric difficulties, as described above. Substance abuse history includes alcohol dependence. Behavioral Reactions of Patient and Family/Support System: Deferred. The patients family is experiencing ongoing issues of adjustment given the nature of the injury, and this aspect of recovery will require ongoing monitoring. Emotional/Behavioral Status of Patient and Family/Support System: Stable. Pertinent issues, if appropriate to this patients clinical care, are described in detail above. Maximizing acute care outcome It is recommended that the patient be monitored for emergent behavioral impulsivity as the medical condition evolves. This patients neuropathological challenges may limit his rehabilitation potential going forward, and these challenges will require specialized therapeutic skills to maximize outcome. At this point in the recovery process, the patient does not have cognitive capacity as the patient is unable to understand a situation and its likely consequences, nor is he able to manipulate information rationally. Cognitive capacity will be assessed throughout the recovery process. Anticipated Problems Ongoing areas of concern will include behavioral impulsivity, lack of insight and judgment, which is expected to improve with time and treatment. Presently , the patient is in delirium 2T alcohol withdrawals. Given the severity of the patient's injuries it is my clinical opinion that this patient will be unable to return to any type of productive employment for at least one year, perhaps longer and likely never. This patient is not considered safe to discharge home with supervision. Treatment Plan This clinician will continue to follow with you throughout the course of this patients acute care treatment, and I will be available to meet with the patient s family/support system to facilitate their understanding and the ongoing care of their family member. The goals of neuropsychological intervention shall be both educational and supportive to the family/support system as is deemed clinically appropriate. [facility] Level: IV:Confused/Agitated-maximal assist Disinhibition Score: 19.18 Aggression Score: 17.50 Lability Score: 14.00 Agitated Behavior Total Score: 17 Impression 51 year old male s/p TBI 2T fall from ladder on 05/13/2017, now in alcohol withdrawals. Diagnosis: (1) Alcohol dependence in controlled environment (2) Mild major neurocognitive disorder due to traumatic brain injury with behavioral disturbance Progress Note Narrative PTD 10. The patient is awake, alert and confused. He required Haldol PRN last night at 0232, and he also received Librium. Other medications include Seroquel 50 TID and Valproic Acid 250 TID. His ABS this morning is 17 (19.1, 17.5 14) which is lower than yesterday at 30, but could be a reflection of the Haldol he received. Consider increasing Seroquel to 100 TID, d/c Librium, unless medically contraindicated. He is [place] IV. I will follow. Meño Angel PhD May 23, 2017 8:18 am
[2017-05-23] MEDS ORDERED: RESP: ALBUTEROL 2.5 MG/IPRATROPIUM 0.5 MG NEB (PRN) ONE (08:46)
--- NOTE | 2017-05-23 08:59 | HHI.NSPN ---
(Andi Green) History Chief Complaint: Cough (Andi Green) Interval History 05/14: The patient is a 51-year-old male who reportedly fell from a ladder approximately 3 AM on 05/13/2017. He waited until last evening to come to the emergency room, apparently due to progressive swelling around his eyes. No seizure activity reported. No emesis reported. No definite loss of consciousness. He does have a history of alcohol abuse. He complains of blurred vision. 05/15/17: Remains confused. He was agitated last evening-placed on Precedex 05/16: This morning the patient is awake and alert in bed visiting with his . The dexmedetomidine drip is on hold. He does have a soft wrist restraint to the right wrist due to his pulling at the [place]. He says he is doing well. He denies any headache or dizziness. He has some blurry vision when he first opens his eyes but it quickly clears. He denies any double vision. He denies any pain, numbness, tingling or weakness to the extremities. His only complaint is an occasional cough. His muscle strength and sensation remain intact. His confusion and speech are improved. 05/17: When seen this morning the patient had returned to [facility] from the med/surg floor due to delirium tremens and being overdosed on lorazepam. He was given flumazenil to reverse the lorazepam. He had a decrease level of consciousness but did interact with coaxing and followed some commands correctly. 05/18: The patient is in four point soft restraints when seen this morning. He was asleep but awoke to voice. Mild tremors were noted to his upper extremities when awake. He did endorse "A little bit" of a headache but no dizziness or blurry or double vision. He had no pain, numbness, tingling or weakness to the extremities. He did follow commands and his muscle strength and sensation were good. 05/19: This morning the patient seems to be lethargic. He does awaken to voice but drifts back off to sleep readily. He stated that "It's a little rough this morning." He interacted with repeated verbal stimulation. His motor and sensory exam were stable. He is confused as to time. He is now in contact isolation due to blood cultures with MRSA in three bottles. 05/22: The patient has his eyes closed this morning when seen but he is talking with his . He readily responds and interacts although his speech is somewhat garbled, dysarthric and slow. He is in four point soft restraints. He follows commands. He is confused and having hallucinations, reporting a flying saucer struck him. He denies any headache or dizziness but does state that he is "A little wobbly." He has no pain, numbness, tingling or weakness to the extremities. 05/23: The patient was receiving a breathing treatment when seen and then was placed on high flow nasal cannula. He was attempting to get out of bed repeatedly. He followed commands and was oriented to person and place but not time. He denied any headache or dizziness. He denied any extremity pain, numbness, tingling or weakness. (Andi Green) Exam Results 05/21/17 05/21/17 05/22/17 05/22/17 05/23/17 05/23/17 06:00 18:00 06:00 18:00 06:00 18:00 Intake Total 1400 ml 1480 ml 1682 ml 420 ml Output Total 2000 ml 3600 ml 3050 ml 900 ml Balance -600 ml -2120 ml -1368 ml -480 ml Intake Oral 200 ml 680 ml IV Total 1200 ml 800 ml 1542 ml Tube Feeding 140 ml 360 ml Tube Irrigant 60 ml Output Urine Total 2000 ml 3600 ml 3050 ml 900 ml # Bowel Movements 2 3 Vital Signs Date Time Temp Pulse Resp B/P (MAP) Pulse Ox O2 Delivery O2 Flow Rate FiO2 05/23/17 06:00 81 05/23/17 04:00 84 05/23/17 04:00 97.9 81 25 121/67 (85) 95 05/23/17 02:00 90 05/23/17 00:00 91 05/23/17 00:00 98.0 90 26 121/70 (87) 95 05/22/17 22:00 93 05/22/17 20:00 98.1 89 25 115/66 (82) 98 05/22/17 20:00 97 Nasal Cannula 3.00 05/22/17 20:00 89 18 18:00 87 05/22/17 18:00 85 05/22/17 16:00 94 05/22/17 16:00 98.3 85 18 122/70 (87) 94 05/22/17 14:00 103 05/22/17 12:00 85 05/22/17 12:00 98.3 77 27 145/79 (101) 100 05/22/17 10:00 90 05/22/17 08:00 99.7 84 16 118/77 (91) 98 05/22/17 08:00 99 Nasal Cannula 3.00 05/22/17 08:00 91 05/22/17 06:00 92 05/22/17 04:00 99.9 80 24 121/71 (88) 93 05/22/17 04:00 88 05/22/17 02:00 89 05/22/17 00:00 99.8 98 22 114/69 (84) 92 05/22/17 00:00 88 05/21/17 20:00 99.6 84 24 113/67 (82) 92 05/21/17 20:00 88 05/21/17 19:00 95 Room Air 05/21/17 16:00 95 Room Air 05/21/17 16:00 102 05/21/17 12:00 91 05/21/17 12:00 98.2 91 18 105/64 (78) 100 05/21/17 08:00 99.9 86 20 147/81 (103) 100 05/21/17 08:00 100 Nasal Cannula 4.00 05/21/17 08:00 86 18 06:00 90 18 04:00 81 18 04:00 98.9 81 19 118/70 (86) 97 18 02:00 87 18 00:00 85 18 00:00 98.9 87 21 115/63 (80) 97 18 22:00 89 05/20/18 20:00 89 05/20/18 20:00 97.9 89 20 93/50 (64) 97 18 19:00 93 Nasal Cannula 4.00 2/17/18 16:00 90 05/20/17 12:00 98.0 68 28 139/90 (106) 97 05/20/17 12:00 68 05/20/17 10:00 8 (Andi Green) Physical Examination GENERAL: Eyes closed but talking with family. Readily responds & interacts. No apparent distress. In 4-point soft restraints. HEENT: Right-sided facial swelling & ecchymosis resolving w/abrasions & lacerations healing w/o complication. Bilateral periorbital ecchymosis. PERRLA 3 mm brisk, bilateral subconjuctival haemorrhages R>L. No otorrhea or rhinorrhea. MUSCULOSKELETAL: THIBODEAUX w/o difficulty. No evident clubbing or deformity. NEUROLOGICAL: Eyes closed but talking w/family, readily responds & interacts. Oriented to person, place & president but not time (1988). Eye opening to command. Speech garbled, dysarthric, slowing of speech and thought processes. Follows simple commands. Sensation intact to light touch to all extremities. Muscle strength w/o any apparent deficit. (Andi Green) Physical Examination Eyes closed but talking with family. Readily responds & interacts. No apparent distress. In 4-point soft restraints. HEENT: Right-sided facial swelling & ecchymosis resolving w/abrasions & lacerations healing w/o complication. Bilateral periorbital ecchymosis. PERRLA 3 mm brisk, bilateral subconjuctival haemorrhages R>L. No otorrhea or rhinorrhea. MUSCULOSKELETAL: THIBODEAUX w/o difficulty. No evident clubbing or deformity. NEUROLOGICAL: Eyes closed but talking w/family, readily responds & interacts. Oriented to person, place & president but not time (1988). Eye opening to command. Speech garbled, dysarthric, slowing of speech and thought processes. Follows simple commands. Sensation intact to light touch to all extremities. Muscle strength w/o any apparent deficit. (Adelso Romeo MD) Lab, Micro, Other Results Chest X-Ray 05/23/17 0600 Signed Impressions: Service Date/Time: Tuesday, May 23, 2017 03:50 - CONCLUSION: Hazy airspace disease remains in both lungs without significant change. Gerardo Sharp MD Abdomen X-Ray 05/22/17 0000 Signed Impressions: Service Date/Time: Monday, May 22, 2017 11:25 - CONCLUSION: Tip of the weighted feeding tube in the region of the body of the stomach. Juan Castillo Jr., MD Chest X-Ray 05/21/17 0600 Signed Impressions: Service Date/Time: Sunday, May 21, 2017 02:52 - CONCLUSION: Basilar airspace disease, improved from May 20. Arsh Leslie MD Laboratory Tests Test 05/21/17 05:25 05/21/17 13:42 05/21/17 14:30 05/21/17 16:07 Blood Urea Nitrogen 12 MG/DL Creatinine 1.00 MG/DL Random Glucose 94 MG/DL Calcium Level 8.1 MG/DL Sodium Level 141 MEQ/L Potassium Level 2.9 MEQ/L 3.4 MEQ/L Chloride Level 104 MEQ/L Carbon Dioxide Level 27.0 MEQ/L Anion Gap 10 MEQ/L Estimat Glomerular Filtration Rate 79 ML/MIN B-Type Natriuretic Peptide 427 PG/ML Vancomycin Level Trough 14.1 MCG/ML Adenovirus (PCR) NOT DETECTED Bordetella holmesii (PCR) NOT DETECTED Bordetella pertussis DNA (PCR) NOT DETECTED B. parapertussis/bronchi (PCR) NOT DETECTED Human Metapneumovirus (PCR) NOT DETECTED Influenza Type A (RT-PCR) NOT DETECTED Influenza Type A (H1) (PCR) NOT DETECTED Influenza Type A (H3) (PCR) NOT DETECTED Influenza Type B (RT-PCR) NOT DETECTED Parainfluenza Type 1 (PCR) NOT DETECTED Parainfluenza Type 2 (PCR) NOT DETECTED Parainfluenza Type 3 (PCR) NOT DETECTED Parainfluenza Type 4 (PCR) NOT DETECTED Resp Syncytial Virus Type A (PCR) NOT DETECTED Resp Syncytial Virus Type B (PCR) NOT DETECTED Rhinovirus (PCR) NOT DETECTED White Blood Count 10.3 TH/MM3 Red Blood Count 3.22 MIL/MM3 Hemoglobin 10.6 GM/DL Hematocrit 31.0 % Mean Corpuscular Volume 96.5 FL Mean Corpuscular Hemoglobin 33.0 PG Mean Corpuscular Hemoglobin Concent 34.3 % Red Cell Distribution Width 14.0 % Platelet Count 473 TH/MM3 Mean Platelet Volume 8.1 FL Neutrophils (%) (Auto) 81.6 % Lymphocytes (%) (Auto) 9.1 % Monocytes (%) (Auto) 7.8 % Eosinophils (%) (Auto) 0.7 % Basophils (%) (Auto) 0.8 % Neutrophils # (Auto) 8.4 TH/MM3 Lymphocytes # (Auto) 0.9 TH/MM3 Monocytes # (Auto) 0.8 TH/MM3 Eosinophils # (Auto) 0.1 TH/MM3 Basophils # (Auto) 0.1 TH/MM3 CBC Comment DIFF FINAL Differential Comment Test 05/22/17 04:13 05/22/17 12:34 05/22/17 17:25 05/22/17 22:33 White Blood Count 10.1 TH/MM3 Red Blood Count 3.30 MIL/MM3 Hemoglobin 10.7 GM/DL Hematocrit 31.8 % Mean Corpuscular Volume 96.2 FL Mean Corpuscular Hemoglobin 32.5 PG Mean Corpuscular Hemoglobin Concent 33.7 % Red Cell Distribution Width 14.0 % Platelet Count 468 TH/MM3 Mean Platelet Volume 8.3 FL Neutrophils (%) (Auto) 79.4 % Lymphocytes (%) (Auto) 12.3 % Monocytes (%) (Auto) 6.5 % Eosinophils (%) (Auto) 1.0 % Basophils (%) (Auto) 0.8 % Neutrophils # (Auto) 8.0 TH/MM3 Lymphocytes # (Auto) 1.2 TH/MM3 Monocytes # (Auto) 0.7 TH/MM3 Eosinophils # (Auto) 0.1 TH/MM3 Basophils # (Auto) 0.1 TH/MM3 CBC Comment DIFF FINAL Differential Comment Blood Urea Nitrogen 14 MG/DL Creatinine 1.30 MG/DL Random Glucose 93 MG/DL Total Protein 6.1 GM/DL Albumin 2.0 GM/DL Calcium Level 8.7 MG/DL Magnesium Level 2.1 MG/DL Alkaline Phosphatase 91 U/L Aspartate Amino Transf (AST/SGOT) 64 U/L Alanine Aminotransferase (ALT/SGPT) 57 U/L Total Bilirubin 0.4 MG/DL Sodium Level 146 MEQ/L 147 MEQ/L 148 MEQ/L 149 MEQ/L Potassium Level 3.1 MEQ/L 3.8 MEQ/L Chloride Level 109 MEQ/L Carbon Dioxide Level 28.4 MEQ/L Anion Gap 9 MEQ/L Estimat Glomerular Filtration Rate 58 ML/MIN Test 05/23/17 05:20 White Blood Count 10.3 TH/MM3 Red Blood Count 2.92 MIL/MM3 Hemoglobin 9.6 GM/DL Hematocrit 28.2 % Mean Corpuscular Volume 96.6 FL Mean Corpuscular Hemoglobin 32.9 PG Mean Corpuscular Hemoglobin Concent 34.0 % Red Cell Distribution Width 14.3 % Platelet Count 488 TH/MM3 Mean Platelet Volume 7.6 FL Neutrophils (%) (Auto) 83.8 % Lymphocytes (%) (Auto) 7.2 % Monocytes (%) (Auto) 7.2 % Eosinophils (%) (Auto) 1.1 % Basophils (%) (Auto) 0.7 % Neutrophils # (Auto) 8.7 TH/MM3 Lymphocytes # (Auto) 0.7 TH/MM3 Monocytes # (Auto) 0.7 TH/MM3 Eosinophils # (Auto) 0.1 TH/MM3 Basophils # (Auto) 0.1 TH/MM3 CBC Comment DIFF FINAL Differential Comment Blood Urea Nitrogen 12 MG/DL Creatinine 1.13 MG/DL Random Glucose 128 MG/DL Total Protein 6.1 GM/DL Albumin 2.0 GM/DL Calcium Level 7.8 MG/DL Magnesium Level 2.1 MG/DL Alkaline Phosphatase 81 U/L Aspartate Amino Transf (AST/SGOT) 48 U/L Alanine Aminotransferase (ALT/SGPT) 48 U/L Total Bilirubin 0.2 MG/DL Sodium Level 149 MEQ/L Potassium Level 3.6 MEQ/L Chloride Level 115 MEQ/L Carbon Dioxide Level 27.3 MEQ/L Anion Gap 7 MEQ/L Estimat Glomerular Filtration Rate 68 ML/MIN Random Vancomycin Level 15.1 COMMENT (Andi Green) Lab, Micro, Other Results Current Medications Diphtheria/ Tetanus/Acell Pertussis (Boostrix Inj) 0.5 ml ONCE ONCE IM Last administered on 05/13/17at 22:21; Start 05/13/17 at 22:15; Stop 05/13/17 at 22:16 ; Status DC Sodium Chloride (NS Flush) 2 ml UNSCH PRN IVF FLUSH AFTER USING IV ACCESS Last administered on 05/26/17at 09:32; Start 05/13/17 at 22:15 Cefazolin Sodium/ Dextrose 50 ml @ 100 mls/hr ONCE ONCE IV Last administered on 05/13/17at 22:21; Start 05/13/17 at 22:15; Stop 05/13/17 at 22:44; Status DC Lidocaine HCl (Xylocaine 1% Inj) 30 ml ONCE ONCE INFIL Last administered on 01/18at 22:58; Start 05/13/17 at 22:45; Stop 05/13/17 at 22:46; Status DC Sodium Chloride 250 ml @ 15 mls/hr ONCE ONCE IV Last administered on at 01:43; Start 05/13/17 at 23:00; Stop 05/14/17 at 15:39; Status DC Sodium Chloride 1,000 ml @ 100 mls/hr Q10H IV Last administered on 05/18/17at 12:49; Start 05/13/17 at 23:30; Stop 05/19/17 at 08:02; Status DC Famotidine (Pepcid Inj) 20 mg Q12HR IV PUSH Last administered on 05/24/17at 20: 36; Start 05/14/17 at 09:00; Stop 05/24/17 at 20:59; Status DC Ondansetron HCl (Zofran Inj) 4 mg Q6H PRN IV PUSH NAUSEA OR VOMITING; Start 01/18 at 23:30 Miscellaneous Information 1 [id number] XX ; Start 05/13/17 at 23:30 Chlorhexidine Gluconate (Chlorhexidine 2% Cloth) Taper DAILY@04 TOP ; Start 02/18 at 04:00; Stop 05/10/18 at 03:59 Chlorhexidine Gluconate (Chlorhexidine 2% Cloth) 3 pack UNSCH PRN TOP HYGIENIC CARE; Start 05/13/17 at 23:30 Senna/Docusate Sodium (Riya-Colace) 1 tab BID PO Last administered on at 10:12; Start 05/14/17 at 09:00 Magnesium Hydroxide (Milk Of Magnesia Liq) 30 ml Q12H PRN PO Mild constipation ; Start 05/13/17 at 23:30; Stop 05/20/17 at 08:45; Status DC Sennosides (Senokot) 17.2 mg Q12H PRN PO Moderate constipation; Start 05/13/17 at 23:30 Bisacodyl (Dulcolax Supp) 10 mg DAILY PRN RECTAL SEVERE CONSITIPATION; Start at 23:30; Stop 05/17/17 at 17:12; Status DC Lactulose (Lactulose Liq) 30 ml DAILY PRN PO SEVERE CONSITIPATION; Start at 23:30; Stop 05/23/17 at 18:00; Status DC Levetriacetam 500 mg/Sodium Chloride 105 ml @ 420 mls/hr Q12HR IV Last administered on 05/16/17at 08:01; Start 05/13/17 at 23:45; Stop 05/16/17 at 10:08 ; Status DC Acetaminophen 100 ml @ 400 mls/hr Q6HR IV Last administered on 05/14/17at 18:00 ; Start 05/14/17 at 00:00; Stop 05/14/17 at 18:14; Status DC Oxycodone HCl (Roxicodone) 5 mg Q4H PRN PO PAIN SCALE 4 TO 6 Last administered on 05/24/17at 00:59; Start 05/13/17 at 23:45; Stop 05/25/17 at 14:34; Status DC Oxycodone HCl (Roxicodone) 10 mg Q4H PRN PO PAIN SCALE 7 TO 10 Last administered on 05/23/17at 02:37; Start 05/13/17 at 23:45; Stop 05/25/17 at 14:34 ; Status DC Pneumococcal Polyvalent Vaccine (Pneumovax-23 Inj) 25 mcg ONCE ONCE IM ; Start 05/14/17 at 09:00; Stop 05/14/17 at 09:01; Status DC Influenza Virus Vaccine (Flu (Quadrivalent) Vaccine Inj) 0.5 ml ONCE ONCE IM ; Start 05/14/17 at 09:00; Stop 05/14/17 at 09:01; Status DC Miscellaneous Information D/C ICU ELECTROLYTE ORDERS... UNSCH PRN .XX SEE DOSE INSTRUCTIONS; Start 05/14/17 at 07:15 Miscellaneous Information ICU - CALL ORDERING PHYSIC... UNSCH PRN .XX SEE DOSE INSTRUCTIONS; Start 05/14/17 at 07:15 Potassium Chloride 100 ml @ 25 mls/hr UNSCH PRN IV ELECTROLYTE REPLACEMENT; Start 05/14/17 at 07:15 Potassium Bicarb/ Potassium Chloride (K-Lyte Cl Eff) 50 meq UNSCH PRN PO ELECTROLYTE REPLACEMENT Last administered on 05/26/17at 09:32; Start 05/14/17 at 07:15 Potassium Chloride 100 ml @ 50 mls/hr UNSCH PRN IV ELECTROLYTE REPLACEMENT Last administered on 05/22/17at 17:48; Start 05/14/17 at 07:15 Magnesium Sulfate 4 gm/Sodium Chloride 108 ml @ 54 mls/hr UNSCH PRN IV ELECTROLYTE REPLACEMENT; Start 05/14/17 at 07:15 Magnesium Sulfate 2 gm/Sodium Chloride 104 ml @ 52 mls/hr UNSCH PRN IV ELECTROLYTE REPLACEMENT; Start 05/14/17 at 07:15 Magnesium Oxide (Mag-Ox) 800 mg UNSCH PRN PO ELECTROLYTE REPLACEMENT; Start 02/18 at 07:15 Sodium Phosphate 30 mmol/Sodium Chloride 260 ml @ 43.333 mls/ hr UNSCH PRN IV ELECTROLYTE REPLACEMENT; Start 05/14/17 at 07:15 Potassium Phosphate (K-Phos) 2,000 mg UNSCH PRN PO ELECTROLYTE REPLACEMENT; Start 05/14/17 at 07:15 Potassium Phosphate 30 mmol/ Sodium Chloride 260 ml @ 43.333 mls/ hr UNSCH PRN IV ELECTROLYTE REPLACEMENT; Start 05/14/17 at 07:15 Potassium Chloride 100 ml @ 50 mls/hr Q2H PRN IV For Potassium 2.8 - 3.2 mEq/L ; Start 05/14/17 at 07:15; Status UNV Potassium Chloride 100 ml @ 50 mls/hr Q2H PRN IV For Potassium 2.8 - 3.2 mEq/L ; Start 05/14/17 at 07:15; Status UNV Potassium Bicarb/ Potassium Chloride (K-Lyte Cl Eff) 50 meq UNSCH PRN PO For Potassium 3.3 - 3.5 mEq/L; Start 05/14/17 at 07:15; Status UNV Potassium Chloride 100 ml @ 25 mls/hr UNSCH PRN IV For Potassium 3.3 - 3.5 mEq /L; Start 05/14/17 at 07:15; Status UNV Potassium Chloride 100 ml @ 50 mls/hr Q2H PRN IV For Potassium 3.3 - 3.5 mEq/L ; Start 05/14/17 at 07:15; Status UNV Magnesium Sulfate 4 gm/Sodium Chloride 100 ml @ 50 mls/hr UNSCH PRN IV For Magnesium 0.9 - 1.1 mg/dL; Start 05/14/17 at 07:15; Status UNV Magnesium Oxide (Mag-Ox) 800 mg UNSCH PRN PO For Magnesium 1.2 - 1.6 mg/dL; Start 05/14/17 at 07:15; Status UNV Magnesium Sulfate 2 gm/Sodium Chloride 100 ml @ 50 mls/hr UNSCH PRN IV For Magnesium 1.2 - 1.6 mg/dL; Start 05/14/17 at 07:15; Status UNV Potassium Phosphate (K-Phos) 2,000 mg Q4H PRN PO For Phosphorus < 2.5 mg/dL; Start 05/14/17 at 07:15; Status UNV Sodium Phosphate 30 mmol/Sodium Chloride 250 ml @ 42 mls/hr UNSCH PRN IV For Phosphorus < 2.5 mg/dL; Start 05/14/17 at 07:15; Status UNV Potassium Phosphate (K-Phos) 2,000 mg UNSCH PRN PO/TUBE SEE LABEL COMMENTS; Start 05/14/17 at 07:15; Status UNV Potassium Phosphate 30 mmol/ Sodium Chloride 260 ml @ 42 mls/hr UNSCH PRN IV SEE LABEL COMMENTS; Start 05/14/17 at 07:15; Status UNV Potassium Bicarb/ Potassium Chloride (K-Lyte Cl Eff) 50 meq ONCE ONCE PO Last administered on 05/14/17at 09:39; Start 05/14/17 at 09:00; Stop 05/14/17 at 09:01; Status DC Diazepam (Valium) 5 mg Q8H PO Last administered on 05/17/17at 00:01; Start 05/14 at 09:00; Stop 05/25/17 at 14:34; Status DC Lorazepam (Ativan Inj) 2 mg Q15M PRN IV PUSH agitation; Start 05/14/17 at 08:30 ; Stop 05/14/17 at 09:50; Status DC Folic Acid (Folate) 1 mg DAILY PO Last administered on 05/16/17at 08:01; Start 05/14/17 at 09:45; Stop 05/17/17 at 09:52; Status DC Thiamine HCl (Vitamin B1) 100 mg DAILY PO Last administered on 05/16/17at 08:01 ; Start 05/14/17 at 09:45; Stop 05/17/17 at 09:52; Status DC Multivitamins/ Minerals Therapeutic (Theragran M Tab) 1 tab DAILY PO Last administered on 05/16/17at 08:01; Start 05/14/17 at 09:45; Stop 05/17/17 at 09:52 ; Status DC Flumazenil (Romazicon Inj) 0.2 mg Q1M PRN IV PUSH SEE LABEL COMMENTS Last administered on 05/17/17at 03:35; Start 05/14/17 at 09:45; Stop 05/17/17 at 09:52 ; Status DC Lorazepam (Ativan Inj) 1 mg Q4H PRN IV PUSH CIWA 8 - 10; Start 05/14/17 at 09: 45; Stop 05/17/17 at 09:52; Status DC Lorazepam (Ativan Inj) 2 mg Q2H PRN IV PUSH CIWA 11-14 Last administered on at 05:57; Start 05/14/17 at 09:45; Stop 05/17/17 at 09:52; Status DC Lorazepam (Ativan Inj) 2 mg Q15M PRN IV PUSH CIWA > 20 Last administered on at 01:45; Start 05/14/17 at 09:45; Stop 05/17/17 at 09:52; Status DC Sodium Chloride (Sodium Chloride) 1 gm DAILY PO Last administered on 05/15/17at 08:36; Start 05/14/17 at 09:45; Stop 05/15/17 at 09:42; Status DC Lorazepam (Ativan) 2 mg ONCE ONCE PO ; Start 05/14/17 at 13:00; Stop 05/14/17 at 13:08; Status DC Dexmedetomidine HCl 200 mcg/ Sodium Chloride 52 ml @ 4.5 mls/hr TITRATE PRN IV SEDATION Last administered on 05/15/17at 08:55; Start 05/14/17 at 13:15; Stop 05/15/17 at 12:56; Status DC Iohexol (Omnipaque 350 Inj) 94 ml STK-MED ONCE IVCONTRAST Last administered on 05/14/17at 00:39; Start 05/14/17 at 00:39; Stop 05/15/17 at 04:58; Status DC Sodium Chloride 188 meq/Sodium Chloride 1,047 ml @ 70 mls/hr [id number] IV Last administered on 05/18/17at 22:05; Start 05/15/17 at 11:00; Stop 05/19/17 at 08:02 ; Status DC Dexmedetomidine HCl 1000 mcg/ Sodium Chloride 250 ml @ 4.33 mls/hr TITRATE PRN IV SEDATION Last administered on 05/15/17at 13:28; Start 05/15/17 at 13:00; Stop 05/17/17 at 11:54; Status DC Levetriacetam (Keppra) 500 mg Q12HR PO Last administered on 05/16/17at 20:14; Start 05/16/17 at 21:00; Stop 05/17/17 at 17:12; Status DC Acetaminophen (Tylenol) 650 mg Q6HR PRN PO fever > 101.5 Last administered on at 20:24; Start 05/16/17 at 10:15 Chlordiazepoxide (Librium) 5 mg Taper Q6H PO Last administered on 05/24/17at 01: 00; Start 05/17/17 at 02:00; Stop 05/24/17 at 09:26; Status DC Flumazenil (Romazicon Inj) 0.2 mg Q1M PRN IV PUSH SEE LABEL COMMENTS; Start at 02:00; Stop 05/17/17 at 09:52; Status DC Lorazepam (Ativan) 1 mg Q4H PRN PO CIWA 8 - 10; Start 05/17/17 at 02:00; Stop 05/17/17 at 09:52; Status DC Lorazepam (Ativan Inj) 1 mg Q4H PRN IV PUSH CIWA 8 - 10; Start 05/17/17 at 02: 00; Stop 05/17/17 at 09:52; Status DC Lorazepam (Ativan) 2 mg Q2H PRN PO CIWA 11-14; Start 05/17/17 at 02:00; Stop at 09:52; Status DC Lorazepam (Ativan Inj) 2 mg Q2H PRN IV PUSH CIWA 11-14; Start 05/17/17 at 02:00 ; Stop 05/17/17 at 09:52; Status DC Lorazepam (Ativan Inj) 2 mg Q1H PRN IV PUSH CIWA 15-20; Start 05/17/17 at 02:00 ; Stop 05/17/17 at 09:52; Status DC Lorazepam (Ativan Inj) 2 mg Q15M PRN IV PUSH CIWA > 20; Start 05/17/17 at 02:00 ; Stop 05/17/17 at 09:52; Status DC Multivitamins 10 ml/Thiamine HCl 100 mg/Folic Acid 1 mg/Sodium Chloride 511.2 ml @ 125 mls/hr ONCE ONCE IV Last administered on 05/17/17at 05:22; Start at 04:00; Stop 05/17/17 at 08:05; Status DC Potassium Chloride 100 ml @ 50 mls/hr Q2H PRN IV For Potassium 2.8 - 3.2 mEq/L ; Start 05/17/17 at 02:45 Potassium Chloride 100 ml @ 50 mls/hr Q2H PRN IV For Potassium 2.8 - 3.2 mEq/ L Last administered on 05/22/17at 15:01; Start 05/17/17 at 02:45 Potassium Bicarb/ Potassium Chloride (K-Lyte Cl Eff) 50 meq UNSCH PRN PO For Potassium 3.3 - 3.5 mEq/L; Start 05/17/17 at 02:45 Potassium Chloride 100 ml @ 25 mls/hr UNSCH PRN IV For Potassium 3.3 - 3.5 mEq /L; Start 05/17/17 at 02:45 Potassium Chloride 100 ml @ 50 mls/hr Q2H PRN IV For Potassium 3.3 - 3.5 mEq/L ; Start 05/17/17 at 02:45 Magnesium Sulfate 4 gm/Sodium Chloride 100 ml @ 50 mls/hr UNSCH PRN IV For Magnesium 0.9 - 1.1 mg/dL; Start 05/17/17 at 02:45 Magnesium Oxide (Mag-Ox) 800 mg UNSCH PRN PO For Magnesium 1.2 - 1.6 mg/dL; Start 05/17/17 at 02:45 Magnesium Sulfate 2 gm/Sodium Chloride 100 ml @ 50 mls/hr UNSCH PRN IV For Magnesium 1.2 - 1.6 mg/dL; Start 05/17/17 at 02:45 Potassium Phosphate (K-Phos) 2,000 mg Q4H PRN PO For Phosphorus < 2.5 mg/dL; Start 05/17/17 at 02:45 Sodium Phosphate 30 mmol/Sodium Chloride 250 ml @ 42 mls/hr UNSCH PRN IV For Phosphorus < 2.5 mg/dL; Start 05/17/17 at 02:45 Potassium Phosphate (K-Phos) 2,000 mg UNSCH PRN PO/TUBE SEE LABEL COMMENTS; Start 05/17/17 at 02:45 Potassium Phosphate 30 mmol/ Sodium Chloride 260 ml @ 42 mls/hr UNSCH PRN IV SEE LABEL COMMENTS; Start 05/17/17 at 02:45 Acetaminophen 100 ml @ 400 mls/hr Q6H PRN IV Fever Last administered on at 12:30; Start 05/17/17 at 03:30; Stop 05/17/17 at 13:11; Status DC Quetiapine Fumarate (SEROquel) 50 mg Q8H PO Last administered on 05/22/17at 20: 41; Start 05/17/17 at 12:00; Stop 05/23/17 at 09:51; Status DC Valproic Acid (Depakene) 250 mg TID PO ; Start 05/17/17 at 13:00; Stop 05/17/17 at 17:12; Status DC Haloperidol Lactate (Haldol Inj) 5 mg Q6H PRN IV PUSH agitation Last administered on 05/25/17at 08:51; Start 05/17/17 at 09:45; Stop 05/25/17 at 14:34 ; Status DC Acetaminophen 100 ml @ 400 mls/hr Q6H PRN IV Temp > 101, not vikas PO Last administered on 05/17/17at 22:51; Start 05/17/17 at 18:00 Bisacodyl (Dulcolax Supp) 10 mg DAILY RECTAL Last administered on 05/24/17at 09: 00; Start 05/17/17 at 20:00 Valproate Sodium 250 mg/Sodium Chloride 102.5 ml @ 105 mls/hr Q8HR IV Last administered on 05/25/17at 04:21; Start 05/17/17 at 18:00; Stop 05/25/17 at 10:09 ; Status DC Levetriacetam 500 mg/Sodium Chloride 105 ml @ 420 mls/hr Q12HR IV Last administered on 05/21/17at 07:38; Start 05/17/17 at 21:00; Stop 2/18/18 at 10:09 ; Status DC Heparin Sodium (Porcine) (Heparin Inj) 5,000 units Q8HR SQ Last administered on 05/26/17at 15:05; Start 05/18/17 at 14:00 Vancomycin HCl 1000 mg/Sodium Chloride 250 ml @ 250 mls/hr Q24H IV Last administered on 05/19/17at 16:00; Start 05/18/17 at 16:00; Stop 05/19/17 at 20:22 ; Status DC Dexmedetomidine HCl (Precedex Inj) 45 mcg ONCE ONCE IV PUSH ; Start 05/18/17 at 18:15; Stop 05/18/17 at 18:16; Status Cancel Dexmedetomidine HCl 200 mcg/ Sodium Chloride 52 ml @ 4.69 mls/hr TITRATE PRN IV SEDATION Last administered on 05/20/17at 03:29; Start 05/18/17 at 18:15; Stop 05/21/17 at 10:09; Status DC Furosemide (Lasix Inj) 20 mg ONCE ONCE IV PUSH Last administered on 05/18/17at 21:27; Start 05/18/17 at 20:00; Stop 05/18/17 at 20:01; Status DC Furosemide (Lasix Inj) 40 mg ONCE ONCE IV PUSH Last administered on 05/19/17at 09:10; Start 05/19/17 at 08:15; Stop 05/19/17 at 08:16; Status DC Sodium Chloride 188 meq/Sodium Chloride 1,047 ml @ 10 mls/hr Q24H IV Last administered on 05/22/17at 05:09; Start 05/19/17 at 12:00; Stop 05/22/17 at 09:26 ; Status DC Pharmacy Profile Note 0 ml @ 0 mls/hr UNSCH OTHER ; Start 05/19/17 at 18:00 Vancomycin/Sodium Chloride 200 ml @ 200 mls/hr NOW ONCE IV Last administered on 05/19/17at 21:38; Start 05/19/17 at 21:00; Stop 05/19/17 at 21:59; Status DC Vancomycin HCl 1750 mg/Sodium Chloride 517.5 ml @ 250 mls/hr Q12H IV Last administered on 05/22/17at 05:09; Start 05/20/17 at 06:00; Stop 05/23/17 at 09:08 ; Status DC Miscellaneous Information SPECIFIC LAB TO BE SHERRY... ONCE ONCE .XX ; Start 05/21 at 05:45; Stop 05/21/17 at 05:46; Status DC Magnesium Hydroxide (Milk Of Indigo Liq) 30 ml Q12H PO Last administered on at 11:30; Start 05/20/17 at 11:30 Miscellaneous Information SPECIFIC LAB TO BE DRAWN:VANCO TROUGH DATE... ONCE ONCE .XX ; Start 05/21/17 at 05:45; Stop 05/21/17 at 05:46; Status DC Furosemide (Lasix Inj) 40 mg BID@,18 IV PUSH Last administered on 05/21/17at 17:41; Start 05/20/17 at 14:00; Status Future Hold Potassium Chloride 100 ml @ 50 mls/hr Q2H IV Last administered on 05/20/17at 18 :06; Start 05/20/17 at 14:00; Stop 05/20/17 at 17:59; Status DC Levetriacetam (Keppra) 500 mg Q12HR PO Last administered on 05/26/17at 09:32; Start 05/21/17 at 21:00 Potassium Chloride (KCl) 50 meq UNSCH PRN PO FOR K+ 3.3 - 3.5 Last administered on 05/21/17at 14:27; Start 05/21/17 at 11:00 Artificial Tears (Tears Naturale Opth Soln) 1 drop BID PRN EACH EYE DRY EYE Last administered on 05/21/17at 12:31; Start 05/21/17 at 12:00 Sodium Chloride (Sodium Chloride) 1 gm BID PO Last administered on 05/24/17at 09 :27; Start 05/22/17 at 09:30; Stop 05/24/17 at 11:48; Status DC Sodium Chloride 1,000 ml @ 60 mls/hr [id number] IV Last administered on at 00:07; Start 05/22/17 at 09:30; Stop 05/23/17 at 09:51; Status DC Albuterol/ Ipratropium (Duoneb Neb) 1 ampule STK-MED ONCE .ROUTE ; Start at 08:46; Stop 05/23/17 at 08:47; Status DC Dexmedetomidine HCl 200 mcg/ Sodium Chloride 52 ml @ 4.51 mls/hr TITRATE PRN IV SEDATION Last administered on 05/24/17at 07:43; Start 05/23/17 at 09:00; Stop 05/24/17 at 07:53; Status DC Vancomycin HCl 1750 mg/Sodium Chloride 517.5 ml @ 250 mls/hr Q18H IV Last administered on 05/24/17at 06:00; Start 05/23/17 at 12:00; Stop 05/25/17 at 01:17 ; Status DC Miscellaneous Information SPECIFIC LAB TO BE DRAWN:VANCOMYCIN TROUGH DATE TO... ONCE ONCE .XX Last administered on 05/24/17at 23:45; Start 05/24/17 at 23:45; Stop 05/24/17 at 23:46; Status DC Quetiapine Fumarate (SEROquel) 100 mg Q8H PO Last administered on 05/25/17at 10: 45; Start 05/23/17 at 12:00; Stop 05/25/17 at 14:34; Status DC Lactated Ringer's 1,000 ml @ 50 mls/hr Q20H IV Last administered on 05/24/17at 06:24; Start 05/23/17 at 09:45; Stop 05/24/17 at 13:42; Status DC Acetaminophen 100 ml @ 400 mls/hr ONCE ONCE IV ; Start 05/23/17 at 14:30; Stop 05/23/17 at 14:44; Status DC Lactulose (Lactulose Liq) 30 ml BID PO Last administered on 05/24/17at 20:36; Start 05/23/17 at 21:00 Dexmedetomidine HCl 1000 mcg/ Sodium Chloride 260 ml @ 4.51 mls/hr TITRATE PRN IV SEDATION; Start 05/24/17 at 08:00; Stop 05/24/17 at 08:00; Status DC Dexmedetomidine HCl 1000 mcg/ Sodium Chloride 250 ml @ 4.34 mls/hr TITRATE PRN IV SEDATION Last administered on 05/25/17at 20:44; Start 05/24/17 at 08:00; Stop 05/26/17 at 09:55; Status DC Chlordiazepoxide (Librium) 50 mg Taper Q6H PO ; Start 05/24/17 at 09:30; Stop at 09:29; Status Cancel Chlordiazepoxide (Librium) 5 mg Q6H PO Last administered on 05/24/17at 23:52; Start 05/24/17 at 10:00; Stop 05/25/17 at 01:59; Status DC Famotidine (Pepcid) 20 mg BID PO Last administered on 05/26/17at 09:32; Start at 21:00 Vancomycin HCl 1750 mg/Sodium Chloride 517.5 ml @ 250 mls/hr Q18H IV Last administered on 05/26/17at 03:57; Start 05/25/17 at 10:00 Valproic Acid (Depakene Liq) 250 mg BID PO ; Start 05/25/17 at 21:00; Stop 05/25 at 21:00; Status DC Clonidine (Catapres-Tts 0.1mg Patch.7d) 1 patch Q7D T-DERMAL Last administered on 05/25/17at 11:44; Start 05/25/17 at 11:00 Ziprasidone (Geodon) 20 mg BID PO Last administered on 05/25/17at 10:45; Start 05/25/17 at 10:30; Stop 05/25/17 at 14:34; Status DC Miscellaneous Information 1 Q7D T-DERMAL ; Start 06/01/17 at 11:00 Piperacillin Sod/ Tazobactam Sod 100 ml @ 200 mls/hr Q6H IV Last administered on 05/26/17at 10:10; Start 05/25/17 at 17:00 Ziprasidone (Geodon) 20 mg BID PO ; Start 05/26/17 at 11:00; Stop 05/26/17 at 14 :04; Status DC Valproic Acid (Depakene) 250 mg Q12HR PO ; Start 05/26/17 at 11:00; Stop at 14:04; Status DC Haloperidol Lactate (Haldol Inj) 5 mg Q6HR PRN IV PUSH agitation; Start at 10:00 Miscellaneous Information SPECIFIC LAB TO BE SHERRY... ONCE ONCE .XX ; Start 05/28 at 09:45; Stop 05/28/17 at 09:46 Dexmedetomidine HCl 200 mcg/ Sodium Chloride 52 ml @ 0 mls/hr TITRATE PRN IV SEDATION; Start 2/23/18 at 14:15 (Adelso Romeo MD) Medical Decision Making Impression and Plan Impression: 1. Traumatic brain injury with left occipital hemorrhagic contusion. 2. Right frontal scalp contusion with subgaleal hematoma 3. Right orbital fracture The patient remains confused. He is oriented to person & place, follows simple commands and his muscle strength and sensation appear intact. Reviewed labs for today. Interval drop in haemoglobin level. Interval increase in thrombocytosis. Sodium level 149. Resolution in hypokalemia. Interval improvement in renal function. Improvement in AST. CT brain demonstrated continued evolution of the left occipital haematoma w/slight decrease in edema. No evidence of a new haemorrhage. Plan: Discussed plan of care with patient and . Primary management per Trauma. Critical care management per Behaviorist. Neuro checks. Stat CT brain for any decline in neuro status. Hold pharmacological DVT prophylaxis. Mechanical DVT prophylaxis. Stress ulcer prophylaxis. Mobilise patient w/assistance. Physical, Occupational & Speech Therapy. Monitor sodium level and keep WNL w/2% hypertonic saline. Will decrease 2% hypertonic saline to 60 mL/hr. (Andi Green) Attending Statement Traumatic brain innury Continue nonoperative treatment Pulmonary.. Continue aggressive pulmonary toilette, nasotracheal suction, and breathing treatments with nebulizers. Nutrition. NPO Renal. monitor closely urine output, BUN and creatinine Endocrine. Monitor serial Acu checks and SSI as needed in detail ID monitor for signs of infection Protonix for stress ulcer prophylaxis Craig hose and SCD's for DVT prophylaxis The exam, history, and the medical decision-making described in the above note were completed with the assistance of the mid-level provider. I reviewed and agree with the findings presented. I attest that I had a [id number] encounter with the patient on the same day, and personally performed and documented my assessment and findings in the medical record. (Adelso Romeo MD) Andi Green May 23, 2017 08:59 Adelso Romeo MD May 26, 2017 15:44
--- NOTE | 2017-05-23 09:23 | HHI.CCPN ---
Subjective Remarks/Hospital Course Hospital Course: 51-year-old male came to the emergency room with history of a trip and fall as per him at 3 AM early this morning. Since then he has noticed that both his eyelids have been swelling up and is almost swelling shot so he cannot see. His brought him to the emergency room. Patient denied drinking but as per the he does drink alcohol every day. Currently patient is sober and answering questions. Patient denies any assault. Vital signs are stable. No history of vomiting or loss of consciousness as per the . Subjective: 05/15: still delirious, in etoh withdraw. some increase in cerebral edema, bleeds stable in size. remains on precedex. 05/16: Remains on Precedex gtt. Drowsy, arousable. 05/17: At 2 AM rapid response team called for patients tachypnea tachycardia and altered mental status. Has received 10 mg of Ativan per [facility] Nurse orders 05/18: Tachypneic with fluctuating mental status today. Blood cultures growing MRSA. Patient is drowsy but easily arousable, following commands. Knows he is in the hospital. On 2 L nasal cannula maintaining O2 sats around 92%. Gets tachypneic with respiratory rate 30s at times. 05/19: Remains tachypneic. Bilateral crackles. Stop iv fluid and start diuretics. Apparently agitated last night. Calm now on precedex. 05/20: Persistent failure despite diuresis. 05/21: Breathing much improved after 5.5 liter diuresis. CXR still reveals cephalization of flow and overload; continue BID lasix. 05/22: Per nursing patient was agitated throughout the night. This AM more calm , awake, responding t some questions. Diuresed well, negative 2833 ml in the last 24 hours. His father is at bedside. ROS - limited by patient's mental status - but denies CP, SOB, palpitations, KENDRICK. 05/23: Called at bedside by nursing due to desaturation. On arrival, patient on NRM, O2 sat 96%, patient having a coughing spell. Shortly after Dobbhoff placement patient started experiencing the episode. Dobbhoff removed immediately and patient was suctioned. Stat CXR done showed no evidence of pneumothorax. Still with episodes of agitation over the night. I/O 1015/2150, negative 4 liters since admission. Objective Vital Signs Date Time Temp Pulse Resp B/P (MAP) Pulse Ox O2 Delivery O2 Flow Rate FiO2 05/23/17 09:00 95 High Flow Nasal Cannula 30.00 50 05/23/17 06:00 81 05/23/17 04:00 97.9 25 121/67 (85) Intake and Output 05/23/17 05/23/17 05/24/17 08:00 16:00 00:00 Intake Total 420 ml Output Total 900 ml Balance -480 ml Result Diagram: 05/23/17 0505/23/17 05 Imaging Last Impressions Chest X-Ray 05/23/17 06 Signed Impressions: Service Date/Time: Tuesday, May 23, 2017 03:50 - CONCLUSION: Hazy airspace disease remains in both lungs without significant change. Gerardo Sharp MD Abdomen X-Ray 05/22/17 0000 Signed Impressions: Service Date/Time: Monday, May 22, 2017 11:25 - CONCLUSION: Tip of the weighted feeding tube in the region of the body of the stomach. Juan Castillo Jr., MD Head CT 05/17/17 0000 Signed Impressions: Service Date/Time: Wednesday, May 17, 2017 02:29 - CONCLUSION: Slightly decreased edema left occipital hematoma. No new bleed. Dion Lugo MD Carotid Artery Ultrasound 05/16/17 0000 Signed Impressions: Service Date/Time: Tuesday, May 16, 2017 10:30 - CONCLUSION: 1. Mild plaque with patent carotid arteries bilaterally. 2. Antegrade flow involving both vertebral arteries. Juan Castillo Jr., MD Chest CT 05/14/17 0000 Signed Impressions: Service Date/Time: Sunday, May 14, 2017 00:39 - CONCLUSION: 1. Negative for acute traumatic injury within the thorax. Fatty infiltration of the liver. Arsh Leslie MD Abdomen/Pelvis CT 05/14/17 0000 Signed Impressions: Service Date/Time: Sunday, May 14, 2017 00:39 - CONCLUSION: 1. Negative for acute traumatic injury within the abdomen or pelvis. Fatty liver. Arsh Leslie MD Maxillofacial CT 05/13/172207 Signed Impressions: Service Date/Time: Saturday, May 13, 2017 22:22 - CONCLUSION: Multiple fractures of the right orbit including the inferior orbital wall and comminuted fractures of the medial orbital wall. Intraorbital muscles remain within the orbit. There is associated opacification of the right ethmoids and right maxillary sinus. There is also prominent alyssa-orbital soft tissue swelling extending into the frontal region. Juan Sun MD Cervical Spine CT 05/13/172207 Signed Impressions: Service Date/Time: Saturday, May 13, 2017 22:22 - CONCLUSION: Moderately advanced discogenic degenerative changes C4-C6 with associated retrolisthesis of C4 to C5 and reversal of the upper cervical lordosis. No fracture seen. Juan Sun MD Last [address] 05/13/172207 Signed Impressions: Service Date/Time: Saturday, May 13, 2017 22:22 - CONCLUSION: Multiple fractures of the right orbit including the inferior orbital wall and comminuted fractures of the medial orbital wall. Intraorbital muscles remain within the orbit. There is associated opacification of the right ethmoids and right maxillary sinus. There is also prominent alyssa-orbital soft tissue swelling extending into the frontal region. Juan Sun MD Head CT 05/13/172207 Signed Impressions: Service Date/Time: Saturday, May 13, 2017 22:22 - CONCLUSION: 1. Greater than 4 cm parenchymal hematoma left occipital lobe and prominent soft tissue swelling in the right periorbital and frontal region suggests contrecoup injury. No significant mass effect or cerebral edema at this point. 2. Suspected abnormalities in the right orbit, ethmoid sinus, and maxillary sinus. CT facial bones to be performed. Juan Sun MD Chest X-Ray 05/13/172207 Signed Impressions: Service Date/Time: Saturday, May 13, 2017 22:19 - CONCLUSION: No infiltrates seen. No evidence of pneumothorax. Juan Sun MD Cervical Spine CT 05/13/172207 Signed Impressions: Service Date/Time: Saturday, May 13, 2017 22:22 - CONCLUSION: Moderately advanced discogenic degenerative changes C4-C6 with associated retrolisthesis of C4 to C5 and reversal of the upper cervical lordosis. No fracture seen. Juan Sun MD Disinhibition Score: 19.18 Aggression Score: 17.50 Lability Score: 14.00 Agitated Behavior Total Score: 17 Objective Remarks General - middle age gentleman, awake, confused, in mild respiratory distress HEENT - pupils equal, reactive, sclerae anicteric, subconjuctival hemorrhage, periorbital ecchymosis bilaterally, resolving, neck supple, no nuchal rigidity, neck veins distended, no carotid bruit, dry abrasions on the scalp on the vertex CV - regular S1, S2, no murmurs Chest - scattered coarse breath sounds b/l, good air entry, no wheezes Abdomen - soft, non-tender, non-distended, BS present, no hepatomegaly, no splenomegaly Skin - multiple old bruises on bilateral shins Extremities - warm and well perfused, no edema, + peripheral pulses, no clubbing Neuro - awake, confused, follows some commands, moves all extremities A/P Assessment and Plan Agitated Delirium Etoh Withdraw - On librium taper, seroquel and valproate per trauma team. - restart precedex - frequent neuro checks ICH - re-admitted to ICU - ICH post fall - CT head stat with any change in neuro status - Neuro checks per unit protocol - On 2% NS - Further per neurosurgery - On Keppra Multiple fractures of the right orbit - OMFS consultation: non-op MRSA bacteremia Severe sepsis - On iv Vanco, followed by ID - Repeat blood cx are with NGTD - TTE w/o evidence of vegetation DVT GI prophylaxis - Teds SCDs - No pharmacological DVT prophylaxis due to ICH - Early aggressive mobilization - Pepcid Acute hypoxic respiratory failure Pulmonary Edema/Heart Failure - On lasix BID - Has electrolyte repletion protocol - Reduce IV fluid - Stat CXR w/o evidence for pneumothorax - Bronchodilators - Place patient on HFNC for now - Hold on Dobbhoff placement Todd Araujo MD May 23, 2017 09:23
--- NOTE | 2017-05-23 09:25 | RADRPT ---
EXAM DATE/TIME: 05/23/2017 08:46 [facility] COMPARISON: CHEST SINGLE AP, May 23, 2017, 3:50. INDICATIONS : Respiratory Distress. MEDICAL HISTORY : Cardiovascular disease. SURGICAL HISTORY : None. ENCOUNTER: Subsequent ACUITY: 1 week PAIN SCORE: Non-responsive. LOCATION: Bilateral chest FINDINGS: Patchy areas of airspace opacity in the central lower lungs bilaterally is very similar in severity w hen compared to the most recent chest x-ray. Both hemidiaphragms are well delineated. Heart size is normal. CONCLUSION: Bilateral non-consolidative airspace disease, stable. Juan Sun MD on May 23, 2017 at 9:23 Board Certified Radiologist. This report was verified electronically.
[2017-05-23] MEDS: FAMOTIDINE 20 MG/2 ML VIAL IV PUSH SCH ×2 (09:56→20:27)
[2017-05-23] MEDS: DEXMEDETOMIDINE INJ 200 MCG in SODIUM CHLORIDE 0.9% INJ 50 ML IV PRN ×3 (09:56→22:24)
[2017-05-23] MEDS: MAGNESIUM HYDROXIDE SUSP 30 ML CUP PO SCH (11:30)
--- NOTE | 2017-05-23 11:33 | HHI.IDPN ---
Subjective Subjective Remarks Mr. Nogueira is a 51-year-old male with past medical history significant for alcoholism reportedly was in alcoholic anonymous and possibly relapsed per . Patient was brought into the emergency room with a history of fall at 3 AM on the day of admission 05/13/2017. Patient and his went to bed at approximately 12 midnight. Patient's was awoken up by the sound of her shouting out for help. When she went looking for him she noticed he was covered in blood and there was a puddle of blood on the floor as well. She goes on to report that she found blood in almost all the house especially on the s[place]. Despite all this patient refuses admission and for approximately 12 hours continue to remain in his own home. Patient's noted that he had both eyelids are swelling up to the point that he could not see. His brought him to the emergency room. Patient denies drinking but as per the he does drink alcohol on most every day. Blood alcohol level was less than 3. No history of any trauma or assault. On arrival in the emergency department patient's vital signs are stable. There is no history of vomiting and no clear-cut history of loss of consciousness per the . Patient does not have any history of seizure disorder. It is not clear if patient was found down on the floor for an extended period of time even on repeated questioning the . Patient was evaluated by trauma team and admission. Patient had a CT scan maxillofacial which showed multiple fractures of the right orbit including the inferior orbital wall and community fractures of the medial orbital wall. Intraorbital muscles remain within the orbit. There is also prominent periorbital soft tissue swelling extending into the frontal region. Chest x-ray showed some perihilar disease consistent with either pulmonary edema or infection. A CT of the head shows left occipital hematoma. Patient was seen by oral maxillofacial surgeon and no surgical interventions planned. Patient was also seen by ophthalmology. On patient became delirious appeared to be in alcohol withdrawal per notes. A CT showed increase in cerebral edema but the bleeds sites with stable. Patient is started on Precedex. On a rapid response team was called for tachypnea and tachycardia and altered mental status and was evaluated by the [facility] Team. Patient did have fevers and the first day of admission with thereafter. To be resolved and then recurred leading to blood cultures. These blood cultures are positive for MRSA and infectious disease is consulted for evaluation of this MRSA bacteremia in a patient status post trauma. Upon discussion with the : No history of skin abscesses or MRSA in the past. No history of any trauma or skin tears in the recent past. No history of being treated for endocarditis for epidural abscess. No history of any intravenous drug abuse h/o myalgias and body aches with sniffles prior to admission. Past Medical History Alcoholism Depression Overnight events reviewed. Restless, in restraints. On precedex. Tmax 99.8 No rash No diarrhea Antibiotics Vanco IV Lines Line sites with no e.o infection Past Medical History reviewed. Allergies: Coded Allergies: No Known Allergies (Unverified Allergy, Unknown, 05/13/17) Objective . Vital Signs Date Time Temp Pulse Resp B/P (MAP) Pulse Ox O2 Delivery O2 Flow Rate FiO2 05/23/17 09:00 95 High Flow Nasal Cannula 30.00 50 05/23/17 06:00 81 05/23/17 04:00 84 05/23/17 04:00 97.9 81 25 121/67 (85) 95 05/23/17 02:00 90 05/23/17 00:00 91 05/23/17 00:00 98.0 90 26 121/70 (87) 95 05/22/17 22:00 93 05/22/17 20:00 98.1 89 25 115/66 (82) 98 05/22/17 20:00 97 Nasal Cannula 3.00 05/22/17 20:00 89 05/22/17 18:00 87 05/22/17 18:00 85 05/22/17 16:00 94 05/22/17 16:00 98.3 85 18 122/70 (87) 94 05/22/17 14:00 103 05/22/17 12:00 85 05/22/17 12:00 98.3 77 27 145/79 (101) 100 . Laboratory Tests Test 05/21/17 16:07 05/22/17 04:13 05/23/17 05:20 White Blood Count 10.3 TH/MM3 10.1 TH/MM3 10.3 TH/MM3 Red Blood Count 3.22 MIL/MM3 3.30 MIL/MM3 2.92 MIL/MM3 Hemoglobin 10.6 GM/DL 10.7 GM/DL 9.6 GM/DL Hematocrit 31.0 % 31.8 % 28.2 % Mean Corpuscular Volume 96.5 FL 96.2 FL 96.6 FL Mean Corpuscular Hemoglobin 33.0 PG 32.5 PG 32.9 PG Mean Corpuscular Hemoglobin Concent 34.3 % 33.7 % 34.0 % Red Cell Distribution Width 14.0 % 14.0 % 14.3 % Platelet Count 473 TH/MM3 468 TH/MM3 488 TH/MM3 Mean Platelet Volume 8.1 FL 8.3 FL 7.6 FL Neutrophils (%) (Auto) 81.6 % 79.4 % 83.8 % Lymphocytes (%) (Auto) 9.1 % 12.3 % 7.2 % Monocytes (%) (Auto) 7.8 % 6.5 % 7.2 % Eosinophils (%) (Auto) 0.7 % 1.0 % 1.1 % Basophils (%) (Auto) 0.8 % 0.8 % 0.7 % Neutrophils # (Auto) 8.4 TH/MM3 8.0 TH/MM3 8.7 TH/MM3 Lymphocytes # (Auto) 0.9 TH/MM3 1.2 TH/MM3 0.7 TH/MM3 Monocytes # (Auto) 0.8 TH/MM3 0.7 TH/MM3 0.7 TH/MM3 Eosinophils # (Auto) 0.1 TH/MM3 0.1 TH/MM3 0.1 TH/MM3 Basophils # (Auto) 0.1 TH/MM3 0.1 TH/MM3 0.1 TH/MM3 CBC Comment DIFF FINAL DIFF FINAL DIFF FINAL Differential Comment Laboratory Tests Test 05/21/17 13:42 05/22/17 04:13 05/22/17 12:34 05/22/17 17:25 Potassium Level 3.4 MEQ/L 3.1 MEQ/L Blood Urea Nitrogen 14 MG/DL Creatinine 1.30 MG/DL Random Glucose 93 MG/DL Total Protein 6.1 GM/DL Albumin 2.0 GM/DL Calcium Level 8.7 MG/DL Magnesium Level 2.1 MG/DL Alkaline Phosphatase 91 U/L Aspartate Amino Transf (AST/SGOT) 64 U/L Alanine Aminotransferase (ALT/SGPT) 57 U/L Total Bilirubin 0.4 MG/DL Sodium Level 146 MEQ/L 147 MEQ/L 148 MEQ/L Chloride Level 109 MEQ/L Carbon Dioxide Level 28.4 MEQ/L Anion Gap 9 MEQ/L Estimat Glomerular Filtration Rate 58 ML/MIN Test 05/22/17 22:33 05/23/17 05:20 Sodium Level 149 MEQ/L 149 MEQ/L Potassium Level 3.8 MEQ/L 3.6 MEQ/L Blood Urea Nitrogen 12 MG/DL Creatinine 1.13 MG/DL Random Glucose 128 MG/DL Total Protein 6.1 GM/DL Albumin 2.0 GM/DL Calcium Level 7.8 MG/DL Magnesium Level 2.1 MG/DL Alkaline Phosphatase 81 U/L Aspartate Amino Transf (AST/SGOT) 48 U/L Alanine Aminotransferase (ALT/SGPT) 48 U/L Total Bilirubin 0.2 MG/DL Chloride Level 115 MEQ/L Carbon Dioxide Level 27.3 MEQ/L Anion Gap 7 MEQ/L Estimat Glomerular Filtration Rate 68 ML/MIN Imaging Last Impressions Abdomen X-Ray 05/22/17 0000 Signed Impressions: Service Date/Time: Monday, May 22, 2017 11:25 - CONCLUSION: Tip of the weighted feeding tube in the region of the body of the stomach. Juan Castillo Jr., MD Chest X-Ray 05/21/17 0600 Signed Impressions: Service Date/Time: Sunday, May 21, 2017 02:52 - CONCLUSION: Basilar airspace disease, improved from May 20. Arsh Leslie MD Head CT 05/17/17 0000 Signed Impressions: Service Date/Time: Wednesday, May 17, 2017 02:29 - CONCLUSION: Slightly decreased edema left occipital hematoma. No new bleed. Dion Lugo MD Carotid Artery Ultrasound 05/16/17 0000 Signed Impressions: Service Date/Time: Tuesday, May 16, 2017 10:30 - CONCLUSION: 1. Mild plaque with patent carotid arteries bilaterally. 2. Antegrade flow involving both vertebral arteries. Juan Castillo Jr., MD Chest CT 05/14/17 0000 Signed Impressions: Service Date/Time: Sunday, May 14, 2017 00:39 - CONCLUSION: 1. Negative for acute traumatic injury within the thorax. Fatty infiltration of the liver. Arsh Leslie MD Abdomen/Pelvis CT 05/14/17 0000 Signed Impressions: Service Date/Time: Sunday, May 14, 2017 00:39 - CONCLUSION: 1. Negative for acute traumatic injury within the abdomen or pelvis. Fatty liver. Arsh Leslie MD Maxillofacial CT 05/13/172207 Signed Impressions: Service Date/Time: Saturday, May 13, 2017 22:22 - CONCLUSION: Multiple fractures of the right orbit including the inferior orbital wall and comminuted fractures of the medial orbital wall. Intraorbital muscles remain within the orbit. There is associated opacification of the right ethmoids and right maxillary sinus. There is also prominent alyssa-orbital soft tissue swelling extending into the frontal region. Juan Sun MD Cervical Spine CT 05/13/172207 Signed Impressions: Service Date/Time: Saturday, May 13, 2017 22:22 - CONCLUSION: Moderately advanced discogenic degenerative changes C4-C6 with associated retrolisthesis of C4 to C5 and reversal of the upper cervical lordosis. No fracture seen. Juan Sun MD Physical Exam GENERAL: Well built well nourished patient, in no apparent distress. SKIN: Multiple areas of ecchymosis. HEAD: Atraumatic. Normocephalic. No temporal or scalp tenderness. EYES: Severe Periorbital edema and ecchymosis noted. On left forehead just above the eye there is a golf ball size. Overall periorbital erythema much improved. ENT: Nose without bleeding, purulent drainage or septal hematoma. Throat without erythema, tonsillar hypertrophy or exudate. Uvula midline. Airway patent. NECK: Trachea midline. Supple, nontender, no meningeal signs. CARDIOVASCULAR: HS audible. RESPIRATORY: Clear to auscultation. Breath sounds equal bilaterally. No wheezes , rales, or rhonchi. GASTROINTESTINAL: Abdomen soft, non-tender, nondistended. MUSCULOSKELETAL: Extremities without clubbing, cyanosis, or edema. NEUROLOGICAL: Drowsy,arousable, knows he is at the hospital. Moves all 4 extremities. Psych could not be assessed IV line sites with no e.o infection Assessment & Plan Remarks MRSA bacteremia: likely secondary to Infected hematoma. Other possibility is MRSA pneumonia (post flu or post aspiration) Multiple facial fractures Orbital fractures with periorbital hematoma Alcoholism Recs: Continue Vanco IV (target 15-20): plan on 2 weeks from 1st negative blood culture. follow repeat blood cultures till negative. ECHO negative for vegetations. Follow cultures follow clinically. Dw patients Will follow prn. Please call if any acute changes in the interim. Olivia Hamilton MD May 23, 2017 11:33
[2017-05-23] MEDS: LACTATED RINGER'S 1000 ML INJ 1,000 ML IV SCH (12:25)
[2017-05-23] MEDS ORDERED: ACETAMINOPHEN 1000 MG/100 ML 100 ML IV ONE (14:30)
--- NOTE | 2017-05-23 16:08 | RADRPT ---
EXAM DATE/TIME: 05/23/2017 15:42 [facility] COMPARISON: ABDOMEN SINGLE VIEW, May 22, 2017, 11:25. INDICATIONS : Dobhoff placement. MEDICAL HISTORY : Cardiovascular disease. SURGICAL HISTORY : None. ENCOUNTER: Initial ACUITY: 1 day PAIN SCORE: Non-responsive. LOCATION: Bilateral abdomen. FINDINGS: There is some blurring of the image. The metallic tip of the Dobbhoff catheter projects over the sto mach, just below the GE junction. A few loops of mildly prominent small bowel in the left hypogastri c region measuring up to 3.1 cm. The visualized lower lungs are clear. CONCLUSION: Dobbhoff catheter tip is projected over the proximal stomach. Juan Sun MD on May 23, 2017 at 16:06 Board Certified Radiologist. This report was verified electronically.
--- NOTE | 2017-05-23 18:01 | RADRPT ---
EXAM DATE/TIME: 05/23/2017 17:29 [facility] COMPARISON: CHEST SINGLE AP, May 23, 2017, 8:46. INDICATIONS : Evaluate for infiltrate. MEDICAL HISTORY : ETOH abuse. SURGICAL HISTORY : None. ENCOUNTER: Subsequent ACUITY: 4 - 6 days PAIN SCORE: 0/10 LOCATION: Bilateral chest FINDINGS: A weighted feeding tube extends into the stomach. There is hazy bilateral parenchymal infiltrate pres ent fairly diffusely, worse on the right than the left. Cardiac contours are grossly stable. CONCLUSION: Slight interval worsening in hazy infiltrate calcific than the right. Rosas Mcginnis MD on May 23, 2017 at 17:58 Board Certified Radiologist. This report was verified electronically.
--- NOTE | 2017-05-23 18:07 | HHI.CCPN ---
Subjective Brief History 51-year-old male came to the emergency room with history of a trip and fall as per him at 3 AM early this morning. Since then he has noticed that both his eyelids have been swelling up and is almost swelling shot so he cannot see. His brought him to the emergency room. Patient denied drinking but as per the he does drink alcohol every day. Currently patient is sober and answering questions. Patient denies any assault. Vital signs are stable. No history of vomiting or loss of consciousness as per the . 24 Hour Review/Hospital Course 05/15 Patient was slightly confused in the morning he urinated to the floor Since then he has been more stable Patient is alcoholic he was started on the CIWA protocol The CT scan of the head is pending, his GCS is [address] scan of the abdomen and pelvis and chest were negative for any injuries Neurosurgical ophthalmology and OMFS consults are pending 05/15/2017 This morning patient is somewhat confused but awake Adamantly denies alcohol use however went into delirium tremens had to be placed on Precedex drip and CIWA protocol Pupils equal reactive bruising over the both orbits and forehead Hemodynamically stable Bilateral good breath sounds Neurologically patient remains stable and can transfer to the floor once off Precedex Patient remains in the ICU due to delirium tremens and no specific traumatic injury 05/16/2017 Patient doing much better today neurologically Off Precedex Per neuropsychologist patient placed on appropriate regimen int face of alcoholism He is awake alert but disoriented at times Communicates with short sentences Pupils equal reactive and facial bruising is slowly receding Moves all 4 extremities does not have appreciable motoric deficit Bilateral breath sounds good inspiratory effort Tolerates diet well Transfer to floor when bed available 05/17/2017 Patient with above noted head injury was transferred to floor yesterday but became restless was given 10 mg of Ativan within 15 minute time which of course lead to respiratory depression, hypotension and distress and patient was transferred back to the ICU Patient remains confused with [place] Coma Scale of about 11 CT scan reveals resolving left occipital cerebral contusion/ hematoma Hemodynamically patient is stable Bilateral breath sounds decreased over the both lung kern consistent with likely aspiration into the both lungs Chest x-ray also reveals bilateral pulmonary infiltrates in the bases I found patient this morning lying in Trendelenburg position which is invariably the cause of patient's aspiration Abdomen is soft Plan Medications have been adjusted with brain injury patient can be a candidate for Ativan CIWA protocol yet administering 10 mg of Ativan in very short period of time is clearly not the way to go Ativan has been DC'd Assistance from Dr. Angel is greatly appreciated Will manage patient expectantly and if he worsens he will require intubation and ventilatory support to the lung function improves 05/18 Patient is awake alert today in the morning His sodium is 136 breath sounds are equal bilaterally today Clearly more awake since the Ativan has been DC'd He is on Seroquel and valproic acid, swelling of his face is clearly better Abdomen is soft 05/19 Patient's tachypnea improved, he sats are mid 90s on supplemental oxygen His sodium is 136 he is on Precedex and ordered Blood cultures show MRSA and patient has been started on vancomycin His white cell count is within normal limits Chest x-ray yesterday showed fluid overload/infiltrate Patient is on hypertonic saline 05/20/2018 Patient slightly improved Still seems to be confused and answering questions intermittently with nodding and grunting Hemodynamically stable Bilateral breath sounds with coarse rhonchi bilateral PO2 FiO2 gradient gradually improving as hypovolemia is being addressed in fluid overload has been addressed Abdomen is soft patient is taking p.o. diet with assistance Still swollen lower extremities and patient being diuresed gently MRSA blood cultures 3. In this particular individual this is not unusual or surprising for patient ripped out about 7 or 8 IV sites in the past and each time IV had to be restarted so at some point MRSA from the skin was introduced into the bloodstream Infectious disease help greatly appreciated 05/21/[address] more awake and alert today Gets restless and requires small dose of Haldol or Librium but definitely greatly improved over last few days DC Precedex today Responds to simple questions appropriately tolerates diet p.o. Bilateral breath sounds and improving PO2 FiO2 gradient Abdomen soft active bowel sounds Medical fusing line inspector help greatly appreciated 05/22 more awake alert still confused has dysphagia-seen and confirmed by speech and swallow na 146-off 2% Na-has been diuresed recently-will hold for now rising Cr 05/23 GCS 13 more agitated-resumed precedex start lactulose -for high ammonia CT head in am-to follow up evolution of the TBI NA 149--off 2%- holding diuresis-patient is autodiuresing-1000 cc daily dysphagia-nutritional support with dobhoff Objective Vital Signs Date Time Temp Pulse Resp B/P (MAP) Pulse Ox O2 Delivery O2 Flow Rate FiO2 05/23/17 16:00 98.4 68 20 164/80 (108) 96 05/23/17 09:00 High Flow Nasal Cannula 30.00 50 Intake and Output 05/23/17 05/23/17 05/24/17 08:00 16:00 00:00 Intake Total 420 ml Output Total 900 ml Balance -480 ml Result Diagram: 05/23/17 0520 05/23/17 1232 Imaging Last 24 hours Impressions Chest X-Ray 05/23/17 0600 Signed Impressions: Service Date/Time: Tuesday, May 23, 2017 03:50 - CONCLUSION: Hazy airspace disease remains in both lungs without significant change. Gerardo Sharp MD Chest X-Ray 05/23/17 0000 Signed Impressions: Service Date/Time: Tuesday, May 23, 2017 08:46 - CONCLUSION: Bilateral non-consolidative airspace disease, stable. Juan Sun MD Abdomen X-Ray 05/23/17 0000 Signed Impressions: Service Date/Time: Tuesday, May 23, 2017 15:42 - CONCLUSION: Dobbhoff catheter tip is projected over the proximal stomach. Juan Sun MD Disinhibition Score: 17.50 Aggression Score: 14.00 Lability Score: 14.00 Agitated Behavior Total Score: 16 Exam [employer] GCS 13 Hemodynamic/Cardiac stable Pulmonary/Respiratory 4l O2 Abdomen/GI Nutrition soft Urinary Catheter Assessment Urinary Catheter: Yes Vascular Central Line Catheter Vascular Central Line Catheter: No Assessment and Plan Plan not progressing last 48 hrs MRSA -sepsis -vanco IV-ID hold diuresis for now start LR@50 cc/hr monitor Na,volume status tube feeds for nutritional support Donna Menjivar MD May 23, 2017 18:06
--- NOTE | 2017-05-23 18:09 | RADRPT ---
EXAM DATE/TIME: 05/23/2017 17:22 [facility] COMPARISON: ABDOMEN SINGLE VIEW, May 23, 2017, 15:42. INDICATIONS : Feeding tube placement. MEDICAL HISTORY : Cardiovascular disease. ETOH abuse. SURGICAL HISTORY : None. ENCOUNTER: Subsequent ACUITY: 4 - 6 days PAIN SCORE: 0/10 LOCATION: Abdomen. FINDINGS: Interval placement of nasoenteric feeding type catheter with tip coiled in the proximal stomach. Rede monstration of few loops of mildly prominent small bowel in the left midabdomen. Remainder of the exa m is unchanged. CONCLUSION: 1. Nasoenteric feeding type catheter coiled in the proximal stomach. 2. Redemonstration of few loops of mildly prominent small bowel in the left/mid abdomen. This may ref lect developing adynamic ileus. Joel Parker MD on May 23, 2017 at 18:07 Board Certified Radiologist. This report was verified electronically.
--- NOTE | 2017-05-23 20:12 | RADRPT ---
EXAM DATE/TIME: 05/23/2017 19:43 [facility] COMPARISON: ABDOMEN SINGLE VIEW, May 23, 2017, 17:22. INDICATIONS : Dobhoff placement. MEDICAL HISTORY : None. SURGICAL HISTORY : None. ENCOUNTER: Subsequent ACUITY: 1 day PAIN SCORE: Non-responsive. LOCATION: Bilateral abdomen. FINDINGS: Interval repositioning of nasoenteric Dobbhoff catheter with tip now projecting in the fundus of the stomach. Remainder of the exam is grossly unchanged. CONCLUSION: 1. Dobbhoff catheter coiled in the stomach with tip projecting toward the fundus. Dobbhoff catheter s hould be retracted at least 12 cm prior to readvancement attempt. Joel Parker MD on May 23, 2017 at 20:09 Board Certified Radiologist. This report was verified electronically.
[2017-05-23] MEDS: QUEtiapine FUMARATE 100 MG TAB PO SCH (20:14)
[2017-05-23] MEDS: DOCUSATE SODIUM 50 MG/SENNA 8.6 MG TAB PO SCH ×2 (20:14→20:27)
[2017-05-23] MEDS: SODIUM CHLORIDE 1 GRAM TAB PO SCH (20:14)
[2017-05-23] MEDS: levETIRAcetam 500 MG TAB PO SCH (20:15)
[2017-05-23] MEDS: LACTULOSE SYRUP 20 GM/30 ML CUP PO SCH (21:00)
[2017-05-24] VITALS (16 sets, daily range): BP systolic 109–168; BP diastolic 56–97; PULSE 64–88; RESP 21–28; TEMP 97.4–100.7; O2SAT 95–100
[2017-05-24] MEDS: chlordiazePOXIDE 25 MG CAP PO SCH (01:00)
[2017-05-24] MEDS: CHLORHEXIDINE GLUCONATE 2 % 1 PACK (2 CLOTHS) TOP SCH (04:00)
[2017-05-24] MEDS: QUEtiapine FUMARATE 100 MG TAB PO SCH ×3 (04:04→20:37)
[2017-05-24] MEDS: VALPROATE INJ 250 MG in SODIUM CHLORIDE 0.9% INJ 100 ML IV SCH ×3 (05:58→23:52)
[2017-05-24] MEDS: HEPARIN SODIUM - SQ 10,000 UNITS/ML VIAL SQ SCH ×3 (05:58→23:52)
[2017-05-24] MEDS: VANCOMYCIN INJ 1,750 MG in SODIUM CHLORID 0.9% 500 ML INJ 500 ML IV SCH ×2 (06:00→13:35)
[2017-05-24 06:04] LABS: AUTOMATED NEUTROPHIL # 10.8 TH/MM3 (1.8-7.7); BASOPHIL # 0.1 TH/MM3 (0-0.2); BASOPHIL % 0.8 % (0.0-2.0); EOSINOPHIL # 0.1 TH/MM3 (0-0.4); HEMATOCRIT 28.2 % (39.0-51.0); HEMOGLOBIN 9.8 GM/DL (13.0-17.0); LYMPH % 8.5 % (9.0-44.0); LYMPHOCYTE # 1.1 TH/MM3 (1.0-4.8); MEAN CELL VOLUME 96.4 FL (80.0-100.0); MEAN CORPUSCULAR HEMOGLOBIN 33.4 PG (27.0-34.0); MEAN CORPUSCULAR HGB CONC 34.7 % (32.0-36.0); MONO % 6.1 % (0.0-8.0); MONOCYTE # 0.8 TH/MM3 (0-0.9); NEUT % 83.6 % (16.0-70.0); PLATELET COUNT 511 TH/MM3 (150-450); RED BLOOD COUNT 2.93 MIL/MM3 (4.50-5.90); RED CELL DISTRIBUTION WIDTH 13.6 % (11.6-17.2); WHITE BLOOD COUNT 12.9 TH/MM3 (4.0-11.0)
[2017-05-24] MEDS: LACTATED RINGER'S 1000 ML INJ 1,000 ML IV SCH (06:24)
[2017-05-24 06:29] LABS: ALBUMIN 2.1 GM/DL (3.4-5.0); ALT (GPT) 43 U/L (12-78); AST (GOT) 40 U/L (15-37); BICARBONATE 28.9 MEQ/L (21.0-32.0); BLOOD UREA NITROGEN 14 MG/DL (7-18); CALCIUM 8.7 MG/DL (8.5-10.1); CHLORIDE 112 MEQ/L (98-107); CREATININE 1.06 MG/DL (0.60-1.30); GLOMERULAR FILTRATION RATE 74 ML/MIN (>89); GLUCOSE,RANDOM 140 MG/DL (74-106); MAGNESIUM 2.3 MG/DL (1.5-2.5); SODIUM (NA) 149 MEQ/L (136-145)
[2017-05-24 06:35] LABS: ALKALINE PHOSPHATASE 87 U/L (45-117); TOTAL BILIRUBIN ADULT 0.3 MG/DL (0.2-1.0); TOTAL PROTEIN 6.7 GM/DL (6.4-8.2)
[2017-05-24] MEDS: DEXMEDETOMIDINE INJ 200 MCG in SODIUM CHLORIDE 0.9% INJ 50 ML IV PRN (07:43)
[2017-05-24] MEDS ORDERED: DEXMEDETOMIDINE INJ 1,000 MCG in SODIUM CHLOR 0.9% 250 ML INJ 250 ML IV PRN (08:00)
--- NOTE | 2017-05-24 08:59 | HHI.NSPN ---
(Andi Green) History Chief Complaint: None (Andi Green) Interval History 05/14: The patient is a 51-year-old male who reportedly fell from a ladder approximately 3 AM on 05/13/2017. He waited until last evening to come to the emergency room, apparently due to progressive swelling around his eyes. No seizure activity reported. No emesis reported. No definite loss of consciousness. He does have a history of alcohol abuse. He complains of blurred vision. 05/15/17: Remains confused. He was agitated last evening-placed on Precedex 05/16: This morning the patient is awake and alert in bed visiting with his . The dexmedetomidine drip is on hold. He does have a soft wrist restraint to the right wrist due to his pulling at the [place]. He says he is doing well. He denies any headache or dizziness. He has some blurry vision when he first opens his eyes but it quickly clears. He denies any double vision. He denies any pain, numbness, tingling or weakness to the extremities. His only complaint is an occasional cough. His muscle strength and sensation remain intact. His confusion and speech are improved. 05/17: When seen this morning the patient had returned to [facility] from the med/surg floor due to delirium tremens and being overdosed on lorazepam. He was given flumazenil to reverse the lorazepam. He had a decrease level of consciousness but did interact with coaxing and followed some commands correctly. 05/18: The patient is in four point soft restraints when seen this morning. He was asleep but awoke to voice. Mild tremors were noted to his upper extremities when awake. He did endorse "A little bit" of a headache but no dizziness or blurry or double vision. He had no pain, numbness, tingling or weakness to the extremities. He did follow commands and his muscle strength and sensation were good. 05/19: This morning the patient seems to be lethargic. He does awaken to voice but drifts back off to sleep readily. He stated that "It's a little rough this morning." He interacted with repeated verbal stimulation. His motor and sensory exam were stable. He is confused as to time. He is now in contact isolation due to blood cultures with MRSA in three bottles. 05/22: The patient has his eyes closed this morning when seen but he is talking with his . He readily responds and interacts although his speech is somewhat garbled, dysarthric and slow. He is in four point soft restraints. He follows commands. He is confused and having hallucinations, reporting a flying saucer struck him. He denies any headache or dizziness but does state that he is "A little wobbly." He has no pain, numbness, tingling or weakness to the extremities. 05/23: The patient was receiving a breathing treatment when seen and then was placed on high flow nasal cannula. He was attempting to get out of bed repeatedly. He followed commands and was oriented to person and place but not time. He denied any headache or dizziness. He denied any extremity pain, numbness, tingling or weakness. 05/24: This morning the patient is drowsy. He is on a simple face mask. He is confused as to time but knows he is in [facility]. He does move all extremities spontaneously and to command. He follows most commands correctly. He had no complaints and denied any headache or dizziness or any pain, numbness , tingling or weakness to the extremities. Nursing reported that hypertonic saline was discontinued by Trauma. (Andi Green) Exam Results 05/22/17 05/22/17 05/23/17 05/23/17 05/24/17 05/24/17 06:00 18:00 06:00 18:00 06:00 18:00 Intake Total 1682 ml 420 ml 400 ml 323 ml Output Total 3050 ml 900 ml 1250 ml 700 ml Balance -1368 ml -480 ml -850 ml -377 ml IV Total 1542 ml 400 ml 150 ml Tube Feeding 140 ml 360 ml 173 ml Tube Irrigant 60 ml Output Urine Total 3050 ml 900 ml 1250 ml 700 ml # Bowel Movements 1 0 Vital Signs Date Time Temp Pulse Resp B/P (MAP) Pulse Ox O2 Delivery O2 Flow Rate FiO2 05/24/17 06:00 67 05/24/17 04:21 97 Simple Mask 10.00 05/24/17 04:00 97.4 67 22 155/82 (106) 96 18 04:00 67 05/24/17 02:00 75 18 00:00 72 05/24/17 00:00 99.2 88 22 109/56 (73) 100 218 22:00 76 2/18 20:00 99.7 69 24 161/82 (108) 96 05/23/17 20:00 69 2 19:00 96 Nasal Cannula 2.00 05/23/17 18:12 95 Nasal Cannula 5.00 05/23/17 18:00 68 2/18 16:00 98.4 68 20 164/80 (108) 96 05/23/17 16:00 68 05/23/17 14:00 70 05/23/17 12:00 83 05/23/17 12:00 100.1 83 19 139/77 (97) 99 05/23/17 10:00 96 05/23/17 09:00 95 High Flow Nasal Cannula 30.00 50 05/23/17 08:00 90 05/23/17 08:00 98 Nasal Cannula 3.00 05/23/17 08:00 99.6 90 25 127/94 (105) 98 05/23/17 06:00 81 05/23/17 04:00 84 05/23/17 04:00 97.9 81 25 121/67 (85) 95 18 02:00 90 05/23/17 00:00 91 05/23/17 00:00 98.0 90 26 121/70 (87) 95 18 22:00 93 2/18 20:00 98.1 89 25 115/66 (82) 98 05/22/18 20:00 97 Nasal Cannula 3.00 18 20:00 89 2/18 18:00 87 2/18 18:00 85 2/18 16:00 94 2/18 16:00 98.3 85 18 122/70 (87) 94 05/22/18 14:00 103 05/22/18 12:00 85 2/18 12:00 98.3 77 27 145/79 (101) 100 18 10:00 90 2/18 08:00 99.7 84 16 118/77 (91) 98 05/22/17 08:00 99 Nasal Cannula 3.00 05/22/17 08:00 91 05/22/17 06:00 92 05/22/17 04:00 99.9 80 24 121/71 (88) 93 05/22/17 04:00 88 05/22/17 02:00 89 05/22/17 00:00 99.8 98 22 114/69 (84) 92 05/22/17 00:00 88 05/21/17 20:00 99.6 84 24 113/67 (82) 92 05/21/17 20:00 88 05/21/17 19:00 95 Room Air 05/21/17 16:00 95 Room Air 05/21/17 16:00 102 05/21/17 12:00 91 05/21/17 12:00 98.2 91 18 105/64 (78) 100 (Andi Green) Physical Examination GENERAL: Eyes closed. Moving about in bed. Readily responds & interacts. No apparent distress. In 4-point soft restraints. HEENT: Right-sided facial swelling & ecchymosis resolving w/abrasions & lacerations healing w/o complication. Bilateral periorbital ecchymosis resolving. PERRLA 3 mm brisk, bilateral subconjunctival haemorrhages R>L resolving. MUSCULOSKELETAL: THIBODEAUX w/o difficulty. No evident clubbing or deformity. NEUROLOGICAL: Eyes closed but readily responds & interacts. Oriented to person, place but not time (states year as 1908, when asked month says 12/10/07). Eye opening to command. Speech garbled, dysarthric, slowing of speech and thought processes. Follows some simple commands correctly. Sensation appears intact to light touch to all extremities. Muscle strength w/o any apparent deficit. (Andi Green) Lab, Micro, Other Results Recent Impressions Chest X-Ray 05/23/17 0600 Signed Impressions: Service Date/Time: Tuesday, May 23, 2017 03:50 - CONCLUSION: Hazy airspace disease remains in both lungs without significant change. Gerardo Sharp MD Chest X-Ray 05/23/17 0000 Signed Impressions: Service Date/Time: Tuesday, May 23, 2017 17:29 - CONCLUSION: Slight interval worsening in hazy infiltrate calcific than the right. Rosas Mcginnis MD Chest X-Ray 05/23/17 0000 Signed Impressions: Service Date/Time: Tuesday, May 23, 2017 08:46 - CONCLUSION: Bilateral non-consolidative airspace disease, stable. Juan Sun MD Abdomen X-Ray 05/23/17 0000 Signed Impressions: Service Date/Time: Tuesday, May 23, 2017 19:43 - CONCLUSION: 1. Dobbhoff catheter coiled in the stomach with tip projecting toward the fundus. Dobbhoff catheter should be retracted at least 12 cm prior to readvancement attempt. Joel Parker MD Abdomen X-Ray 05/23/17 0000 Signed Impressions: Service Date/Time: Tuesday, May 23, 2017 17:22 - CONCLUSION: 1. Nasoenteric feeding type catheter coiled in the proximal stomach. 2. Redemonstration of few loops of mildly prominent small bowel in the left/mid abdomen. This may reflect developing adynamic ileus. Joel Parker MD Abdomen X-Ray 05/23/17 0000 Signed Impressions: Service Date/Time: Tuesday, May 23, 2017 15:42 - CONCLUSION: Dobbhoff catheter tip is projected over the proximal stomach. Juan Sun MD Abdomen X-Ray 05/22/17 0000 Signed Impressions: Service Date/Time: Monday, May 22, 2017 11:25 - CONCLUSION: Tip of the weighted feeding tube in the region of the body of the stomach. Juan Castillo Jr., MD Laboratory Tests Test 05/21/17 13:42 05/21/17 14:30 05/21/17 16:07 05/22/17 04:13 Potassium Level 3.4 MEQ/L 3.1 MEQ/L Adenovirus (PCR) NOT DETECTED Bordetella holmesii (PCR) NOT DETECTED Bordetella pertussis DNA (PCR) NOT DETECTED B. parapertussis/bronchi (PCR) NOT DETECTED Human Metapneumovirus (PCR) NOT DETECTED Influenza Type A (RT-PCR) NOT DETECTED Influenza Type A (H1) (PCR) NOT DETECTED Influenza Type A (H3) (PCR) NOT DETECTED Influenza Type B (RT-PCR) NOT DETECTED Parainfluenza Type 1 (PCR) NOT DETECTED Parainfluenza Type 2 (PCR) NOT DETECTED Parainfluenza Type 3 (PCR) NOT DETECTED Parainfluenza Type 4 (PCR) NOT DETECTED Resp Syncytial Virus Type A (PCR) NOT DETECTED Resp Syncytial Virus Type B (PCR) NOT DETECTED Rhinovirus (PCR) NOT DETECTED White Blood Count 10.3 TH/MM3 10.1 TH/MM3 Red Blood Count 3.22 MIL/MM3 3.30 MIL/MM3 Hemoglobin 10.6 GM/DL 10.7 GM/DL Hematocrit 31.0 % 31.8 % Mean Corpuscular Volume 96.5 FL 96.2 FL Mean Corpuscular Hemoglobin 33.0 PG 32.5 PG Mean Corpuscular Hemoglobin Concent 34.3 % 33.7 % Red Cell Distribution Width 14.0 % 14.0 % Platelet Count 473 TH/MM3 468 TH/MM3 Mean Platelet Volume 8.1 FL 8.3 FL Neutrophils (%) (Auto) 81.6 % 79.4 % Lymphocytes (%) (Auto) 9.1 % 12.3 % Monocytes (%) (Auto) 7.8 % 6.5 % Eosinophils (%) (Auto) 0.7 % 1.0 % Basophils (%) (Auto) 0.8 % 0.8 % Neutrophils # (Auto) 8.4 TH/MM3 8.0 TH/MM3 Lymphocytes # (Auto) 0.9 TH/MM3 1.2 TH/MM3 Monocytes # (Auto) 0.8 TH/MM3 0.7 TH/MM3 Eosinophils # (Auto) 0.1 TH/MM3 0.1 TH/MM3 Basophils # (Auto) 0.1 TH/MM3 0.1 TH/MM3 CBC Comment DIFF FINAL DIFF FINAL Differential Comment Blood Urea Nitrogen 14 MG/DL Creatinine 1.30 MG/DL Random Glucose 93 MG/DL Total Protein 6.1 GM/DL Albumin 2.0 GM/DL Calcium Level 8.7 MG/DL Magnesium Level 2.1 MG/DL Alkaline Phosphatase 91 U/L Aspartate Amino Transf (AST/SGOT) 64 U/L Alanine Aminotransferase (ALT/SGPT) 57 U/L Total Bilirubin 0.4 MG/DL Sodium Level 146 MEQ/L Chloride Level 109 MEQ/L Carbon Dioxide Level 28.4 MEQ/L Anion Gap 9 MEQ/L Estimat Glomerular Filtration Rate 58 ML/MIN Test 05/22/17 12:34 05/22/17 17:25 05/22/17 22:33 05/23/17 05:20 Sodium Level 147 MEQ/L 148 MEQ/L 149 MEQ/L 149 MEQ/L Potassium Level 3.8 MEQ/L 3.6 MEQ/L White Blood Count 10.3 TH/MM3 Red Blood Count 2.92 MIL/MM3 Hemoglobin 9.6 GM/DL Hematocrit 28.2 % Mean Corpuscular Volume 96.6 FL Mean Corpuscular Hemoglobin 32.9 PG Mean Corpuscular Hemoglobin Concent 34.0 % Red Cell Distribution Width 14.3 % Platelet Count 488 TH/MM3 Mean Platelet Volume 7.6 FL Neutrophils (%) (Auto) 83.8 % Lymphocytes (%) (Auto) 7.2 % Monocytes (%) (Auto) 7.2 % Eosinophils (%) (Auto) 1.1 % Basophils (%) (Auto) 0.7 % Neutrophils # (Auto) 8.7 TH/MM3 Lymphocytes # (Auto) 0.7 TH/MM3 Monocytes # (Auto) 0.7 TH/MM3 Eosinophils # (Auto) 0.1 TH/MM3 Basophils # (Auto) 0.1 TH/MM3 CBC Comment DIFF FINAL Differential Comment Blood Urea Nitrogen 12 MG/DL Creatinine 1.13 MG/DL Random Glucose 128 MG/DL Total Protein 6.1 GM/DL Albumin 2.0 GM/DL Calcium Level 7.8 MG/DL Magnesium Level 2.1 MG/DL Alkaline Phosphatase 81 U/L Aspartate Amino Transf (AST/SGOT) 48 U/L Alanine Aminotransferase (ALT/SGPT) 48 U/L Total Bilirubin 0.2 MG/DL Chloride Level 115 MEQ/L Carbon Dioxide Level 27.3 MEQ/L Anion Gap 7 MEQ/L Estimat Glomerular Filtration Rate 68 ML/MIN Random Vancomycin Level 15.1 COMMENT Test 05/23/17 12:32 05/23/17 13:35 05/23/17 19:51 05/24/17 05:43 Sodium Level 149 MEQ/L 150 MEQ/L 149 MEQ/L Ammonia 45 MCMOL/L White Blood Count 12.9 TH/MM3 Red Blood Count 2.93 MIL/MM3 Hemoglobin 9.8 GM/DL Hematocrit 28.2 % Mean Corpuscular Volume 96.4 FL Mean Corpuscular Hemoglobin 33.4 PG Mean Corpuscular Hemoglobin Concent 34.7 % Red Cell Distribution Width 13.6 % Platelet Count 511 TH/MM3 Mean Platelet Volume 8.0 FL Neutrophils (%) (Auto) 83.6 % Lymphocytes (%) (Auto) 8.5 % Monocytes (%) (Auto) 6.1 % Eosinophils (%) (Auto) 1.0 % Basophils (%) (Auto) 0.8 % Neutrophils # (Auto) 10.8 TH/MM3 Lymphocytes # (Auto) 1.1 TH/MM3 Monocytes # (Auto) 0.8 TH/MM3 Eosinophils # (Auto) 0.1 TH/MM3 Basophils # (Auto) 0.1 TH/MM3 CBC Comment DIFF FINAL Differential Comment Blood Urea Nitrogen 14 MG/DL Creatinine 1.06 MG/DL Random Glucose 140 MG/DL Total Protein 6.7 GM/DL Albumin 2.1 GM/DL Calcium Level 8.7 MG/DL Magnesium Level 2.3 MG/DL Alkaline Phosphatase 87 U/L Aspartate Amino Transf (AST/SGOT) 40 U/L Alanine Aminotransferase (ALT/SGPT) 43 U/L Total Bilirubin 0.3 MG/DL Potassium Level 3.8 MEQ/L Chloride Level 112 MEQ/L Carbon Dioxide Level 28.9 MEQ/L Anion Gap 8 MEQ/L Estimat Glomerular Filtration Rate 74 ML/MIN (Andi Green) Medical Decision Making Impression and Plan Impression: 1. Traumatic brain injury with left occipital hemorrhagic contusion. 2. Right frontal scalp contusion with subgaleal hematoma 3. Right orbital fracture The patient is still confused. He is oriented to person & place, follows some simple commands and his muscle strength and sensation appear intact. T max 100.1 at noon yesterday. Reviewed labs for today. Interval development of leukocytosis. Essentially stable haemoglobin level. Interval increase in thrombocytosis. Sodium level 149. Interval improvement in renal function. Improvement in AST. Elevated ammonia level yesterday afternoon. CT brain demonstrated continued evolution of the left occipital haematoma w/slight decrease in edema. No evidence of a new haemorrhage. Plan: Discussed plan of care with patient. Discussed plan of care with Nursing. Primary management per Trauma. Critical care management per Vice President Tax. Neuro checks. Stat CT brain for any decline in neuro status. Okay for pharmacological DVT prophylaxis. Mechanical DVT prophylaxis. Stress ulcer prophylaxis. Mobilise patient w/assistance. Physical, Occupational & Speech Therapy. Will due CT brain in AM. (Andi Green) Attending Statement The exam, history, and the medical decision-making described in the above note were completed with the assistance of the mid-level provider. I reviewed and agree with the findings presented. I attest that I had a [id number] encounter with the patient on the same day, and personally performed and documented my assessment and findings in the medical record. (Eulogio Martins MD) Andi Green May 24, 2017 08:59 Eulogio Martins MD May 24, 2017 11:46
[2017-05-24] MEDS: BISACODYL 10 MG SUPP RECTAL SCH (09:00)
[2017-05-24] MEDS: SODIUM CHLORIDE 1 GRAM TAB PO SCH (09:27)
[2017-05-24] MEDS: LACTULOSE SYRUP 20 GM/30 ML CUP PO SCH ×2 (09:27→20:36)
[2017-05-24] MEDS: levETIRAcetam 500 MG TAB PO SCH ×2 (09:27→20:37)
[2017-05-24] MEDS: DOCUSATE SODIUM 50 MG/SENNA 8.6 MG TAB PO SCH ×2 (09:27→21:00)
[2017-05-24] MEDS: SODIUM CHLORIDE 0.9% FLUSH 10 ML FLUSH IVF PRN (09:28)
[2017-05-24] MEDS: FAMOTIDINE 20 MG/2 ML VIAL IV PUSH SCH ×2 (11:02→20:36)
[2017-05-24] MEDS: MAGNESIUM HYDROXIDE SUSP 30 ML CUP PO SCH ×2 (11:30→23:30)
--- NOTE | 2017-05-24 15:15 | HHI.IDPN ---
Subjective Subjective Remarks Mr. Nogueira is a 51-year-old male with past medical history significant for alcoholism reportedly was in alcoholic anonymous and possibly relapsed per . Patient was brought into the emergency room with a history of fall at 3 AM on the day of admission 05/13/2017. Patient and his went to bed at approximately 12 midnight. Patient's was awoken up by the sound of her shouting out for help. When she went looking for him she noticed he was covered in blood and there was a puddle of blood on the floor as well. She goes on to report that she found blood in almost all the house especially on the [place]. Despite all this patient refuses admission and for approximately 12 hours continue to remain in his own home. Patient's noted that he had both eyelids are swelling up to the point that he could not see. His brought him to the emergency room. Patient denies drinking but as per the he does drink alcohol on most every day. Blood alcohol level was less than 3. No history of any trauma or assault. On arrival in the emergency department patient's vital signs are stable. There is no history of vomiting and no clear-cut history of loss of consciousness per the . Patient does not have any history of seizure disorder. It is not clear if patient was found down on the floor for an extended period of time even on repeated questioning the . Patient was evaluated by trauma team and admission. Patient had a CT scan maxillofacial which showed multiple fractures of the right orbit including the inferior orbital wall and community fractures of the medial orbital wall. Intraorbital muscles remain within the orbit. There is also prominent periorbital soft tissue swelling extending into the frontal region. Chest x-ray showed some perihilar disease consistent with either pulmonary edema or infection. A CT of the head shows left occipital hematoma. Patient was seen by oral maxillofacial surgeon and no surgical interventions planned. Patient was also seen by ophthalmology. On patient became delirious appeared to be in alcohol withdrawal per notes. A CT showed increase in cerebral edema but the bleeds sites with stable. Patient is started on Precedex. On a rapid response team was called for tachypnea and tachycardia and altered mental status and was evaluated by the Halicat Team. Patient did have fevers and the first day of admission with thereafter. To be resolved and then recurred leading to blood cultures. These blood cultures are positive for MRSA and infectious disease is consulted for evaluation of this MRSA bacteremia in a patient status post trauma. Upon discussion with the : No history of skin abscesses or MRSA in the past. No history of any trauma or skin tears in the recent past. No history of being treated for endocarditis for epidural abscess. No history of any intravenous drug abuse h/o myalgias and body aches with sniffles prior to admission. Past Medical History Alcoholism Depression Overnight events reviewed. Restless, in restraints. On precedex. Fevers Tcurrent 101.8 Tube feeds in airway likely aspirated. No rash No diarrhea Antibiotics Vanco IV Lines Line sites with no e.o infection Past Medical History reviewed. Allergies: Coded Allergies: No Known Allergies (Unverified Allergy, Unknown, 05/13/17) Objective . Vital Signs Date Time Temp Pulse Resp B/P (MAP) Pulse Ox O2 Delivery O2 Flow Rate FiO2 05/24/17 12:09 95 Simple Mask 6.00 05/24/17 09:21 95 Nasal Cannula 2.00 05/24/17 06:00 67 05/24/17 04:21 97 Simple Mask 10.00 05/24/17 04:00 97.4 67 22 155/82 (106) 96 05/24/17 04:00 67 05/24/17 02:00 75 05/24/17 00:00 72 05/24/17 00:00 99.2 88 22 109/56 (73) 100 05/23/17 22:00 76 05/23/17 20:00 99.7 69 24 161/82 (108) 96 05/23/17 20:00 69 05/23/17 19:00 96 Nasal Cannula 2.00 05/23/17 18:12 95 Nasal Cannula 5.00 05/23/17 18:00 68 05/23/17 16:00 98.4 68 20 164/80 (108) 96 05/23/17 16:00 68 . Laboratory Tests Test 05/23/17 05:20 05/24/17 05:43 White Blood Count 10.3 TH/MM3 12.9 TH/MM3 Red Blood Count 2.92 MIL/MM3 2.93 MIL/MM3 Hemoglobin 9.6 GM/DL 9.8 GM/DL Hematocrit 28.2 % 28.2 % Mean Corpuscular Volume 96.6 FL 96.4 FL Mean Corpuscular Hemoglobin 32.9 PG 33.4 PG Mean Corpuscular Hemoglobin Concent 34.0 % 34.7 % Red Cell Distribution Width 14.3 % 13.6 % Platelet Count 488 TH/MM3 511 TH/MM3 Mean Platelet Volume 7.6 FL 8.0 FL Neutrophils (%) (Auto) 83.8 % 83.6 % Lymphocytes (%) (Auto) 7.2 % 8.5 % Monocytes (%) (Auto) 7.2 % 6.1 % Eosinophils (%) (Auto) 1.1 % 1.0 % Basophils (%) (Auto) 0.7 % 0.8 % Neutrophils # (Auto) 8.7 TH/MM3 10.8 TH/MM3 Lymphocytes # (Auto) 0.7 TH/MM3 1.1 TH/MM3 Monocytes # (Auto) 0.7 TH/MM3 0.8 TH/MM3 Eosinophils # (Auto) 0.1 TH/MM3 0.1 TH/MM3 Basophils # (Auto) 0.1 TH/MM3 0.1 TH/MM3 CBC Comment DIFF FINAL DIFF FINAL Differential Comment Laboratory Tests Test 05/22/17 17:25 05/22/17 22:33 05/23/17 05:20 05/23/17 12:32 Sodium Level 148 MEQ/L 149 MEQ/L 149 MEQ/L 149 MEQ/L Potassium Level 3.8 MEQ/L 3.6 MEQ/L Blood Urea Nitrogen 12 MG/DL Creatinine 1.13 MG/DL Random Glucose 128 MG/DL Total Protein 6.1 GM/DL Albumin 2.0 GM/DL Calcium Level 7.8 MG/DL Magnesium Level 2.1 MG/DL Alkaline Phosphatase 81 U/L Aspartate Amino Transf (AST/SGOT) 48 U/L Alanine Aminotransferase (ALT/SGPT) 48 U/L Total Bilirubin 0.2 MG/DL Chloride Level 115 MEQ/L Carbon Dioxide Level 27.3 MEQ/L Anion Gap 7 MEQ/L Estimat Glomerular Filtration Rate 68 ML/MIN Test 05/23/17 13:35 05/23/17 19:51 05/24/17 05:43 Ammonia 45 MCMOL/L Sodium Level 150 MEQ/L 149 MEQ/L Blood Urea Nitrogen 14 MG/DL Creatinine 1.06 MG/DL Random Glucose 140 MG/DL Total Protein 6.7 GM/DL Albumin 2.1 GM/DL Calcium Level 8.7 MG/DL Magnesium Level 2.3 MG/DL Alkaline Phosphatase 87 U/L Aspartate Amino Transf (AST/SGOT) 40 U/L Alanine Aminotransferase (ALT/SGPT) 43 U/L Total Bilirubin 0.3 MG/DL Potassium Level 3.8 MEQ/L Chloride Level 112 MEQ/L Carbon Dioxide Level 28.9 MEQ/L Anion Gap 8 MEQ/L Estimat Glomerular Filtration Rate 74 ML/MIN Imaging Last Impressions Abdomen X-Ray 05/22/17 0000 Signed Impressions: Service Date/Time: Monday, May 22, 2017 11:25 - CONCLUSION: Tip of the weighted feeding tube in the region of the body of the stomach. Juan Castillo Jr., MD Chest X-Ray 05/21/17 0600 Signed Impressions: Service Date/Time: Sunday, May 21, 2017 02:52 - CONCLUSION: Basilar airspace disease, improved from May 20. Arsh Leslie MD Head CT 05/17/17 0000 Signed Impressions: Service Date/Time: Wednesday, May 17, 2017 02:29 - CONCLUSION: Slightly decreased edema left occipital hematoma. No new bleed. Dion Lugo MD Carotid Artery Ultrasound 05/16/17 0000 Signed Impressions: Service Date/Time: Tuesday, May 16, 2017 10:30 - CONCLUSION: 1. Mild plaque with patent carotid arteries bilaterally. 2. Antegrade flow involving both vertebral arteries. Juan Castillo Jr., MD Chest CT 05/14/17 0000 Signed Impressions: Service Date/Time: Sunday, May 14, 2017 00:39 - CONCLUSION: 1. Negative for acute traumatic injury within the thorax. Fatty infiltration of the liver. Arsh Leslie MD Abdomen/Pelvis CT 05/14/17 0000 Signed Impressions: Service Date/Time: Sunday, May 14, 2017 00:39 - CONCLUSION: 1. Negative for acute traumatic injury within the abdomen or pelvis. Fatty liver. Arsh Leslie MD Maxillofacial CT 05/13/178 Signed Impressions: Service Date/Time: Saturday, May 13, 2017 22:22 - CONCLUSION: Multiple fractures of the right orbit including the inferior orbital wall and comminuted fractures of the medial orbital wall. Intraorbital muscles remain within the orbit. There is associated opacification of the right ethmoids and right maxillary sinus. There is also prominent alyssa-orbital soft tissue swelling extending into the frontal region. Juan Sun MD Cervical Spine CT 05/13/172207 Signed Impressions: Service Date/Time: Saturday, May 13, 2017 22:22 - CONCLUSION: Moderately advanced discogenic degenerative changes C4-C6 with associated retrolisthesis of C4 to C5 and reversal of the upper cervical lordosis. No fracture seen. Juan Sun MD Physical Exam GENERAL: Well built well nourished patient, in no apparent distress. SKIN: Multiple areas of ecchymosis. HEAD: Atraumatic. Normocephalic. No temporal or scalp tenderness. EYES: Severe Periorbital edema and ecchymosis noted. On left forehead just above the eye there is a golf ball size. Overall periorbital erythema much improved. ENT: Nose without bleeding, purulent drainage or septal hematoma. Throat without erythema, tonsillar hypertrophy or exudate. Uvula midline. Airway patent. NECK: Trachea midline. Supple, nontender, no meningeal signs. CARDIOVASCULAR: HS audible. RESPIRATORY: Clear to auscultation. Breath sounds equal bilaterally. No wheezes , rales, or rhonchi. GASTROINTESTINAL: Abdomen soft, non-tender, nondistended. MUSCULOSKELETAL: Extremities without clubbing, cyanosis, or edema. NEUROLOGICAL: Drowsy,arousable, knows he is at the hospital. Moves all 4 extremities. Psych could not be assessed IV line sites with no e.o infection Assessment & Plan Remarks MRSA bacteremia: likely secondary to Infected hematoma. Other possibility is MRSA pneumonia (post flu or post aspiration) Multiple facial fractures Orbital fractures with periorbital hematoma Alcoholism Recs: Continue Vanco IV (target 15-20) Fever possibly from aspiration pneumonitis. Check CXR: if infiltrates consider aspiration coverage christiano if worsening signs of sepsis. follow repeat blood cultures till negative. ECHO negative for vegetations. Follow cultures follow clinically. Dw patients Olivia Hamilton MD May 24, 2017 15:15
--- NOTE | 2017-05-24 15:27 | HHI.CCPN ---
Subjective Brief History 51-year-old male came to the emergency room with history of a trip and fall as per him at 3 AM early this morning. Since then he has noticed that both his eyelids have been swelling up and is almost swelling shot so he cannot see. His brought him to the emergency room. Patient denied drinking but as per the he does drink alcohol every day. Currently patient is sober and answering questions. Patient denies any assault. Vital signs are stable. No history of vomiting or loss of consciousness as per the . 24 Hour Review/Hospital Course 05/15 Patient was slightly confused in the morning he urinated to the floor Since then he has been more stable Patient is alcoholic he was started on the CIWA protocol The CT scan of the head is pending, his GCS is [address] scan of the abdomen and pelvis and chest were negative for any injuries Neurosurgical ophthalmology and OMFS consults are pending 05/15/2017 This morning patient is somewhat confused but awake Adamantly denies alcohol use however went into delirium tremens had to be placed on Precedex drip and CIWA protocol Pupils equal reactive bruising over the both orbits and forehead Hemodynamically stable Bilateral good breath sounds Neurologically patient remains stable and can transfer to the floor once off Precedex Patient remains in the ICU due to delirium tremens and no specific traumatic injury 05/16/2017 Patient doing much better today neurologically Off Precedex Per neuropsychologist patient placed on appropriate regimen int face of alcoholism He is awake alert but disoriented at times Communicates with short sentences Pupils equal reactive and facial bruising is slowly receding Moves all 4 extremities does not have appreciable motoric deficit Bilateral breath sounds good inspiratory effort Tolerates diet well Transfer to floor when bed available 05/17/2017 Patient with above noted head injury was transferred to floor yesterday but became restless was given 10 mg of Ativan within 15 minute time which of course lead to respiratory depression, hypotension and distress and patient was transferred back to the ICU Patient remains confused with Lind Coma Scale of about 11 CT scan reveals resolving left occipital cerebral contusion/ hematoma Hemodynamically patient is stable Bilateral breath sounds decreased over the both lung kern consistent with likely aspiration into the both lungs Chest x-ray also reveals bilateral pulmonary infiltrates in the bases I found patient this morning lying in Trendelenburg position which is invariably the cause of patient's aspiration Abdomen is soft Plan Medications have been adjusted with brain injury patient can be a candidate for Ativan CIWA protocol yet administering 10 mg of Ativan in very short period of time is clearly not the way to go Ativan has been DC'd Assistance from Dr. Angel is greatly appreciated Will manage patient expectantly and if he worsens he will require intubation and ventilatory support to the lung function improves 05/18 Patient is awake alert today in the morning His sodium is 136 breath sounds are equal bilaterally today Clearly more awake since the Ativan has been DC'd He is on Seroquel and valproic acid, swelling of his face is clearly better Abdomen is soft 05/19 Patient's tachypnea improved, he sats are mid 90s on supplemental oxygen His sodium is 136 he is on Precedex and ordered Blood cultures show MRSA and patient has been started on vancomycin His white cell count is within normal limits Chest x-ray yesterday showed fluid overload/infiltrate Patient is on hypertonic saline 05/20/2018 Patient slightly improved Still seems to be confused and answering questions intermittently with nodding and grunting Hemodynamically stable Bilateral breath sounds with coarse rhonchi bilateral PO2 FiO2 gradient gradually improving as hypovolemia is being addressed in fluid overload has been addressed Abdomen is soft patient is taking p.o. diet with assistance Still swollen lower extremities and patient being diuresed gently MRSA blood cultures 3. In this particular individual this is not unusual or surprising for patient ripped out about 7 or 8 IV sites in the past and each time IV had to be restarted so at some point MRSA from the skin was introduced into the bloodstream Infectious disease help greatly appreciated 05/21/2017 [address] is way more awake and alert today Gets restless and requires small dose of Haldol or Librium but definitely greatly improved over last few days DC Precedex today Responds to simple questions appropriately tolerates diet p.o. Bilateral breath sounds and improving PO2 FiO2 gradient Abdomen soft active bowel sounds Medical cafe manager help greatly appreciated 05/22 more awake alert still confused has dysphagia-seen and confirmed by speech and swallow na 146-off 2% Na-has been diuresed recently-will hold for now rising Cr 05/23 GCS 13 more agitated-resumed precedex start lactulose -for high ammonia CT head in am-to follow up evolution of the TBI NA 149--off 2%- holding diuresis-patient is autodiuresing-1000 cc daily dysphagia-nutritional support with dobhoff 05/24/2017 Patient neurologically still somewhat precarious, oriented 2 Answer simple questions appropriately but then appears to be somewhat somnolent and slightly obtunded for the rest of time without stimulated Hemodynamically stable Bilateral breath sounds with coarse rhonchi bilateral. Patient is expressing good inspiratory effort Abdomen is soft but p.o. intake is insufficient Plan We will repeat CT scan of the brain but most likely patient has traumatic encephalopathy due to injury and hypoxia on the scene In addition patient has some degree of hyperammonemia as a result of his liver insufficiency and drinking history Sodium is normal and hypertonic saline been removed Dobbhoff tube is placed for feedings Objective Vital Signs Date Time Temp Pulse Resp B/P (MAP) Pulse Ox O2 Delivery O2 Flow Rate FiO2 05/24/17 12:09 95 Simple Mask 6.00 05/24/17 08:00 98.0 66 28 168/97 (120) 05/23/17 09:00 50 Intake and Output 05/24/17 05/24/17 05/25/17 08:00 16:00 00:00 Intake Total 173 ml Output Total 700 ml Balance -527 ml Result Diagram: 05/24/17 0543 05/24/17 0543 Disinhibition Score: 17.50 Aggression Score: 14.00 Lability Score: 14.00 Agitated Behavior Total Score: 16 Assessment and Plan Plan not progressing last 48 hrs MRSA -sepsis -vanco IV-ID hold diuresis for now start LR@50 cc/hr monitor Na,volume status tube feeds for nutritional support Attestation Critical care time 35 minutes Douglas Tinsley MD May 24, 2017 15:27
--- NOTE | 2017-05-24 15:54 | RADRPT ---
EXAM DATE/TIME: 05/24/2017 15:21 [facility] COMPARISON: CHEST SINGLE AP, May 23, 2017, 17:29. ABDOMEN SINGLE VIEW, May 23, 2017, 19:43. INDICATIONS : Short of breath. MEDICAL HISTORY : ETOH abuse. SURGICAL HISTORY : None. ENCOUNTER: Subsequent ACUITY: 4 - 6 days PAIN SCORE: Non-responsive LOCATION: Bilateral chest FINDINGS: The nasogastric tubes in satisfactory position. Heart is mildly enlarged. There is diffuse bilateral infiltrate right greater than left. Findings would be consistent with a pneumonia. This appears mildl y worse when compared to previous dated 05/23/17. The visualized bony structures are intact. CONCLUSION: 1. Bilateral infiltrates concerning for a pneumonia. Rory Kauffman MD on May 24, 2017 at 15:50 Board Certified Radiologist. This report was verified electronically.
--- NOTE | 2017-05-24 16:22 | HHI.CCPN ---
Subjective Remarks/Hospital Course Hospital Course: 51-year-old male came to the emergency room with history of a trip and fall as per him at 3 AM early this morning. Since then he has noticed that both his eyelids have been swelling up and is almost swelling shot so he cannot see. His brought him to the emergency room. Patient denied drinking but as per the he does drink alcohol every day. Currently patient is sober and answering questions. Patient denies any assault. Vital signs are stable. No history of vomiting or loss of consciousness as per the . Subjective: 05/15: still delirious, in etoh withdraw. some increase in cerebral edema, bleeds stable in size. remains on precedex. 05/16: Remains on Precedex gtt. Drowsy, arousable. 05/17: At 2 AM rapid response team called for patients tachypnea tachycardia and altered mental status. Has received [facility] 05/18: Tachypneic with fluctuating mental status today. Blood cultures growing MRSA. Patient is drowsy but easily arousable, following commands. Knows he is in the hospital. On 2 L nasal cannula maintaining O2 sats around 92%. Gets tachypneic with respiratory rate 30s at times. 05/19: Remains tachypneic. Bilateral crackles. Stop iv fluid and start diuretics. Apparently agitated last night. Calm now on precedex. 05/20: Persistent failure despite diuresis. 05/21: Breathing much improved after 5.5 liter diuresis. CXR still reveals cephalization of flow and overload; continue BID lasix. 05/22: Per nursing patient was agitated throughout the night. This AM more calm , awake, responding t some questions. Diuresed well, negative 2833 ml in the last 24 hours. His father is at bedside. ROS - limited by patient's mental status - but denies CP, SOB, palpitations, KENDRICK. 05/23: Called at bedside by nursing due to desaturation. On arrival, patient on NRM, O2 sat 96%, patient having a coughing spell. Shortly after Dobbhoff placement patient started experiencing the episode. Dobbhoff removed immediately and patient was suctioned. Stat CXR done showed no evidence of pneumothorax. Still with episodes of agitation over the night. I/O 1015/2150, negative 4 liters since admission. 05/24: No events over the night. Patient continues to require Precedex, lethargic, but easily arousable. Follows some simple commands. T-max of 100.1 , good urine output. Objective Vital Signs Date Time Temp Pulse Resp B/P (MAP) Pulse Ox O2 Delivery O2 Flow Rate FiO2 05/24/17 14:00 80 05/24/17 12:09 95 Simple Mask 6.00 05/24/17 12:00 98.4 21 155/85 (108) 05/23/17 09:00 50 Intake and Output 05/24/17 05/24/17 05/24/17 07:59 15:59 23:59 Intake Total 173 ml Output Total 700 ml Balance -527 ml Result Diagram: 05/24/17 0543 05/24/17 0543 Imaging Last Impressions Chest X-Ray 05/23/17 0600 Signed Impressions: Service Date/Time: Tuesday, May 23, 2017 03:50 - CONCLUSION: Hazy airspace disease remains in both lungs without significant change. Gerardo Sharp MD Abdomen X-Ray 05/22/17 0000 Signed Impressions: Service Date/Time: Monday, May 22, 2017 11:25 - CONCLUSION: Tip of the weighted feeding tube in the region of the body of the stomach. Juan Castillo Jr., MD Head CT 05/17/17 0000 Signed Impressions: Service Date/Time: Wednesday, May 17, 2017 02:29 - CONCLUSION: Slightly decreased edema left occipital hematoma. No new bleed. Dion Lugo MD Carotid Artery Ultrasound 05/16/17 0000 Signed Impressions: Service Date/Time: Tuesday, May 16, 2017 10:30 - CONCLUSION: 1. Mild plaque with patent carotid arteries bilaterally. 2. Antegrade flow involving both vertebral arteries. Juan Castillo Jr., MD Chest CT 05/14/17 0000 Signed Impressions: Service Date/Time: Sunday, May 14, 2017 00:39 - CONCLUSION: 1. Negative for acute traumatic injury within the thorax. Fatty infiltration of the liver. Arsh Leslie MD Abdomen/Pelvis CT 05/14/17 0000 Signed Impressions: Service Date/Time: Sunday, May 14, 2017 00:39 - CONCLUSION: 1. Negative for acute traumatic injury within the abdomen or pelvis. Fatty liver. Arsh Leslie MD Maxillofacial CT 05/13/172207 Signed Impressions: Service Date/Time: Saturday, May 13, 2017 22:22 - CONCLUSION: Multiple fractures of the right orbit including the inferior orbital wall and comminuted fractures of the medial orbital wall. Intraorbital muscles remain within the orbit. There is associated opacification of the right ethmoids and right maxillary sinus. There is also prominent alyssa-orbital soft tissue swelling extending into the frontal region. Juan Sun MD Cervical Spine CT 05/13/172207 Signed Impressions: Service Date/Time: Saturday, May 13, 2017 22:22 - CONCLUSION: Moderately advanced discogenic degenerative changes C4-C6 with associated retrolisthesis of C4 to C5 and reversal of the upper cervical lordosis. No fracture seen. Juan Sun MD Last [address] 05/13/172207 Signed Impressions: Service Date/Time: Saturday, May 13, 2017 22:22 - CONCLUSION: Multiple fractures of the right orbit including the inferior orbital wall and comminuted fractures of the medial orbital wall. Intraorbital muscles remain within the orbit. There is associated opacification of the right ethmoids and right maxillary sinus. There is also prominent alyssa-orbital soft tissue swelling extending into the frontal region. Juan Sun MD Head CT 05/13/172207 Signed Impressions: Service Date/Time: Saturday, May 13, 2017 22:22 - CONCLUSION: 1. Greater than 4 cm parenchymal hematoma left occipital lobe and prominent soft tissue swelling in the right periorbital and frontal region suggests contrecoup injury. No significant mass effect or cerebral edema at this point. 2. Suspected abnormalities in the right orbit, ethmoid sinus, and maxillary sinus. CT facial bones to be performed. Juan Sun MD Chest X-Ray 05/13/172207 Signed Impressions: Service Date/Time: Saturday, May 13, 2017 22:19 - CONCLUSION: No infiltrates seen. No evidence of pneumothorax. Juan Sun MD Cervical Spine CT 05/13/172207 Signed Impressions: Service Date/Time: Saturday, May 13, 2017 22:22 - CONCLUSION: Moderately advanced discogenic degenerative changes C4-C6 with associated retrolisthesis of C4 to C5 and reversal of the upper cervical lordosis. No fracture seen. Juan Sun MD Disinhibition Score: 17.50 Aggression Score: 14.00 Lability Score: 14.00 Agitated Behavior Total Score: 16 Objective Remarks General - middle age gentleman, lethargic, easily arousable, ill-appearing HEENT - pupils equal, reactive, sclerae anicteric, subconjuctival hemorrhage, periorbital ecchymosis bilaterally, resolving, neck supple, no rigidity, no JVD , dry abrasions on the scalp on the vertex CV - regular heart sounds, no murmurs Chest -still with scattered coarse breath sounds b/l, good air entry, no wheezes Abdomen - soft, non-tender, non-distended, BS present Skin - multiple old bruises on bilateral shins Extremities - warm, no edema, + peripheral pulses Neuro -lethargic, easily arousable, confused, follows some commands, moves all extremities A/P Assessment and Plan Agitated Delirium Etoh Withdraw - On librium taper, seroquel and valproate per trauma team. - On Precedex - frequent neuro checks - elevated ammonia on lactulose ICH - re-admitted to ICU - ICH post fall -Repeat CT head today per trauma - Neuro checks per unit protocol - Further per neurosurgery - On Keppra Multiple fractures of the right orbit - OMFS consultation: non-op MRSA bacteremia Severe sepsis - On iv Vanco, followed by ID - Repeat blood cx are with no growth to date - TTE w/o evidence of vegetation DVT GI prophylaxis - Teds SCDs - No pharmacological DVT prophylaxis due to ICH - Pepcid Acute hypoxic respiratory failure Pulmonary Edema/Heart Failure -Lasix stopped by trauma - Has electrolyte repletion protocol - Reduce IV fluid - Bronchodilators Please call back with any questions or if additional help is needed. Thank you Todd Araujo MD May 24, 2017 16:22
--- NOTE | 2017-05-24 16:23 | RADRPT ---
EXAM DATE/TIME: 05/24/2017 15:55 [facility] COMPARISON: CT BRAIN W/O CONTRAST, May 17, 2017, 2:29. INDICATIONS : Intracranial bleed RADIATION DOSE: 41.79 CTDIvol (mGy) MEDICAL HISTORY : Syncope liver disease,itracranial bleed SURGICAL HISTORY : None. ENCOUNTER: Initial ACUITY: 1 day PAIN SCALE: Non-responsive LOCATION: cranial TECHNIQUE: Multiple contiguous axial images were obtained of the head. Using automated exposure control and adj ustment of the mA and/or kV according to patient size, radiation dose was kept as low as reasonably a chievable to obtain optimal diagnostic quality images. DICOM format image data is available electro nically for review and comparison. FINDINGS: CEREBRUM: Left occipital hematoma with surrounding edema measures 5.8 cm in oblique with, not significantly michael nged in size from prior examination. The density of the blood products is slightly less than on prio r. There is no effacement of the occipital horns and no evidence of midline shift. No extra-axial f luid collections. POSTERIOR FOSSA: The cerebellum and brainstem are intact. The 4th ventricle is midline. The cerebellopontine angle i s unremarkable. EXTRACRANIAL: The visualized portion of the orbits is intact. Persistent air-fluid level in the right maxillary si nus. SKULL: Stable right frontal and supraorbital soft tissue swelling. The calvaria is intact. No evidence of skull fracture. CONCLUSION: 1. Left occipital hemorrhage and surrounding edema is similar in appearance to prior examination 05/17. 2. Stable right maxillary air-fluid level. Juan Sun MD on May 24, 2017 at 16:20 Board Certified Radiologist. This report was verified electronically.
[2017-05-24] MEDS: FAMOTIDINE 20 MG TAB PO SCH (21:00)
[2017-05-24] MEDS ORDERED: PHARMACY ORDERED LAB ONE (23:45)
[2017-05-25] VITALS (13 sets, daily range): BP systolic 115–168; BP diastolic 59–90; PULSE 59–82; RESP 19–29; TEMP 98.2–99; O2SAT 92–99
[2017-05-25] MEDS: DEXMEDETOMIDINE INJ 1,000 MCG in SODIUM CHLOR 0.9% 250 ML INJ 240 ML IV PRN ×2 (02:26→20:44)
[2017-05-25] MEDS: CHLORHEXIDINE GLUCONATE 2 % 1 PACK (2 CLOTHS) TOP SCH ×2 (04:00→19:29)
[2017-05-25] MEDS: QUEtiapine FUMARATE 100 MG TAB PO SCH ×2 (04:21→10:45)
[2017-05-25] MEDS: VALPROATE INJ 250 MG in SODIUM CHLORIDE 0.9% INJ 100 ML IV SCH (04:21)
[2017-05-25 05:38] LABS: BASOPHIL # 0.1 TH/MM3 (0-0.2); BASOPHIL % 0.6 % (0.0-2.0); EOSINOPHIL # 0.1 TH/MM3 (0-0.4); HEMATOCRIT 29.8 % (39.0-51.0); HEMOGLOBIN 10.3 GM/DL (13.0-17.0); LYMPH % 9.4 % (9.0-44.0); LYMPHOCYTE # 1.1 TH/MM3 (1.0-4.8); MEAN CELL VOLUME 99.8 FL (80.0-100.0); MEAN CORPUSCULAR HEMOGLOBIN 34.6 PG (27.0-34.0); MEAN CORPUSCULAR HGB CONC 34.7 % (32.0-36.0); MEAN PLATELET VOLUME 8.2 FL (7.0-11.0); MONO % 6.3 % (0.0-8.0); MONOCYTE # 0.8 TH/MM3 (0-0.9); NEUT % 82.7 % (16.0-70.0); PLATELET COUNT 462 TH/MM3 (150-450); RED BLOOD COUNT 2.98 MIL/MM3 (4.50-5.90); WHITE BLOOD COUNT 12.1 TH/MM3 (4.0-11.0)
[2017-05-25 06:00] LABS: BICARBONATE 29.8 MEQ/L (21.0-32.0); CALCIUM 8.3 MG/DL (8.5-10.1); CREATININE 1.08 MG/DL (0.60-1.30)
--- NOTE | 2017-05-25 06:10 | RADRPT ---
EXAM DATE/TIME: 05/25/2017 05:18 [facility] COMPARISON: CT BRAIN W/O CONTRAST, May 24, 2017, 15:55. INDICATIONS : Contusion. Followup left occipital hemorrhage and edema. RADIATION DOSE: 66.34 CTDIvol (mGy) MEDICAL HISTORY : Non-responsive. SURGICAL HISTORY : Non-responsive. ENCOUNTER: Initial ACUITY: 1 day PAIN SCALE: Non-responsive LOCATION: cranial TECHNIQUE: Multiple contiguous axial images were obtained of the head. Using automated exposure control and adj ustment of the mA and/or kV according to patient size, radiation dose was kept as low as reasonably a chievable to obtain optimal diagnostic quality images. DICOM format image data is available electro nically for review and comparison. FINDINGS: Patient is tilted differently in the scanning gantry. There is focal soft tissue swelling over t he right frontal bone. The left occipital hematoma and edema are not significantly changed. There is no new hemorrhage or mass effect. The ventricular system remains within normal limits. There is no mi dline shift. The posterior fossa and brain rkabl. The bone windows remain stable in appearance with m ucosal thickening and air-fluid level in the right maxillary sinus. There is mucosal thickening in th e right ethmoidal air cells as well. CONCLUSION: 1. No significant change in the intracranial hemorrhage. 2. No new hemorrhage or mass effect. 3. Mucosal thickening and air-fluid level in right maxillary sinus. Gerardo Sharp MD on May 25, 2017 at 6:05 Board Certified Radiologist. This report was verified electronically.
[2017-05-25] MEDS: HEPARIN SODIUM - SQ 10,000 UNITS/ML VIAL SQ SCH ×3 (06:23→20:44)
--- NOTE | 2017-05-25 08:00 | HHI.PR ---
Neuropsych Behavior Behavior: Mild: Impulsive/Agitated Cognitive Cognitive: Severe: Cognitive, Attention/Concentration, Confused/Orientation, Insight/Awareness, Judgement/Problem-Solving, Memory Psychosocial Psychosocial: Moderate: Psychosocial, Family/Other Adjustment, Realistic Expectation, Unable to Asses: Self-Esteem/Confidence Progress Notes/Response to Tx Contents of Sessions: Adjustment, Level of Consciousness Time with Patient: 30 minutes Premorbid psychological status Premorbid Cognitive, Emotional and Behavioral Status: Stable. 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 The patient has no known prior psychiatric difficulties, as described above. Substance abuse history includes alcohol dependence. Behavioral Reactions of Patient and Family/Support System: Deferred. The patients family is experiencing ongoing issues of adjustment given the nature of the injury, and this aspect of recovery will require ongoing monitoring. Emotional/Behavioral Status of Patient and Family/Support System: Stable. Pertinent issues, if appropriate to this patients clinical care, are described in detail above. Maximizing acute care outcome It is recommended that the patient be monitored for emergent behavioral impulsivity as the medical condition evolves. This patients neuropathological challenges may limit his rehabilitation potential going forward, and these challenges will require specialized therapeutic skills to maximize outcome. At this point in the recovery process, the patient does not have cognitive capacity as the patient is unable to understand a situation and its likely consequences, nor is he able to manipulate information rationally. Cognitive capacity will be assessed throughout the recovery process. Anticipated Problems Ongoing areas of concern will include behavioral impulsivity, lack of insight and judgment, which is expected to improve with time and treatment. Presently , the patient is in delirium 2T alcohol withdrawals. Given the severity of the patient's injuries it is my clinical opinion that this patient will be unable to return to any type of productive employment for at least one year, perhaps longer and likely never. This patient is not considered safe to discharge home with supervision. Treatment Plan This clinician will continue to follow with you throughout the course of this patients acute care treatment, and I will be available to meet with the patient s family/support system to facilitate their understanding and the ongoing care of their family member. The goals of neuropsychological intervention shall be both educational and supportive to the family/support system as is deemed clinically appropriate. Disinhibition Score: 17.50 Aggression Score: 14.00 Lability Score: 14.00 Agitated Behavior Total Score: 16 Impression 51 year old male s/p TBI 2T fall from ladder on 05/13/2017, now in alcohol withdrawals. Diagnosis: (1) Alcohol dependence in controlled environment (2) Mild major neurocognitive disorder due to traumatic brain injury with behavioral disturbance Progress Note Narrative PTD 12. The patient is neurologically improved somewhat, answering simple questions. He is to undergo repeat head CT today. He is neurobehaviorally unstable again in spite of Seroquel 100 TID, VPA 250 TID and Precedex, and has required Haldol today. His ABS was 16 (17.5,14,14) but audit shows it has not been done since 05/24 at 0200, for which I will follow up with field project manager, probably an issue with how it was ordered. The patient remains a Rancho IV, medicated. Trauma team consensus is to start Geodon 20 BID as an adjunct to the VPA. I will follow. Meño Angel PhD May 25, 2017 8:00 am
[2017-05-25 08:08] LABS: BANDS 7 % (0-6); BASOPHILS 1 % (0-2); LYMPHOCYTES 17 % (9-44); MONOCYTES 7 % (0-8); PLASMA CELLS 1 % (0-0); POLYS (SEG NEUTROPHILS) 67 % (16-70)
[2017-05-25] MEDS: FAMOTIDINE 20 MG TAB PO SCH ×2 (08:51→20:40)
[2017-05-25] MEDS: levETIRAcetam 500 MG TAB PO SCH ×2 (08:51→20:40)
[2017-05-25] MEDS: SODIUM CHLORIDE 0.9% FLUSH 10 ML FLUSH IVF PRN (08:51)
[2017-05-25] MEDS: DOCUSATE SODIUM 50 MG/SENNA 8.6 MG TAB PO SCH ×2 (08:51→20:44)
[2017-05-25] MEDS: HALOPERIDOL LACTATE 5 MG/ML AMP IV PUSH PRN (08:51)
[2017-05-25] MEDS: LACTULOSE SYRUP 20 GM/30 ML CUP PO SCH ×2 (08:52→20:03)
[2017-05-25] MEDS: BISACODYL 10 MG SUPP RECTAL SCH (08:52)
--- NOTE | 2017-05-25 08:52 | HHI.NSPN ---
(PhoenixAndi) History Chief Complaint: Unable to obtain due to mental status. (NormaAndi SHI) Interval History 05/14: The patient is a 51-year-old male who reportedly fell from a ladder approximately 3 AM on 05/13/2017. He waited until last evening to come to the emergency room, apparently due to progressive swelling around his eyes. No seizure activity reported. No emesis reported. No definite loss of consciousness. He does have a history of alcohol abuse. He complains of blurred vision. 05/15/17: Remains confused. He was agitated last evening-placed on Precedex 05/16: This morning the patient is awake and alert in bed visiting with his . The dexmedetomidine drip is on hold. He does have a soft wrist restraint to the right wrist due to his pulling at the [place]. He says he is doing well. He denies any headache or dizziness. He has some blurry vision when he first opens his eyes but it quickly clears. He denies any double vision. He denies any pain, numbness, tingling or weakness to the extremities. His only complaint is an occasional cough. His muscle strength and sensation remain intact. His confusion and speech are improved. 05/17: When seen this morning the patient had returned to [facility] from the med/surg floor due to delirium tremens and being overdosed on lorazepam. He was given flumazenil to reverse the lorazepam. He had a decrease level of consciousness but did interact with coaxing and followed some commands correctly. 05/18: The patient is in four point soft restraints when seen this morning. He was asleep but awoke to voice. Mild tremors were noted to his upper extremities when awake. He did endorse "A little bit" of a headache but no dizziness or blurry or double vision. He had no pain, numbness, tingling or weakness to the extremities. He did follow commands and his muscle strength and sensation were good. 05/19: This morning the patient seems to be lethargic. He does awaken to voice but drifts back off to sleep readily. He stated that "It's a little rough this morning." He interacted with repeated verbal stimulation. His motor and sensory exam were stable. He is confused as to time. He is now in contact isolation due to blood cultures with MRSA in three bottles. 05/22: The patient has his eyes closed this morning when seen but he is talking with his . He readily responds and interacts although his speech is somewhat garbled, dysarthric and slow. He is in four point soft restraints. He follows commands. He is confused and having hallucinations, reporting a flying saucer struck him. He denies any headache or dizziness but does state that he is "A little wobbly." He has no pain, numbness, tingling or weakness to the extremities. 05/23: The patient was receiving a breathing treatment when seen and then was placed on high flow nasal cannula. He was attempting to get out of bed repeatedly. He followed commands and was oriented to person and place but not time. He denied any headache or dizziness. He denied any extremity pain, numbness, tingling or weakness. 05/24: This morning the patient is drowsy. He is on a simple face mask. He is confused as to time but knows he is in [facility]. He does move all extremities spontaneously and to command. He follows most commands correctly. He had no complaints and denied any headache or dizziness or any pain, numbness , tingling or weakness to the extremities. Nursing reported that hypertonic saline was discontinued by Trauma. 05/25: When seen the patient is lethargic. He does respond to voice but his voice his garbled and almost incomprehensible. He interacts but does require more stimulation to do so. There is no evident decline in his sensation or motor strength. He remains oriented to person and place. (Andi Green) System Review Comments Unable to obtain due to mental status. (Andi Green) Exam Results 05/23/17 05/23/17 05/24/17 05/24/17 05/25/17 05/25/17 06:00 18:00 06:00 18:00 06: 18:00 Intake Total 420 ml 400 ml 1323 ml 924 ml 876 ml Output Total 900 ml 1250 ml 700 ml 1000 ml 1000 ml Balance -480 ml -850 ml 623 ml -76 ml -124 ml IV Total 400 ml 1150 ml 600 ml 450 ml Tube Feeding 360 ml 173 ml 204 ml 366 ml Tube Irrigant 60 ml Other 120 ml 60 ml Output Urine Total 900 ml 1250 ml 700 ml 1000 ml 1000 ml # Bowel Movements 1 0 0 1 Vital Signs Date Time Temp Pulse Resp B/P (MAP) Pulse Ox O2 Delivery O2 Flow Rate FiO2 05/25/17 06:00 76 05/25/17 04:00 59 05/25/17 04:00 98.8 59 23 155/83 (107) 95 05/25/17 02:00 75 05/25/17 00:00 64 05/25/17 00:00 98.2 64 23 159/89 (112) 99 05/24/17 22:00 78 05/24/17 21:35 96 Simple Mask 6.00 05/24/17 20:00 65 05/24/17 20:00 97.7 65 24 132/71 (91) 99 05/24/17 19:00 99 Simple Mask 6.00 05/24/17 18:00 64 05/24/17 16:00 100.7 71 22 147/84 (105) 97 05/24/17 16:00 71 05/24/17 14:00 80 05/24/17 12:09 95 Simple Mask 6.00 05/24/17 12:00 98.4 83 21 155/85 (108) 98 05/24/17 12:00 83 05/24/17 10:00 75 05/24/17 09:21 95 Nasal Cannula 2.00 05/24/17 08:00 96 Simple Mask 6.00 05/24/17 08:00 98.0 66 28 168/97 (120) 96 05/24/17 08:00 66 05/24/17 06:00 67 05/24/17 04:21 97 Simple Mask 10.00 05/24/17 04:00 97.4 67 22 155/82 (106) 96 05/24/17 04:00 67 05/24/17 02:00 75 05/24/17 00:00 72 05/24/17 00:00 99.2 88 22 109/56 (73) 100 05/23/17 22:00 76 05/23/17 20:00 99.7 69 24 161/82 (108) 96 2/20/18 20:00 69 05/23/17 19:00 96 Nasal Cannula 2.00 05/23/17 18:12 95 Nasal Cannula 5.00 05/23/17 18:00 68 05/23/17 16:00 98.4 68 20 164/80 (108) 96 05/23/17 16:00 68 05/23/17 14:00 70 05/23/17 12:00 83 05/23/17 12:00 100.1 83 19 139/77 (97) 99 05/23/17 10:00 96 05/23/17 09:00 95 High Flow Nasal Cannula 30.00 50 05/23/17 08:00 90 05/23/17 08:00 98 Nasal Cannula 3.00 05/23/17 08:00 99.6 90 25 127/94 (105) 98 05/23/17 06:00 81 05/23/17 04:00 84 05/23/17 04:00 97.9 81 25 121/67 (85) 95 05/23/17 02:00 90 05/23/17 00:00 91 05/23/17 00:00 98.0 90 26 121/70 (87) 95 05/22/17 22:00 93 05/22/17 20:00 98.1 89 25 115/66 (82) 98 05/22/17 20:00 97 Nasal Cannula 3.00 05/22/17 20:00 89 05/22/17 18:00 87 18 18:00 85 05/22/17 16:00 94 05/22/17 16:00 98.3 85 18 122/70 (87) 94 05/22/17 14:00 103 05/22/17 12:00 85 05/22/17 12:00 98.3 77 27 145/79 (101) 100 05/22/17 10:00 90 (Andi Green) Physical Examination GENERAL: Lethargic in bed. Responds & interacts w/coaxing. No apparent distress. In 4-point soft restraints. HEENT: Right-sided facial swelling & ecchymosis resolving w/abrasions & lacerations healing w/o complication. Bilateral periorbital ecchymosis resolving. PERRLA 3 mm brisk, bilateral subconjunctival haemorrhages R>L resolving. MUSCULOSKELETAL: THIBODEAUX w/o difficulty. No evident clubbing or deformity. NEUROLOGICAL: Lethargic and requires coaxing to interact. Oriented to person & place but not time. No eye opening to any stimulation Speech more garbled and incomprehensible at times, dysarthric, slowing of speech and thought processes. Follows simple commands. Sensation appears intact to light touch to all extremities. Muscle strength w/o any apparent deficit. (Andi Green) Physical Examination Lethargic in bed. Responds & interacts w/coaxing. No apparent distress. In 4- point soft restraints. HEENT: Right-sided facial swelling & ecchymosis resolving w/abrasions & lacerations healing w/o complication. Bilateral periorbital ecchymosis resolving. PERRLA 3 mm brisk, bilateral subconjunctival haemorrhages R>L resolving. MUSCULOSKELETAL: THIBODEAUX w/o difficulty. No evident clubbing or deformity. NEUROLOGICAL: Lethargic and requires coaxing to interact. Oriented to person & place but not time. No eye opening to any stimulation Speech more garbled and incomprehensible at times, dysarthric, slowing of speech and thought processes. Follows simple commands. Sensation appears intact to light touch to all extremities. Muscle strength w/o any apparent deficit. (Adelso Romeo MD) Lab, Micro, Other Results Reviewed images for the CT brain completed this morning and compared those with the scans completed on and . Demonstrated continued evolution of the left occipital contusion and surrounding edema. No evidence of new haemorrhage or mass effect. Recent Impressions Head CT 05/25/17 0600 Signed Impressions: Service Date/Time: May 05:18 - CONCLUSION: 1. No significant change in the intracranial hemorrhage. 2. No new hemorrhage or mass effect. 3. Mucosal thickening and air-fluid level in right maxillary sinus. Gerardo Sharp MD Head CT 05/24/17 0000 Signed Impressions: Service Date/Time: Wednesday, May 24, 2017 15:55 - CONCLUSION: 1. Left occipital hemorrhage and surrounding edema is similar in appearance to prior examination 05/17/17. 2. Stable right maxillary air-fluid level. Juan Sun MD Chest X-Ray 05/24/17 0000 Signed Impressions: Service Date/Time: Wednesday, May 24, 2017 15:21 - CONCLUSION: 1. Bilateral infiltrates concerning for a pneumonia. Rory Kauffman MD Chest X-Ray 05/23/17 0600 Signed Impressions: Service Date/Time: Tuesday, May 23, 2017 03:50 - CONCLUSION: Hazy airspace disease remains in both lungs without significant change. Gerardo Sharp MD Chest X-Ray 05/23/17 0000 Signed Impressions: Service Date/Time: Tuesday, May 23, 2017 17:29 - CONCLUSION: Slight interval worsening in hazy infiltrate calcific than the right. Rosas Mcginnis MD Chest X-Ray 05/23/17 0000 Signed Impressions: Service Date/Time: Tuesday, May 23, 2017 08:46 - CONCLUSION: Bilateral non-consolidative airspace disease, stable. Juan Sun MD Abdomen X-Ray 05/23/17 0000 Signed Impressions: Service Date/Time: Tuesday, May 23, 2017 19:43 - CONCLUSION: 1. Dobbhoff catheter coiled in the stomach with tip projecting toward the fundus. Dobbhoff catheter should be retracted at least 12 cm prior to readvancement attempt. Joel Parker MD Abdomen X-Ray 05/23/17 0000 Signed Impressions: Service Date/Time: Tuesday, May 23, 2017 17:22 - CONCLUSION: 1. Nasoenteric feeding type catheter coiled in the proximal stomach. 2. Redemonstration of few loops of mildly prominent small bowel in the left/mid abdomen. This may reflect developing adynamic ileus. Joel Parker MD Abdomen X-Ray 05/23/17 0000 Signed Impressions: Service Date/Time: Tuesday, May 23, 2017 15:42 - CONCLUSION: Dobbhoff catheter tip is projected over the proximal stomach. Juan Sun MD Laboratory Tests Test 05/22/17 12:34 05/22/17 17:25 05/22/17 22:33 05/23/17 05:20 Sodium Level 147 MEQ/L 148 MEQ/L 149 MEQ/L 149 MEQ/L Potassium Level 3.8 MEQ/L 3.6 MEQ/L White Blood Count 10.3 TH/MM3 Red Blood Count 2.92 MIL/MM3 Hemoglobin 9.6 GM/DL Hematocrit 28.2 % Mean Corpuscular Volume 96.6 FL Mean Corpuscular Hemoglobin 32.9 PG Mean Corpuscular Hemoglobin Concent 34.0 % Red Cell Distribution Width 14.3 % Platelet Count 488 TH/MM3 Mean Platelet Volume 7.6 FL Neutrophils (%) (Auto) 83.8 % Lymphocytes (%) (Auto) 7.2 % Monocytes (%) (Auto) 7.2 % Eosinophils (%) (Auto) 1.1 % Basophils (%) (Auto) 0.7 % Neutrophils # (Auto) 8.7 TH/MM3 Lymphocytes # (Auto) 0.7 TH/MM3 Monocytes # (Auto) 0.7 TH/MM3 Eosinophils # (Auto) 0.1 TH/MM3 Basophils # (Auto) 0.1 TH/MM3 CBC Comment DIFF FINAL Differential Comment Blood Urea Nitrogen 12 MG/DL Creatinine 1.13 MG/DL Random Glucose 128 MG/DL Total Protein 6.1 GM/DL Albumin 2.0 GM/DL Calcium Level 7.8 MG/DL Magnesium Level 2.1 MG/DL Alkaline Phosphatase 81 U/L Aspartate Amino Transf (AST/SGOT) 48 U/L Alanine Aminotransferase (ALT/SGPT) 48 U/L Total Bilirubin 0.2 MG/DL Chloride Level 115 MEQ/L Carbon Dioxide Level 27.3 MEQ/L Anion Gap 7 MEQ/L Estimat Glomerular Filtration Rate 68 ML/MIN Random Vancomycin Level 15.1 COMMENT Test 05/23/17 12:32 05/23/17 13:35 05/23/17 19:51 05/24/17 05:43 Sodium Level 149 MEQ/L 150 MEQ/L 149 MEQ/L Ammonia 45 MCMOL/L White Blood Count 12.9 TH/MM3 Red Blood Count 2.93 MIL/MM3 Hemoglobin 9.8 GM/DL Hematocrit 28.2 % Mean Corpuscular Volume 96.4 FL Mean Corpuscular Hemoglobin 33.4 PG Mean Corpuscular Hemoglobin Concent 34.7 % Red Cell Distribution Width 13.6 % Platelet Count 511 TH/MM3 Mean Platelet Volume 8.0 FL Neutrophils (%) (Auto) 83.6 % Lymphocytes (%) (Auto) 8.5 % Monocytes (%) (Auto) 6.1 % Eosinophils (%) (Auto) 1.0 % Basophils (%) (Auto) 0.8 % Neutrophils # (Auto) 10.8 TH/MM3 Lymphocytes # (Auto) 1.1 TH/MM3 Monocytes # (Auto) 0.8 TH/MM3 Eosinophils # (Auto) 0.1 TH/MM3 Basophils # (Auto) 0.1 TH/MM3 CBC Comment DIFF FINAL Differential Comment Blood Urea Nitrogen 14 MG/DL Creatinine 1.06 MG/DL Random Glucose 140 MG/DL Total Protein 6.7 GM/DL Albumin 2.1 GM/DL Calcium Level 8.7 MG/DL Magnesium Level 2.3 MG/DL Alkaline Phosphatase 87 U/L Aspartate Amino Transf (AST/SGOT) 40 U/L Alanine Aminotransferase (ALT/SGPT) 43 U/L Total Bilirubin 0.3 MG/DL Potassium Level 3.8 MEQ/L Chloride Level 112 MEQ/L Carbon Dioxide Level 28.9 MEQ/L Anion Gap 8 MEQ/L Estimat Glomerular Filtration Rate 74 ML/MIN Test 05/25/17 00:15 05/25/17 04:45 Vancomycin Level Trough 22.3 MCG/ML White Blood Count 12.1 TH/MM3 Red Blood Count 2.98 MIL/MM3 Hemoglobin 10.3 GM/DL Hematocrit 29.8 % Mean Corpuscular Volume 99.8 FL Mean Corpuscular Hemoglobin 34.6 PG Mean Corpuscular Hemoglobin Concent 34.7 % Red Cell Distribution Width 14.0 % Platelet Count 462 TH/MM3 Mean Platelet Volume 8.2 FL Neutrophils (%) (Auto) 82.7 % Lymphocytes (%) (Auto) 9.4 % Monocytes (%) (Auto) 6.3 % Eosinophils (%) (Auto) 1.0 % Basophils (%) (Auto) 0.6 % Neutrophils # (Auto) 10.0 TH/MM3 Lymphocytes # (Auto) 1.1 TH/MM3 Monocytes # (Auto) 0.8 TH/MM3 Eosinophils # (Auto) 0.1 TH/MM3 Basophils # (Auto) 0.1 TH/MM3 CBC Comment AUTO DIFF Differential Total Cells Counted 100 Neutrophils % (Manual) 67 % Band Neutrophils % 7 % Lymphocytes % 17 % Monocytes % 7 % Basophils % 1 % Neutrophils # (Manual) 9.0 TH/MM3 Differential Comment FINAL DIFF MANUAL Plasma Cells 1 % Platelet Estimate HIGH Platelet Morphology Comment NORMAL Blood Urea Nitrogen 14 MG/DL Creatinine 1.08 MG/DL Random Glucose 131 MG/DL Calcium Level 8.3 MG/DL Sodium Level 150 MEQ/L Potassium Level 3.4 MEQ/L Chloride Level 112 MEQ/L Carbon Dioxide Level 29.8 MEQ/L Anion Gap 8 MEQ/L Estimat Glomerular Filtration Rate 72 ML/MIN (Andi Green) Lab, Micro, Other Results Current Medications Diphtheria/ Tetanus/Acell Pertussis (Boostrix Inj) 0.5 ml ONCE ONCE IM Last administered on 05/13/17at 22:21; Start 05/13/17 at 22:15; Stop 05/13/17 at 22:16 ; Status DC Sodium Chloride (NS Flush) 2 ml UNSCH PRN IVF FLUSH AFTER USING IV ACCESS Last administered on 05/26/17at 09:32; Start 05/13/17 at 22:15 Cefazolin Sodium/ Dextrose 50 ml @ 100 mls/hr ONCE ONCE IV Last administered on 05/13/17at 22:21; Start 05/13/17 at 22:15; Stop 05/13/17 at 22:44; Status DC Lidocaine HCl (Xylocaine 1% Inj) 30 ml ONCE ONCE INFIL Last administered on 01/18at 22:58; Start 05/13/17 at 22:45; Stop 05/13/17 at 22:46; Status DC Sodium Chloride 250 ml @ 15 mls/hr ONCE ONCE IV Last administered on at 01:43; Start 05/13/17 at 23:00; Stop 05/14/17 at 15:39; Status DC Sodium Chloride 1,000 ml @ 100 mls/hr Q10H IV Last administered on 05/18/17at 12:49; Start 05/13/17 at 23:30; Stop 05/19/17 at 08:02; Status DC Famotidine (Pepcid Inj) 20 mg Q12HR IV PUSH Last administered on 05/24/17at 20: 36; Start 05/14/17 at 09:00; Stop 05/24/17 at 20:59; Status DC Ondansetron HCl (Zofran Inj) 4 mg Q6H PRN IV PUSH NAUSEA OR VOMITING; Start 01/18 at 23:30 Miscellaneous Information 1 [id number] XX ; Start 05/13/17 at 23:30 Chlorhexidine Gluconate (Chlorhexidine 2% Cloth) Taper DAILY@04 TOP ; Start 02/18 at 04:00; Stop 05/10/18 at 03:59 Chlorhexidine Gluconate (Chlorhexidine 2% Cloth) 3 pack UNSCH PRN TOP HYGIENIC CARE; Start 05/13/17 at 23:30 Senna/Docusate Sodium (Riya-Colace) 1 tab BID PO Last administered on at 10:12; Start 05/14/17 at 09:00 Magnesium Hydroxide (Milk Of Magnesia Liq) 30 ml Q12H PRN PO Mild constipation ; Start 05/13/17 at 23:30; Stop 05/20/17 at 08:45; Status DC Sennosides (Senokot) 17.2 mg Q12H PRN PO Moderate constipation; Start 05/13/17 at 23:30 Bisacodyl (Dulcolax Supp) 10 mg DAILY PRN RECTAL SEVERE CONSITIPATION; Start at 23:30; Stop 05/17/17 at 17:12; Status DC Lactulose (Lactulose Liq) 30 ml DAILY PRN PO SEVERE CONSITIPATION; Start at 23:30; Stop 05/23/17 at 18:00; Status DC Levetriacetam 500 mg/Sodium Chloride 105 ml @ 420 mls/hr Q12HR IV Last administered on 05/16/17at 08:01; Start 05/13/17 at 23:45; Stop 05/16/17 at 10:08 ; Status DC Acetaminophen 100 ml @ 400 mls/hr Q6HR IV Last administered on 05/14/17at 18:00 ; Start 05/14/17 at 00:00; Stop 05/14/17 at 18:14; Status DC Oxycodone HCl (Roxicodone) 5 mg Q4H PRN PO PAIN SCALE 4 TO 6 Last administered on 05/24/17at 00:59; Start 05/13/17 at 23:45; Stop 05/25/17 at 14:34; Status DC Oxycodone HCl (Roxicodone) 10 mg Q4H PRN PO PAIN SCALE 7 TO 10 Last administered on 05/23/17at 02:37; Start 05/13/17 at 23:45; Stop 05/25/17 at 14:34 ; Status DC Pneumococcal Polyvalent Vaccine (Pneumovax-23 Inj) 25 mcg ONCE ONCE IM ; Start 05/14/17 at 09:00; Stop 05/14/17 at 09:01; Status DC Influenza Virus Vaccine (Flu (Quadrivalent) Vaccine Inj) 0.5 ml ONCE ONCE IM ; Start 05/14/17 at 09:00; Stop 05/14/17 at 09:01; Status DC Miscellaneous Information D/C ICU ELECTROLYTE ORDERS... UNSCH PRN .XX SEE DOSE INSTRUCTIONS; Start 05/14/17 at 07:15 Miscellaneous Information ICU - CALL ORDERING PHYSIC... UNSCH PRN .XX SEE DOSE INSTRUCTIONS; Start 05/14/17 at 07:15 Potassium Chloride 100 ml @ 25 mls/hr UNSCH PRN IV ELECTROLYTE REPLACEMENT; Start 05/14/17 at 07:15 Potassium Bicarb/ Potassium Chloride (K-Lyte Cl Eff) 50 meq UNSCH PRN PO ELECTROLYTE REPLACEMENT Last administered on 05/26/17at 09:32; Start 05/14/17 at 07:15 Potassium Chloride 100 ml @ 50 mls/hr UNSCH PRN IV ELECTROLYTE REPLACEMENT Last administered on 05/22/17at 17:48; Start 05/14/17 at 07:15 Magnesium Sulfate 4 gm/Sodium Chloride 108 ml @ 54 mls/hr UNSCH PRN IV ELECTROLYTE REPLACEMENT; Start 05/14/17 at 07:15 Magnesium Sulfate 2 gm/Sodium Chloride 104 ml @ 52 mls/hr UNSCH PRN IV ELECTROLYTE REPLACEMENT; Start 05/14/17 at 07:15 Magnesium Oxide (Mag-Ox) 800 mg UNSCH PRN PO ELECTROLYTE REPLACEMENT; Start 02/18 at 07:15 Sodium Phosphate 30 mmol/Sodium Chloride 260 ml @ 43.333 mls/ hr UNSCH PRN IV ELECTROLYTE REPLACEMENT; Start 05/14/17 at 07:15 Potassium Phosphate (K-Phos) 2,000 mg UNSCH PRN PO ELECTROLYTE REPLACEMENT; Start 05/14/17 at 07:15 Potassium Phosphate 30 mmol/ Sodium Chloride 260 ml @ 43.333 mls/ hr UNSCH PRN IV ELECTROLYTE REPLACEMENT; Start 05/14/17 at 07:15 Potassium Chloride 100 ml @ 50 mls/hr Q2H PRN IV For Potassium 2.8 - 3.2 mEq/L ; Start 05/14/17 at 07:15; Status UNV Potassium Chloride 100 ml @ 50 mls/hr Q2H PRN IV For Potassium 2.8 - 3.2 mEq/L ; Start 05/14/17 at 07:15; Status UNV Potassium Bicarb/ Potassium Chloride (K-Lyte Cl Eff) 50 meq UNSCH PRN PO For Potassium 3.3 - 3.5 mEq/L; Start 05/14/17 at 07:15; Status UNV Potassium Chloride 100 ml @ 25 mls/hr UNSCH PRN IV For Potassium 3.3 - 3.5 mEq /L; Start 05/14/17 at 07:15; Status UNV Potassium Chloride 100 ml @ 50 mls/hr Q2H PRN IV For Potassium 3.3 - 3.5 mEq/L ; Start 05/14/17 at 07:15; Status UNV Magnesium Sulfate 4 gm/Sodium Chloride 100 ml @ 50 mls/hr UNSCH PRN IV For Magnesium 0.9 - 1.1 mg/dL; Start 05/14/17 at 07:15; Status UNV Magnesium Oxide (Mag-Ox) 800 mg UNSCH PRN PO For Magnesium 1.2 - 1.6 mg/dL; Start 05/14/17 at 07:15; Status UNV Magnesium Sulfate 2 gm/Sodium Chloride 100 ml @ 50 mls/hr UNSCH PRN IV For Magnesium 1.2 - 1.6 mg/dL; Start 05/14/17 at 07:15; Status UNV Potassium Phosphate (K-Phos) 2,000 mg Q4H PRN PO For Phosphorus < 2.5 mg/dL; Start 05/14/17 at 07:15; Status UNV Sodium Phosphate 30 mmol/Sodium Chloride 250 ml @ 42 mls/hr UNSCH PRN IV For Phosphorus < 2.5 mg/dL; Start 05/14/17 at 07:15; Status UNV Potassium Phosphate (K-Phos) 2,000 mg UNSCH PRN PO/TUBE SEE LABEL COMMENTS; Start 05/14/17 at 07:15; Status UNV Potassium Phosphate 30 mmol/ Sodium Chloride 260 ml @ 42 mls/hr UNSCH PRN IV SEE LABEL COMMENTS; Start 05/14/17 at 07:15; Status UNV Potassium Bicarb/ Potassium Chloride (K-Lyte Cl Eff) 50 meq ONCE ONCE PO Last administered on 05/14/17at 09:39; Start 05/14/17 at 09:00; Stop 05/14/17 at 09:01; Status DC Diazepam (Valium) 5 mg Q8H PO Last administered on 05/17/17at 00:01; Start 05/14 at 09:00; Stop 05/25/17 at 14:34; Status DC Lorazepam (Ativan Inj) 2 mg Q15M PRN IV PUSH agitation; Start 05/14/17 at 08:30 ; Stop 05/14/17 at 09:50; Status DC Folic Acid (Folate) 1 mg DAILY PO Last administered on 05/16/17at 08:01; Start 05/14/17 at 09:45; Stop 05/17/17 at 09:52; Status DC Thiamine HCl (Vitamin B1) 100 mg DAILY PO Last administered on 05/16/17at 08:01 ; Start 05/14/17 at 09:45; Stop 05/17/17 at 09:52; Status DC Multivitamins/ Minerals Therapeutic (Theragran M Tab) 1 tab DAILY PO Last administered on 05/16/17at 08:01; Start 05/14/17 at 09:45; Stop 05/17/17 at 09:52 ; Status DC Flumazenil (Romazicon Inj) 0.2 mg Q1M PRN IV PUSH SEE LABEL COMMENTS Last administered on 05/17/17at 03:35; Start 05/14/17 at 09:45; Stop 05/17/17 at 09:52 ; Status DC Lorazepam (Ativan Inj) 1 mg Q4H PRN IV PUSH CIWA 8 - 10; Start 05/14/17 at 09: 45; Stop 05/17/17 at 09:52; Status DC Lorazepam (Ativan Inj) 2 mg Q2H PRN IV PUSH CIWA 11-14 Last administered on at 05:57; Start 05/14/17 at 09:45; Stop 05/17/17 at 09:52; Status DC Lorazepam (Ativan Inj) 2 mg Q15M PRN IV PUSH CIWA > 20 Last administered on at 01:45; Start 05/14/17 at 09:45; Stop 05/17/17 at 09:52; Status DC Sodium Chloride (Sodium Chloride) 1 gm DAILY PO Last administered on 05/15/17at 08:36; Start 05/14/17 at 09:45; Stop 05/15/17 at 09:42; Status DC Lorazepam (Ativan) 2 mg ONCE ONCE PO ; Start 05/14/17 at 13:00; Stop 05/14/17 at 13:08; Status DC Dexmedetomidine HCl 200 mcg/ Sodium Chloride 52 ml @ 4.5 mls/hr TITRATE PRN IV SEDATION Last administered on 05/15/17at 08:55; Start 05/14/17 at 13:15; Stop 05/15/17 at 12:56; Status DC Iohexol (Omnipaque 350 Inj) 94 ml STK-MED ONCE IVCONTRAST Last administered on 05/14/17at 00:39; Start 05/14/17 at 00:39; Stop 05/15/17 at 04:58; Status DC Sodium Chloride 188 meq/Sodium Chloride 1,047 ml @ 70 mls/hr [id number] IV Last administered on 05/18/17at 22:05; Start 05/15/17 at 11:00; Stop 05/19/17 at 08:02 ; Status DC Dexmedetomidine HCl 1000 mcg/ Sodium Chloride 250 ml @ 4.33 mls/hr TITRATE PRN IV SEDATION Last administered on 05/15/17at 13:28; Start 05/15/17 at 13:00; Stop 05/17/17 at 11:54; Status DC Levetriacetam (Keppra) 500 mg Q12HR PO Last administered on 05/16/17at 20:14; Start 05/16/17 at 21:00; Stop 05/17/17 at 17:12; Status DC Acetaminophen (Tylenol) 650 mg Q6HR PRN PO fever > 101.5 Last administered on at 20:24; Start 05/16/17 at 10:15 Chlordiazepoxide (Librium) 5 mg Taper Q6H PO Last administered on 05/24/17at 01: 00; Start 05/17/17 at 02:00; Stop 05/24/17 at 09:26; Status DC Flumazenil (Romazicon Inj) 0.2 mg Q1M PRN IV PUSH SEE LABEL COMMENTS; Start at 02:00; Stop 05/17/17 at 09:52; Status DC Lorazepam (Ativan) 1 mg Q4H PRN PO CIWA 8 - 10; Start 05/17/17 at 02:00; Stop 05/17/17 at 09:52; Status DC Lorazepam (Ativan Inj) 1 mg Q4H PRN IV PUSH CIWA 8 - 10; Start 05/17/17 at 02: 00; Stop 05/17/17 at 09:52; Status DC Lorazepam (Ativan) 2 mg Q2H PRN PO CIWA 11-14; Start 05/17/17 at 02:00; Stop at 09:52; Status DC Lorazepam (Ativan Inj) 2 mg Q2H PRN IV PUSH CIWA 11-14; Start 05/17/17 at 02:00 ; Stop 05/17/17 at 09:52; Status DC Lorazepam (Ativan Inj) 2 mg Q1H PRN IV PUSH CIWA 15-20; Start 05/17/17 at 02:00 ; Stop 05/17/17 at 09:52; Status DC Lorazepam (Ativan Inj) 2 mg Q15M PRN IV PUSH CIWA > 20; Start 05/17/17 at 02:00 ; Stop 05/17/17 at 09:52; Status DC Multivitamins 10 ml/Thiamine HCl 100 mg/Folic Acid 1 mg/Sodium Chloride 511.2 ml @ 125 mls/hr ONCE ONCE IV Last administered on 05/17/17at 05:22; Start at 04:00; Stop 05/17/17 at 08:05; Status DC Potassium Chloride 100 ml @ 50 mls/hr Q2H PRN IV For Potassium 2.8 - 3.2 mEq/L ; Start 05/17/17 at 02:45 Potassium Chloride 100 ml @ 50 mls/hr Q2H PRN IV For Potassium 2.8 - 3.2 mEq/ L Last administered on 05/22/17at 15:01; Start 05/17/17 at 02:45 Potassium Bicarb/ Potassium Chloride (K-Lyte Cl Eff) 50 meq UNSCH PRN PO For Potassium 3.3 - 3.5 mEq/L; Start 05/17/17 at 02:45 Potassium Chloride 100 ml @ 25 mls/hr UNSCH PRN IV For Potassium 3.3 - 3.5 mEq /L; Start 05/17/17 at 02:45 Potassium Chloride 100 ml @ 50 mls/hr Q2H PRN IV For Potassium 3.3 - 3.5 mEq/L ; Start 05/17/17 at 02:45 Magnesium Sulfate 4 gm/Sodium Chloride 100 ml @ 50 mls/hr UNSCH PRN IV For Magnesium 0.9 - 1.1 mg/dL; Start 05/17/17 at 02:45 Magnesium Oxide (Mag-Ox) 800 mg UNSCH PRN PO For Magnesium 1.2 - 1.6 mg/dL; Start 05/17/17 at 02:45 Magnesium Sulfate 2 gm/Sodium Chloride 100 ml @ 50 mls/hr UNSCH PRN IV For Magnesium 1.2 - 1.6 mg/dL; Start 05/17/17 at 02:45 Potassium Phosphate (K-Phos) 2,000 mg Q4H PRN PO For Phosphorus < 2.5 mg/dL; Start 05/17/17 at 02:45 Sodium Phosphate 30 mmol/Sodium Chloride 250 ml @ 42 mls/hr UNSCH PRN IV For Phosphorus < 2.5 mg/dL; Start 05/17/17 at 02:45 Potassium Phosphate (K-Phos) 2,000 mg UNSCH PRN PO/TUBE SEE LABEL COMMENTS; Start 05/17/17 at 02:45 Potassium Phosphate 30 mmol/ Sodium Chloride 260 ml @ 42 mls/hr UNSCH PRN IV SEE LABEL COMMENTS; Start 05/17/17 at 02:45 Acetaminophen 100 ml @ 400 mls/hr Q6H PRN IV Fever Last administered on at 12:30; Start 05/17/17 at 03:30; Stop 05/17/17 at 13:11; Status DC Quetiapine Fumarate (SEROquel) 50 mg Q8H PO Last administered on 05/22/17at 20: 41; Start 05/17/17 at 12:00; Stop 05/23/17 at 09:51; Status DC Valproic Acid (Depakene) 250 mg TID PO ; Start 05/17/17 at 13:00; Stop 05/17/17 at 17:12; Status DC Haloperidol Lactate (Haldol Inj) 5 mg Q6H PRN IV PUSH agitation Last administered on 05/25/17at 08:51; Start 05/17/17 at 09:45; Stop 05/25/17 at 14:34 ; Status DC Acetaminophen 100 ml @ 400 mls/hr Q6H PRN IV Temp > 101, not vikas PO Last administered on 05/17/17at 22:51; Start 05/17/17 at 18:00 Bisacodyl (Dulcolax Supp) 10 mg DAILY RECTAL Last administered on 05/24/17at 09: 00; Start 05/17/17 at 20:00 Valproate Sodium 250 mg/Sodium Chloride 102.5 ml @ 105 mls/hr Q8HR IV Last administered on 05/25/17at 04:21; Start 05/17/17 at 18:00; Stop 05/25/17 at 10:09 ; Status DC Levetriacetam 500 mg/Sodium Chloride 105 ml @ 420 mls/hr Q12HR IV Last administered on 05/21/17at 07:38; Start 05/17/17 at 21:00; Stop 05/21/17 at 10:09 ; Status DC Heparin Sodium (Porcine) (Heparin Inj) 5,000 units Q8HR SQ Last administered on 05/26/17at 15:05; Start 05/18/17 at 14:00 Vancomycin HCl 1000 mg/Sodium Chloride 250 ml @ 250 mls/hr Q24H IV Last administered on 05/19/17at 16:00; Start 05/18/17 at 16:00; Stop 05/19/17 at 20:22 ; Status DC Dexmedetomidine HCl (Precedex Inj) 45 mcg ONCE ONCE IV PUSH ; Start 05/18/17 at 18:15; Stop 05/18/17 at 18:16; Status Cancel Dexmedetomidine HCl 200 mcg/ Sodium Chloride 52 ml @ 4.69 mls/hr TITRATE PRN IV SEDATION Last administered on 05/20/17at 03:29; Start 05/18/17 at 18:15; Stop 05/21/17 at 10:09; Status DC Furosemide (Lasix Inj) 20 mg ONCE ONCE IV PUSH Last administered on 05/18/17at 21:27; Start 05/18/17 at 20:00; Stop 05/18/17 at 20:01; Status DC Furosemide (Lasix Inj) 40 mg ONCE ONCE IV PUSH Last administered on 05/19/17at 09:10; Start 05/19/17 at 08:15; Stop 05/19/17 at 08:16; Status DC Sodium Chloride 188 meq/Sodium Chloride 1,047 ml @ 10 mls/hr Q24H IV Last administered on 05/22/17at 05:09; Start 05/19/17 at 12:00; Stop 05/22/17 at 09:26 ; Status DC Pharmacy Profile Note 0 ml @ 0 mls/hr UNSCH OTHER ; Start 05/19/17 at 18:00 Vancomycin/Sodium Chloride 200 ml @ 200 mls/hr NOW ONCE IV Last administered on 05/19/17at 21:38; Start 05/19/17 at 21:00; Stop 05/19/17 at 21:59; Status DC Vancomycin HCl 1750 mg/Sodium Chloride 517.5 ml @ 250 mls/hr Q12H IV Last administered on 05/22/17at 05:09; Start 05/20/17 at 06:00; Stop 05/23/17 at 09:08 ; Status DC Miscellaneous Information SPECIFIC LAB TO BE SHERRY... ONCE ONCE .XX ; Start 05/21 at 05:45; Stop 05/21/17 at 05:46; Status DC Magnesium Hydroxide (Milk Of Magnesia Liq) 30 ml Q12H PO Last administered on at 11:30; Start 05/20/17 at 11:30 Miscellaneous Information SPECIFIC LAB TO BE DRAWN:VANCO TROUGH DATE... ONCE ONCE .XX ; Start 05/21/17 at 05:45; Stop 05/21/17 at 05:46; Status DC Furosemide (Lasix Inj) 40 mg BID@18 IV PUSH Last administered on 05/21/17at 17:41; Start 05/20/17 at 14:00; Status Future Hold Potassium Chloride 100 ml @ 50 mls/hr Q2H IV Last administered on 05/20/17at 18 :06; Start 05/20/17 at 14:00; Stop 05/20/17 at 17:59; Status DC Levetriacetam (Keppra) 500 mg Q12HR PO Last administered on 05/26/17at 09:32; Start 05/21/17 at 21:00 Potassium Chloride (KCl) 50 meq UNSCH PRN PO FOR K+ 3.3 - 3.5 Last administered on 05/21/17at 14:27; Start 05/21/17 at 11:00 Artificial Tears (Tears Naturale Opth Soln) 1 drop BID PRN EACH EYE DRY EYE Last administered on 05/21/17at 12:31; Start 05/21/17 at 12:00 Sodium Chloride (Sodium Chloride) 1 gm BID PO Last administered on 05/24/17at 09 :27; Start 05/22/17 at 09:30; Stop 05/24/17 at 11:48; Status DC Sodium Chloride 1,000 ml @ 60 mls/hr [id number] IV Last administered on at 00:07; Start 05/22/17 at 09:30; Stop 05/23/17 at 09:51; Status DC Albuterol/ Ipratropium (Duoneb Neb) 1 ampule STK-MED ONCE .ROUTE ; Start at 08:46; Stop 05/23/17 at 08:47; Status DC Dexmedetomidine HCl 200 mcg/ Sodium Chloride 52 ml @ 4.51 mls/hr TITRATE PRN IV SEDATION Last administered on 05/24/17at 07:43; Start 05/23/17 at 09:00; Stop 05/24/17 at 07:53; Status DC Vancomycin HCl 1750 mg/Sodium Chloride 517.5 ml @ 250 mls/hr Q18H IV Last administered on 05/24/17at 06:00; Start 05/23/17 at 12:00; Stop 05/25/17 at 01:17 ; Status DC Miscellaneous Information SPECIFIC LAB TO BE DRAWN:VANCOMYCIN TROUGH DATE TO... ONCE ONCE .XX Last administered on 05/24/17at 23:45; Start 05/24/17 at 23:45; Stop 05/24/17 at 23:46; Status DC Quetiapine Fumarate (SEROquel) 100 mg Q8H PO Last administered on 05/25/17at 10: 45; Start 05/23/17 at 12:00; Stop 05/25/17 at 14:34; Status DC Lactated Ringer's 1,000 ml @ 50 mls/hr Q20H IV Last administered on 05/24/17at 06:24; Start 05/23/17 at 09:45; Stop 05/24/17 at 13:42; Status DC Acetaminophen 100 ml @ 400 mls/hr ONCE ONCE IV ; Start 05/23/17 at 14:30; Stop 05/23/17 at 14:44; Status DC Lactulose (Lactulose Liq) 30 ml BID PO Last administered on 05/24/17at 20:36; Start 05/23/17 at 21:00 Dexmedetomidine HCl 1000 mcg/ Sodium Chloride 260 ml @ 4.51 mls/hr TITRATE PRN IV SEDATION; Start 05/24/17 at 08:00; Stop 05/24/17 at 08:00; Status DC Dexmedetomidine HCl 1000 mcg/ Sodium Chloride 250 ml @ 4.34 mls/hr TITRATE PRN IV SEDATION Last administered on 05/25/17at 20:44; Start 05/24/17 at 08:00; Stop 05/26/17 at 09:55; Status DC Chlordiazepoxide (Librium) 50 mg Taper Q6H PO ; Start 05/24/17 at 09:30; Stop at 09:29; Status Cancel Chlordiazepoxide (Librium) 5 mg Q6H PO Last administered on 05/24/17at 23:52; Start 05/24/17 at 10:00; Stop 05/25/17 at 01:59; Status DC Famotidine (Pepcid) 20 mg BID PO Last administered on 05/26/17at 09:32; Start at 21:00 Vancomycin HCl 1750 mg/Sodium Chloride 517.5 ml @ 250 mls/hr Q18H IV Last administered on 05/26/17at 03:57; Start 05/25/17 at 10:00 Valproic Acid (Depakene Liq) 250 mg BID PO ; Start 05/25/17 at 21:00; Stop 05/25 at 21:00; Status DC Clonidine (Catapres-Tts 0.1mg Patch.7d) 1 patch Q7D T-DERMAL Last administered on 05/25/17at 11:44; Start 05/25/17 at 11:00 Ziprasidone (Geodon) 20 mg BID PO Last administered on 05/25/17at 10:45; Start 05/25/17 at 10:30; Stop 05/25/17 at 14:34; Status DC Miscellaneous Information 1 Q7D T-DERMAL ; Start 06/01/17 at 11:00 Piperacillin Sod/ Tazobactam Sod 100 ml @ 200 mls/hr Q6H IV Last administered on 05/26/17at 10:10; Start 05/25/17 at 17:00 Ziprasidone (Geodon) 20 mg BID PO ; Start 05/26/17 at 11:00; Stop 05/26/17 at 14 :04; Status DC Valproic Acid (Depakene) 250 mg Q12HR PO ; Start 05/26/17 at 11:00; Stop at 14:04; Status DC Haloperidol Lactate (Haldol Inj) 5 mg Q6HR PRN IV PUSH agitation; Start at 10:00 Miscellaneous Information SPECIFIC LAB TO BE SHERRY... ONCE ONCE .XX ; Start 05/28 at 09:45; Stop 05/28/17 at 09:46 Dexmedetomidine HCl 200 mcg/ Sodium Chloride 52 ml @ 0 mls/hr TITRATE PRN IV SEDATION; Start 05/26/17 at 14:15 (Adelso Romeo MD) Medical Decision Making Impression and Plan Impression: 1. Traumatic brain injury with left occipital hemorrhagic contusion. 2. Right frontal scalp contusion with subgaleal hematoma 3. Right orbital fracture The patient more lethargic although he remains oriented to person & place. Follows some simple commands and his muscle strength and sensation appear intact. His voice is more garbled and almost incomprehensible. T max 100.7 yesterday afternoon. Reviewed labs for today. Interval improvement of leukocytosis, haemoglobin level & thrombocytosis. Sodium level 150. Hypokalemia. Mild interval decrease in renal function. CT brain demonstrated stable left occipital haematoma & surrounding edema. No evidence of a new haemorrhage or mass effect. Plan: Discussed plan of care with patient & . Discussed plan of care with Nursing. Primary management per Trauma. Critical care management per Muck Operator. Neuro checks. Stat CT brain for any decline in neuro status. Okay for pharmacological DVT prophylaxis. Mechanical DVT prophylaxis. Stress ulcer prophylaxis. Mobilise patient w/assistance. Physical, Occupational & Speech Therapy. Will intermittently follow patient since no active issues for Neurosurgery. (Andi Green) Attending Statement As above. Continue nonoperative supportive care Pulmonary.. Continue aggressive pulmonary toilette, nasotracheal suction, and breathing treatments with nebulizers. Nutrition. NPO Renal. monitor closely urine output, BUN and creatinine Endocrine. Monitor serial Acu checks and SSI as needed in detail ID monitor for signs of infection Protonix for stress ulcer prophylaxis Craig hose and SCD's for DVT prophylaxis The exam, history, and the medical decision-making described in the above note were completed with the assistance of the mid-level provider. I reviewed and agree with the findings presented. I attest that I had a [id number] encounter with the patient on the same day, and personally performed and documented my assessment and findings in the medical record. (Adelso Romeo MD) Andi Green May 25, 2017 08:52 Adelso Romeo MD May 26, 2017 15:59
[2017-05-25] MEDS: VANCOMYCIN INJ 1,750 MG in SODIUM CHLORID 0.9% 500 ML INJ 500 ML IV SCH (10:00)
[2017-05-25] MEDS ORDERED: ZIPRASIDONE HCL 20 MG CAP PO SCH (10:30)
[2017-05-25] MEDS: MAGNESIUM HYDROXIDE SUSP 30 ML CUP PO SCH ×2 (11:30→23:30)
[2017-05-25] MEDS: cloNIDine HCL 0.1 MG/24 HR PATCH T-DERMAL SCH (11:44)
--- NOTE | 2017-05-25 15:34 | MB ---
cc: MIK SILVA DATE OF CONSULTATION 05/25/2017 REASON FOR CONSULTATION This is a 51-year-old right-handed man. He really does not have much of a past medical history. He was a heavy drinker, but had not drank in a few years regularly and not every day, but he did drink several days before. He woke up in the middle the night and presented to the hospital on 05/13/2017 after the day prior he had woken up and overnight fallen down on his face. He had a lot of bruising on the face and this had seemed to swell up and I believe he went to the hospital the next day. He was found to have a left occipital, was thought to be a contrecoup injury, with intraparenchymal hemorrhage components and thought to be a contusion on the brain. He was doing actually fairly well and was up an in a chair over the last weekend and then seemed to not do as well. The last time he seemed to be doing well was on the which was MondayMay 2017. He seems to have had a progressive decline since that time. REVIEW OF SYSTEMS According to his , no history of hypertension, diabetes, hypercholesterolemia, [place], CABG, cardiac arrhythmia, renal, hepatic or pulmonary disease, thyroid disease, lupus, ulcer, cancer seizure, or stroke. SOCIAL HISTORY He is a smoker. He does drink as noted intermittently. He lives with his . FAMILY HISTORY Positive for cancer, negative for seizure or stroke. CURRENT MEDICATIONS 1. He is on Depakote 250 b.i.d. which seemed to be started today. 2. Clonidine 3. Geodon 20 b.i.d. also started today. 4. Vancomycin started today. 5. Pepcid 6. Precedex 7. Lactulose 8. 100 mg of Seroquel started on the . 9. Keppra 500 b.i.d. started on the 10. Subcu Heparin 11. Haldol 5 mg given this morning at 8 a.m., written on the . 12. Valium until about the . 13. He has gotten some Oxycodone over the last several days. 14. He was on Librium 5 mg q.6 h from yesterday to today. 15. Geodon 20 mg b.i.d. Other meds that had been discontinued: 1. He had been on some Lasix. 2. He was on 50 of Seroquel every 8 hours up until of the . 3. He was on 5 of Librium q.6 h. 4. He was on Ativan injections up to 2 mg on the . PHYSICAL EXAM On exam, he is in the ICU in the bed, not intubated, afebrile, 160/87, 65. NECK: There were no carotid bruits. HEART: Regular rhythm. I did not detect a murmur. NEUROLOGICAL EXAM: Pupils are equal. I could not tell if his visual kern were full or not. His face appeared symmetric. I really could not get him to move his arms or legs. He wiggled his toes bilaterally for me to command and stuck his tongue out every so slightly, but did do so to command and that was me holding his eyes open and pinching him slightly. He never was really vocal for me. LABORATORY DATA His white count was 12.1, hematocrit 30, platelet count 462. Alcohol level was initially normal. UA on the was negative. His basic metabolic profile, his sodium is 150 and it has been running semi-elevated for the last three days. His BUN is normal as is his creatinine. LFTs initially were 217 and they have come down. ALT was 135 and that has come down. Ammonia level 45, up slightly, albumin 2.1. A CT scan of the brain as noted. He had one also done today that showed nothing new. He also had fractures of his orbit and some fluid in his sinuses. Review of the CT from today, the blood is resolving. He otherwise no major abnormality. IMPRESSION/PLAN I think probably, more than anything, his problems are medication. I would like to stop everything except his Precedex and see how he does off the meds. According to his , he is not a heavy drinker recently, however his LFTs were elevated when he came in and she says he does not hide any alcohol and drink without her knowing at least as far as she knows. We will also check an MRI of the brain on him and some additional blood work. Also check an EEG on him with the recent hemorrhage. MD DEXTER Kuhn/FELI /2:25 PM /2:55 PM
[2017-05-25] MEDS: PIPERACIL-TAZO 4.5 GM PREMIX 100 ML IV SCH ×2 (17:06→23:54)
--- NOTE | 2017-05-25 17:58 | HHI.CCPN ---
Subjective Brief History 51-year-old male came to the emergency room with history of a trip and fall as per him at 3 AM early this morning. Since then he has noticed that both his eyelids have been swelling up and is almost swelling shot so he cannot see. His brought him to the emergency room. Patient denied drinking but as per the he does drink alcohol every day. Currently patient is sober and answering questions. Patient denies any assault. Vital signs are stable. No history of vomiting or loss of consciousness as per the . 24 Hour Review/Hospital Course 05/15 Patient was slightly confused in the morning he urinated to the floor Since then he has been more stable Patient is alcoholic he was started on the CIWA protocol The CT scan of the head is pending, his GCS is [address] scan of the abdomen and pelvis and chest were negative for any injuries Neurosurgical ophthalmology and OMFS consults are pending 05/15/2017 This morning patient is somewhat confused but awake Adamantly denies alcohol use however went into delirium tremens had to be placed on Precedex drip and CIWA protocol Pupils equal reactive bruising over the both orbits and forehead Hemodynamically stable Bilateral good breath sounds Neurologically patient remains stable and can transfer to the floor once off Precedex Patient remains in the ICU due to delirium tremens and no specific traumatic injury 05/16/2017 Patient doing much better today neurologically Off Precedex Per neuropsychologist patient placed on appropriate regimen int face of alcoholism He is awake alert but disoriented at times Communicates with short sentences Pupils equal reactive and facial bruising is slowly receding Moves all 4 extremities does not have appreciable motoric deficit Bilateral breath sounds good inspiratory effort Tolerates diet well Transfer to floor when bed available 05/17/2017 Patient with above noted head injury was transferred to floor yesterday but became restless was given 10 mg of Ativan within 15 minute time which of course lead to respiratory depression, hypotension and distress and patient was transferred back to the ICU Patient remains confused with Mccamey Coma Scale of about 11 CT scan reveals resolving left occipital cerebral contusion/ hematoma Hemodynamically patient is stable Bilateral breath sounds decreased over the both lung kern consistent with likely aspiration into the both lungs Chest x-ray also reveals bilateral pulmonary infiltrates in the bases I found patient this morning lying in Trendelenburg position which is invariably the cause of patient's aspiration Abdomen is soft Plan Medications have been adjusted with brain injury patient can be a candidate for Ativan CIWA protocol yet administering 10 mg of Ativan in very short period of time is clearly not the way to go Ativan has been DC'd Assistance from Dr. Angel is greatly appreciated Will manage patient expectantly and if he worsens he will require intubation and ventilatory support to the lung function improves 05/18 Patient is awake alert today in the morning His sodium is 136 breath sounds are equal bilaterally today Clearly more awake since the Ativan has been DC'd He is on Seroquel and valproic acid, swelling of his face is clearly better Abdomen is soft 05/19 Patient's tachypnea improved, he sats are mid 90s on supplemental oxygen His sodium is 136 he is on Precedex and ordered Blood cultures show MRSA and patient has been started on vancomycin His white cell count is within normal limits Chest x-ray yesterday showed fluid overload/infiltrate Patient is on hypertonic saline 05/20/2018 Patient slightly improved Still seems to be confused and answering questions intermittently with nodding and grunting Hemodynamically stable Bilateral breath sounds with coarse rhonchi bilateral PO2 FiO2 gradient gradually improving as hypovolemia is being addressed in fluid overload has been addressed Abdomen is soft patient is taking p.o. diet with assistance Still swollen lower extremities and patient being diuresed gently MRSA blood cultures 3. In this particular individual this is not unusual or surprising for patient ripped out about 7 or 8 IV sites in the past and each time IV had to be restarted so at some point MRSA from the skin was introduced into the bloodstream Infectious disease help greatly appreciated 05/21/2017 [address] is [address] more awake and alert today Gets restless and requires small dose of Haldol or Librium but definitely greatly improved over last few days DC Precedex today Responds to simple questions appropriately tolerates diet p.o. Bilateral breath sounds and improving PO2 FiO2 gradient Abdomen soft active bowel sounds Medical traffic investigator help greatly appreciated 05/22 more awake alert still confused has dysphagia-seen and confirmed by speech and swallow na 146-off 2% Na-has been diuresed recently-will hold for now rising Cr 05/23 GCS 13 more agitated-resumed precedex start lactulose -for high ammonia CT head in am-to follow up evolution of the TBI NA 149--off 2%- holding diuresis-patient is autodiuresing-1000 cc daily dysphagia-nutritional support with dobhoff 05/24/2017 Patient neurologically still somewhat precarious, oriented 2 Answer simple questions appropriately but then appears to be somewhat somnolent and slightly obtunded for the rest of time without stimulated Hemodynamically stable Bilateral breath sounds with coarse rhonchi bilateral. Patient is expressing good inspiratory effort Abdomen is soft but p.o. intake is insufficient Plan We will repeat CT scan of the brain but most likely patient has traumatic encephalopathy due to injury and hypoxia on the scene In addition patient has some degree of hyperammonemia as a result of his liver insufficiency and drinking history Sodium is normal and hypertonic saline been removed Dobbhoff tube is placed for feedings 05/25/2017 Patient slightly better today he is oriented in person and space but not in time Neurologically motorically seems to be intact however obviously has cognitive deficits Repeat CT scan of the brain does not reveal any change in the left occipital contusion hematoma injury Patient currently on Seroquel/trazodone and as needed Haldol Required overnight Precedex and now on decreased dose Hemodynamically remained stable Bilateral good breath sounds good inspiratory effort and some secretions but not much Abdomen is soft. Patient is unable to take p.o. diet himself due to decreased level of consciousness and sort of altered affect so NG tube has been placed and enteral feedings are tolerated Patient can transfer to floor when bed available We will repeat bedside swallow study Monday Neurology consult ordered Objective Vital Signs Date Time Temp Pulse Resp B/P (MAP) Pulse Ox O2 Delivery O2 Flow Rate FiO2 05/25/17 11:25 94 Nasal Cannula 4.00 05/25/17 10:00 67 05/25/17 08:00 98.3 19 160/87 (111) 05/23/17 09:00 50 Intake and Output 05/25/17 05/25/17 05/26/17 08:00 16:00 00:00 Intake Total 876 ml Output Total 1000 ml Balance -124 ml Result Diagram: 05/25/17 0445 05/25/17444 Imaging Last [address] 05/25/17 0600 Signed Impressions: Service Date/Time: May 05:18 - CONCLUSION: 1. No significant change in the intracranial hemorrhage. 2. No new hemorrhage or mass effect. 3. Mucosal thickening and air-fluid level in right maxillary sinus. Gerardo Sharp MD Disinhibition Score: 17.50 Aggression Score: 14.00 Lability Score: 14.00 Agitated Behavior Total Score: 16 Exam LD TEACHER Patient slightly better today he is oriented in person and space but not in time Neurologically motorically seems to be intact however obviously has cognitive deficits Repeat CT scan of the brain does not reveal any change in the left occipital contusion hematoma injury Patient currently on Seroquel/trazodone and as needed Haldol Required overnight Precedex and now on decreased dose Hemodynamic/Cardiac Hemodynamically remained stable Pulmonary/Respiratory Bilateral good breath sounds good inspiratory effort and some secretions but not much Abdomen/GI Nutrition Abdomen is soft. Patient is unable to take p.o. diet himself due to decreased level of consciousness and sort of altered affect so NG tube has been placed and enteral feedings are tolerated Patient can transfer to floor when bed available Renal/I&O Preserved renal function Assessment and Plan Plan not progressing last 48 hrs MRSA -sepsis -vanco IV-ID hold diuresis for now start LR@50 cc/hr monitor Na,volume status tube feeds for nutritional support Attestation Critical care time 38 minutes Douglas Tinsley MD May 25, 2017 17:58
--- NOTE | 2017-05-25 19:20 | HHI.IDPN ---
Subjective Subjective Remarks Mr. Nogueira is a 51-year-old male with past medical history significant for alcoholism reportedly was in alcoholic anonymous and possibly relapsed per . Patient was brought into the emergency room with a history of fall at 3 AM on the day of admission 05/13/2017. Patient and his went to bed at approximately 12 midnight. Patient's was awoken up by the sound of her shouting out for help. When she went looking for him she noticed he was covered in blood and there was a puddle of blood on the floor as well. She goes on to report that she found blood in almost all the house especially on the [place]. Despite all this patient refuses admission and for approximately 12 hours continue to remain in his own home. Patient's noted that he had both eyelids are swelling up to the point that he could not see. His brought him to the emergency room. Patient denies drinking but as per the he does drink alcohol on most every day. Blood alcohol level was less than 3. No history of any trauma or assault. On arrival in the emergency department patient's vital signs are stable. There is no history of vomiting and no clear-cut history of loss of consciousness per the . Patient does not have any history of seizure disorder. It is not clear if patient was found down on the floor for an extended period of time even on repeated questioning the . Patient was evaluated by trauma team and admission. Patient had a CT scan maxillofacial which showed multiple fractures of the right orbit including the inferior orbital wall and community fractures of the medial orbital wall. Intraorbital muscles remain within the orbit. There is also prominent periorbital soft tissue swelling extending into the frontal region. Chest x-ray showed some perihilar disease consistent with either pulmonary edema or infection. A CT of the head shows left occipital hematoma. Patient was seen by oral maxillofacial surgeon and no surgical interventions planned. Patient was also seen by ophthalmology. On patient became delirious appeared to be in alcohol withdrawal per notes. A CT showed increase in cerebral edema but the bleeds sites with stable. Patient is started on Precedex. On a rapid response team was called for tachypnea and tachycardia and altered mental status and was evaluated by the [facility] Team. Patient did have fevers and the first day of admission with thereafter. To be resolved and then recurred leading to blood cultures. These blood cultures are positive for MRSA and infectious disease is consulted for evaluation of this MRSA bacteremia in a patient status post trauma. Upon discussion with the : No history of skin abscesses or MRSA in the past. No history of any trauma or skin tears in the recent past. No history of being treated for endocarditis for epidural abscess. No history of any intravenous drug abuse h/o myalgias and body aches with sniffles prior to admission. Past Medical History Alcoholism Depression delayed entry patient seen at ~ 5 pm/ Overnight events reviewed. On precedex. Fevers overnight Coughing with sanchez to brown secretions copious needing frequent suctioning. Witnessed aspiration of tube feeds. Abnormal CXR with pneumonia. No rash No diarrhea Antibiotics Vanco IV Lines Line sites with no e.o infection Past Medical History reviewed. Allergies: Coded Allergies: No Known Allergies (Unverified Allergy, Unknown, 05/13/17) Objective . Vital Signs Date Time Temp Pulse Resp B/P (MAP) Pulse Ox O2 Delivery O2 Flow Rate FiO2 05/25/17 18:00 65 05/25/17 16:00 82 05/25/17 16:00 98.3 82 29 115/59 (77) 93 05/25/17 14:00 64 05/25/17 12:00 79 05/25/17 12:00 99.0 79 23 168/90 (116) 97 05/25/17 11:25 94 Nasal Cannula 4.00 05/25/17 10:00 67 05/25/17 08:00 65 05/25/17 08:00 98.3 65 19 160/87 (111) 92 05/25/17 08:00 96 Simple Mask 6.00 05/25/17 06:00 76 05/25/17 04:00 59 05/25/17 04:00 98.8 59 23 155/83 (107) 95 05/25/17 02:00 75 05/25/17 00:00 64 05/25/17 00:00 98.2 64 23 159/89 (112) 99 05/24/17 22:00 78 05/24/17 21:35 96 Simple Mask 6.00 05/24/17 20:00 65 05/24/17 20:00 97.7 65 24 132/71 (91) 99 05/25/17 05/25/17 05/26/17 15:00 23:00 07:00 Intake Total 2560 ml Output Total 1000 ml Balance 1560 ml IV Total 2100 ml Tube Feeding 400 ml Other 60 ml Output Urine Total 1000 ml # Bowel Movements 2 . Laboratory Tests Test 05/24/17 05:43 05/25/17 04:45 White Blood Count 12.9 TH/MM3 12.1 TH/MM3 Red Blood Count 2.93 MIL/MM3 2.98 MIL/MM3 Hemoglobin 9.8 GM/DL 10.3 GM/DL Hematocrit 28.2 % 29.8 % Mean Corpuscular Volume 96.4 FL 99.8 FL Mean Corpuscular Hemoglobin 33.4 PG 34.6 PG Mean Corpuscular Hemoglobin Concent 34.7 % 34.7 % Red Cell Distribution Width 13.6 % 14.0 % Platelet Count 511 TH/MM3 462 TH/MM3 Mean Platelet Volume 8.0 FL 8.2 FL Neutrophils (%) (Auto) 83.6 % 82.7 % Lymphocytes (%) (Auto) 8.5 % 9.4 % Monocytes (%) (Auto) 6.1 % 6.3 % Eosinophils (%) (Auto) 1.0 % 1.0 % Basophils (%) (Auto) 0.8 % 0.6 % Neutrophils # (Auto) 10.8 TH/MM3 10.0 TH/MM3 Lymphocytes # (Auto) 1.1 TH/MM3 1.1 TH/MM3 Monocytes # (Auto) 0.8 TH/MM3 0.8 TH/MM3 Eosinophils # (Auto) 0.1 TH/MM3 0.1 TH/MM3 Basophils # (Auto) 0.1 TH/MM3 0.1 TH/MM3 CBC Comment DIFF FINAL AUTO DIFF Differential Comment FINAL DIFF MANUAL Differential Total Cells Counted 100 Neutrophils % (Manual) 67 % Band Neutrophils % 7 % Lymphocytes % 17 % Monocytes % 7 % Basophils % 1 % Neutrophils # (Manual) 9.0 TH/MM3 Plasma Cells 1 % Platelet Estimate HIGH Platelet Morphology Comment NORMAL Laboratory Tests Test 05/23/17 19:51 05/24/17 05:43 05/25/17 04:45 Sodium Level 150 MEQ/L 149 MEQ/L 150 MEQ/L Blood Urea Nitrogen 14 MG/DL 14 MG/DL Creatinine 1.06 MG/DL 1.08 MG/DL Random Glucose 140 MG/DL 131 MG/DL Total Protein 6.7 GM/DL Albumin 2.1 GM/DL Calcium Level 8.7 MG/DL 8.3 MG/DL Magnesium Level 2.3 MG/DL Alkaline Phosphatase 87 U/L Aspartate Amino Transf (AST/SGOT) 40 U/L Alanine Aminotransferase (ALT/SGPT) 43 U/L Total Bilirubin 0.3 MG/DL Potassium Level 3.8 MEQ/L 3.4 MEQ/L Chloride Level 112 MEQ/L 112 MEQ/L Carbon Dioxide Level 28.9 MEQ/L 29.8 MEQ/L Anion Gap 8 MEQ/L 8 MEQ/L Estimat Glomerular Filtration Rate 74 ML/MIN 72 ML/MIN Imaging Last Impressions Abdomen X-Ray 05/22/17 0000 Signed Impressions: Service Date/Time: Monday, May 22, 2017 11:25 - CONCLUSION: Tip of the weighted feeding tube in the region of the body of the stomach. Juan Castillo Jr., MD Chest X-Ray 05/21/17 0600 Signed Impressions: Service Date/Time: Sunday, May 21, 2017 02:52 - CONCLUSION: Basilar airspace disease, improved from May 20. Arsh Leslie MD Head CT 05/17/17 0000 Signed Impressions: Service Date/Time: Wednesday, May 17, 2017 02:29 - CONCLUSION: Slightly decreased edema left occipital hematoma. No new bleed. Dion Lugo MD Carotid Artery Ultrasound 05/16/17 0000 Signed Impressions: Service Date/Time: Tuesday, May 16, 2017 10:30 - CONCLUSION: 1. Mild plaque with patent carotid arteries bilaterally. 2. Antegrade flow involving both vertebral arteries. Juan Castillo Jr., MD Chest CT 05/14/17 0000 Signed Impressions: Service Date/Time: Sunday, May 14, 2017 00:39 - CONCLUSION: 1. Negative for acute traumatic injury within the thorax. Fatty infiltration of the liver. Arsh Leslie MD Abdomen/Pelvis CT 05/14/17 0000 Signed Impressions: Service Date/Time: Sunday, May 14, 2017 00:39 - CONCLUSION: 1. Negative for acute traumatic injury within the abdomen or pelvis. Fatty liver. Arsh Leslie MD Maxillofacial CT 05/13/172207 Signed Impressions: Service Date/Time: Saturday, May 13, 2017 22:22 - CONCLUSION: Multiple fractures of the right orbit including the inferior orbital wall and comminuted fractures of the medial orbital wall. Intraorbital muscles remain within the orbit. There is associated opacification of the right ethmoids and right maxillary sinus. There is also prominent alyssa-orbital soft tissue swelling extending into the frontal region. Juan Sun MD Cervical Spine CT 05/13/172207 Signed Impressions: Service Date/Time: Saturday, May 13, 2017 22:22 - CONCLUSION: Moderately advanced discogenic degenerative changes C4-C6 with associated retrolisthesis of C4 to C5 and reversal of the upper cervical lordosis. No fracture seen. Juan Sun MD Physical Exam GENERAL: Well built well nourished patient, in no apparent distress. SKIN: Multiple areas of ecchymosis. HEAD: Atraumatic. Normocephalic. No temporal or scalp tenderness. EYES: Severe Periorbital edema and ecchymosis noted. On left forehead just above the eye there is a golf ball size. Overall periorbital erythema much improved. ENT: Nose without bleeding, purulent drainage or septal hematoma. Throat without erythema, tonsillar hypertrophy or exudate. Uvula midline. Airway patent. NECK: Trachea midline. Supple, nontender, no meningeal signs. CARDIOVASCULAR: HS audible. RESPIRATORY: Clear to auscultation. Breath sounds equal bilaterally. No wheezes , rales, or rhonchi. GASTROINTESTINAL: Abdomen soft, non-tender, nondistended. MUSCULOSKELETAL: Extremities without clubbing, cyanosis, or edema. NEUROLOGICAL: Drowsy,arousable, knows he is at the hospital. Moves all 4 extremities. Psych could not be assessed IV line sites with no e.o infection Assessment & Plan Remarks MRSA bacteremia: likely secondary to Infected hematoma. Other possibility is MRSA pneumonia (post flu or post aspiration) Multiple facial fractures Orbital fractures with periorbital hematoma Alcoholism Recs: Continue Vanco IV (target 15-20) Sputum culture check Reviewed CXR bilateral infiltrates cw pneumonia. ECHO negative for vegetations. Follow cultures follow clinically. Dw patients I will be off 05/26/2017 to 05/28/2017. Other ID MDs covering for me. Please check with [facility] call center. Olivia Hamilton MD May 25, 2017 19:20
[2017-05-25] MEDS ORDERED: VALPROIC ACID SYRUP 250 MG/5 ML UDC PO SCH (21:00)
[2017-05-25 22:05] LABS: FOLATE 11.9 NG/ML (3.1-17.5); FREE T4 1.09 NG/DL (0.76-1.46)
[2017-05-26] VITALS (14 sets, daily range): BP systolic 90–167; BP diastolic 55–97; PULSE 50–94; RESP 18–28; TEMP 97.9–99.5; O2SAT 92–100
[2017-05-26] MEDS: VANCOMYCIN INJ 1,750 MG in SODIUM CHLORID 0.9% 500 ML INJ 500 ML IV SCH ×3 (03:57)
[2017-05-26] MEDS: PIPERACIL-TAZO 4.5 GM PREMIX 100 ML IV SCH ×4 (06:15→23:00)
[2017-05-26] MEDS: HEPARIN SODIUM - SQ 10,000 UNITS/ML VIAL SQ SCH ×3 (06:15→22:00)
--- NOTE | 2017-05-26 08:07 | HHI.PR ---
Neuropsych Emotional Emotional: UnabletoAssess: Emotional, Anxious/Fearful, Depressed/Sad, Hostile/ Resentful, Irritable/Angry/Frustrate, Labile, Constricted/Blunted Behavior Behavior: Unable to Asses: Behavior, Coping/Acceptance, Cooperative w/ Treatment, Motivation, Frustration Tolerance/[place], Impulsive/Agitated, Suicidal/ Homicidal Risk Cognitive Cognitive: Unable to Asses: Cognitive, Attention/Concentration, Confused/ Orientation, Insight/Awareness, Judgement/Problem-Solving, Memory Psychosocial Psychosocial: Moderate: Psychosocial, Family/Other Adjustment, Realistic Expectation, Unable to Asses: Self-Esteem/Confidence Progress Notes/Response to Tx Contents of Sessions: Adjustment, Level of Consciousness Time with Patient: 15 minutes Premorbid psychological status Premorbid Cognitive, Emotional and Behavioral Status: Stable. The patient has high school years of education and recently took a job in [employer]. The patient has no known prior psychiatric difficulties, as described above. Substance abuse history includes alcohol dependence. Behavioral Reactions of Patient and Family/Support System: Deferred. The patients family is experiencing ongoing issues of adjustment given the nature of the injury, and this aspect of recovery will require ongoing monitoring. Emotional/Behavioral Status of Patient and Family/Support System: Stable. Pertinent issues, if appropriate to this patients clinical care, are described in detail above. Maximizing acute care outcome It is recommended that the patient be monitored for emergent behavioral impulsivity as the medical condition evolves. This patients neuropathological challenges may limit his rehabilitation potential going forward, and these challenges will require specialized therapeutic skills to maximize outcome. At this point in the recovery process, the patient does not have cognitive capacity as the patient is unable to understand a situation and its likely consequences, nor is he able to manipulate information rationally. Cognitive capacity will be assessed throughout the recovery process. Anticipated Problems Ongoing areas of concern will include behavioral impulsivity, lack of insight and judgment, which is expected to improve with time and treatment. Presently , the patient is in delirium 2T alcohol withdrawals. Given the severity of the patient's injuries it is my clinical opinion that this patient will be unable to return to any type of productive employment for at least one year, perhaps longer and likely never. This patient is not considered safe to discharge home with supervision. Treatment Plan This clinician will continue to follow with you throughout the course of this patients acute care treatment, and I will be available to meet with the patient s family/support system to facilitate their understanding and the ongoing care of their family member. The goals of neuropsychological intervention shall be both educational and supportive to the family/support system as is deemed clinically appropriate. [place] Level: IV:Confused/Agitated-maximal assist Disinhibition Score: 17.50 Aggression Score: 14.00 Lability Score: 14.00 Agitated Behavior Total Score: 16 Impression 51 year old male s/p TBI 2T fall from ladder on 05/13/2017, now in alcohol withdrawals. Diagnosis: (1) Alcohol dependence in controlled environment (2) Mild major neurocognitive disorder due to traumatic brain injury with behavioral disturbance Progress Note Narrative PTD 13. Patient seen by neurology yesterday, who d/c'ed VPA, Geodon, Seroquel, Haldol and Valium and only kept Precedex. Neurobehaviorally, this patient has returned to an agitated/restless state. ABS is morning is 23 (29.6, 21, 14). At this point, I am documenting his agitation only. He is Rancho IV. I discussed his care with RN, frozen food department manager and the rest of the trauma team of which I am a member. I will follow. Meño Angel PhD May 26, 2017 08:07
--- NOTE | 2017-05-26 08:14 | HHI.PR ---
Objective Vital Signs Date Time Temp Pulse Resp B/P (MAP) Pulse Ox O2 Delivery O2 Flow Rate FiO2 05/26/17 06:00 50 05/26/17 04:00 98.6 64 24 167/92 (117) 92 05/26/17 04:00 62 05/26/17 02:00 62 05/26/17 00:00 72 05/26/17 00:00 99.5 72 28 163/97 (119) 93 05/25/17 22:00 66 05/25/17 20:00 98.3 64 23 162/78 (106) 93 05/25/17 20:00 64 05/25/17 20:00 96 Nasal Cannula 3.00 Humidified 05/25/17 18:00 65 05/25/17 16:00 82 05/25/17 16:00 98.3 82 29 115/59 (77) 93 05/25/17 14:00 64 05/25/17 12:00 79 05/25/17 12:00 99.0 79 23 168/90 (116) 97 05/25/17 11:25 94 Nasal Cannula 4.00 05/25/17 10:00 67 I/O 05/25/17 05/25/17 05/25/17 05/26/17 05/26/17 05/26/17 07:00 15:00 23:00 07:00 15:00 23:00 Intake Total 876 ml 2810 ml 1204.5 ml Output Total 1000 ml 1000 ml 1500 ml Balance -124 ml 1810 ml -295.5 ml IV Total 450 ml 2350 ml 804.5 ml Tube Feeding 366 ml 400 ml 370 ml Tube Irrigant 30 ml Other 60 ml 60 ml Output Urine Total 1000 ml 1000 ml 1500 ml # Bowel Movements 1 2 0 Result Diagram: 05/25/17 0445 05/25/17 0445 Objective Remarks more arousable butr still very lethargic on precedex did open mouth and wiggle toes for me Assessment and Plan Assessment and Plan imp do mri and eeg labs ok if he is going to pull out priest or ngt maybe we should just dc priest and if he pulls out ngt off precedex so be it or we can pullout first and get him awake and oob again then deal with nutrition issues then acc to family was in chair sat John Plascencia MD May 26, 2017 08:14
[2017-05-26] MEDS: BISACODYL 10 MG SUPP RECTAL SCH (09:00)
[2017-05-26] MEDS: LACTULOSE SYRUP 20 GM/30 ML CUP PO SCH ×2 (09:00→20:17)
[2017-05-26] MEDS: levETIRAcetam 500 MG TAB PO SCH ×2 (09:32→19:57)
[2017-05-26] MEDS: SODIUM CHLORIDE 0.9% FLUSH 10 ML FLUSH IVF PRN (09:32)
[2017-05-26] MEDS: POTASSIUM CHLORIDE 25 MEQ EFFERVESCENT TAB PO PRN (09:32)
[2017-05-26] MEDS: FAMOTIDINE 20 MG TAB PO SCH ×2 (09:32→19:57)
[2017-05-26] MEDS: DOCUSATE SODIUM 50 MG/SENNA 8.6 MG TAB PO SCH ×2 (10:12→20:17)
[2017-05-26] MEDS: MAGNESIUM HYDROXIDE SUSP 30 ML CUP PO SCH ×2 (10:12→23:30)
[2017-05-26] MEDS ORDERED: VALPROIC ACID 250 MG CAP PO SCH (11:00)
[2017-05-26] MEDS ORDERED: ZIPRASIDONE HCL 20 MG CAP PO SCH (11:00)
--- NOTE | 2017-05-26 12:25 | HHI.IDPN ---
Subjective Subjective Remarks Mr. Nogueira is a 51-year-old male with past medical history significant for alcoholism reportedly was in alcoholic anonymous and possibly relapsed per . Patient was brought into the emergency room with a history of fall at 3 AM on the day of admission 05/13/2017. Patient and his went to bed at approximately 12 midnight. Patient's was awoken up by the sound of her shouting out for help. When she went looking for him she noticed he was covered in blood and there was a puddle of blood on the floor as well. She goes on to report that she found blood in almost all the house especially on the [place]. Despite all this patient refuses admission and for approximately 12 hours continue to remain in his own home. Patient's noted that he had both eyelids are swelling up to the point that he could not see. His brought him to the emergency room. Patient denies drinking but as per the he does drink alcohol on most every day. Blood alcohol level was less than 3. No history of any trauma or assault. On arrival in the emergency department patient's vital signs are stable. There is no history of vomiting and no clear-cut history of loss of consciousness per the . Patient does not have any history of seizure disorder. It is not clear if patient was found down on the floor for an extended period of time even on repeated questioning the . Patient was evaluated by trauma team and admission. Patient had a CT scan maxillofacial which showed multiple fractures of the right orbit including the inferior orbital wall and community fractures of the medial orbital wall. Intraorbital muscles remain within the orbit. There is also prominent periorbital soft tissue swelling extending into the frontal region. Chest x-ray showed some perihilar disease consistent with either pulmonary edema or infection. A CT of the head shows left occipital hematoma. Patient was seen by oral maxillofacial surgeon and no surgical interventions planned. Patient was also seen by ophthalmology. On patient became delirious appeared to be in alcohol withdrawal per notes. A CT showed increase in cerebral edema but the bleeds sites with stable. Patient is started on Precedex. On a rapid response team was called for tachypnea and tachycardia and altered mental status and was evaluated by the [facility] Team. Patient did have fevers and the first day of admission with thereafter. To be resolved and then recurred leading to blood cultures. These blood cultures are positive for MRSA and infectious disease is consulted for evaluation of this MRSA bacteremia in a patient status post trauma. Notes reviewed D/W RN Temps better overnight On precedex. On a chair Awake, slow, occ answers, follows simple commands Not SOB, on nasal O2 Has a lot or respiratory secretions Failed swallowing evaluation Has priest in place Antibiotics Current Medications vancomycin Zosyn Medications (Trade) Dose Ordered Sig/Rose Route Start Time Stop Time Status Last Admin (NS Flush) 2 ml UNSCH PRN IVF 05/13/17 22:15 05/26/17 09:32 (Zofran Inj) 4 mg Q6H PRN IV PUSH 05/13/17 23:30 Miscellaneous Information 1 Q361D XX 05/13/17 23:30 (Chlorhexidine 2% Cloth) Taper DAILY@04 TOP 05/14/17 04:00 05/10/18 03:59 (Chlorhexidine 2% Cloth) 3 pack UNSCH PRN TOP 05/13/17 23:30 (Riya-Colace) 1 tab BID PO 05/14/17 09:00 05/26/17 10:12 (Senokot) 17.2 mg Q12H PRN PO 05/13/17 23:30 Miscellaneous Information D/C ICU ELECTROLYTE ORDERS... UNSCH PRN .XX 05/14/17 07:15 Miscellaneous Information ICU - CALL ORDERING PHYSIC... UNSCH PRN .XX 05/14/17 07:15 Potassium Chloride 100 ml @ 25 mls/hr UNSCH PRN IV 05/14/17 07:15 (K-Lyte Cl Eff) 50 meq UNSCH PRN PO 05/14/17 07:15 05/26/17 09:32 Potassium Chloride 100 ml @ 50 mls/hr UNSCH PRN IV 05/14/17 07:15 05/22/17 17:48 Magnesium Sulfate 4 gm/Sodium Chloride 108 ml @ 54 mls/hr UNSCH PRN IV 05/14/17 07:15 Magnesium Sulfate 2 gm/Sodium Chloride 104 ml @ 52 mls/hr UNSCH PRN IV 05/14/17 07:15 (Mag-Ox) 800 mg UNSCH PRN PO 05/14/17 07:15 Sodium Phosphate 30 mmol/Sodium Chloride 260 ml @ 43.333 mls/ hr UNSCH PRN IV 05/14/17 07:15 (K-Phos) 2,000 mg UNSCH PRN PO 05/14/17 07:15 Potassium Phosphate 30 mmol/ Sodium Chloride 260 ml @ 43.333 mls/ hr UNSCH PRN IV 05/14/17 07:15 (Tylenol) 650 mg Q6HR PRN PO 05/16/17 10:15 05/16/17 20:24 Potassium Chloride 100 ml @ 50 mls/hr Q2H PRN IV 05/17/17 02:45 Potassium Chloride 100 ml @ 50 mls/hr Q2H PRN IV 05/17/17 02:45 05/22/17 15:01 (K-Lyte Cl Eff) 50 meq UNSCH PRN PO 05/17/17 02:45 Potassium Chloride 100 ml @ 25 mls/hr UNSCH PRN IV 05/17/17 02:45 Potassium Chloride 100 ml @ 50 mls/hr Q2H PRN IV 05/17/17 02:45 Magnesium Sulfate 4 gm/Sodium Chloride 100 ml @ 50 mls/hr UNSCH PRN IV 05/17/17 02:45 (Mag-Ox) 800 mg UNSCH PRN PO 05/17/17 02:45 Magnesium Sulfate 2 gm/Sodium Chloride 100 ml @ 50 mls/hr UNSCH PRN IV 05/17/17 02:45 (K-Phos) 2,000 mg Q4H PRN PO 05/17/17 02:45 Sodium Phosphate 30 mmol/Sodium Chloride 250 ml @ 42 mls/hr UNSCH PRN IV 05/17/17 02:45 (K-Phos) 2,000 mg UNSCH PRN PO/TUBE 05/17/17 02:45 Potassium Phosphate 30 mmol/ Sodium Chloride 260 ml @ 42 mls/hr UNSCH PRN IV 05/17/17 02:45 Acetaminophen 100 ml @ 400 mls/hr Q6H PRN IV 05/17/17 18:00 05/17/17 22:51 (Dulcolax Supp) 10 mg DAILY RECTAL 05/17/17 20:00 05/24/17 09:00 (Heparin Inj) 5,000 units Q8HR SQ 05/18/17 14:00 05/26/17 06:15 Pharmacy Profile Note 0 ml @ 0 mls/hr UNSCH OTHER 05/19/17 18:00 (Milk Of Magnesia Liq) 30 ml Q12H PO 05/20/17 11:30 05/24/17 11:30 (Lasix Inj) 40 mg BID@09,18 IV PUSH 05/20/17 14:00 Future Hold 05/21/17 17:41 (Keppra) 500 mg Q12HR PO 05/21/17 21:00 05/26/17 09:32 (KCl) 50 meq UNSCH PRN PO 05/21/17 11:00 05/21/17 14:27 (Tears Naturale Opth Soln) 1 drop BID PRN EACH EYE 05/21/17 12:00 05/21/17 12:31 (Lactulose Liq) 30 ml BID PO 05/23/17 21:00 05/24/17 20:36 (Pepcid) 20 mg BID PO 05/24/17 21:00 05/26/17 09:32 Vancomycin HCl 1750 mg/Sodium Chloride 517.5 ml @ 250 mls/hr Q18H IV 05/25/17 10:00 05/26/17 03:57 (Catapres-Tts 0.1mg Patch.7d) 1 patch Q7D T-DERMAL 05/25/17 11:00 05/25/17 11:44 Miscellaneous Information 1 Q7D T-DERMAL 06/01/17 11:00 Piperacillin Sod/ Tazobactam Sod 100 ml @ 200 mls/hr Q6H IV 05/25/17 17:00 05/26/17 10:10 (Geodon) 20 mg BID PO 05/26/17 11:00 (Depakene) 250 mg Q12HR PO 05/26/17 11:00 (Haldol Inj) 5 mg Q6HR PRN IV PUSH 05/26/17 10:00 Miscellaneous Information SPECIFIC LAB TO BE SHERRY... ONCE ONCE .XX 05/28/17 09:45 05/28/17 09:46 Lines Line sites with no e.o infection Past Medical History reviewed. Allergies: Coded Allergies: No Known Allergies (Unverified Allergy, Unknown, 05/13/17) Objective . Vital Signs Date Time Temp Pulse Resp B/P (MAP) Pulse Ox O2 Delivery O2 Flow Rate FiO2 05/26/17 08:54 98 Nasal Cannula 4.00 05/26/17 08:00 53 05/26/17 08:00 100 Nasal Cannula 3.00 05/26/17 08:00 98.6 82 18 136/75 (95) 100 05/26/17 06:00 50 05/26/17 04:00 98.6 64 24 167/92 (117) 92 05/26/17 04:00 62 05/26/17 02:00 62 05/26/17 00:00 72 05/26/17 00:00 99.5 72 28 163/97 (119) 93 05/25/17 22:00 66 05/25/17 20:00 98.3 64 23 162/78 (106) 93 05/25/17 20:00 64 05/25/17 20:00 96 Nasal Cannula 3.00 Humidified 05/25/17 18:00 65 05/25/17 16:00 82 05/25/17 16:00 98.3 82 29 115/59 (77) 93 05/25/17 14:00 64 . Laboratory Tests Test 05/25/17 04:45 White Blood Count 12.1 TH/MM3 Red Blood Count 2.98 MIL/MM3 Hemoglobin 10.3 GM/DL Hematocrit 29.8 % Mean Corpuscular Volume 99.8 FL Mean Corpuscular Hemoglobin 34.6 PG Mean Corpuscular Hemoglobin Concent 34.7 % Red Cell Distribution Width 14.0 % Platelet Count 462 TH/MM3 Mean Platelet Volume 8.2 FL Neutrophils (%) (Auto) 82.7 % Lymphocytes (%) (Auto) 9.4 % Monocytes (%) (Auto) 6.3 % Eosinophils (%) (Auto) 1.0 % Basophils (%) (Auto) 0.6 % Neutrophils # (Auto) 10.0 TH/MM3 Lymphocytes # (Auto) 1.1 TH/MM3 Monocytes # (Auto) 0.8 TH/MM3 Eosinophils # (Auto) 0.1 TH/MM3 Basophils # (Auto) 0.1 TH/MM3 CBC Comment AUTO DIFF Differential Total Cells Counted 100 Neutrophils % (Manual) 67 % Band Neutrophils % 7 % Lymphocytes % 17 % Monocytes % 7 % Basophils % 1 % Neutrophils # (Manual) 9.0 TH/MM3 Differential Comment FINAL DIFF MANUAL Plasma Cells 1 % Platelet Estimate HIGH Platelet Morphology Comment NORMAL Laboratory Tests Test 05/25/17 04:45 05/25/17 21:01 Blood Urea Nitrogen 14 MG/DL Creatinine 1.08 MG/DL Random Glucose 131 MG/DL Calcium Level 8.3 MG/DL Sodium Level 150 MEQ/L Potassium Level 3.4 MEQ/L Chloride Level 112 MEQ/L Carbon Dioxide Level 29.8 MEQ/L Anion Gap 8 MEQ/L Estimat Glomerular Filtration Rate 72 ML/MIN Vitamin B12 Level 1633 PG/ML Folate 11.9 NG/ML Free Thyroxine 1.09 NG/DL Thyroid Stimulating Hormone 3rd Gen 1.190 uIU/ML Imaging Head CT 05/25/17 0600 Signed Impressions: Service Date/Time: May 05:18 - CONCLUSION: 1. No significant change in the intracranial hemorrhage. 2. No new hemorrhage or mass effect. 3. Mucosal thickening and air-fluid level in right maxillary sinus. Gerardo Sharp MD Head CT 05/24/17 0000 Signed Impressions: Service Date/Time: Wednesday, May 24, 2017 15:55 - CONCLUSION: 1. Left occipital hemorrhage and surrounding edema is similar in appearance to prior examination 05/17/17. 2. Stable right maxillary air-fluid level. Juan Sun MD Chest X-Ray 05/24/17 0000 Signed Impressions: Service Date/Time: Wednesday, May 24, 2017 15:21 - CONCLUSION: 1. Bilateral infiltrates concerning for a pneumonia. Rory Kauffman MD Abdomen X-Ray 05/22/17 0000 Signed Impressions: Service Date/Time: Monday, May 22, 2017 11:25 - CONCLUSION: Tip of the weighted feeding tube in the region of the body of the stomach. Juan Castillo Jr., MD Chest X-Ray 05/21/17 0600 Signed Impressions: Service Date/Time: Sunday, May 21, 2017 02:52 - CONCLUSION: Basilar airspace disease, improved from May 20. Arsh Leslie MD Head CT 05/17/17 0000 Signed Impressions: Service Date/Time: Wednesday, May 17, 2017 02:29 - CONCLUSION: Slightly decreased edema left occipital hematoma. No new bleed. Dion Lugo MD Carotid Artery Ultrasound 05/16/17 0000 Signed Impressions: Service Date/Time: Tuesday, May 16, 2017 10:30 - CONCLUSION: 1. Mild plaque with patent carotid arteries bilaterally. 2. Antegrade flow involving both vertebral arteries. Juan Castillo Jr., MD Chest CT 05/14/17 0000 Signed Impressions: Service Date/Time: Sunday, May 14, 2017 00:39 - CONCLUSION: 1. Negative for acute traumatic injury within the thorax. Fatty infiltration of the liver. Arsh Leslie MD Abdomen/Pelvis CT 05/14/17 Signed Impressions: Service Date/Time: Sunday, May 14, 2017 00:39 - CONCLUSION: 1. Negative for acute traumatic injury within the abdomen or pelvis. Fatty liver. Arsh Leslie MD Maxillofacial CT 05/13/172207 Signed Impressions: Service Date/Time: Saturday, May 13, 2017 22:22 - CONCLUSION: Multiple fractures of the right orbit including the inferior orbital wall and comminuted fractures of the medial orbital wall. Intraorbital muscles remain within the orbit. There is associated opacification of the right ethmoids and right maxillary sinus. There is also prominent riya-orbital soft tissue swelling extending into the frontal region. Juan Sun MD Cervical Spine CT 05/13/[id number] Signed Impressions: Service Date/Time: Saturday, May 13, 2017 22:22 - CONCLUSION: Moderately advanced discogenic degenerative changes C4-C6 with associated retrolisthesis of C4 to C5 and reversal of the upper cervical lordosis. No fracture seen. Juan Sun MD Physical Exam GENERAL: Awake, slow to respond, up in chair, NAD. SKIN: Multiple areas of ecchymosis. HEAD: Has hematoma on forehead, ecchymosis below both eyes EYES: Improving periorbital edema and ecchymosis noted. Has scleral hemorrhage L ENT: Nose without bleeding, purulent drainage or septal hematoma. NECK: Trachea midline. Supple, nontender, no meningeal signs. CARDIOVASCULAR: HS audible. RESPIRATORY: Clear to auscultation. Breath sounds equal bilaterally. No wheezes , rales, or rhonchi. GASTROINTESTINAL: Abdomen soft, non-tender, nondistended. MUSCULOSKELETAL: Extremities without clubbing, cyanosis, or edema. NEUROLOGICAL: awake, slow to respond, follows commands. Moves all 4 extremities. Psych could not be assessed IV line sites with no e.o infection Assessment & Plan Remarks MRSA bacteremia: likely secondary to Infected hematoma. Other possibility is MRSA pneumonia (post flu or post aspiration) Multiple facial fractures Orbital fractures with periorbital hematoma Alcoholism Aspiration PNA Recs: Continue Vanco IV (target 15-20) COntinue Zosyn Sputum culture check Repeat BC UA and C/S Follow temps Follow C/S Monitor progress D/W RN Spoke with DavonmaeShari MD May 26, 2017 12:25
--- NOTE | 2017-05-26 14:11 | HHI.CCPN ---
Subjective Brief History 51-year-old male came to the emergency room with history of a trip and fall as per him at 3 AM early this morning. Since then he has noticed that both his eyelids have been swelling up and is almost swelling shot so he cannot see. His brought him to the emergency room. Patient denied drinking but as per the he does drink alcohol every day. Currently patient is sober and answering questions. Patient denies any assault. Vital signs are stable. No history of vomiting or loss of consciousness as per the . 24 Hour Review/Hospital Course 05/15 Patient was slightly confused in the morning he urinated to the floor Since then he has been more stable Patient is alcoholic he was started on the CIWA protocol The CT scan of the head is pending, his GCS is [address] scan of the abdomen and pelvis and chest were negative for any injuries Neurosurgical ophthalmology and OMFS consults are pending 05/15/2017 This morning patient is somewhat confused but awake Adamantly denies alcohol use however went into delirium tremens had to be placed on Precedex drip and CIWA protocol Pupils equal reactive bruising over the both orbits and forehead Hemodynamically stable Bilateral good breath sounds Neurologically patient remains stable and can transfer to the floor once off Precedex Patient remains in the ICU due to delirium tremens and no specific traumatic injury 05/16/2017 Patient doing much better today neurologically Off Precedex Per neuropsychologist patient placed on appropriate regimen int face of alcoholism He is awake alert but disoriented at times Communicates with short sentences Pupils equal reactive and facial bruising is slowly receding Moves all 4 extremities does not have appreciable motoric deficit Bilateral breath sounds good inspiratory effort Tolerates diet well Transfer to floor when bed available 05/17/2017 Patient with above noted head injury was transferred to floor yesterday but became restless was given 10 mg of Ativan within 15 minute time which of course lead to respiratory depression, hypotension and distress and patient was transferred back to the ICU Patient remains confused with [place] Coma Scale of about 11 CT scan reveals resolving left occipital cerebral contusion/ hematoma Hemodynamically patient is stable Bilateral breath sounds decreased over the both lung kern consistent with likely aspiration into the both lungs Chest x-ray also reveals bilateral pulmonary infiltrates in the bases I found patient this morning lying in Trendelenburg position which is invariably the cause of patient's aspiration Abdomen is soft Plan Medications have been adjusted with brain injury patient can be a candidate for Ativan CIWA protocol yet administering 10 mg of Ativan in very short period of time is clearly not the way to go Ativan has been DC'd Assistance from Dr. Angel is greatly appreciated Will manage patient expectantly and if he worsens he will require intubation and ventilatory support to the lung function improves 05/18 Patient is awake alert today in the morning His sodium is 136 breath sounds are equal bilaterally today Clearly more awake since the Ativan has been DC'd He is on Seroquel and valproic acid, swelling of his face is clearly better Abdomen is soft 05/19 Patient's tachypnea improved, he sats are mid 90s on supplemental oxygen His sodium is 136 he is on Precedex and ordered Blood cultures show MRSA and patient has been started on vancomycin His white cell count is within normal limits Chest x-ray yesterday showed fluid overload/infiltrate Patient is on hypertonic saline 05/20/2018 Patient slightly improved Still seems to be confused and answering questions intermittently with nodding and grunting Hemodynamically stable Bilateral breath sounds with coarse rhonchi bilateral PO2 FiO2 gradient gradually improving as hypovolemia is being addressed in fluid overload has been addressed Abdomen is soft patient is taking p.o. diet with assistance Still swollen lower extremities and patient being diuresed gently MRSA blood cultures 3. In this particular individual this is not unusual or surprising for patient ripped out about 7 or 8 IV sites in the past and each time IV had to be restarted so at some point MRSA from the skin was introduced into the bloodstream Infectious disease help greatly appreciated 05/21/[address] more awake and alert today Gets restless and requires small dose of Haldol or Librium but definitely greatly improved over last few days DC Precedex today Responds to simple questions appropriately tolerates diet p.o. Bilateral breath sounds and improving PO2 FiO2 gradient Abdomen soft active bowel sounds Medical clinical support manager help greatly appreciated 05/22 more awake alert still confused has dysphagia-seen and confirmed by speech and swallow na 146-off 2% Na-has been diuresed recently-will hold for now rising Cr 05/23 GCS 13 more agitated-resumed precedex start lactulose -for high ammonia CT head in am-to follow up evolution of the TBI NA 149--off 2%- holding diuresis-patient is autodiuresing-1000 cc daily dysphagia-nutritional support with dobhoff 05/24/2017 Patient neurologically still somewhat precarious, oriented 2 Answer simple questions appropriately but then appears to be somewhat somnolent and slightly obtunded for the rest of time without stimulated Hemodynamically stable Bilateral breath sounds with coarse rhonchi bilateral. Patient is expressing good inspiratory effort Abdomen is soft but p.o. intake is insufficient Plan We will repeat CT scan of the brain but most likely patient has traumatic encephalopathy due to injury and hypoxia on the scene In addition patient has some degree of hyperammonemia as a result of his liver insufficiency and drinking history Sodium is normal and hypertonic saline been removed Dobbhoff tube is placed for feedings 05/25/2017 Patient slightly better today he is oriented in person and space but not in time Neurologically motorically seems to be intact however obviously has cognitive deficits Repeat CT scan of the brain does not reveal any change in the left occipital contusion hematoma injury Patient currently on Seroquel/trazodone and as needed Haldol Required overnight Precedex and now on decreased dose Hemodynamically remained stable Bilateral good breath sounds good inspiratory effort and some secretions but not much Abdomen is soft. Patient is unable to take p.o. diet himself due to decreased level of consciousness and sort of altered affect so NG tube has been placed and enteral feedings are tolerated Patient can transfer to floor when bed available We will repeat bedside swallow study Monday Neurology consult ordered 05/26/2017 Patient this morning more awake and alert Is somewhat improved with decrease of medications as suggested by neurology Remains on Precedex small dose Patient mumbling and speaking is very short sentences He is awake alert but disoriented Still too obtunded to pass swallow study and seems to have fair amount of phlegm in the back of the throat that needs to be cleared from time to time Hemodynamically stable Bilateral good breath sounds Abdomen soft enteral feeds tolerated via the NG tube but as above noted patient still not ready to swallow and coordinate this activity Neurology help greatly appreciated Transfer to floor Objective Vital Signs Date Time Temp Pulse Resp B/P (MAP) Pulse Ox O2 Delivery O2 Flow Rate FiO2 05/26/17 08:54 98 Nasal Cannula 4.00 05/26/17 08:00 53 05/26/17 08:00 98.6 18 136/75 (95) 05/23/17 09:00 50 Intake and Output 05/26/17 05/26/17 05/27/17 08:00 16:00 00:00 Intake Total 1204.5 ml Output Total 1500 ml Balance -295.5 ml Result Diagram: 05/25/1744405/25/17444 Disinhibition Score: 29.68 Aggression Score: 21.00 Lability Score: 14.00 Agitated Behavior Total Score: 23 Assessment and Plan Plan not progressing last 48 hrs MRSA -sepsis -vanco IV-ID hold diuresis for now start LR@50 cc/hr monitor Na,volume status tube feeds for nutritional support Douglas Tinsley MD May 26, 2017 14:11
[2017-05-26] MEDS ORDERED: DEXMEDETOMIDINE INJ 200 MCG in SODIUM CHLORIDE 0.9% INJ 50 ML IV PRN (14:15)
[2017-05-26 15:50] LABS: AUTOMATED NEUTROPHIL # 8.4 TH/MM3 (1.8-7.7); BASOPHIL # 0.1 TH/MM3 (0-0.2); BASOPHIL % 0.9 % (0.0-2.0); EOSINOPHIL # 0.1 TH/MM3 (0-0.4); EOSINOPHIL % 1.2 % (0.0-4.0); HEMATOCRIT 30.8 % (39.0-51.0); HEMOGLOBIN 10.7 GM/DL (13.0-17.0); LYMPH % 11.3 % (9.0-44.0); LYMPHOCYTE # 1.2 TH/MM3 (1.0-4.8); MEAN CELL VOLUME 95.5 FL (80.0-100.0); MEAN CORPUSCULAR HEMOGLOBIN 33.1 PG (27.0-34.0); MEAN CORPUSCULAR HGB CONC 34.7 % (32.0-36.0); MEAN PLATELET VOLUME 8.1 FL (7.0-11.0); MONOCYTE # 0.7 TH/MM3 (0-0.9); NEUT % 79.6 % (16.0-70.0); PLATELET COUNT 484 TH/MM3 (150-450); RED BLOOD COUNT 3.23 MIL/MM3 (4.50-5.90); RED CELL DISTRIBUTION WIDTH 13.6 % (11.6-17.2); WHITE BLOOD COUNT 10.5 TH/MM3 (4.0-11.0)
[2017-05-26 16:00] LABS: BILIRUBIN, URINE NEG (NEG); BLOOD, URINE TRACE (NEG); GLUCOSE,URINE NEG (NEG); KETONE, URINE NEG (NEG); MUCUS URINE FEW /lpf (OCC); NITRITE,URINE NEG (NEG); URINE COLOR YELLOW (YELLW/STRAW); URINE LEUKOCYTE ESTERASE NEG (NEG)
[2017-05-26 16:08] LABS: BICARBONATE 30.6 MEQ/L (21.0-32.0); CALCIUM 8.3 MG/DL (8.5-10.1); CREATININE 1.33 MG/DL (0.60-1.30)
--- NOTE | 2017-05-26 18:23 | HHI.NSPN ---
History Chief Complaint: Unable to obtain due to mental status. Interval History 05/14: The patient is a 51-year-old male who reportedly fell from a ladder approximately 3 AM on 05/13/2017. He waited until last evening to come to the emergency room, apparently due to progressive swelling around his eyes. No seizure activity reported. No emesis reported. No definite loss of consciousness. He does have a history of alcohol abuse. He complains of blurred vision. 05/15/17: Remains confused. He was agitated last evening-placed on Precedex 05/16: This morning the patient is awake and alert in bed visiting with his . The dexmedetomidine drip is on hold. He does have a soft wrist restraint to the right wrist due to his pulling at the [place]. He says he is doing well. He denies any headache or dizziness. He has some blurry vision when he first opens his eyes but it quickly clears. He denies any double vision. He denies any pain, numbness, tingling or weakness to the extremities. His only complaint is an occasional cough. His muscle strength and sensation remain intact. His confusion and speech are improved. 05/17: When seen this morning the patient had returned to [facility] from the med/surg floor due to delirium tremens and being overdosed on lorazepam. He was given flumazenil to reverse the lorazepam. He had a decrease level of consciousness but did interact with coaxing and followed some commands correctly. 05/18: The patient is in four point soft restraints when seen this morning. He was asleep but awoke to voice. Mild tremors were noted to his upper extremities when awake. He did endorse "A little bit" of a headache but no dizziness or blurry or double vision. He had no pain, numbness, tingling or weakness to the extremities. He did follow commands and his muscle strength and sensation were good. 05/19: This morning the patient seems to be lethargic. He does awaken to voice but drifts back off to sleep readily. He stated that "It's a little rough this morning." He interacted with repeated verbal stimulation. His motor and sensory exam were stable. He is confused as to time. He is now in contact isolation due to blood cultures with MRSA in three bottles. 05/22: The patient has his eyes closed this morning when seen but he is talking with his . He readily responds and interacts although his speech is somewhat garbled, dysarthric and slow. He is in four point soft restraints. He follows commands. He is confused and having hallucinations, reporting a flying saucer struck him. He denies any headache or dizziness but does state that he is "A little wobbly." He has no pain, numbness, tingling or weakness to the extremities. 05/23: The patient was receiving a breathing treatment when seen and then was placed on high flow nasal cannula. He was attempting to get out of bed repeatedly. He followed commands and was oriented to person and place but not time. He denied any headache or dizziness. He denied any extremity pain, numbness, tingling or weakness. 05/24: This morning the patient is drowsy. He is on a simple face mask. He is confused as to time but knows he is in [facility]. He does move all extremities spontaneously and to command. He follows most commands correctly. He had no complaints and denied any headache or dizziness or any pain, numbness , tingling or weakness to the extremities. Nursing reported that hypertonic saline was discontinued by Trauma. 05/25: When seen the patient is lethargic. He does respond to voice but his voice his garbled and almost incomprehensible. He interacts but does require more stimulation to do so. There is no evident decline in his sensation or motor strength. He remains oriented to person and place. 05/26: Pt awake with some confusion. He denies headache. No nausea. He is following commands. Review of Systems General: Negative for: fever, chills, insomnia Respiratory: Negative for: shortness of breath, cough, sputum Cardiovascular: Negative for: chest pain Gastrointestinal: Negative for: nausea, vomitting, diarrhea, constipation Exam Results Vital Signs Date Time Temp Pulse Resp B/P (MAP) Pulse Ox O2 Delivery O2 Flow Rate FiO2 05/26/17 18:00 80 05/26/17 16:00 99.1 26 104/73 (83) 97 05/26/17 08:54 Nasal Cannula 4.00 05/23/17 09:00 50 Intake and Output 05/26/17 05/26/17 05/27/17 08:00 16:00 00:00 Intake Total 1204.5 ml 600 ml Output Total 1500 ml 1100 ml Balance -295.5 ml -500 ml Physical Examination General: Pt awake but confused. He answers simple yes/no questions. HEENT: Right-sided facial swelling & ecchymosis resolving w/abrasions & lacerations healing w/o complication. Bilateral periorbital ecchymosis resolving. PERRLA 3 mm brisk, bilateral subconjunctival haemorrhages R>L resolving. Resp: CTA bilaterally Heart: NSR no murmurs. Skin: Right-sided facial swelling & ecchymosis resolving w/abrasions & lacerations healing w/o complication. Bilateral periorbital ecchymosis resolving MUSCULOSKELETAL: THIBODEAUX w/o difficulty. No evident clubbing or deformity. NEUROLOGICAL: Pt awake but pleasantly confused. He answers some simple yes/no questions. slowing of speech and thought processes. Follows simple commands. Sensation appears intact to light touch to all extremities. Lab, Micro, Other Results Laboratory Tests Test 05/25/17 21:01 05/26/17 15:03 05/26/17 15:25 Vitamin B12 Level 1633 PG/ML Folate 11.9 NG/ML Free Thyroxine 1.09 NG/DL Thyroid Stimulating Hormone 3rd Gen 1.190 uIU/ML Urine Color YELLOW Urine Turbidity CLEAR Urine pH 8.0 Urine Specific Letcher 1.016 Urine Protein 30 mg/dL Urine Glucose (UA) NEG mg/dL Urine Ketones NEG mg/dL Urine Occult Blood TRACE Urine Nitrite NEG Urine Bilirubin NEG Urine Urobilinogen 2.0 MG/DL Urine Leukocyte Esterase NEG Urine RBC 2 /hpf Urine WBC 2 /hpf Urine Mucus FEW /lpf Microscopic Urinalysis Comment CATH-CULT NOT IND White Blood Count 10.5 TH/MM3 Red Blood Count 3.23 MIL/MM3 Hemoglobin 10.7 GM/DL Hematocrit 30.8 % Mean Corpuscular Volume 95.5 FL Mean Corpuscular Hemoglobin 33.1 PG Mean Corpuscular Hemoglobin Concent 34.7 % Red Cell Distribution Width 13.6 % Platelet Count 484 TH/MM3 Mean Platelet Volume 8.1 FL Neutrophils (%) (Auto) 79.6 % Lymphocytes (%) (Auto) 11.3 % Monocytes (%) (Auto) 7.0 % Eosinophils (%) (Auto) 1.2 % Basophils (%) (Auto) 0.9 % Neutrophils # (Auto) 8.4 TH/MM3 Lymphocytes # (Auto) 1.2 TH/MM3 Monocytes # (Auto) 0.7 TH/MM3 Eosinophils # (Auto) 0.1 TH/MM3 Basophils # (Auto) 0.1 TH/MM3 CBC Comment DIFF FINAL Differential Comment Blood Urea Nitrogen 15 MG/DL Creatinine 1.33 MG/DL Random Glucose 121 MG/DL Calcium Level 8.3 MG/DL Sodium Level 148 MEQ/L Potassium Level 3.1 MEQ/L Chloride Level 111 MEQ/L Carbon Dioxide Level 30.6 MEQ/L Anion Gap 6 MEQ/L Estimat Glomerular Filtration Rate 57 ML/MIN 05/26/17 05/26/17 05/27/17 15:00 23:00 07:00 Intake Total 600 ml Output Total 1100 ml Balance -500 ml Tube Feeding 540 ml Tube Irrigant 60 ml Output Urine Total 1100 ml # Bowel Movements 1 Medical Decision Making Impression and Plan Impression: 1. Traumatic brain injury with left occipital hemorrhagic contusion. 2. Right frontal scalp contusion with subgaleal hematoma 3. Right orbital fracture CT brain demonstrated stable left occipital haematoma & surrounding edema. No evidence of a new haemorrhage or mass effect. Plan: Discussed plan of care with patient & . Discussed plan of care with Nursing. Primary management per Trauma. Critical care management per [facility]. Neuro checks. Stat CT brain for any decline in neuro status. Okay for pharmacological DVT prophylaxis. Mechanical DVT prophylaxis. Stress ulcer prophylaxis. Mobilise patient w/assistance. Physical, Occupational & Speech Therapy. Will intermittently follow patient since no active issues for Neurosurgery. Kostas Martínez May 26, 2017 6:23 pm
[2017-05-26] MEDS: HALOPERIDOL LACTATE 5 MG/ML AMP IV PUSH PRN (19:57)
--- NOTE | 2017-05-26 21:26 | MG ---
cc: LANCE ELENA MD Lab No: Date: 05/26/17 Age: 51 Sex: M Race: REFERRING PHYSICIAN Dr. Plascencia An EEG was obtained on this 51-year-old patient with history of being evaluated for contusion and possible seizures. There are low amplitude beta rhythms diffusely along with some intermixed alpha activity. There are some theta and some delta rhythms bilaterally. The patient seems awake and asleep intermittently throughout the recording. Photic stimulation showed no significant change. INTERPRETATION Mildly abnormal EEG because of mild intermittent slowing, no definitive lateralizing features. No epileptiform features present. Lance Elena MD [facility]/ /8:34 PM /9:22 PM
[2017-05-26] MEDS ORDERED: GADODIAMIDE PF 287 MG/ML 5 ML VIAL (for RAD MRI) IV PUSH ONE (22:39)
--- NOTE | 2017-05-26 22:55 | RADRPT ---
EXAM DATE/TIME: 05/26/2017 22:01 [facility] COMPARISON: CT BRAIN W/O CONTRAST, May 15, 2017, 5:06. CT BRAIN W/O CONTRAST, 2017, 5:18. INDICATIONS : Hemorrhage. CONTRAST: 16 cc Omniscan (gadodiamide) IV MEDICAL HISTORY : None. SURGICAL HISTORY : Tonsillectomy. ENCOUNTER: Initial ACUITY: 1 day PAIN SCORE: 3/10 LOCATION: cranial TECHNIQUE: Multiplanar, multisequence MRI of the brain was performed both prior to and following the administration of paramagnetic contrast. FINDINGS: CEREBRUM: Redemonstration of subacute blood products in the left occipital mid convexity is with adjacent vasogenic edema. No definitive evidence for underlying abnormal enhancing mass. The ventricl es are normal for age. No extraaxial fluid collections are seen. The pituitary gland and suprasella r cistern are normal in configuration. WHITE MATTER: No significant signal abnormalities are seen in the white matter. POSTERIOR FOSSA: The cerebellum and brainstem are intact. The 4th ventricle is midline. The cere bellopontine angle is unremarkable. The cerebellar tonsils are normal in position. DIFFUSION IMAGING: No focal areas of restricted diffusion are seen. No evidence of acute infarct ion. EXTRACRANIAL: The visualized portions of the orbits are unremarkable. Mucoperiosteal thickening i nvolving the right pancreas sinus. POST-CONTRAST: No definitive abnormal enhancement. No evidence of blood-brain barrier breakdown. CONCLUSION: 1. Redemonstration of left occipital mid convexity intracranial hemorrhage without definite associate d enhancing mass. More delayed followup imaging or MR spectroscopy may be performed if there is polly nued clinical concern regarding underlying mass. 2. Right maxillary mucosal sinus disease. Joel Parker MD on May 26, 2017 at 22:47 Board Certified Radiologist. This report was verified electronically.
[2017-05-27] VITALS (14 sets, daily range): BP systolic 119–152; BP diastolic 59–89; PULSE 76–107; RESP 17–26; TEMP 97.9–103; O2SAT 92–100
[2017-05-27] MEDS: CHLORHEXIDINE GLUCONATE 2 % 1 PACK (2 CLOTHS) TOP SCH (01:48)
[2017-05-27] MEDS: HALOPERIDOL LACTATE 5 MG/ML AMP IV PUSH PRN (02:45)
[2017-05-27] MEDS: PIPERACIL-TAZO 4.5 GM PREMIX 100 ML IV SCH ×4 (06:21→23:12)
[2017-05-27] MEDS: HEPARIN SODIUM - SQ 10,000 UNITS/ML VIAL SQ SCH ×3 (06:22→20:11)
[2017-05-27] MEDS ORDERED: guaiFENesin SOLUTION 200 MG/10 ML CUP PO PRN (06:45)
[2017-05-27 07:00] LABS: AUTOMATED NEUTROPHIL # 9.9 TH/MM3 (1.8-7.7); BASOPHIL # 0.1 TH/MM3 (0-0.2); BASOPHIL % 0.8 % (0.0-2.0); EOSINOPHIL # 0.1 TH/MM3 (0-0.4); EOSINOPHIL % 0.9 % (0.0-4.0); HEMATOCRIT 30.9 % (39.0-51.0); HEMOGLOBIN 10.5 GM/DL (13.0-17.0); LYMPH % 14.2 % (9.0-44.0); LYMPHOCYTE # 1.8 TH/MM3 (1.0-4.8); MEAN CELL VOLUME 96.2 FL (80.0-100.0); MEAN CORPUSCULAR HEMOGLOBIN 32.9 PG (27.0-34.0); MEAN CORPUSCULAR HGB CONC 34.2 % (32.0-36.0); MEAN PLATELET VOLUME 8.4 FL (7.0-11.0); MONO % 6.8 % (0.0-8.0); MONOCYTE # 0.9 TH/MM3 (0-0.9); NEUT % 77.3 % (16.0-70.0); PLATELET COUNT 444 TH/MM3 (150-450); RED BLOOD COUNT 3.21 MIL/MM3 (4.50-5.90); RED CELL DISTRIBUTION WIDTH 14.1 % (11.6-17.2); WHITE BLOOD COUNT 12.8 TH/MM3 (4.0-11.0)
[2017-05-27 07:26] LABS: BICARBONATE 29.4 MEQ/L (21.0-32.0); CALCIUM 8.3 MG/DL (8.5-10.1); CREATININE 1.36 MG/DL (0.60-1.30)
[2017-05-27] MEDS: DOCUSATE SODIUM 50 MG/SENNA 8.6 MG TAB PO SCH ×2 (07:50→20:03)
[2017-05-27] MEDS: BISACODYL 10 MG SUPP RECTAL SCH (07:50)
[2017-05-27] MEDS: RESP: ALBUTEROL 2.5 MG/IPRATROPIUM 0.5 MG NEB (SCH) NEB ×3 (08:09→21:19)
[2017-05-27 08:22] LABS: BANDS 4 % (0-6); LYMPHOCYTES 17 % (9-44); MONOCYTES 7 % (0-8); MYELOCYTES 3 % (0-0); NEUTROPHIL # MANUAL DIFF 9.7 TH/MM3 (1.8-7.7); POLYS (SEG NEUTROPHILS) 69 % (16-70); TOXIC GRANULATION 1+ (NORMAL)
[2017-05-27] MEDS: POTASSIUM CHLORIDE 25 MEQ EFFERVESCENT TAB PO PRN (08:30)
[2017-05-27] MEDS: LACTULOSE SYRUP 20 GM/30 ML CUP PO SCH ×3 (08:31→20:03)
[2017-05-27] MEDS: POTASSIUM CHLOR 20 MEQ PREMIX 100 ML IV PRN (08:31)
[2017-05-27] MEDS: levETIRAcetam 500 MG TAB PO SCH ×2 (08:31→20:05)
[2017-05-27] MEDS: FAMOTIDINE 20 MG TAB PO SCH ×2 (08:31→20:03)
[2017-05-27] MEDS: MAGNESIUM HYDROXIDE SUSP 30 ML CUP PO SCH ×2 (10:01→23:12)
[2017-05-27] MEDS: ACETAMINOPHEN 325 MG TAB PO PRN (11:10)
--- NOTE | 2017-05-27 12:40 | HHI.CCPN ---
Subjective Brief History 51-year-old male came to the emergency room with history of a trip and fall as per him at 3 AM early this morning. Since then he has noticed that both his eyelids have been swelling up and is almost swelling shot so he cannot see. His brought him to the emergency room. Patient denied drinking but as per the he does drink alcohol every day. Currently patient is sober and answering questions. Patient denies any assault. Vital signs are stable. No history of vomiting or loss of consciousness as per the . 24 Hour Review/Hospital Course 05/15 Patient was slightly confused in the morning he urinated to the floor Since then he has been more stable Patient is alcoholic he was started on the CIWA protocol The CT scan of the head is pending, his GCS is [address] scan of the abdomen and pelvis and chest were negative for any injuries Neurosurgical ophthalmology and OMFS consults are pending 05/15/2017 This morning patient is somewhat confused but awake Adamantly denies alcohol use however went into delirium tremens had to be placed on Precedex drip and CIWA protocol Pupils equal reactive bruising over the both orbits and forehead Hemodynamically stable Bilateral good breath sounds Neurologically patient remains stable and can transfer to the floor once off Precedex Patient remains in the ICU due to delirium tremens and no specific traumatic injury 05/16/2017 Patient doing much better today neurologically Off Precedex Per neuropsychologist patient placed on appropriate regimen int face of alcoholism He is awake alert but disoriented at times Communicates with short sentences Pupils equal reactive and facial bruising is slowly receding Moves all 4 extremities does not have appreciable motoric deficit Bilateral breath sounds good inspiratory effort Tolerates diet well Transfer to floor when bed available 05/17/2017 Patient with above noted head injury was transferred to floor yesterday but became restless was given 10 mg of Ativan within 15 minute time which of course lead to respiratory depression, hypotension and distress and patient was transferred back to the ICU Patient remains confused with Beryl Coma Scale of about 11 CT scan reveals resolving left occipital cerebral contusion/ hematoma Hemodynamically patient is stable Bilateral breath sounds decreased over the both lung kern consistent with likely aspiration into the both lungs Chest x-ray also reveals bilateral pulmonary infiltrates in the bases I found patient this morning lying in Trendelenburg position which is invariably the cause of patient's aspiration Abdomen is soft Plan Medications have been adjusted with brain injury patient can be a candidate for Ativan CIWA protocol yet administering 10 mg of Ativan in very short period of time is clearly not the way to go Ativan has been DC'd Assistance from Dr. Angel is greatly appreciated Will manage patient expectantly and if he worsens he will require intubation and ventilatory support to the lung function improves 05/18 Patient is awake alert today in the morning His sodium is 136 breath sounds are equal bilaterally today Clearly more awake since the Ativan has been DC'd He is on Seroquel and valproic acid, swelling of his face is clearly better Abdomen is soft 05/19 Patient's tachypnea improved, he sats are mid 90s on supplemental oxygen His sodium is 136 he is on Precedex and ordered Blood cultures show MRSA and patient has been started on vancomycin His white cell count is within normal limits Chest x-ray yesterday showed fluid overload/infiltrate Patient is on hypertonic saline 05/20/2018 Patient slightly improved Still seems to be confused and answering questions intermittently with nodding and grunting Hemodynamically stable Bilateral breath sounds with coarse rhonchi bilateral PO2 FiO2 gradient gradually improving as hypovolemia is being addressed in fluid overload has been addressed Abdomen is soft patient is taking p.o. diet with assistance Still swollen lower extremities and patient being diuresed gently MRSA blood cultures 3. In this particular individual this is not unusual or surprising for patient ripped out about 7 or 8 IV sites in the past and each time IV had to be restarted so at some point MRSA from the skin was introduced into the bloodstream Infectious disease help greatly appreciated 05/21/[address] more awake and alert today Gets restless and requires small dose of Haldol or Librium but definitely greatly improved over last few days DC Precedex today Responds to simple questions appropriately tolerates diet p.o. Bilateral breath sounds and improving PO2 FiO2 gradient Abdomen soft active bowel sounds Medical material requirements worker help greatly appreciated 05/22 more awake alert still confused has dysphagia-seen and confirmed by speech and swallow na 146-off 2% Na-has been diuresed recently-will hold for now rising Cr 05/23 GCS 13 more agitated-resumed precedex start lactulose -for high ammonia CT head in am-to follow up evolution of the TBI NA 149--off 2%- holding diuresis-patient is autodiuresing-1000 cc daily dysphagia-nutritional support with dobhoff 05/24/2017 Patient neurologically still somewhat precarious, oriented 2 Answer simple questions appropriately but then appears to be somewhat somnolent and slightly obtunded for the rest of time without stimulated Hemodynamically stable Bilateral breath sounds with coarse rhonchi bilateral. Patient is expressing good inspiratory effort Abdomen is soft but p.o. intake is insufficient Plan We will repeat CT scan of the brain but most likely patient has traumatic encephalopathy due to injury and hypoxia on the scene In addition patient has some degree of hyperammonemia as a result of his liver insufficiency and drinking history Sodium is normal and hypertonic saline been removed Dobbhoff tube is placed for feedings 05/25/2017 Patient slightly better today he is oriented in person and space but not in time Neurologically motorically seems to be intact however obviously has cognitive deficits Repeat CT scan of the brain does not reveal any change in the left occipital contusion hematoma injury Patient currently on Seroquel/trazodone and as needed Haldol Required overnight Precedex and now on decreased dose Hemodynamically remained stable Bilateral good breath sounds good inspiratory effort and some secretions but not much Abdomen is soft. Patient is unable to take p.o. diet himself due to decreased level of consciousness and sort of altered affect so NG tube has been placed and enteral feedings are tolerated Patient can transfer to floor when bed available We will repeat bedside swallow study Monday Neurology consult ordered 05/26/2017 Patient this morning more awake and alert Is somewhat improved with decrease of medications as suggested by neurology Remains on Precedex small dose Patient mumbling and speaking is very short sentences He is awake alert but disoriented Still too obtunded to pass swallow study and seems to have fair amount of phlegm in the back of the throat that needs to be cleared from time to time Hemodynamically stable Bilateral good breath sounds Abdomen soft enteral feeds tolerated via the NG tube but as above noted patient still not ready to swallow and coordinate this activity Neurology help greatly appreciated Transfer to floor 05/27/2017 Neurologically patient is improved today He is off Precedex and sedation More alert and oriented and passed swallow study so will be placed on the diet but considering the small intake this is not sufficient for the caloric needs and feeding tube will remain in place the patient takes more p.o. Bilateral breath sounds Patient is out of bed and has been walking several steps with help All things equal patient will be transferred to rehab [facility] bed in next few days probably Monday Objective Vital Signs Date Time Temp Pulse Resp B/P (MAP) Pulse Ox O2 Delivery O2 Flow Rate FiO2 05/27/17 12:00 101 05/27/17 12:00 103.0 25 121/59 (79) 92 05/27/17 08:09 Nasal Cannula 3.00 05/23/17 09:00 50 Intake and Output 05/27/17 05/27/17 05/28/17 08:00 16:00 00:00 Intake Total 1121 ml Output Total 950 ml Balance 171 ml Result Diagram: 05/27/17 0552 05/27/17 0552 Imaging Last 24 hours Impressions Brain MRI 05/26/17 1433 Signed Impressions: Service Date/Time: Friday, May 26, 2017 22:01 - CONCLUSION: 1. Redemonstration of left occipital mid convexity intracranial hemorrhage without definite associated enhancing mass. More delayed followup imaging or MR spectroscopy may be performed if there is continued clinical concern regarding underlying mass. 2. Right maxillary mucosal sinus disease. Joel Parker MD Disinhibition Score: 21.00 Aggression Score: 14.00 Lability Score: 14.00 Agitated Behavior Total Score: 18 Exam ASTROPHYSICS TEACHER Patient more alert and awake off Precedex or any sedation Hemodynamic/Cardiac Hemodynamically stable Pulmonary/Respiratory Bilateral breath sounds improved PO2 FiO2 gradient Abdomen/GI Nutrition Abdomen soft started on regular diet but will keep tube feedings to patient's caloric intake improves Renal/I&O Preserved renal function with slight bump in creatinine Hematologic MRSA cultures from blood and sputum last week. Patient placed on vancomycin and Zosyn Assessment and Plan Plan not progressing last 48 hrs MRSA -sepsis -vanco IV-ID hold diuresis for now start LR@50 cc/hr monitor Na,volume status tube feeds for nutritional support Attestation Critical care 32 minutes Douglas Tinsley MD May 27, 2017 12:40
[2017-05-27] MEDS: VANCOMYCIN INJ 1,750 MG in SODIUM CHLORID 0.9% 500 ML INJ 500 ML IV SCH ×3 (16:26)
--- NOTE | 2017-05-27 17:49 | RADRPT ---
EXAM DATE/TIME: 05/27/2017 17:24 [facility] COMPARISON: CHEST SINGLE AP, May 24, 2017, 15:21. INDICATIONS : NG tube placement. MEDICAL HISTORY : None. SURGICAL HISTORY : None. ENCOUNTER: Initial ACUITY: 1 day PAIN SCORE: Non-responsive. LOCATION: Bilateral chest FINDINGS: There is improving aeration of both lung kern compared to the prior study. The heart size is stable . There is an NG tube in the stomach. There is no evidence of pneumothorax. CONCLUSION: 1. NG tube in the stomach. 2. Improving aeration of both lung kern. Errol Castillo MD on May 27, 2017 at 17:47 Board Certified Radiologist. This report was verified electronically.
[2017-05-28] VITALS (13 sets, daily range): BP systolic 134–159; BP diastolic 70–88; PULSE 82–100; RESP 15–23; TEMP 98.1–100.2; O2SAT 92–100
[2017-05-28] MEDS: RESP: ALBUTEROL 2.5 MG/IPRATROPIUM 0.5 MG NEB (PRN) NEB (01:40)
[2017-05-28] MEDS: CHLORHEXIDINE GLUCONATE 2 % 1 PACK (2 CLOTHS) TOP SCH (04:00)
[2017-05-28] MEDS: PIPERACIL-TAZO 4.5 GM PREMIX 100 ML IV SCH ×4 (05:42→22:44)
[2017-05-28] MEDS: HEPARIN SODIUM - SQ 10,000 UNITS/ML VIAL SQ SCH ×3 (05:42→22:16)
[2017-05-28] MEDS: DOCUSATE SODIUM 50 MG/SENNA 8.6 MG TAB PO SCH ×2 (07:14→22:16)
[2017-05-28] MEDS: LACTULOSE SYRUP 20 GM/30 ML CUP PO SCH ×3 (07:14→22:13)
[2017-05-28] MEDS: BISACODYL 10 MG SUPP RECTAL SCH (07:14)
[2017-05-28] MEDS: RESP: ALBUTEROL 2.5 MG/IPRATROPIUM 0.5 MG NEB (SCH) NEB ×3 (07:51→20:48)
[2017-05-28] MEDS: levETIRAcetam 500 MG TAB PO SCH ×2 (08:31→22:13)
[2017-05-28] MEDS: FAMOTIDINE 20 MG TAB PO SCH ×2 (08:31→22:13)
[2017-05-28] MEDS: MAGNESIUM HYDROXIDE SUSP 30 ML CUP PO SCH ×2 (08:32→22:44)
[2017-05-28 09:19] LABS: HEMATOCRIT 28.8 % (39.0-51.0); HEMOGLOBIN 9.5 GM/DL (13.0-17.0); MEAN CELL VOLUME 96.8 FL (80.0-100.0); MEAN PLATELET VOLUME 8.1 FL (7.0-11.0); PLATELET COUNT 407 TH/MM3 (150-450); RED BLOOD COUNT 2.97 MIL/MM3 (4.50-5.90); RED CELL DISTRIBUTION WIDTH 13.9 % (11.6-17.2); WHITE BLOOD COUNT 13.7 TH/MM3 (4.0-11.0)
[2017-05-28] MEDS ORDERED: PHARMACY ORDERED LAB ONE (09:45)
[2017-05-28 09:46] LABS: BICARBONATE 27.5 MEQ/L (21.0-32.0); CALCIUM 8.6 MG/DL (8.5-10.1); CREATININE 1.31 MG/DL (0.60-1.30)
[2017-05-28] MEDS: VANCOMYCIN INJ 1,750 MG in SODIUM CHLORID 0.9% 500 ML INJ 500 ML IV SCH (10:18)
--- NOTE | 2017-05-28 12:52 | HHI.CCPN ---
Subjective Brief History 51-year-old male came to the emergency room with history of a trip and fall as per him at 3 AM early this morning. Since then he has noticed that both his eyelids have been swelling up and is almost swelling shot so he cannot see. His brought him to the emergency room. Patient denied drinking but as per the he does drink alcohol every day. Currently patient is sober and answering questions. Patient denies any assault. Vital signs are stable. No history of vomiting or loss of consciousness as per the . 24 Hour Review/Hospital Course 05/15 Patient was slightly confused in the morning he urinated to the floor Since then he has been more stable Patient is alcoholic he was started on the CIWA protocol The CT scan of the head is pending, his GCS is [address] scan of the abdomen and pelvis and chest were negative for any injuries Neurosurgical ophthalmology and OMFS consults are pending 05/15/2017 This morning patient is somewhat confused but awake Adamantly denies alcohol use however went into delirium tremens had to be placed on Precedex drip and CIWA protocol Pupils equal reactive bruising over the both orbits and forehead Hemodynamically stable Bilateral good breath sounds Neurologically patient remains stable and can transfer to the floor once off Precedex Patient remains in the ICU due to delirium tremens and no specific traumatic injury 05/16/2017 Patient doing much better today neurologically Off Precedex Per neuropsychologist patient placed on appropriate regimen int face of alcoholism He is awake alert but disoriented at times Communicates with short sentences Pupils equal reactive and facial bruising is slowly receding Moves all 4 extremities does not have appreciable motoric deficit Bilateral breath sounds good inspiratory effort Tolerates diet well Transfer to floor when bed available 05/17/2017 Patient with above noted head injury was transferred to floor yesterday but became restless was given 10 mg of Ativan within 15 minute time which of course lead to respiratory depression, hypotension and distress and patient was transferred back to the ICU Patient remains confused with Hettinger Coma Scale of about 11 CT scan reveals resolving left occipital cerebral contusion/ hematoma Hemodynamically patient is stable Bilateral breath sounds decreased over the both lung kern consistent with likely aspiration into the both lungs Chest x-ray also reveals bilateral pulmonary infiltrates in the bases I found patient this morning lying in Trendelenburg position which is invariably the cause of patient's aspiration Abdomen is soft Plan Medications have been adjusted with brain injury patient can be a candidate for Ativan CIWA protocol yet administering 10 mg of Ativan in very short period of time is clearly not the way to go Ativan has been DC'd Assistance from Dr. Angel is greatly appreciated Will manage patient expectantly and if he worsens he will require intubation and ventilatory support to the lung function improves 05/18 Patient is awake alert today in the morning His sodium is 136 breath sounds are equal bilaterally today Clearly more awake since the Ativan has been DC'd He is on Seroquel and valproic acid, swelling of his face is clearly better Abdomen is soft 05/19 Patient's tachypnea improved, he sats are mid 90s on supplemental oxygen His sodium is 136 he is on Precedex and ordered Blood cultures show MRSA and patient has been started on vancomycin His white cell count is within normal limits Chest x-ray yesterday showed fluid overload/infiltrate Patient is on hypertonic saline 05/20/2018 Patient slightly improved Still seems to be confused and answering questions intermittently with nodding and grunting Hemodynamically stable Bilateral breath sounds with coarse rhonchi bilateral PO2 FiO2 gradient gradually improving as hypovolemia is being addressed in fluid overload has been addressed Abdomen is soft patient is taking p.o. diet with assistance Still swollen lower extremities and patient being diuresed gently MRSA blood cultures 3. In this particular individual this is not unusual or surprising for patient ripped out about 7 or 8 IV sites in the past and each time IV had to be restarted so at some point MRSA from the skin was introduced into the bloodstream Infectious disease help greatly appreciated 05/21/[address] more awake and alert today Gets restless and requires small dose of Haldol or Librium but definitely greatly improved over last few days DC Precedex today Responds to simple questions appropriately tolerates diet p.o. Bilateral breath sounds and improving PO2 FiO2 gradient Abdomen soft active bowel sounds Medical vp software help greatly appreciated 05/22 more awake alert still confused has dysphagia-seen and confirmed by speech and swallow na 146-off 2% Na-has been diuresed recently-will hold for now rising Cr 05/23 GCS 13 more agitated-resumed precedex start lactulose -for high ammonia CT head in am-to follow up evolution of the TBI NA 149--off 2%- holding diuresis-patient is autodiuresing-1000 cc daily dysphagia-nutritional support with dobhoff 05/24/2017 Patient neurologically still somewhat precarious, oriented 2 Answer simple questions appropriately but then appears to be somewhat somnolent and slightly obtunded for the rest of time without stimulated Hemodynamically stable Bilateral breath sounds with coarse rhonchi bilateral. Patient is expressing good inspiratory effort Abdomen is soft but p.o. intake is insufficient Plan We will repeat CT scan of the brain but most likely patient has traumatic encephalopathy due to injury and hypoxia on the scene In addition patient has some degree of hyperammonemia as a result of his liver insufficiency and drinking history Sodium is normal and hypertonic saline been removed Dobbhoff tube is placed for feedings 05/25/2017 Patient slightly better today he is oriented in person and space but not in time Neurologically motorically seems to be intact however obviously has cognitive deficits Repeat CT scan of the brain does not reveal any change in the left occipital contusion hematoma injury Patient currently on Seroquel/trazodone and as needed Haldol Required overnight Precedex and now on decreased dose Hemodynamically remained stable Bilateral good breath sounds good inspiratory effort and some secretions but not much Abdomen is soft. Patient is unable to take p.o. diet himself due to decreased level of consciousness and sort of altered affect so NG tube has been placed and enteral feedings are tolerated Patient can transfer to floor when bed available We will repeat bedside swallow study Monday Neurology consult ordered 05/26/2017 Patient this morning more awake and alert Is somewhat improved with decrease of medications as suggested by neurology Remains on Precedex small dose Patient mumbling and speaking is very short sentences He is awake alert but disoriented Still too obtunded to pass swallow study and seems to have fair amount of phlegm in the back of the throat that needs to be cleared from time to time Hemodynamically stable Bilateral good breath sounds Abdomen soft enteral feeds tolerated via the NG tube but as above noted patient still not ready to swallow and coordinate this activity Neurology help greatly appreciated Transfer to floor 05/27/2017 Neurologically patient is improved today He is off Precedex and sedation More alert and oriented and passed swallow study so will be placed on the diet but considering the small intake this is not sufficient for the caloric needs and feeding tube will remain in place the patient takes more p.o. Bilateral breath sounds Patient is out of bed and has been walking several steps with help All things equal patient will be transferred to rehab [facility] bed in next few days probably Monday05/28/2017 Patient doing very well Awake alert and oriented Taking p.o. diet well Transfer to floor today and to rehab as soon as the bed is available Patient will need active rehab for a while Intensivists help is greatly appreciated and neurology and neuropsychology consultations were invaluable in the management of this patient Objective Vital Signs Date Time Temp Pulse Resp B/P (MAP) Pulse Ox O2 Delivery O2 Flow Rate FiO2 05/28/17 12:00 88 05/28/17 12:00 100.2 15 134/70 (91) 94 05/28/17 07:51 21 05/28/17 07:00 Room Air 05/27/17 08:09 3.00 Intake and Output 05/28/17 05/28/17 05/29/17 08:00 16:00 00:00 Intake Total 620 ml Output Total 800 ml Balance -180 ml Result Diagram: 05/28/17 0856 05/28/17 0856 Other Results Microbiology Date/Time Source Procedure Growth Status 05/26/17 16:45 Sputum Expectorated Sputum Gram Stain - Final Complete 05/26/17 16:45 Sputum Culture - Final S. Aureus Mrsa Complete Imaging Last 24 hours Impressions Chest X-Ray 05/27/17 1711 Signed Impressions: Service Date/Time: Saturday, May 27, 2017 17:24 - CONCLUSION: 1. NG tube in the stomach. 2. Improving aeration of both lung kern. Errol Castillo MD Disinhibition Score: 29.68 Aggression Score: 14.00 Lability Score: 14.00 Agitated Behavior Total Score: 23 Assessment and Plan Plan not progressing last 48 hrs MRSA -sepsis -vanco IV-ID hold diuresis for now start LR@50 cc/hr monitor Na,volume status tube feeds for nutritional support Douglas Tinsley MD May 28, 2017 12:52
[2017-05-28] MEDS: HALOPERIDOL LACTATE 5 MG/ML AMP IV PUSH PRN (22:10)
[2017-05-28] MEDS: SODIUM CHLORIDE 0.9% FLUSH 10 ML FLUSH IVF PRN (22:10)
[2017-05-29] VITALS: BP 142/79; PULSE 100; RESP 18; TEMP 97.3; O2SAT 92
[2017-05-29 04:00] VITALS: BP 142/74; PULSE 72; RESP 18; TEMP 98.3; O2SAT 96
[2017-05-29] MEDS: CHLORHEXIDINE GLUCONATE 2 % 1 PACK (2 CLOTHS) TOP SCH (04:00)
[2017-05-29] MEDS ORDERED: VANCOMYCIN INJ 2,000 MG in SODIUM CHLORID 0.9% 500 ML INJ 500 ML IV SCH (04:00)
[2017-05-29] MEDS: HALOPERIDOL LACTATE 5 MG/ML AMP IV PUSH PRN (04:10)
[2017-05-29] MEDS: PIPERACIL-TAZO 4.5 GM PREMIX 100 ML IV SCH ×2 (04:10→09:53)
[2017-05-29 05:13] LABS: AUTOMATED NEUTROPHIL # 7.5 TH/MM3 (1.8-7.7); BASOPHIL # 0.1 TH/MM3 (0-0.2); BASOPHIL % 1.1 % (0.0-2.0); EOSINOPHIL # 0.2 TH/MM3 (0-0.4); EOSINOPHIL % 1.9 % (0.0-4.0); HEMATOCRIT 25.2 % (39.0-51.0); HEMOGLOBIN 8.6 GM/DL (13.0-17.0); LYMPHOCYTE # 1.5 TH/MM3 (1.0-4.8); MEAN CELL VOLUME 97.3 FL (80.0-100.0); MEAN CORPUSCULAR HEMOGLOBIN 33.1 PG (27.0-34.0); MEAN CORPUSCULAR HGB CONC 34.1 % (32.0-36.0); MEAN PLATELET VOLUME 8.2 FL (7.0-11.0); MONO % 8.4 % (0.0-8.0); MONOCYTE # 0.9 TH/MM3 (0-0.9); NEUT % 73.6 % (16.0-70.0); PLATELET COUNT 414 TH/MM3 (150-450); RED BLOOD COUNT 2.59 MIL/MM3 (4.50-5.90); RED CELL DISTRIBUTION WIDTH 14.2 % (11.6-17.2); WHITE BLOOD COUNT 10.2 TH/MM3 (4.0-11.0)
[2017-05-29] MEDS: HEPARIN SODIUM - SQ 10,000 UNITS/ML VIAL SQ SCH ×3 (05:39→23:09)
[2017-05-29 05:40] LABS: BICARBONATE 25.6 MEQ/L (21.0-32.0); CALCIUM 8.4 MG/DL (8.5-10.1); CREATININE 1.22 MG/DL (0.60-1.30)
[2017-05-29 07:12] LABS: BASOPHILS 2 % (0-2); LYMPHOCYTES 8 % (9-44); MONOCYTES 10 % (0-8); MYELOCYTES 4 % (0-0); POLYS (SEG NEUTROPHILS) 74 % (16-70)
[2017-05-29 07:14] LABS: TOXIC VACUOLATION PRESENT (NONE SEEN)
[2017-05-29] MEDS: RESP: ALBUTEROL 2.5 MG/IPRATROPIUM 0.5 MG NEB (SCH) NEB ×2 (07:24→19:03)
[2017-05-29 07:32] VITALS: BP 145/78; PULSE 87; RESP 20; TEMP 98.5; O2SAT 96
--- NOTE | 2017-05-29 07:51 | HHI.PR ---
Objective Vital Signs Date Time Temp Pulse Resp B/P (MAP) Pulse Ox O2 Delivery O2 Flow Rate FiO2 05/29/17 07:32 98.5 87 20 145/78 (100) 96 05/29/17 04:00 98.3 72 18 142/74 (96) 96 05/29/17 00:00 97.3 100 18 142/79 (100) 92 05/28/17 20:49 96 05/28/17 20:15 Room Air 05/28/17 20:00 98.1 82 18 159/80 (106) 97 05/28/17 16:00 98.2 87 18 135/71 (92) 98 05/28/17 14:00 90 05/28/17 12:00 88 05/28/17 12:00 100.2 89 15 134/70 (91) 94 05/28/17 10:00 99 05/28/17 08:08 100 05/28/17 08:00 99.8 100 23 141/88 (105) 92 05/28/17 07:51 100 21 I/O 05/28/17 05/28/17 05/28/17 05/29/17 05/29/17 05/29/17 07:00 15:00 23:00 07:00 15:00 23:00 Intake Total 620 ml 240 ml Output Total 800 ml Balance -180 ml 240 ml Intake Oral 240 ml Tube Feeding 520 ml Tube Irrigant 100 ml Output Urine Total 800 ml # Voids 1 1 3 # Bowel Movements 1 2 Result Diagram: 05/29/17 0330 05/29/17 0330 Objective Remarks awakens [facility] [place] 1918 moving well speech thick Assessment and Plan Assessment and Plan imp do mri neg tumor and eeg neg labs ok [facility] better i lowered haldol dose oob rehab John Golden MD May 29, 2017 07:51
[2017-05-29] MEDS ORDERED: HALOPERIDOL LACTATE 5 MG/ML AMP IV PUSH PRN (08:00)
--- NOTE | 2017-05-29 08:42 | HHI.PR ---
Neuropsych Behavior Behavior: Moderate: Impulsive/Agitated Cognitive Cognitive: Severe: Cognitive, Attention/Concentration, Confused/Orientation, Insight/Awareness, Judgement/Problem-Solving, Memory Psychosocial Psychosocial: Moderate: Psychosocial, Family/Other Adjustment, Realistic Expectation, Unable to Asses: Self-Esteem/Confidence Progress Notes/Response to Tx Contents of Sessions: Adjustment, Level of Consciousness Time with Patient: 15 minutes Premorbid psychological status Premorbid Cognitive, Emotional and Behavioral Status: Stable. 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 The patient has no known prior psychiatric difficulties, as described above. Substance abuse history includes alcohol dependence. Behavioral Reactions of Patient and Family/Support System: Deferred. The patients family is experiencing ongoing issues of adjustment given the nature of the injury, and this aspect of recovery will require ongoing monitoring. Emotional/Behavioral Status of Patient and Family/Support System: Stable. Pertinent issues, if appropriate to this patients clinical care, are described in detail above. Maximizing acute care outcome It is recommended that the patient be monitored for emergent behavioral impulsivity as the medical condition evolves. This patients neuropathological challenges may limit his rehabilitation potential going forward, and these challenges will require specialized therapeutic skills to maximize outcome. At this point in the recovery process, the patient does not have cognitive capacity as the patient is unable to understand a situation and its likely consequences, nor is he able to manipulate information rationally. Cognitive capacity will be assessed throughout the recovery process. Anticipated Problems Ongoing areas of concern will include behavioral impulsivity, lack of insight and judgment, which is expected to improve with time and treatment. Presently , the patient is in delirium 2T alcohol withdrawals. Given the severity of the patient's injuries it is my clinical opinion that this patient will be unable to return to any type of productive employment for at least one year, perhaps longer and likely never. This patient is not considered safe to discharge home with supervision. Treatment Plan This clinician will continue to follow with you throughout the course of this patients acute care treatment, and I will be available to meet with the patient s family/support system to facilitate their understanding and the ongoing care of their family member. The goals of neuropsychological intervention shall be both educational and supportive to the family/support system as is deemed clinically appropriate. [facility] Level: IV:Confused/Agitated-maximal assist Disinhibition Score: 31.50 Aggression Score: 14.00 Lability Score: 18.62 Agitated Behavior Total Score: 25 Impression 51 year old male s/p TBI 2T fall from ladder on 05/13/2017, now in alcohol withdrawals. Diagnosis: (1) Alcohol dependence in controlled environment Status: Acute (2) Mild major neurocognitive disorder due to traumatic brain injury with behavioral disturbance Status: Acute Progress Note Narrative PTD 16. Most appreciative of Dr. Choi's facilitation of this patient's management. The patient has been transferred to the floor. He is off all neurobehavioral medications except Haldol, the dosage of which has been lowered by Dr. Choi. This patient still remains somewhat agitated, in four point restraints, with ABS = 25 (31.5, 14, 18.6). Trauma team is deferring agitation management to neurology, particularly in light of how successful they have been in helping get this patient from ICU to the floor. This patient is awaiting a rosa bed in a rehab facility. He is Rancho IV. I will follow. Meño Angel PhD May 29, 2017 8:42 am
--- NOTE | 2017-05-29 09:13 | HHI.PR ---
Subjective Subjective Notes PTD: 16 Patient lying in bed. No distress noted. Sedated at present. Eyes closed. Requiring restraints 4 extremities. Objective Vitals/I&O Vital Signs Date Time Temp Pulse Resp B/P (MAP) Pulse Ox O2 Delivery O2 Flow Rate FiO2 05/29/17 07:32 98.5 87 20 145/78 (100) 96 05/28/17 20:15 Room Air 05/28/17 07:51 21 05/27/17 08:09 3.00 Labs Laboratory Tests Test 05/29/17 03:30 White Blood Count 10.2 Red Blood Count 2.59 Hemoglobin 8.6 Hematocrit 25.2 Mean Corpuscular Volume 97.3 Mean Corpuscular Hemoglobin 33.1 Mean Corpuscular Hemoglobin Concent 34.1 Red Cell Distribution Width 14.2 Platelet Count 414 Mean Platelet Volume 8.2 Neutrophils (%) (Auto) 73.6 Lymphocytes (%) (Auto) 15.0 Monocytes (%) (Auto) 8.4 Eosinophils (%) (Auto) 1.9 Basophils (%) (Auto) 1.1 Neutrophils # (Auto) 7.5 Lymphocytes # (Auto) 1.5 Monocytes # (Auto) 0.9 Eosinophils # (Auto) 0.2 Basophils # (Auto) 0.1 CBC Comment AUTO DIFF Differential Total Cells Counted 100 Neutrophils % (Manual) 74 Lymphocytes % 8 Monocytes % 10 Eosinophils % 2 Basophils % 2 Neutrophils # (Manual) 8.0 Myelocytes 4 Differential Comment FINAL DIFF MANUAL Toxic Vacuolation PRESENT Platelet Estimate NORMAL Platelet Morphology Comment NORMAL Blood Urea Nitrogen 11 Creatinine 1.22 Random Glucose 77 Calcium Level 8.4 Sodium Level 148 Potassium Level 3.0 Chloride Level 113 Carbon Dioxide Level 25.6 Anion Gap 9 Estimat Glomerular Filtration Rate 63 Date/Time Source Procedure Growth Status 05/26/17 15:25 Blood Peripheral Aerobic Blood Culture - Preliminary NO GROWTH IN 2 DAYS Resulted 05/26/17 15:25 Blood Peripheral Anaerobic Blood Culture - Preliminary NO GROWTH IN 2 DAYS Resulted 05/26/17 16:45 Sputum Expectorated Sputum Gram Stain - Final Complete 05/26/17 16:45 Sputum Culture - Final S. Aureus Mrsa Complete Radiology Last 72 hours Impressions Chest X-Ray 05/27/17 1711 Signed Impressions: Service Date/Time: Saturday, May 27, 2017 17:24 - CONCLUSION: 1. NG tube in the stomach. 2. Improving aeration of both lung kern. Errol Castillo MD Brain MRI 05/26/17 1433 Signed Impressions: Service Date/Time: Friday, May 26, 2017 22:01 - CONCLUSION: 1. Redemonstration of left occipital mid convexity intracranial hemorrhage without definite associated enhancing mass. More delayed followup imaging or MR spectroscopy may be performed if there is continued clinical concern regarding underlying mass. 2. Right maxillary mucosal sinus disease. Joel Parker MD Disinhibition Score: 31.50 Aggression Score: 14.00 Lability Score: 18.62 Agitated Behavior Total Score: 25 Narrative Exam GENERAL: This is a 51-year-old male lying in bed. Sedated. SKIN: Warm and dry. HEAD: Atraumatic. Normocephalic. EYES: PERRLA ENT: No nasal bleeding or discharge. Mucous membranes pink and moist. NECK: Trachea midline. No JVD. CARDIOVASCULAR: Regular rate and rhythm. RESPIRATORY: No accessory muscle use. Lungs are clear to auscultation. Breath sounds equal bilaterally. No distress or dyspnea. GASTROINTESTINAL: BS + x 4 quads. Abdomen soft, non-tender, nondistended. MUSCULOSKELETAL: Extremities without cyanosis, or edema. + peripheral pulses x 4 extremities. Warm with good capillary refill and sensation. MAEW. NEUROLOGICAL: Sedated. A/P Problem List: (1) Fall ICD Codes: W19.XXXA - Unspecified fall, initial encounter Status: Acute (2) Traumatic ecchymosis of eyelid ICD Codes: S00.10XA - Contusion of unspecified eyelid and periocular area, initial encounter Status: Acute (3) Intracranial bleed ICD Codes: I62.9 - Nontraumatic intracranial hemorrhage, unspecified Status: Acute (4) Facial fracture due to fall ICD Codes: S02.92XA - Unspecified fracture of facial bones, initial encounter for closed fracture; W19.XXXA - Unspecified fall, initial encounter Status: Acute (5) Subconjunctival hemorrhage of both eyes ICD Codes: H11.33 - Conjunctival hemorrhage, bilateral Status: Acute (6) Alcohol dependence in controlled environment ICD Codes: F10.20 - Alcohol dependence, uncomplicated Status: Acute (7) Mild major neurocognitive disorder due to traumatic brain injury with behavioral disturbance ICD Codes: S06.9X9S - Unspecified intracranial injury with loss of consciousness of unspecified duration, sequela; F02.81 - Dementia in other diseases classified elsewhere with behavioral disturbance Status: Acute Assessment and Plan SAMISH: This is a 51-year-old male who sustained a trip and fall from a standing position. He came into the ER 19 hours later when his eyes began swelling shut. GCS 15. INJURIES: RIGHT eyelid lacerations LEFT occipital IPH RIGHT facial fxs - orbital wall (non-op) PMHx: Anxiety, ETOH abuse Procedures: Consults: CCM. Neurosurgery. Infectious disease. OMFS. Ophthalmology. Neuropsych. [facility] nurse liaison. Case management. Diet: Regular mechanical soft diet with nectar thick liquids. Tolerating po diet. Encourage good po intake with each meal. Speech therapy is following the patient. Pulmonary: Encourage good pulmonary toileting. IS at bedside and pt encouraged to use. Rationale for use explained to patient, and verbalized understanding. Duo nebs. Mucinex PRN. K = 3.0. Potassium EFF 50 mEq BID x 2 doses today. Follow up labs and ammonia level in the am. PAIN Management: Oxycodone 5-10 mg q 4h. Behavior: Haldol decreased to 2 mg q 6h -due to sedation. Activity: OOB. PT and OT ordered. GI prophylaxis: Bowel regimen: Riya-colace. MOM. Lactulose BID (HIGH AMMONIA). Senna PRN. LBM: 05/29 DVT prophylaxis: Mechanical VTE with SCDs. Chemical management with Heparin 5, 000 units q 8h SQ. DC Planning: Case management consulted for assistance with final discharge disposition. Patient will need rehab. [facility] is following the patient for a possible [facility] bed if available. Emotional support provided to patient at bedside and plan of care discussed. Discussed with RN at bedside. Discussed pt condition and plan of care with collaborating trauma surgeon. Patient is hemodynamically stable and being managed on the med/surg floor. The trauma team will round each day, and evaluate plan of care on a daily basis. RIGHT eyelid lacerations LEFT occipital IPH RIGHT facial fxs - orbital wall (non-op) Neurosurgery consulted and assisting in management and care Nonoperative management of IPH at this time OMFS consulted and assisting in management and care Nonoperative management of facial fractures at this time Sinus precautions Ophthalmology consulted in assisting in management and care They feel blurred vision will resolve on its own Follow-up outpatient with ophthalmology 05/24: CT brain- stable 05/25 EEG- neg Serial neuro checks Keppra 500 mg BID for seizure prophylaxis Seizure precautions CT brain for any change in neurological status PT and OT ordered Encourage out of bed ETOH Elevated ammonia Agitation Impulsivity Neurology consulted and assisting in management and care Monitor closely Precedex, Seroquel, and valproic acid have been discontinued Monitor off sedation Haldol decreased to 2 mg every 6 hours for behavior control - due to sedation Ammonia level - decreased to 39 Lactulose 30 mg BID Trend ammonia level MRSA Infectious disease consulted and assisting in management and care IV abx: Vanco, Zosyn 05/26: Sputum - S. Aureus MRSA 05/26: Blood - NEG 05/19: Blood - NEG 05/17: Blood- S. Aureus MRSA 05/17: Cdiff- NEG Problem Qualifiers (1) Fall: Qualified Codes: W19.XXXA - Unspecified fall, initial encounter (2) Traumatic ecchymosis of eyelid: Qualified Codes: S00.11XA - Contusion of right eyelid and periocular area, initial encounter (3) Facial fracture due to fall: Qualified Codes: S02.92XA - Unspecified fracture of facial bones, initial encounter for closed fracture; W19.XXXA - Unspecified fall, initial encounter Melissa Barragan May 29, 2017 09:13
[2017-05-29] MEDS: MAGNESIUM HYDROXIDE SUSP 30 ML CUP PO SCH ×2 (09:52→23:10)
[2017-05-29] MEDS: POTASSIUM CHLORIDE 25 MEQ EFFERVESCENT TAB NG SCH ×2 (09:52→21:00)
[2017-05-29] MEDS: FAMOTIDINE 20 MG TAB PO SCH ×2 (09:53→21:00)
[2017-05-29] MEDS: levETIRAcetam 500 MG TAB PO SCH ×2 (09:53→21:00)
[2017-05-29] MEDS: DOCUSATE SODIUM 50 MG/SENNA 8.6 MG TAB PO SCH ×2 (09:53→21:00)
[2017-05-29] MEDS: LACTULOSE SYRUP 20 GM/30 ML CUP PO SCH ×2 (09:59→21:00)
[2017-05-29 12:22] VITALS: BP 164/77; PULSE 80; RESP 20; TEMP 97.4; O2SAT 94
--- NOTE | 2017-05-29 14:41 | HHI.IDPN ---
Subjective Subjective Remarks Mr. Nogueira is a 51-year-old male with past medical history significant for alcoholism reportedly was in alcoholic anonymous and possibly relapsed per . Patient was brought into the emergency room with a history of fall at 3 AM on the day of admission 05/13/2017. Patient and his went to bed at approximately 12 midnight. Patient's was awoken up by the sound of her shouting out for help. When she went looking for him she noticed he was covered in blood and there was a puddle of blood on the floor as well. She goes on to report that she found blood in almost all the house especially on the [place]. Despite all this patient refuses admission and for approximately 12 hours continue to remain in his own home. Patient's noted that he had both eyelids are swelling up to the point that he could not see. His brought him to the emergency room. Patient denies drinking but as per the he does drink alcohol on most every day. Blood alcohol level was less than 3. No history of any trauma or assault. On arrival in the emergency department patient's vital signs are stable. There is no history of vomiting and no clear-cut history of loss of consciousness per the . Patient does not have any history of seizure disorder. It is not clear if patient was found down on the floor for an extended period of time even on repeated questioning the . Patient was evaluated by trauma team and admission. Patient had a CT scan maxillofacial which showed multiple fractures of the right orbit including the inferior orbital wall and community fractures of the medial orbital wall. Intraorbital muscles remain within the orbit. There is also prominent periorbital soft tissue swelling extending into the frontal region. Chest x-ray showed some perihilar disease consistent with either pulmonary edema or infection. A CT of the head shows left occipital hematoma. Patient was seen by oral maxillofacial surgeon and no surgical interventions planned. Patient was also seen by ophthalmology. On patient became delirious appeared to be in alcohol withdrawal per notes. A CT showed increase in cerebral edema but the bleeds sites with stable. Patient is started on Precedex. On a rapid response team was called for tachypnea and tachycardia and altered mental status and was evaluated by the [facility] Team. Patient did have fevers and the first day of admission with thereafter. To be resolved and then recurred leading to blood cultures. These blood cultures are positive for MRSA and infectious disease is consulted for evaluation of this MRSA bacteremia in a patient status post trauma. Overnight events reviewed. Low grade temp 100.2 Transferred to the floor. Recd Haldol earlier. Appears sleepy but is arousable and answering questions, follows simple commands Failed swallow evaluation Antibiotics Current Medications vancomycin Zosyn Medications (Trade) Dose Ordered Sig/Rose Route Start Time Stop Time Status Last Admin (NS Flush) 2 ml UNSCH PRN IVF 05/13/17 22:15 05/26/17 09:32 (Zofran Inj) 4 mg Q6H PRN IV PUSH 05/13/17 23:30 Miscellaneous Information 1 Q361D XX 05/13/17 23:30 (Chlorhexidine 2% Cloth) Taper DAILY@04 TOP 05/14/17 04:00 05/10/18 03:59 (Chlorhexidine 2% Cloth) 3 pack UNSCH PRN TOP 05/13/17 23:30 (Riya-Colace) 1 tab BID PO 05/14/17 09:00 05/26/17 10:12 (Senokot) 17.2 mg Q12H PRN PO 05/13/17 23:30 Miscellaneous Information D/C ICU ELECTROLYTE ORDERS... UNSCH PRN .XX 05/14/17 07:15 Miscellaneous Information ICU - CALL ORDERING PHYSIC... UNSCH PRN .XX 05/14/17 07:15 Potassium Chloride 100 ml @ 25 mls/hr UNSCH PRN IV 05/14/17 07:15 (K-Lyte Cl Eff) 50 meq UNSCH PRN PO 05/14/17 07:15 05/26/17 09:32 Potassium Chloride 100 ml @ 50 mls/hr UNSCH PRN IV 05/14/17 07:15 05/22/17 17:48 Magnesium Sulfate 4 gm/Sodium Chloride 108 ml @ 54 mls/hr UNSCH PRN IV 05/14/17 07:15 Magnesium Sulfate 2 gm/Sodium Chloride 104 ml @ 52 mls/hr UNSCH PRN IV 05/14/17 07:15 (Mag-Ox) 800 mg UNSCH PRN PO 05/14/17 07:15 Sodium Phosphate 30 mmol/Sodium Chloride 260 ml @ 43.333 mls/ hr UNSCH PRN IV 05/14/17 07:15 (K-Phos) 2,000 mg UNSCH PRN PO 05/14/17 07:15 Potassium Phosphate 30 mmol/ Sodium Chloride 260 ml @ 43.333 mls/ hr UNSCH PRN IV 05/14/17 07:15 (Tylenol) 650 mg Q6HR PRN PO 05/16/17 10:15 05/16/17 20:24 Potassium Chloride 100 ml @ 50 mls/hr Q2H PRN IV 05/17/17 02:45 Potassium Chloride 100 ml @ 50 mls/hr Q2H PRN IV 05/17/17 02:45 05/22/17 15:01 (K-Lyte Cl Eff) 50 meq UNSCH PRN PO 05/17/17 02:45 Potassium Chloride 100 ml @ 25 mls/hr UNSCH PRN IV 05/17/17 02:45 Potassium Chloride 100 ml @ 50 mls/hr Q2H PRN IV 05/17/17 02:45 Magnesium Sulfate 4 gm/Sodium Chloride 100 ml @ 50 mls/hr UNSCH PRN IV 05/17/17 02:45 (Mag-Ox) 800 mg UNSCH PRN PO 05/17/17 02:45 Magnesium Sulfate 2 gm/Sodium Chloride 100 ml @ 50 mls/hr UNSCH PRN IV 05/17/17 02:45 (K-Phos) 2,000 mg Q4H PRN PO 05/17/17 02:45 Sodium Phosphate 30 mmol/Sodium Chloride 250 ml @ 42 mls/hr UNSCH PRN IV 05/17/17 02:45 (K-Phos) 2,000 mg UNSCH PRN PO/TUBE 05/17/17 02:45 Potassium Phosphate 30 mmol/ Sodium Chloride 260 ml @ 42 mls/hr UNSCH PRN IV 05/17/17 02:45 Acetaminophen 100 ml @ 400 mls/hr Q6H PRN IV 05/17/17 18:00 05/17/17 22:51 (Dulcolax Supp) 10 mg DAILY RECTAL 05/17/17 20:00 05/24/17 09:00 (Heparin Inj) 5,000 units Q8HR SQ 05/18/17 14:00 05/26/17 06:15 Pharmacy Profile Note 0 ml @ 0 mls/hr UNSCH OTHER 05/19/17 18:00 (Milk Of Magnesia Liq) 30 ml Q12H PO 05/20/17 11:30 05/24/17 11:30 (Lasix Inj) 40 mg BID@,18 IV PUSH 05/20/17 14:00 Future Hold 05/21/17 17:41 (Keppra) 500 mg Q12HR PO 05/21/17 21:00 05/26/17 09:32 (KCl) 50 meq UNSCH PRN PO 05/21/17 11:00 05/21/17 14:27 (Tears Naturale Opth Soln) 1 drop BID PRN EACH EYE 05/21/17 12:00 05/21/17 12:31 (Lactulose Liq) 30 ml BID PO 05/23/17 21:00 05/24/17 20:36 (Pepcid) 20 mg BID PO 05/24/17 21:00 05/26/17 09:32 Vancomycin HCl 1750 mg/Sodium Chloride 517.5 ml @ 250 mls/hr Q18H IV 05/25/17 10:00 05/26/17 03:57 (Catapres-Tts 0.1mg Patch.7d) 1 patch Q7D T-DERMAL 05/25/17 11:00 05/25/17 11:44 Miscellaneous Information 1 Q7D T-DERMAL 06/01/17 11:00 Piperacillin Sod/ Tazobactam Sod 100 ml @ 200 mls/hr Q6H IV 05/25/17 17:00 05/26/17 10:10 (Geodon) 20 mg BID PO 05/26/17 11:00 (Depakene) 250 mg Q12HR PO 05/26/17 11:00 (Haldol Inj) 5 mg Q6HR PRN IV PUSH 05/26/17 10:00 Miscellaneous Information SPECIFIC LAB TO BE SHERRY... ONCE ONCE .XX 05/28/17 09:45 05/28/17 09:46 Lines Line sites with no e.o infection Past Medical History reviewed. Allergies: Coded Allergies: No Known Allergies (Unverified Allergy, Unknown, 05/13/17) Objective . Vital Signs Date Time Temp Pulse Resp B/P (MAP) Pulse Ox O2 Delivery O2 Flow Rate FiO2 05/29/17 12:22 97.4 80 20 164/77 (106) 94 05/29/17 09:30 Room Air 05/29/17 07:32 98.5 87 20 145/78 (100) 96 05/29/17 04:00 98.3 72 18 142/74 (96) 96 05/29/17 00:00 97.3 100 18 142/79 (100) 92 05/28/17 20:49 96 05/28/17 20:15 Room Air 05/28/17 20:00 98.1 82 18 159/80 (106) 97 05/28/17 16:00 98.2 87 18 135/71 (92) 98 . Laboratory Tests Test 05/28/17 08:56 05/29/17 03:30 White Blood Count 13.7 TH/MM3 10.2 TH/MM3 Red Blood Count 2.97 MIL/MM3 2.59 MIL/MM3 Hemoglobin 9.5 GM/DL 8.6 GM/DL Hematocrit 28.8 % 25.2 % Mean Corpuscular Volume 96.8 FL 97.3 FL Mean Corpuscular Hemoglobin 32.0 PG 33.1 PG Mean Corpuscular Hemoglobin Concent 33.0 % 34.1 % Red Cell Distribution Width 13.9 % 14.2 % Platelet Count 407 TH/MM3 414 TH/MM3 Mean Platelet Volume 8.1 FL 8.2 FL Neutrophils (%) (Auto) 73.6 % Lymphocytes (%) (Auto) 15.0 % Monocytes (%) (Auto) 8.4 % Eosinophils (%) (Auto) 1.9 % Basophils (%) (Auto) 1.1 % Neutrophils # (Auto) 7.5 TH/MM3 Lymphocytes # (Auto) 1.5 TH/MM3 Monocytes # (Auto) 0.9 TH/MM3 Eosinophils # (Auto) 0.2 TH/MM3 Basophils # (Auto) 0.1 TH/MM3 CBC Comment AUTO DIFF Differential Total Cells Counted 100 Neutrophils % (Manual) 74 % Lymphocytes % 8 % Monocytes % 10 % Eosinophils % 2 % Basophils % 2 % Neutrophils # (Manual) 8.0 TH/MM3 Myelocytes 4 % Differential Comment FINAL DIFF MANUAL Toxic Vacuolation PRESENT Platelet Estimate NORMAL Platelet Morphology Comment NORMAL Laboratory Tests Test 05/27/17 15:58 05/28/17 08:56 05/29/17 03:30 05/29/17 10:43 Potassium Level 3.2 MEQ/L 3.2 MEQ/L 3.0 MEQ/L Blood Urea Nitrogen 11 MG/DL 11 MG/DL Creatinine 1.31 MG/DL 1.22 MG/DL Random Glucose 94 MG/DL 77 MG/DL Calcium Level 8.6 MG/DL 8.4 MG/DL Sodium Level 148 MEQ/L 148 MEQ/L Chloride Level 114 MEQ/L 113 MEQ/L Carbon Dioxide Level 27.5 MEQ/L 25.6 MEQ/L Anion Gap 7 MEQ/L 9 MEQ/L Estimat Glomerular Filtration Rate 58 ML/MIN 63 ML/MIN Ammonia 57 MCMOL/L 39 MCMOL/L Microbiology Date/Time Source Procedure Growth Status 05/26/17 15:25 Blood Peripheral Aerobic Blood Culture - Preliminary NO GROWTH IN 3 DAYS Resulted 05/26/17 15:25 Blood Peripheral Anaerobic Blood Culture - Preliminary NO GROWTH IN 3 DAYS Resulted 05/26/17 15:15 Blood Peripheral Aerobic Blood Culture - Preliminary NO GROWTH IN 3 DAYS Resulted 05/26/17 15:15 Blood Peripheral Anaerobic Blood Culture - Preliminary NO GROWTH IN 3 DAYS Resulted 05/26/17 16:45 Sputum Expectorated Sputum Gram Stain - Final Complete 05/26/17 16:45 Sputum Culture - Final S. Aureus Mrsa Complete Imaging Head CT 05/25/17 0600 Signed Impressions: Service Date/Time: May 05:18 - CONCLUSION: 1. No significant change in the intracranial hemorrhage. 2. No new hemorrhage or mass effect. 3. Mucosal thickening and air-fluid level in right maxillary sinus. Gerardo Sharp MD Head CT 05/24/17 0000 Signed Impressions: Service Date/Time: Wednesday, May 24, 2017 15:55 - CONCLUSION: 1. Left occipital hemorrhage and surrounding edema is similar in appearance to prior examination 05/17/17. 2. Stable right maxillary air-fluid level. Juan Sun MD Chest X-Ray 05/24/17 0000 Signed Impressions: Service Date/Time: Wednesday, May 24, 2017 15:21 - CONCLUSION: 1. Bilateral infiltrates concerning for a pneumonia. Rory Kauffman MD Abdomen X-Ray 05/22/17 0000 Signed Impressions: Service Date/Time: Monday, May 22, 2017 11:25 - CONCLUSION: Tip of the weighted feeding tube in the region of the body of the stomach. Juan Castillo Jr., MD Chest X-Ray 05/21/17 0600 Signed Impressions: Service Date/Time: Sunday, May 21, 2017 02:52 - CONCLUSION: Basilar airspace disease, improved from May 20. Arsh Leslie MD Head CT 05/17/17 0000 Signed Impressions: Service Date/Time: Wednesday, May 17, 2017 02:29 - CONCLUSION: Slightly decreased edema left occipital hematoma. No new bleed. Dion Lugo MD Carotid Artery Ultrasound 05/16/17 0000 Signed Impressions: Service Date/Time: Tuesday, May 16, 2017 10:30 - CONCLUSION: 1. Mild plaque with patent carotid arteries bilaterally. 2. Antegrade flow involving both vertebral arteries. Juan Castillo Jr., MD Chest CT 05/14/17 0000 Signed Impressions: Service Date/Time: Sunday, May 14, 2017 00:39 - CONCLUSION: 1. Negative for acute traumatic injury within the thorax. Fatty infiltration of the liver. Arsh Leslie MD Abdomen/Pelvis CT 05/14/17 Signed Impressions: Service Date/Time: Sunday, May 14, 2017 00:39 - CONCLUSION: 1. Negative for acute traumatic injury within the abdomen or pelvis. Fatty liver. Arsh Leslie MD Maxillofacial CT 05/13/172207 Signed Impressions: Service Date/Time: Saturday, May 13, 2017 22:22 - CONCLUSION: Multiple fractures of the right orbit including the inferior orbital wall and comminuted fractures of the medial orbital wall. Intraorbital muscles remain within the orbit. There is associated opacification of the right ethmoids and right maxillary sinus. There is also prominent riya-orbital soft tissue swelling extending into the frontal region. Juan Sun MD Cervical Spine CT 05/13/172207 Signed Impressions: Service Date/Time: Saturday, May 13, 2017 22:22 - CONCLUSION: Moderately advanced discogenic degenerative changes C4-C6 with associated retrolisthesis of C4 to C5 and reversal of the upper cervical lordosis. No fracture seen. Juan Sun MD Physical Exam GENERAL: Awake, slow to respond, up in chair, NAD. SKIN: Multiple areas of ecchymosis. HEAD: Has hematoma on forehead, ecchymosis below both eyes EYES: Improving periorbital edema and ecchymosis noted. Has scleral hemorrhage L ENT: Nose without bleeding, purulent drainage or septal hematoma. NECK: Trachea midline. Supple, nontender, no meningeal signs. CARDIOVASCULAR: HS audible. RESPIRATORY: Clear to auscultation. Breath sounds equal bilaterally. No wheezes , rales, or rhonchi. GASTROINTESTINAL: Abdomen soft, non-tender, nondistended. MUSCULOSKELETAL: Extremities without clubbing, cyanosis, or edema. NEUROLOGICAL: awake, slow to respond, follows commands. Moves all 4 extremities. Psych could not be assessed IV line sites with no e.o infection Assessment & Plan Remarks MRSA bacteremia: likely secondary to Infected hematoma. Multiple facial fractures Orbital fractures with periorbital hematoma Alcoholism MRSA PNA Recs: DC Vanco IV (target 15-20): Cr bumped and temps low grade ? drug induced. DC Zosyn Start oral zyvox (bacteremia transient with no vegetations on ECHO, stop date: in chart) Follow cultures Follow clinically. D/W RN dw . Will sign off please call back if any change in clinical condition or questions. Olivia Hamilton MD May 29, 2017 14:41
[2017-05-29 16:55] VITALS: BP 141/70; PULSE 80; RESP 20; TEMP 99.1; O2SAT 96
[2017-05-29 20:00] VITALS: BP 142/69; PULSE 80; RESP 18; TEMP 97.8; O2SAT 97
[2017-05-29] MEDS: LINEZOLID 600 MG TAB PO SCH (21:00)
[2017-05-30] VITALS: BP 149/77; PULSE 70; RESP 20; TEMP 97.8; O2SAT 97
[2017-05-30 04:00] VITALS: BP 174/78; RESP 18; TEMP 97.5; O2SAT 97
[2017-05-30 04:03] LABS: AUTOMATED NEUTROPHIL # 8.8 TH/MM3 (1.8-7.7); BASOPHIL # 0.1 TH/MM3 (0-0.2); EOSINOPHIL # 0.3 TH/MM3 (0-0.4); EOSINOPHIL % 2.7 % (0.0-4.0); HEMATOCRIT 28.2 % (39.0-51.0); HEMOGLOBIN 9.8 GM/DL (13.0-17.0); LYMPH % 12.7 % (9.0-44.0); LYMPHOCYTE # 1.5 TH/MM3 (1.0-4.8); MEAN CELL VOLUME 95.4 FL (80.0-100.0); MEAN CORPUSCULAR HEMOGLOBIN 33.2 PG (27.0-34.0); MEAN CORPUSCULAR HGB CONC 34.8 % (32.0-36.0); MEAN PLATELET VOLUME 8.2 FL (7.0-11.0); MONO % 7.4 % (0.0-8.0); MONOCYTE # 0.9 TH/MM3 (0-0.9); NEUT % 76.2 % (16.0-70.0); PLATELET COUNT 428 TH/MM3 (150-450); RED BLOOD COUNT 2.96 MIL/MM3 (4.50-5.90); WHITE BLOOD COUNT 11.6 TH/MM3 (4.0-11.0)
[2017-05-30 04:17] LABS: BICARBONATE 26.8 MEQ/L (21.0-32.0); CALCIUM 8.5 MG/DL (8.5-10.1); CREATININE 1.11 MG/DL (0.60-1.30)
[2017-05-30] MEDS ORDERED: PNEUMOCOCCAL POLYVALENT INJ 25 MCG/0.5 ML SYR IM ONE ×2 (05:15→09:00)
[2017-05-30] MEDS: HEPARIN SODIUM - SQ 10,000 UNITS/ML VIAL SQ SCH ×3 (06:38→23:15)
[2017-05-30] MEDS: RESP: ALBUTEROL 2.5 MG/IPRATROPIUM 0.5 MG NEB (SCH) NEB ×3 (07:24→20:04)
[2017-05-30 07:25] VITALS: O2SAT 94
--- NOTE | 2017-05-30 08:10 | HHI.PR ---
Objective Vital Signs Date Time Temp Pulse Resp B/P (MAP) Pulse Ox O2 Delivery O2 Flow Rate FiO2 05/30/17 07:25 94 21 05/30/17 04:00 97.5 18 174/78 (110) 97 05/30/17 00:00 97.8 70 20 149/77 (101) 97 05/29/17 20:55 Room Air 05/29/17 20:00 97.8 80 18 142/69 (93) 97 05/29/17 16:55 99.1 80 20 141/70 (93) 96 05/29/17 12:22 97.4 80 20 164/77 (106) 94 05/29/17 09:30 Room Air I/O 05/29/17 05/29/17 05/29/17 05/30/17 05/30/17 05/30/17 07:00 15:00 23:00 07:00 15:00 23:00 Intake Total 0 ml Output Total 800 ml Balance 0 ml -800 ml Intake Oral 0 ml Output Urine Total 800 ml # Voids 3 # Bowel Movements 2 Result Diagram: 05/30/17 0345 05/30/17 0345 Objective Remarks awakens know [facility] 2016 vff 5/5 t/o speech clear moving well Assessment and Plan Assessment and Plan imp do mri neg tumor and eeg neg labs ok much better [facility] gisele i will sign off stay on [facility] office 3 months John Plascencia MD May 30, 2017 08:09
[2017-05-30 08:26] VITALS: BP 145/71; PULSE 71; RESP 20; TEMP 98.4; O2SAT 94
--- NOTE | 2017-05-30 08:29 | HHI.PR ---
Neuropsych Emotional Emotional: UnabletoAssess: Emotional, Anxious/Fearful, Depressed/Sad, Hostile/ Resentful, Irritable/Angry/Frustrate, Labile, Constricted/Blunted Behavior Behavior: Mild: Impulsive/Agitated, Unable to Asses: Behavior, Coping/ Acceptance, Cooperative w/ Treatment, Motivation, Frustration Tolerance/[place], Suicidal/Homicidal Risk Cognitive Cognitive: Unable to Asses: Cognitive, Attention/Concentration, Confused/ Orientation, Insight/Awareness, Judgement/Problem-Solving, Memory Psychosocial Psychosocial: Intact: Psychosocial, Family/Other Adjustment, Realistic Expectation, Unable to Asses: Self-Esteem/Confidence Progress Notes/Response to Tx Contents of Sessions: Adjustment Time with Patient: 15 minutes Premorbid psychological status Premorbid Cognitive, Emotional and Behavioral Status: Stable. The patient has high school years of education and recently took a job in [email or web address]. The patient has no known prior psychiatric difficulties, as described above. Substance abuse history includes alcohol dependence. Behavioral Reactions of Patient and Family/Support System: Deferred. The patients family is experiencing ongoing issues of adjustment given the nature of the injury, and this aspect of recovery will require ongoing monitoring. Emotional/Behavioral Status of Patient and Family/Support System: Stable. Pertinent issues, if appropriate to this patients clinical care, are described in detail above. Maximizing acute care outcome It is recommended that the patient be monitored for emergent behavioral impulsivity as the medical condition evolves. This patients neuropathological challenges may limit his rehabilitation potential going forward, and these challenges will require specialized therapeutic skills to maximize outcome. At this point in the recovery process, the patient does not have cognitive capacity as the patient is unable to understand a situation and its likely consequences, nor is he able to manipulate information rationally. Cognitive capacity will be assessed throughout the recovery process. Anticipated Problems Ongoing areas of concern will include behavioral impulsivity, lack of insight and judgment, which is expected to improve with time and treatment. Presently , the patient is in delirium 2T alcohol withdrawals. Given the severity of the patient's injuries it is my clinical opinion that this patient will be unable to return to any type of productive employment for at least one year, perhaps longer and likely never. This patient is not considered safe to discharge home with supervision. Treatment Plan This clinician will continue to follow with you throughout the course of this patients acute care treatment, and I will be available to meet with the patient s family/support system to facilitate their understanding and the ongoing care of their family member. The goals of neuropsychological intervention shall be both educational and supportive to the family/support system as is deemed clinically appropriate. [facility] Level: IV:Confused/Agitated-maximal assist Disinhibition Score: 19.18 Aggression Score: 14.00 Lability Score: 14.00 Agitated Behavior Total Score: 17 Impression 51 year old male s/p TBI 2T fall from ladder on 05/13/2017, now in alcohol withdrawals. Diagnosis: (1) Alcohol dependence in controlled environment Status: Resolved (2) Mild major neurocognitive disorder due to traumatic brain injury with behavioral disturbance Status: Acute Progress Note Narrative PTD 17. The patient is on a "restraint holiday" at present with good results. Dr. Choi is following the patient, and notes improvement in his agitation and recovery.. This morning the patient's ABS is 17 (19.1, 14,14) which is an improvement. The patient still appears to be at [place] IV, progressing to V. Disposition is being determined as to where he may transfer for rehabilitation needs. I will follow. Meño Angel PhD May 30, 2017 8:29 am
--- NOTE | 2017-05-30 08:48 | HHI.PR ---
Subjective Subjective Notes PTD: 17 Patient lying in bed. No distress noted. 2 visitors at bedside. Patient more awake today, and conversant. Patient states, "I have not had anything [to eat] in the past day or so." "I remember the swallow study vaguely." Visitors state that the patient is still attempting to get out of bed "every minute of the day." Objective Vitals/I&O Vital Signs Date Time Temp Pulse Resp B/P (MAP) Pulse Ox O2 Delivery O2 Flow Rate FiO2 05/30/17 08:26 98.4 71 20 145/71 (95) 94 05/30/17 07:25 21 05/29/17 20:55 Room Air 05/27/17 08:09 3.00 Labs Laboratory Tests Test 05/29/17 10:43 05/30/17 03:45 Ammonia 39 67 White Blood Count 11.6 Red Blood Count 2.96 Hemoglobin 9.8 Hematocrit 28.2 Mean Corpuscular Volume 95.4 Mean Corpuscular Hemoglobin 33.2 Mean Corpuscular Hemoglobin Concent 34.8 Red Cell Distribution Width 14.0 Platelet Count 428 Mean Platelet Volume 8.2 Neutrophils (%) (Auto) 76.2 Lymphocytes (%) (Auto) 12.7 Monocytes (%) (Auto) 7.4 Eosinophils (%) (Auto) 2.7 Basophils (%) (Auto) 1.0 Neutrophils # (Auto) 8.8 Lymphocytes # (Auto) 1.5 Monocytes # (Auto) 0.9 Eosinophils # (Auto) 0.3 Basophils # (Auto) 0.1 CBC Comment DIFF FINAL Differential Comment Hematology Comments Blood Urea Nitrogen 12 Creatinine 1.11 Random Glucose 78 Calcium Level 8.5 Sodium Level 147 Potassium Level 3.2 Chloride Level 111 Carbon Dioxide Level 26.8 Anion Gap 9 Estimat Glomerular Filtration Rate 70 Date/Time Source Procedure Growth Status 05/26/17 15:25 Blood Peripheral Aerobic Blood Culture - Preliminary NO GROWTH IN 3 DAYS Resulted 05/26/17 15:25 Blood Peripheral Anaerobic Blood Culture - Preliminary NO GROWTH IN 3 DAYS Resulted 05/26/17 16:45 Sputum Expectorated Sputum Gram Stain - Final Complete 05/26/17 16:45 Sputum Culture - Final S. Aureus Mrsa Complete Radiology Last 72 hours Impressions Chest X-Ray 05/27/17 1711 Signed Impressions: Service Date/Time: Saturday, May 27, 2017 17:24 - CONCLUSION: 1. NG tube in the stomach. 2. Improving aeration of both lung kern. Errol Castillo MD Brain MRI 05/26/17 1433 Signed Impressions: Service Date/Time: Friday, May 26, 2017 22:01 - CONCLUSION: 1. Redemonstration of left occipital mid convexity intracranial hemorrhage without definite associated enhancing mass. More delayed followup imaging or MR spectroscopy may be performed if there is continued clinical concern regarding underlying mass. 2. Right maxillary mucosal sinus disease. Joel Parker MD Disinhibition Score: 19.18 Aggression Score: 14.00 Lability Score: 14.00 Agitated Behavior Total Score: 17 Narrative Exam GENERAL: This is a 51-year-old male lying in bed. No distress noted. SKIN: Warm and dry. HEAD: Atraumatic. Normocephalic. EYES: PERRLA ENT: No nasal bleeding or discharge. Mucous membranes pink and moist. NECK: Trachea midline. No JVD. CARDIOVASCULAR: Regular rate and rhythm. RESPIRATORY: No accessory muscle use. Lungs are clear to auscultation. Breath sounds equal bilaterally. No distress or dyspnea. GASTROINTESTINAL: BS + x 4 quads. Abdomen soft, non-tender, nondistended. MUSCULOSKELETAL: Extremities without cyanosis, or edema. + peripheral pulses x 4 extremities. Warm with good capillary refill and sensation. MAEW. NEUROLOGICAL: Awake and alert. Normal speech and pattern. Pleasantly confused. A/P Problem List: (1) Fall ICD Codes: W19.XXXA - Unspecified fall, initial encounter Status: Acute (2) Traumatic ecchymosis of eyelid ICD Codes: S00.10XA - Contusion of unspecified eyelid and periocular area, initial encounter Status: Acute (3) Intracranial bleed ICD Codes: I62.9 - Nontraumatic intracranial hemorrhage, unspecified Status: Acute (4) Facial fracture due to fall ICD Codes: S02.92XA - Unspecified fracture of facial bones, initial encounter for closed fracture; W19.XXXA - Unspecified fall, initial encounter Status: Acute (5) Subconjunctival hemorrhage of both eyes ICD Codes: H11.33 - Conjunctival hemorrhage, bilateral Status: Acute (6) Alcohol dependence in controlled environment ICD Codes: F10.20 - Alcohol dependence, uncomplicated Status: Resolved (7) Mild major neurocognitive disorder due to traumatic brain injury with behavioral disturbance ICD Codes: S06.9X9S - Unspecified intracranial injury with loss of consciousness of unspecified duration, sequela; F02.81 - Dementia in other diseases classified elsewhere with behavioral disturbance Status: Acute Assessment and Plan [place]: This is a 51-year-old male who sustained a trip and fall from a standing position. He came into the ER 19 hours later when his eyes began swelling shut. GCS 15. INJURIES: RIGHT eyelid lacerations LEFT occipital IPH RIGHT facial fxs - orbital wall (non-op) PMHx: Anxiety, ETOH abuse Procedures: Consults: CCM. Neurosurgery. Infectious disease. OMFS. Ophthalmology. Neuropsych. [place] nurse liaison. Case management. Diet: Pt deemed NPO by speech yesterday afternoon. Speech therapy is following the patient., Requested speech therapy to evaluate the patient again today, as he is more awake today. If speech therapy deems him n.p.o. again today, place NG tube for feeding and administration of meds Pulmonary: Encourage good pulmonary toileting. IS at bedside and pt encouraged to use. Rationale for use explained to patient, and verbalized understanding. Duo nebs. Mucinex PRN. K = 3.2. Potassium 20 mEq x 1 dose IV (cardiac monitoring with IV administration of Kcl) and Potassium EFF 50 mEq BID x 2 doses today. Ammonia level = 67, however the patient was n.p.o., and not receiving his lactulose and p.o. meds. Follow up labs and ammonia level in the am. PAIN Management: Oxycodone 5-10 mg q 4h. Behavior: Haldol 2 mg q 6h Activity: OOB. PT and OT ordered. GI prophylaxis: Bowel regimen: Riya-colace. MOM. Lactulose BID (HIGH AMMONIA). Senna PRN. LBM: 05/29 DVT prophylaxis: Mechanical VTE with SCDs. Chemical management with Heparin 5, 000 units q 8h SQ. DC Planning: Case management consulted for assistance with final discharge disposition. Patient will need rehab. [facility] is unable to provide the patient with a [facility] bed upon discharge. Will continue to look for a facility that will accept the patient. Emotional support provided to patient at bedside and plan of care discussed. Discussed with RN at bedside. Discussed pt condition and plan of care with collaborating trauma surgeon. Patient is hemodynamically stable and being managed on the med/surg floor. The trauma team will round each day, and evaluate plan of care on a daily basis. RIGHT eyelid lacerations LEFT occipital IPH RIGHT facial fxs - orbital wall (non-op) Neurosurgery consulted and assisting in management and care Nonoperative management of IPH at this time OMFS consulted and assisting in management and care Nonoperative management of facial fractures at this time Sinus precautions Ophthalmology consulted in assisting in management and care They feel blurred vision will resolve on its own Follow-up outpatient with ophthalmology 05/24: CT brain- stable 05/25 EEG- neg Serial neuro checks Keppra 500 mg BID for seizure prophylaxis Seizure precautions CT brain for any change in neurological status PT and OT ordered Encourage out of bed ETOH Elevated ammonia Agitation Impulsivity Neurology consulted and assisting in management and care Monitor closely Precedex, Seroquel, and valproic acid have been discontinued Monitor off sedation Haldol 2 mg every 6 hours for behavior control Lactulose 30 mg BID Trend ammonia level Ammonia level = 67, however the patient has not been receiving his lactulose due to n.p.o. status her speech therapy MRSA Infectious disease consulted and assisting in management and care IV abx: Zyvox 05/26: Sputum - S. Aureus MRSA 05/26: Blood - NEG 05/19: Blood - NEG 05/17: Blood- S. Aureus MRSA 05/17: Cdiff- NEG Problem Qualifiers (1) Fall: Qualified Codes: W19.XXXA - Unspecified fall, initial encounter (2) Traumatic ecchymosis of eyelid: Qualified Codes: S00.11XA - Contusion of right eyelid and periocular area, initial encounter (3) Facial fracture due to fall: Qualified Codes: S02.92XA - Unspecified fracture of facial bones, initial encounter for closed fracture; W19.XXXA - Unspecified fall, initial encounter Melissa Barragan May 30, 2017 08:48
[2017-05-30] MEDS: POTASSIUM CHLORIDE 25 MEQ EFFERVESCENT TAB NG SCH ×2 (09:00→20:22)
[2017-05-30] MEDS ORDERED: POTASSIUM CHLOR 20 MEQ PREMIX 100 ML IV ONE (09:00)
[2017-05-30] MEDS ORDERED: INFLUENZA VIRUS VACCINE (QUADRIVALENT) 0.5 ML SYR IM ONE (09:00)
--- NOTE | 2017-05-30 09:31 | HHI.NSPN ---
(NormaAndi) History Chief Complaint: Feels good just stiff from being in one position. (NormaAndi SHI) Interval History 05/14: The patient is a 51-year-old male who reportedly fell from a ladder approximately 3 AM on 05/13/2017. He waited until last evening to come to the emergency room, apparently due to progressive swelling around his eyes. No seizure activity reported. No emesis reported. No definite loss of consciousness. He does have a history of alcohol abuse. He complains of blurred vision. 05/15/17: Remains confused. He was agitated last evening-placed on Precedex 05/16: This morning the patient is awake and alert in bed visiting with his . The dexmedetomidine drip is on hold. He does have a soft wrist restraint to the right wrist due to his pulling at the [place]. He says he is doing well. He denies any headache or dizziness. He has some blurry vision when he first opens his eyes but it quickly clears. He denies any double vision. He denies any pain, numbness, tingling or weakness to the extremities. His only complaint is an occasional cough. His muscle strength and sensation remain intact. His confusion and speech are improved. 05/17: When seen this morning the patient had returned to [facility] from the med/surg floor due to delirium tremens and being overdosed on lorazepam. He was given flumazenil to reverse the lorazepam. He had a decrease level of consciousness but did interact with coaxing and followed some commands correctly. 05/18: The patient is in four point soft restraints when seen this morning. He was asleep but awoke to voice. Mild tremors were noted to his upper extremities when awake. He did endorse "A little bit" of a headache but no dizziness or blurry or double vision. He had no pain, numbness, tingling or weakness to the extremities. He did follow commands and his muscle strength and sensation were good. 05/19: This morning the patient seems to be lethargic. He does awaken to voice but drifts back off to sleep readily. He stated that "It's a little rough this morning." He interacted with repeated verbal stimulation. His motor and sensory exam were stable. He is confused as to time. He is now in contact isolation due to blood cultures with MRSA in three bottles. 05/22: The patient has his eyes closed this morning when seen but he is talking with his . He readily responds and interacts although his speech is somewhat garbled, dysarthric and slow. He is in four point soft restraints. He follows commands. He is confused and having hallucinations, reporting a flying saucer struck him. He denies any headache or dizziness but does state that he is "A little wobbly." He has no pain, numbness, tingling or weakness to the extremities. 05/23: The patient was receiving a breathing treatment when seen and then was placed on high flow nasal cannula. He was attempting to get out of bed repeatedly. He followed commands and was oriented to person and place but not time. He denied any headache or dizziness. He denied any extremity pain, numbness, tingling or weakness. 05/24: This morning the patient is drowsy. He is on a simple face mask. He is confused as to time but knows he is in [facility]. He does move all extremities spontaneously and to command. He follows most commands correctly. He had no complaints and denied any headache or dizziness or any pain, numbness , tingling or weakness to the extremities. Nursing reported that hypertonic saline was discontinued by Trauma. 05/25: When seen the patient is lethargic. He does respond to voice but his voice his garbled and almost incomprehensible. He interacts but does require more stimulation to do so. There is no evident decline in his sensation or motor strength. He remains oriented to person and place. 05/30: This morning the patient is awake watching TV with his family. He has no complaints except from being stiff from being in one position so long. He denied any headache or dizziness or any pain, numbness, tingling or weakness to the extremities. His speech is clear and appropriate although he is still somewhat confused with the date. His sensation and motor strength remain intact. He is more appropriate today than when last seen. (Andi Green) Exam Results 2/25/18 05/28/17 05/29/17 05/29/17 05/30/17 05/30/17 06:00 18:00 06:00 18:00 06:00 18:00 Intake Total 1120 ml 240 ml 0 ml Output Total 800 ml 800 ml Balance 320 ml 240 ml 0 ml -800 ml Intake Oral 240 ml 0 ml IV Total 500 ml Tube Feeding 520 ml Tube Irrigant 100 ml Output Urine Total 800 ml 800 ml # Voids 1 4 # Bowel Movements 1 2 Vital Signs Date Time Temp Pulse Resp B/P (MAP) Pulse Ox O2 Delivery O2 Flow Rate FiO2 05/30/17 08:26 98.4 71 20 145/71 (95) 94 05/30/17 07:25 94 21 05/30/17 04:00 97.5 18 174/78 (110) 97 05/30/17 00:00 97.8 70 20 149/77 (101) 97 05/29/17 20:55 Room Air 05/29/17 20:00 97.8 80 18 142/69 (93) 97 05/29/17 16:55 99.1 80 20 141/70 (93) 96 05/29/17 12:22 97.4 80 20 164/77 (106) 94 05/29/17 09:30 Room Air 05/29/17 07:32 98.5 87 20 145/78 (100) 96 05/29/17 04:00 98.3 72 18 142/74 (96) 96 05/29/17 00:00 97.3 100 18 142/79 (100) 92 05/28/17 20:49 96 05/28/17 20:15 Room Air 05/28/17 20:00 98.1 82 18 159/80 (106) 97 05/28/17 16:00 98.2 87 18 135/71 (92) 98 05/28/17 14:00 90 05/28/17 12:00 88 05/28/17 12:00 100.2 89 15 134/70 (91) 94 05/28/17 10:00 99 05/28/17 08:08 100 05/28/17 08:00 99.8 100 23 141/88 (105) 92 05/28/17 07:51 100 21 05/28/17 07:00 93 Room Air 05/28/17 06:00 96 05/28/17 04:00 96 05/28/17 04:00 99.6 96 17 147/78 (101) 97 05/28/17 02:00 98 05/28/17 00:00 98.6 100 23 146/83 (104) 99 05/28/17 00:00 98 05/27/17 22:00 98 05/27/17 21:19 95 05/27/17 20:00 99.8 94 20 152/83 (106) 97 05/27/17 20:00 102 05/27/17 19:00 99 Room Air 05/27/17 18:00 89 05/27/17 16:00 81 05/27/17 16:00 99.1 81 17 151/89 (109) 96 05/27/17 14:00 92 05/27/17 12:00 101 05/27/17 12:00 103.0 102 25 121/59 (79) 92 05/27/17 10:00 107 (Andi Green) Physical Examination GENERAL: Awake & alert in bed watching TV w/family. Readily interacts. Affect essentially normal. No apparent distress. No evident agitation. Soft restraints on but not tied down. HEENT: Right-sided facial swelling & ecchymosis continues to resolve w/ abrasions & lacerations healing w/o complication. Bilateral periorbital ecchymosis continues to resolve. MUSCULOSKELETAL: [place] spontaneously w/o difficulty. No evident clubbing or deformity. NEUROLOGICAL: Awake & alert, oriented to person, place and month but has some trouble with year. Speech essentially clear & appropriate. Follows simple commands. Sensation intact to light touch to all extremities. Motor strength is 5/5 to all major flexion & extension muscle groups of the extremities. (Andi Green) Lab, Micro, Other Results Recent Impressions Chest X-Ray 05/27/17 1711 Signed Impressions: Service Date/Time: Saturday, May 27, 2017 17:24 - CONCLUSION: 1. NG tube in the stomach. 2. Improving aeration of both lung kern. Errol Castillo MD Laboratory Tests Test 05/27/17 12:15 05/27/17 15:58 05/28/17 08:56 05/29/17 03:30 Ammonia 41 MCMOL/L 57 MCMOL/L Potassium Level 3.2 MEQ/L 3.2 MEQ/L 3.0 MEQ/L White Blood Count 13.7 TH/MM3 10.2 TH/MM3 Red Blood Count 2.97 MIL/MM3 2.59 MIL/MM3 Hemoglobin 9.5 GM/DL 8.6 GM/DL Hematocrit 28.8 % 25.2 % Mean Corpuscular Volume 96.8 FL 97.3 FL Mean Corpuscular Hemoglobin 32.0 PG 33.1 PG Mean Corpuscular Hemoglobin Concent 33.0 % 34.1 % Red Cell Distribution Width 13.9 % 14.2 % Platelet Count 407 TH/MM3 414 TH/MM3 Mean Platelet Volume 8.1 FL 8.2 FL Blood Urea Nitrogen 11 MG/DL 11 MG/DL Creatinine 1.31 MG/DL 1.22 MG/DL Random Glucose 94 MG/DL 77 MG/DL Calcium Level 8.6 MG/DL 8.4 MG/DL Sodium Level 148 MEQ/L 148 MEQ/L Chloride Level 114 MEQ/L 113 MEQ/L Carbon Dioxide Level 27.5 MEQ/L 25.6 MEQ/L Anion Gap 7 MEQ/L 9 MEQ/L Estimat Glomerular Filtration Rate 58 ML/MIN 63 ML/MIN Vancomycin Level Trough 13.1 MCG/ML Neutrophils (%) (Auto) 73.6 % Lymphocytes (%) (Auto) 15.0 % Monocytes (%) (Auto) 8.4 % Eosinophils (%) (Auto) 1.9 % Basophils (%) (Auto) 1.1 % Neutrophils # (Auto) 7.5 TH/MM3 Lymphocytes # (Auto) 1.5 TH/MM3 Monocytes # (Auto) 0.9 TH/MM3 Eosinophils # (Auto) 0.2 TH/MM3 Basophils # (Auto) 0.1 TH/MM3 CBC Comment AUTO DIFF Differential Total Cells Counted 100 Neutrophils % (Manual) 74 % Lymphocytes % 8 % Monocytes % 10 % Eosinophils % 2 % Basophils % 2 % Neutrophils # (Manual) 8.0 TH/MM3 Myelocytes 4 % Differential Comment FINAL DIFF MANUAL Toxic Vacuolation PRESENT Platelet Estimate NORMAL Platelet Morphology Comment NORMAL Test 05/29/17 10:43 05/30/17 03:45 Ammonia 39 MCMOL/L 67 MCMOL/L White Blood Count 11.6 TH/MM3 Red Blood Count 2.96 MIL/MM3 Hemoglobin 9.8 GM/DL Hematocrit 28.2 % Mean Corpuscular Volume 95.4 FL Mean Corpuscular Hemoglobin 33.2 PG Mean Corpuscular Hemoglobin Concent 34.8 % Red Cell Distribution Width 14.0 % Platelet Count 428 TH/MM3 Mean Platelet Volume 8.2 FL Neutrophils (%) (Auto) 76.2 % Lymphocytes (%) (Auto) 12.7 % Monocytes (%) (Auto) 7.4 % Eosinophils (%) (Auto) 2.7 % Basophils (%) (Auto) 1.0 % Neutrophils # (Auto) 8.8 TH/MM3 Lymphocytes # (Auto) 1.5 TH/MM3 Monocytes # (Auto) 0.9 TH/MM3 Eosinophils # (Auto) 0.3 TH/MM3 Basophils # (Auto) 0.1 TH/MM3 CBC Comment DIFF FINAL Differential Comment Hematology Comments Blood Urea Nitrogen 12 MG/DL Creatinine 1.11 MG/DL Random Glucose 78 MG/DL Calcium Level 8.5 MG/DL Sodium Level 147 MEQ/L Potassium Level 3.2 MEQ/L Chloride Level 111 MEQ/L Carbon Dioxide Level 26.8 MEQ/L Anion Gap 9 MEQ/L Estimat Glomerular Filtration Rate 70 ML/MIN (Andi Green) Medical Decision Making Impression and Plan Impression: 1. Traumatic brain injury with left occipital hemorrhagic contusion. 2. Right frontal scalp contusion with subgaleal hematoma 3. Right orbital fracture The patient is more alert & appropriate than when last seen. His speech is clearer. Sensation & motor strength normal. Intermittent hypertension. Reviewed labs for today. Interval development of leukocytosis, w/improvement in haemoglobin level. Sodium level 147. Interval improvement in hypokalemia. Interval improvement in renal function. Interval increase in serum ammonia level. CT brain demonstrated stable left occipital haematoma & surrounding edema. No evidence of a new haemorrhage or mass effect. MRI brain demonstrated left occipital intracranial haemorrhage w/o enhancing mass. If continued concern for mass consider delayed f/u imaging or MR spectroscopy. Plan: Discussed plan of care with patient & . Discussed plan of care with Nursing. Primary management per Trauma. Critical care management per Home Health Care Worker. Neuro checks. Stat CT brain for any decline in neuro status. Okay for pharmacological DVT prophylaxis. Mechanical DVT prophylaxis. Stress ulcer prophylaxis. Mobilise patient w/assistance. Physical, Occupational & Speech Therapy. Will intermittently follow patient since no active issues for Neurosurgery. (Andi Green) Attending Statement The exam, history, and the medical decision-making described in the above note were completed with the assistance of the mid-level provider. I reviewed and agree with the findings presented. I attest that I had a [id number] encounter with the patient on the same day, and personally performed and documented my assessment and findings in the medical record. On exam 05/30/17 patient alert without focal neuro deficit. Continues steady improvement No NS intervention anticipated. Continue therapy (Regan Craven MD) Andi Green May 30, 2017 09:31 Regan Craven MD May 31, 2017 22:52
[2017-05-30] MEDS: levETIRAcetam 500 MG TAB PO SCH ×2 (09:59→20:22)
[2017-05-30] MEDS: FAMOTIDINE 20 MG TAB PO SCH ×2 (09:59→20:22)
[2017-05-30] MEDS: LINEZOLID 600 MG TAB PO SCH ×2 (09:59→20:22)
[2017-05-30] MEDS: DOCUSATE SODIUM 50 MG/SENNA 8.6 MG TAB PO SCH ×2 (09:59→20:22)
[2017-05-30 11:58] VITALS: BP 131/64; PULSE 91; RESP 20; TEMP 98.3; O2SAT 92
[2017-05-30] MEDS: LACTULOSE SYRUP 20 GM/30 ML CUP PO SCH ×2 (13:46→20:23)
[2017-05-30] MEDS: MAGNESIUM HYDROXIDE SUSP 30 ML CUP PO SCH ×2 (13:47→23:15)
[2017-05-30] MEDS ORDERED: PHARMACY ORDERED LAB ONE (15:45)
[2017-05-30 20:20] VITALS: BP 113/63; PULSE 82; RESP 16; TEMP 98.6; O2SAT 96
[2017-05-31] VITALS (9 sets, daily range): BP systolic 105–136; BP diastolic 64–90; PULSE 71–83; RESP 17–22; TEMP 97.5–98; O2SAT 94–97
[2017-05-31 04:28] LABS: AUTOMATED NEUTROPHIL # 5.2 TH/MM3 (1.8-7.7); BASOPHIL # 0.1 TH/MM3 (0-0.2); BASOPHIL % 1.2 % (0.0-2.0); EOSINOPHIL # 0.3 TH/MM3 (0-0.4); EOSINOPHIL % 3.9 % (0.0-4.0); HEMATOCRIT 29.1 % (39.0-51.0); HEMOGLOBIN 9.9 GM/DL (13.0-17.0); LYMPH % 22.5 % (9.0-44.0); LYMPHOCYTE # 1.8 TH/MM3 (1.0-4.8); MEAN CELL VOLUME 95.1 FL (80.0-100.0); MEAN CORPUSCULAR HEMOGLOBIN 32.4 PG (27.0-34.0); MEAN CORPUSCULAR HGB CONC 34.1 % (32.0-36.0); MEAN PLATELET VOLUME 7.6 FL (7.0-11.0); MONO % 7.7 % (0.0-8.0); MONOCYTE # 0.6 TH/MM3 (0-0.9); NEUT % 64.7 % (16.0-70.0); PLATELET COUNT 382 TH/MM3 (150-450); RED BLOOD COUNT 3.05 MIL/MM3 (4.50-5.90); RED CELL DISTRIBUTION WIDTH 13.8 % (11.6-17.2)
[2017-05-31 05:01] LABS: BICARBONATE 28.2 MEQ/L (21.0-32.0); CALCIUM 8.7 MG/DL (8.5-10.1); CREATININE 1.17 MG/DL (0.60-1.30)
[2017-05-31] MEDS: HEPARIN SODIUM - SQ 10,000 UNITS/ML VIAL SQ SCH ×3 (05:21→21:57)
[2017-05-31 08:03] LABS: MAGNESIUM 2.2 MG/DL (1.5-2.5); PHOSPHORUS 4.2 MG/DL (2.5-4.9)
[2017-05-31] MEDS: POTASSIUM CHLORIDE 10 MEQ CONTROLLED RELEASE TAB PO SCH ×2 (08:18→21:57)
[2017-05-31] MEDS: FAMOTIDINE 20 MG TAB PO SCH ×2 (08:18→21:57)
[2017-05-31] MEDS: LACTULOSE SYRUP 20 GM/30 ML CUP PO SCH ×2 (08:18→21:57)
[2017-05-31] MEDS: levETIRAcetam 500 MG TAB PO SCH ×2 (08:18→21:58)
[2017-05-31] MEDS: LINEZOLID 600 MG TAB PO SCH ×2 (08:18→21:57)
[2017-05-31] MEDS: DOCUSATE SODIUM 50 MG/SENNA 8.6 MG TAB PO SCH ×2 (08:18→21:58)
[2017-05-31] MEDS: SODIUM CHLORIDE 0.9% FLUSH 10 ML FLUSH IVF PRN (08:18)
[2017-05-31] MEDS: NS + KCL 20 MEQ INJ 1,000 ML IV SCH ×2 (08:19→20:05)
[2017-05-31] MEDS: RESP: ALBUTEROL 2.5 MG/IPRATROPIUM 0.5 MG NEB (PRN) NEB (09:24)
--- NOTE | 2017-05-31 11:00 | HHI.PR ---
Subjective Subjective Notes A&O x3, calm and cooperative Ammonia level 44 today Objective Vitals/I&O Vital Signs Date Time Temp Pulse Resp B/P (MAP) Pulse Ox O2 Delivery O2 Flow Rate FiO2 05/31/17 08:28 97 Room Air 05/31/17 08:19 98.0 73 20 131/70 (90) 05/30/17 07:25 21 05/27/17 08:09 3.00 Labs Laboratory Tests Test 05/31/17 04:08 White Blood Count 8.0 Red Blood Count 3.05 Hemoglobin 9.9 Hematocrit 29.1 Mean Corpuscular Volume 95.1 Mean Corpuscular Hemoglobin 32.4 Mean Corpuscular Hemoglobin Concent 34.1 Red Cell Distribution Width 13.8 Platelet Count 382 Mean Platelet Volume 7.6 Neutrophils (%) (Auto) 64.7 Lymphocytes (%) (Auto) 22.5 Monocytes (%) (Auto) 7.7 Eosinophils (%) (Auto) 3.9 Basophils (%) (Auto) 1.2 Neutrophils # (Auto) 5.2 Lymphocytes # (Auto) 1.8 Monocytes # (Auto) 0.6 Eosinophils # (Auto) 0.3 Basophils # (Auto) 0.1 CBC Comment DIFF FINAL Differential Comment Blood Urea Nitrogen 13 Creatinine 1.17 Random Glucose 95 Calcium Level 8.7 Sodium Level 139 Potassium Level 3.0 Chloride Level 103 Carbon Dioxide Level 28.2 Anion Gap 8 Estimat Glomerular Filtration Rate 66 Phosphorus Level 4.2 Magnesium Level 2.2 Ammonia 44 Date/Time Source Procedure Growth Status 05/26/17 15:25 Blood Peripheral Aerobic Blood Culture - Preliminary NO GROWTH IN 4 DAYS Resulted 05/26/17 15:25 Blood Peripheral Anaerobic Blood Culture - Preliminary NO GROWTH IN 4 DAYS Resulted 05/26/17 16:45 Sputum Expectorated Sputum Gram Stain - Final Complete 05/26/17 16:45 Sputum Culture - Final S. Aureus Mrsa Complete Radiology Last 72 hours Impressions Chest X-Ray 05/27/17 1711 Signed Impressions: Service Date/Time: Saturday, May 27, 2017 17:24 - CONCLUSION: 1. NG tube in the stomach. 2. Improving aeration of both lung kern. Errol Castillo MD Brain MRI 05/26/17 1433 Signed Impressions: Service Date/Time: Friday, May 26, 2017 22:01 - CONCLUSION: 1. Redemonstration of left occipital mid convexity intracranial hemorrhage without definite associated enhancing mass. More delayed followup imaging or MR spectroscopy may be performed if there is continued clinical concern regarding underlying mass. 2. Right maxillary mucosal sinus disease. Joel Parker MD Disinhibition Score: 15.68 Aggression Score: 14.00 Lability Score: 14.00 Agitated Behavior Total Score: 15 A/P Problem List: (1) Fall ICD Codes: W19.XXXA - Unspecified fall, initial encounter Status: Acute (2) Traumatic ecchymosis of eyelid ICD Codes: S00.10XA - Contusion of unspecified eyelid and periocular area, initial encounter Status: Acute (3) Intracranial bleed ICD Codes: I62.9 - Nontraumatic intracranial hemorrhage, unspecified Status: Acute (4) Facial fracture due to fall ICD Codes: S02.92XA - Unspecified fracture of facial bones, initial encounter for closed fracture; W19.XXXA - Unspecified fall, initial encounter Status: Acute (5) Subconjunctival hemorrhage of both eyes ICD Codes: H11.33 - Conjunctival hemorrhage, bilateral Status: Acute (6) Alcohol dependence in controlled environment ICD Codes: F10.20 - Alcohol dependence, uncomplicated Status: Resolved (7) Mild major neurocognitive disorder due to traumatic brain injury with behavioral disturbance ICD Codes: S06.9X9S - Unspecified intracranial injury with loss of consciousness of unspecified duration, sequela; F02.81 - Dementia in other diseases classified elsewhere with behavioral disturbance Status: Acute Assessment and Plan KAKE: Trip and fall from the standing position and came to the ER 19 hours later when his eyes began swelling shut. GCS = 15. INJURIES: RIGHT eyelid lacerations LEFT occipital IPH RIGHT facial fxs - orbital wall (non-op) PMHx: Anxiety, ETOH abuse RIGHT eyelid lacerations Supportive care Sutures removed LEFT occipital IPH Neurosurgery consulted Nonoperative management 05/24: CT brain- stable 05/25: EEG negative for seizures Serial neuro checks Keppra 500 mg BID for seizure prophylaxis Seizure precautions RIGHT facial fxs OMFS consulted Nonoperative management Sinus precautions Ophthalmology consulted Blurred vision will resolve on its own Follow-up outpatient with ophthalmology OOB- PT and OT ordered ETOH abuse, cirrhosis Ammonia level 44 Impulsivity improving Neurology consulted Monitor closely Monitor off sedation Haldol PRN Lactulose 30 mg BID Trend ammonia level MRSA Infectious disease consulted PO abx: Zyvox 05/26: Sputum - S. Aureus MRSA 05/17: Blood- S. Aureus MRSA Plan of care discussed with patient and family at bedside. Collaborating trauma Nandini agrees with plan. Case management consulted to assist with discharge planning. Plan to DC home with [facility] in 1-2 days Problem Qualifiers (1) Fall: Qualified Codes: W19.XXXA - Unspecified fall, initial encounter (2) Traumatic ecchymosis of eyelid: Qualified Codes: S00.11XA - Contusion of right eyelid and periocular area, initial encounter (3) Facial fracture due to fall: Qualified Codes: S02.92XA - Unspecified fracture of facial bones, initial encounter for closed fracture; W19.XXXA - Unspecified fall, initial encounter Ekaterina Marie May 31, 2017 11:00
[2017-05-31] MEDS: MAGNESIUM HYDROXIDE SUSP 30 ML CUP PO SCH ×2 (12:36→21:57)
[2017-06-01] VITALS: BP 119/64; PULSE 80; RESP 20; TEMP 98.8; O2SAT 98
[2017-06-01 03:52] LABS: BICARBONATE 26.1 MEQ/L (21.0-32.0); CALCIUM 8.3 MG/DL (8.5-10.1); CREATININE 1.1 MG/DL (0.60-1.30)
[2017-06-01 04:00] VITALS: BP 113/56; PULSE 70; PULSE 71; RESP 18; TEMP 98.3; O2SAT 95
[2017-06-01] MEDS: NS + KCL 20 MEQ INJ 1,000 ML IV SCH (05:10)
[2017-06-01] MEDS: HEPARIN SODIUM - SQ 10,000 UNITS/ML VIAL SQ SCH (05:10)
[2017-06-01] MEDS ORDERED: LEVE500 PO (06:59)
[2017-06-01] MEDS ORDERED: CLON.1T T-DERMAL (06:59)
[2017-06-01] MEDS ORDERED: WALKER WHEELS/F1 MIS (07:06)
[2017-06-01 08:00] VITALS: BP 120/70; PULSE 74; PULSE 80; RESP 18; TEMP 98; O2SAT 99
[2017-06-01] MEDS: levETIRAcetam 500 MG TAB PO SCH (09:59)
[2017-06-01] MEDS: FAMOTIDINE 20 MG TAB PO SCH (09:59)
[2017-06-01] MEDS: POTASSIUM CHLORIDE 10 MEQ CONTROLLED RELEASE TAB PO SCH (09:59)
[2017-06-01] MEDS: LINEZOLID 600 MG TAB PO SCH (09:59)
[2017-06-01] MEDS: LACTULOSE SYRUP 20 GM/30 ML CUP PO SCH (09:59)
[2017-06-01] MEDS: DOCUSATE SODIUM 50 MG/SENNA 8.6 MG TAB PO SCH (10:00)
[2017-06-01] MEDS ORDERED: REMOVE OLD CATAPRES (CLONIDINE) PATCH T-DERMAL SCH (11:00)
[2017-06-01] MEDS: MAGNESIUM HYDROXIDE SUSP 30 ML CUP PO SCH (11:30)
--- NOTE | 2017-06-01 11:31 | HHI.NSPN ---
(Andi Green) History Chief Complaint: Dry and burning eyes. (Andi Green) Interval History 05/14: The patient is a 51-year-old male who reportedly fell from a ladder approximately 3 AM on 05/13/2017. He waited until last evening to come to the emergency room, apparently due to progressive swelling around his eyes. No seizure activity reported. No emesis reported. No definite loss of consciousness. He does have a history of alcohol abuse. He complains of blurred vision. 05/15/17: Remains confused. He was agitated last evening-placed on Precedex 05/16: This morning the patient is awake and alert in bed visiting with his . The dexmedetomidine drip is on hold. He does have a soft wrist restraint to the right wrist due to his pulling at the [place]. He says he is doing well. He denies any headache or dizziness. He has some blurry vision when he first opens his eyes but it quickly clears. He denies any double vision. He denies any pain, numbness, tingling or weakness to the extremities. His only complaint is an occasional cough. His muscle strength and sensation remain intact. His confusion and speech are improved. 05/17: When seen this morning the patient had returned to [facility] from the med/surg floor due to delirium tremens and being overdosed on lorazepam. He was given flumazenil to reverse the lorazepam. He had a decrease level of consciousness but did interact with coaxing and followed some commands correctly. 05/18: The patient is in four point soft restraints when seen this morning. He was asleep but awoke to voice. Mild tremors were noted to his upper extremities when awake. He did endorse "A little bit" of a headache but no dizziness or blurry or double vision. He had no pain, numbness, tingling or weakness to the extremities. He did follow commands and his muscle strength and sensation were good. 05/19: This morning the patient seems to be lethargic. He does awaken to voice but drifts back off to sleep readily. He stated that "It's a little rough this morning." He interacted with repeated verbal stimulation. His motor and sensory exam were stable. He is confused as to time. He is now in contact isolation due to blood cultures with MRSA in three bottles. 05/22: The patient has his eyes closed this morning when seen but he is talking with his . He readily responds and interacts although his speech is somewhat garbled, dysarthric and slow. He is in four point soft restraints. He follows commands. He is confused and having hallucinations, reporting a flying saucer struck him. He denies any headache or dizziness but does state that he is "A little wobbly." He has no pain, numbness, tingling or weakness to the extremities. 05/23: The patient was receiving a breathing treatment when seen and then was placed on high flow nasal cannula. He was attempting to get out of bed repeatedly. He followed commands and was oriented to person and place but not time. He denied any headache or dizziness. He denied any extremity pain, numbness, tingling or weakness. 05/24: This morning the patient is drowsy. He is on a simple face mask. He is confused as to time but knows he is in [facility]. He does move all extremities spontaneously and to command. He follows most commands correctly. He had no complaints and denied any headache or dizziness or any pain, numbness , tingling or weakness to the extremities. Nursing reported that hypertonic saline was discontinued by Trauma. 05/25: When seen the patient is lethargic. He does respond to voice but his voice his garbled and almost incomprehensible. He interacts but does require more stimulation to do so. There is no evident decline in his sensation or motor strength. He remains oriented to person and place. 05/30: This morning the patient is awake watching TV with his family. He has no complaints except from being stiff from being in one position so long. He denied any headache or dizziness or any pain, numbness, tingling or weakness to the extremities. His speech is clear and appropriate although he is still somewhat confused with the date. His sensation and motor strength remain intact. He is more appropriate today than when last seen. 06/01: The patient is awake and alert, sitting up in the chair watching TV and visiting with family. He denies any headache, dizziness or blurry or double vision. He does state his eyes are itchy and dry. He denies any pain, numbness, tingling or weakness to the extremities. Upon evaluation the patient is stable neurologically. (Andi Green) Exam Results 05/30/17 05/30/17 05/31/17 05/31/17 06/01/17 06/01/17 06:00 18:00 06:00 18:00 06:00 18:00 Intake Total 660 ml 240 ml 720 ml 1000 ml Output Total 800 ml Balance -800 ml 660 ml 240 ml 720 ml 1000 ml Intake Oral 660 ml 240 ml 720 ml IV Total 1000 ml Output Urine Total 800 ml # Voids 4 6 3 1 3 # Bowel Movements 5 1 1 0 Vital Signs Date Time Temp Pulse Resp B/P (MAP) Pulse Ox O2 Delivery O2 Flow Rate FiO2 06/01/17 08:00 98.0 80 18 120/70 (87) 99 06/01/17 08:00 74 06/01/17 04:00 98.3 71 18 113/56 (75) 95 06/01/17 04:00 70 06/01/17 00:00 98.8 80 20 119/64 (82) 98 05/31/17 20:04 82 05/31/17 20:01 82 05/31/17 20:00 98.0 83 22 119/64 (82) 96 05/31/17 19:20 Room Air 05/31/17 16:38 98.0 74 20 123/69 (87) 96 05/31/17 12:03 97.5 83 20 105/73 (84) 95 05/31/17 08:28 97 Room Air 05/31/17 08:19 98.0 73 20 131/70 (90) 94 05/31/17 05:16 98.0 71 17 136/90 (105) 97 05/31/17 00:41 98.0 73 17 118/74 (89) 96 05/31/17 00:36 71 05/30/17 20:35 96 Room Air 05/30/17 20:20 98.6 82 16 113/63 (80) 96 05/30/17 11:58 98.3 91 20 131/64 (86) 92 05/30/17 08:26 98.4 71 20 145/71 (95) 94 2/27/18 08:00 97 Room Air 05/30/17 07:25 94 21 05/30/17 04:00 97.5 18 174/78 (110) 97 05/30/17 00:00 97.8 70 20 149/77 (101) 97 05/29/17 20:55 Room Air 05/29/17 20:00 97.8 80 18 142/69 (93) 97 05/29/17 16:55 99.1 80 20 141/70 (93) 96 05/29/17 12:22 97.4 80 20 164/77 (106) 94 (Andi Green) Physical Examination GENERAL: Awake & alert in the chair watching TV w/family. Readily interacts. Affect normal. No apparent distress. HEENT: Right-sided facial swelling & ecchymosis essentially resolved w/ abrasions & lacerations essentially healed. Bilateral periorbital ecchymosis essentially resolved. MUSCULOSKELETAL: THIBODE[place] spontaneously w/o difficulty. Extremities NTTP. No evident clubbing or deformity. NEUROLOGICAL: AAOx3. Speech clear & appropriate. Follows simple commands. Sensation intact to light touch to all extremities. Motor strength is 5/5 to all major flexion & extension muscle groups of the extremities. (Andi Green) Lab, Micro, Other Results Laboratory Tests Test 05/30/17 03:45 05/31/17 04:08 06/01/17 03:27 White Blood Count 11.6 TH/MM3 8.0 TH/MM3 Red Blood Count 2.96 MIL/MM3 3.05 MIL/MM3 Hemoglobin 9.8 GM/DL 9.9 GM/DL Hematocrit 28.2 % 29.1 % Mean Corpuscular Volume 95.4 FL 95.1 FL Mean Corpuscular Hemoglobin 33.2 PG 32.4 PG Mean Corpuscular Hemoglobin Concent 34.8 % 34.1 % Red Cell Distribution Width 14.0 % 13.8 % Platelet Count 428 TH/MM3 382 TH/MM3 Mean Platelet Volume 8.2 FL 7.6 FL Neutrophils (%) (Auto) 76.2 % 64.7 % Lymphocytes (%) (Auto) 12.7 % 22.5 % Monocytes (%) (Auto) 7.4 % 7.7 % Eosinophils (%) (Auto) 2.7 % 3.9 % Basophils (%) (Auto) 1.0 % 1.2 % Neutrophils # (Auto) 8.8 TH/MM3 5.2 TH/MM3 Lymphocytes # (Auto) 1.5 TH/MM3 1.8 TH/MM3 Monocytes # (Auto) 0.9 TH/MM3 0.6 TH/MM3 Eosinophils # (Auto) 0.3 TH/MM3 0.3 TH/MM3 Basophils # (Auto) 0.1 TH/MM3 0.1 TH/MM3 CBC Comment DIFF FINAL DIFF FINAL Differential Comment Hematology Comments Blood Urea Nitrogen 12 MG/DL 13 MG/DL 12 MG/DL Creatinine 1.11 MG/DL 1.17 MG/DL 1.10 MG/DL Random Glucose 78 MG/DL 95 MG/DL 96 MG/DL Calcium Level 8.5 MG/DL 8.7 MG/DL 8.3 MG/DL Sodium Level 147 MEQ/L 139 MEQ/L 139 MEQ/L Potassium Level 3.2 MEQ/L 3.0 MEQ/L 3.8 MEQ/L Chloride Level 111 MEQ/L 103 MEQ/L 106 MEQ/L Carbon Dioxide Level 26.8 MEQ/L 28.2 MEQ/L 26.1 MEQ/L Anion Gap 9 MEQ/L 8 MEQ/L 7 MEQ/L Estimat Glomerular Filtration Rate 70 ML/MIN 66 ML/MIN 71 ML/MIN Ammonia 67 MCMOL/L 44 MCMOL/L Phosphorus Level 4.2 MG/DL Magnesium Level 2.2 MG/DL (Andi Green) Medical Decision Making Impression and Plan Impression: 1. Traumatic brain injury with left occipital hemorrhagic contusion. 2. Right frontal scalp contusion with subgaleal hematoma 3. Right orbital fracture The patient is doing well. He is oriented to person, place & time and has no sensorimotor deficits. Reviewed labs for today. Sodium level 139. Interval resolution of hypokalemia. Interval improvement in renal function. CT brain demonstrated stable left occipital haematoma & surrounding edema. No evidence of a new haemorrhage or mass effect. MRI brain demonstrated left occipital intracranial haemorrhage w/o enhancing mass. If continued concern for mass consider delayed f/u imaging or MR spectroscopy. Plan: Discussed plan of care with patient & family. Primary management per Trauma. Critical care management per [employer]. Neuro checks. Stat CT brain for any decline in neuro status. Okay for pharmacological DVT prophylaxis. Mechanical DVT prophylaxis. Stress ulcer prophylaxis. Mobilise patient w/assistance. Physical, Occupational & Speech Therapy. From Neurosurgery's perspective the patient may be discharged when cleared medically and by Trauma. (Andi Green) Attending Statement The exam, history, and the medical decision-making described in the above note were completed with the assistance of the mid-level provider. I reviewed and agree with the findings presented. I attest that I had a [id number] encounter with the patient on the same day, and personally performed and documented my assessment and findings in the medical record. On my examination 06/01/2017 the patient is out of bed, awake and alert Extraocular movements and facial motor movements intact Extremity sensorimotor function intact The significant agitation or confusion. Tolerating diet well Labs reviewed Patient's previous MRI brain images reviewed. Evolving occipital hemorrhage. No significant mass effect. No definite underlying mass lesion noted. Stable for discharge home from neurosurgical standpoint No neurosurgical follow-up anticipated at this point (Regan Craven MD) Andi Green Jun 01, 2017 11:31 Regan Craven MD Jun 02, 2017 20:42
--- NOTE | 2017-06-01 11:44 | HHI.DS ---
Discharge Summary Admission Date May 13, 2017 at 23:03 Discharge Date: Jun 01, 2017 Admitting Diagnosis fall, intracranial hemorrhage, facial fracture (1) Fall ICD Codes: W19.XXXA - Unspecified fall, initial encounter Diagnosis: Principal Status: Acute (2) Traumatic ecchymosis of eyelid ICD Codes: S00.10XA - Contusion of unspecified eyelid and periocular area, initial encounter Status: Acute (3) Intracranial bleed ICD Codes: I62.9 - Nontraumatic intracranial hemorrhage, unspecified Status: Acute (4) Facial fracture due to fall ICD Codes: S02.92XA - Unspecified fracture of facial bones, initial encounter for closed fracture; W19.XXXA - Unspecified fall, initial encounter Status: Acute (5) Subconjunctival hemorrhage of both eyes ICD Codes: H11.33 - Conjunctival hemorrhage, bilateral Status: Acute (6) Alcohol dependence in controlled environment ICD Codes: F10.20 - Alcohol dependence, uncomplicated Status: Resolved (7) Mild major neurocognitive disorder due to traumatic brain injury with behavioral disturbance ICD Codes: S06.9X9S - Unspecified intracranial injury with loss of consciousness of unspecified duration, sequela; F02.81 - Dementia in other diseases classified elsewhere with behavioral disturbance Status: Acute Brief History S/P Trauma: Fall CBC/BMP: 05/31/17 0408 06/01/17 0327 Significant Findings Laboratory Tests Test 05/30/17 03:45 05/31/17 04:08 06/01/17 03:27 White Blood Count 11.6 TH/MM3 (4.0-11.0) Red Blood Count 2.96 MIL/MM3 (4.50-5.90) 3.05 MIL/MM3 (4.50-5.90) Hemoglobin 9.8 GM/DL (13.0-17.0) 9.9 GM/DL (13.0-17.0) Hematocrit 28.2 % (39.0-51.0) 29.1 % (39.0-51.0) Neutrophils (%) (Auto) 76.2 % (16.0-70.0) Neutrophils # (Auto) 8.8 TH/MM3 (1.8-7.7) Sodium Level 147 MEQ/L (136-145) Potassium Level 3.2 MEQ/L (3.5-5.1) 3.0 MEQ/L (3.5-5.1) Chloride Level 111 MEQ/L (98-107) Estimat Glomerular Filtration Rate 70 ML/MIN (>89) 66 ML/MIN (>89) 71 ML/MIN (>89) Ammonia 67 MCMOL/L (11-32) 44 MCMOL/L (11-32) Calcium Level 8.3 MG/DL (8.5-10.1) Imaging Last Impressions Chest X-Ray 05/27/17 1711 Signed Impressions: Service Date/Time: Saturday, May 27, 2017 17:24 - CONCLUSION: 1. NG tube in the stomach. 2. Improving aeration of both lung kern. Errol Castillo MD Brain MRI 05/26/17 1433 Signed Impressions: Service Date/Time: Friday, May 26, 2017 22:01 - CONCLUSION: 1. Redemonstration of left occipital mid convexity intracranial hemorrhage without definite associated enhancing mass. More delayed followup imaging or MR spectroscopy may be performed if there is continued clinical concern regarding underlying mass. 2. Right maxillary mucosal sinus disease. Joel Parker MD Head CT 05/25/17 0600 Signed Impressions: Service Date/Time: May 05:18 - CONCLUSION: 1. No significant change in the intracranial hemorrhage. 2. No new hemorrhage or mass effect. 3. Mucosal thickening and air-fluid level in right maxillary sinus. Gerardo Sharp MD Abdomen X-Ray 05/23/17 0000 Signed Impressions: Service Date/Time: Tuesday, May 23, 2017 19:43 - CONCLUSION: 1. Dobbhoff catheter coiled in the stomach with tip projecting toward the fundus. Dobbhoff catheter should be retracted at least 12 cm prior to readvancement attempt. Joel Parker MD Carotid Artery Ultrasound 05/16/17 0000 Signed Impressions: Service Date/Time: Tuesday, May 16, 2017 10:30 - CONCLUSION: 1. Mild plaque with patent carotid arteries bilaterally. 2. Antegrade flow involving both vertebral arteries. Juan Castillo Jr., MD Chest CT 05/14/17 0000 Signed Impressions: Service Date/Time: Sunday, May 14, 2017 00:39 - CONCLUSION: 1. Negative for acute traumatic injury within the thorax. Fatty infiltration of the liver. Arsh Leslie MD Abdomen/Pelvis CT 05/14/17 0000 Signed Impressions: Service Date/Time: Sunday, May 14, 2017 00:39 - CONCLUSION: 1. Negative for acute traumatic injury within the abdomen or pelvis. Fatty liver. Arsh Leslie MD Maxillofacial CT 05/13/[id number] Signed Impressions: Service Date/Time: Saturday, May 13, 2017 22:22 - CONCLUSION: Multiple fractures of the right orbit including the inferior orbital wall and comminuted fractures of the medial orbital wall. Intraorbital muscles remain within the orbit. There is associated opacification of the right ethmoids and right maxillary sinus. There is also prominent alyssa-orbital soft tissue swelling extending into the frontal region. Juan Sun MD Cervical Spine CT [id number]/13/[id number] Signed Impressions: Service Date/Time: Saturday, May 13, 2017 22:22 - CONCLUSION: Moderately advanced discogenic degenerative changes C4-C6 with associated retrolisthesis of C4 to C5 and reversal of the upper cervical lordosis. No fracture seen. Juan Sun MD PE at Discharge GENERAL: 51-year-old adult male [facility] SKIN: Warm and dry. HEAD: Normocephalic. EYES: Pupils equal and round. No scleral icterus. ENT: No nasal bleeding or discharge. Mucous membranes pink and moist. NECK: Trachea midline. No JVD. CARDIOVASCULAR: Regular rate and rhythm. RESPIRATORY: Lungs are clear to auscultation. Breath sounds equal bilaterally. No distress or dyspnea. GASTROINTESTINAL: BS + x 4 quads. Abdomen soft, non-tender, nondistended. MUSCULOSKELETAL: Extremities without cyanosis, or edema. MAEW. + perfused. NEUROLOGICAL: A&O x3, intermittently confused. Normal speech. Hospital Course [place]: Trip and fall from the standing position and came to the ER 19 hours later when his eyes began swelling shut. GCS = 15. INJURIES: RIGHT eyelid lacerations LEFT occipital IPH RIGHT facial fxs - orbital wall (non-op) PMHx: Anxiety, ETOH abuse RIGHT eyelid lacerations Supportive care Sutures removed LEFT occipital IPH Neurosurgery consulted, F/U outpatient Neuropsychology consulted-F/U as outpatient Nonoperative management 05/24: CT brain- stable 05/25: EEG negative for seizures DC Keppra RIGHT facial fxs OMFS consulted, F/U outpatient Nonoperative management Sinus precautions- No nose blowing, no closed mouth sneezing and no drinking with a straw Ophthalmology consulted, F/U outpatient Ophthalmology states blurred vision will resolve on its own OOB- PT and OT ordered- Patient has progressed to contact guard without an assistive device ETOH abuse, cirrhosis 05/31: Ammonia level 44 Impulsivity much better Neurology consulted - F/U outpatient DC home on Lactulose 30 mg QD- F/U with PCP in 1 week MRSA Infectious disease consulted PO abx: Zyvox last dose today 05/26: Sputum - S. Aureus MRSA 05/17: Blood- S. Aureus MRSA F/U with PCP in 1 week. Plan of care discussed with patient and at bedside. Patient's has concerns that the patient will not be compliant at home with medications and follow up appointments. Encouraged to relay importance of care to patient and encourage him to keep his appointments with his doctors to promote wellness. Collaborating trauma MMic agrees with plan. Case management consulted to assist with discharge planning. Patient is clear from Trauma surgery standpoint to safely discharge home with his . Rolling walker ordered for safety. Pt Condition on Discharge: Stable Discharge Disposition: Discharge Home Discharge Instructions DIET: Follow Instructions for: As Tolerated, No Restrictions Activities you can perform: Full Weight Bearing Activities to Avoid: Concussion Sports, Contact Sports, Strenuous Activity Attending Statement The exam, history, and the medical decision-making described in the above note were completed with the assistance of the mid-level provider. I reviewed and agree with the findings presented. I attest that I had a [id number] encounter with the patient on the same day, and personally performed and documented my assessment and findings in the medical record. Ekaterina Marie Jun 01, 2017 11:44 Alexis Jacobson MD Jun 03, 2017 12:55
--- NOTE | 2017-06-01 11:44 | PD.NP.DS ---
Discharge Summary Reason for Referral: The patient is a 51 year old right handed male status post traumatic brain injury secondary to a fall from a ladder sustained on 05/13/2017. His GCS was 15 on admission. He has a history of ETOH abuse. Head CT showed left occipital hemorrhage contusion. Early on, he is in alcohol withdrawals and was placed on CIWA protocol and Precedex drip. He is referred for baseline neurobehavioral status examination per trauma protocol to assess cognitive, behavioral and emotional aspects of the injury and to provide treatment recommendations. His neurobehavioral issues were challenging throughout his critical care stay due to the withdrawal issues, and in consultation with Dr. Choi, he decided to remove all neurobehavioral agents, which expectedly left him with agitation for a time, but the patient quickly stabilized neurobehaviorally, and at the time of discharge was a Rancho VII. At the time of discharge, the patient's was concerned that the patient has ongoing neurobehavioral issues that require treatment, and she wished him to stay in the hospital longer. However, he had improved significantly, and at least from a neurobehavioral standpoint, there was no need for him to remain at this level of care, and additionally, as the majority of his issues were residual neurocognitive, outpatient treatment appeared the least confining way to treat. I offered to have him see me on an outpatient setting in 10 days post injury, and also suggested that he follow with Dr. Choi. Past Medical History: Please refer to the patient's history and physical for information concerning the patient's past medical, surgical, and psychiatric histories. Education/Learning Hx: The patient completed high school years of education. There is no report of learning difficulties, grade repetitions or behavioral difficulties. The patient has a solid work history prior to the injury. The patient is . The patient lives in [place], [place]. Premorbid Cognitive, Emotional and Behavioral Status: Stable. 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 The patient has no known prior psychiatric difficulties, as described above. Substance abuse history includes alcohol dependence. Behavioral Reactions of Patient and Family/Support System: Deferred. The patients family is experiencing ongoing issues of adjustment given the nature of the injury, and this aspect of recovery will require ongoing monitoring. Emotional/Behavioral Status of Patient and Family/Support System: Stable. Pertinent issues, if appropriate to this patients clinical care, are described in detail above. Treatment Interventions: During the course of their acute care stay, this patient and their family/ support system were provided information concerning the neuropsychological aspects of the injury, education regarding course of recovery, and psychological support in the form of counseling with the person served and the family/support system as documented in the neuropsychology service progress notes, as deemed clinically appropriate. Current, Cognitive, Emotional and Behavioral Status: Deferred. This patient has experienced a severe injury, and will be adjusting to significant cognitive , emotional and behavioral challenges going forward. I would like to see this patient as an outpatient. Impression at Discharge: The cognitive and behavioral status of this patient meets criteria for [facility] Level VII. Major Neurocognitive Disorder due to Traumatic Brain Injury, without behavioral disturbance CODE: F02.81, Alcohol Use Disorder CODE: F10.20 The above listed diagnoses are supported by the following clinical criteria: Major Neurocognitive Disorder: This person demonstrates a significant cognitive decline from a previous level of estimated baseline performance in one or more cognitive domains (complex attention, executive functioning, learning and memory, language, perceptual-motor, or social cognition) based on the patients /informants report, further documented by todays testing results , with these cognitive deficits interfering with the patients independence in everyday activities. Status of Family/Support System Adjustment: Unstable. The patients family/ support system will experience ongoing issues of adjustment given the nature of the injury, and this aspect of the patients recovery will require ongoing monitoring. The patient was offered to follow-up with me in my outpatient clinic in 10 days to assist with his care. Post Acute Recommendations: It is recommended that the patient continue to be monitored for behavioral impulsivity as they continue to be early in their course of recovery. This patients neuropathological challenges may limit their reintegration into work and family life going forward, and these challenges may require specialized therapeutic skills to maximize outcome. Additionally, the patients family is experiencing ongoing issues of adjustment given the traumatic nature of the injury, and they may benefit from ongoing psychological assistance following their discharge from acute care. Thank you for the opportunity to assist in this patients care. Meño Angel, Ph.D., ABPP Board Certified in Clinical Neuropsychology [employer] [employer] [place] Licensed Psychologist #[id number] Meño Angel PhD Jun 01, 2017 11:44 am
[2017-06-01] MEDS ORDERED: LACT10SO PO (11:51)
[2017-06-01 12:00] VITALS: BP 134/82; PULSE 80; RESP 18; TEMP 98; O2SAT 99
[2017-06-01] MEDS: cloNIDine HCL 0.1 MG/24 HR PATCH T-DERMAL SCH (12:07)
[2017-06-01] MEDS ORDERED: ARTIFICIAL TEARS OPTH SOLN 15 ML BTL EACH EYE PRN (13:00)
[2017-06-01] MEDS ORDERED: LINEZOLID 600 MG TAB PO SCH (16:00)
== END 2017-06-01 17:15 | disposition home or self-care (01) | DRG 85 ==
LOC: NEPE 21:58 → NEDA 23:03 → N03B 05-14 02:27 → N05A 05-16 22:55 → N03A 05-17 02:43 → N05A 05-28 14:41
PROVIDERS: ADMIT Surgery Trauma Surgery; ATTEND Surgery Trauma Surgery
PROC: 6A550Z2 Pheresis of Platelets, Single (ICD-10-PCS; principal; 2017-05-13)
PROC: 08QQXZZ Repair Right Lower Eyelid, External Approach (ICD-10-PCS; 2017-05-13)
PROC: 08QNXZZ Repair Right Upper Eyelid, External Approach (ICD-10-PCS; 2017-05-13)
PROC: 0T9B70Z Drainage of Bladder with Drainage Device, Via Natural or Artificial Opening (ICD-10-PCS; 2017-05-19)
DX: S06.350A Traumatic hemorrhage of left cerebrum without loss of consciousness, initial encounter (principal); G93.6 Cerebral edema; A41.02 Sepsis due to Methicillin resistant Staphylococcus aureus; J15.212 Pneumonia due to Methicillin resistant Staphylococcus aureus; F10.231 Alcohol dependence with withdrawal delirium; I11.0 Hypertensive heart disease with heart failure; I50.9 Heart failure, unspecified; F02.81 Dementia in other diseases classified elsewhere, unspecified severity, with behavioral disturbance; D69.6 Thrombocytopenia, unspecified; R13.10 Dysphagia, unspecified; R65.20 Severe sepsis without septic shock; S02.19XA Other fracture of base of skull, initial encounter for closed fracture; S02.40FA Zygomatic fracture, left side, initial encounter for closed fracture; S01.111A Laceration without foreign body of right eyelid and periocular area, initial encounter; S02.31XA Fracture of orbital floor, right side, initial encounter for closed fracture; W11.XXXA Fall on and from ladder, initial encounter; H11.33 Conjunctival hemorrhage, bilateral; Z78.1 Physical restraint status; F41.9 Anxiety disorder, unspecified; F32.9 Major depressive disorder, single episode, unspecified; F17.210 Nicotine dependence, cigarettes, uncomplicated; S00.03XA Contusion of scalp, initial encounter; E87.6 Hypokalemia; K70.30 Alcoholic cirrhosis of liver without ascites; E86.1 Hypovolemia; Z78.9 Other specified health status
CPT/HCPCS: 12013; 36430; 36600; 70450; 70486; 70553; 71045; 71260; 72125; 74018; 74177; 80048; 80053; 80202; 80307; 81001; 82140; 82607; 82746; 82805; 83605; 83735; 83880; 84100; 84132; 84295; 84425; 84439; 84443; 85007; 85025; 85027; 85610; 85730; 86403; 86850; 86900; 86901; 87040; 87070; 87147; 87186; 87205; 87493; 87633; 90471; 90715; 93005; 93306; 93880; 94640; 94664; 95819; 96365; A9579; J0131; J0690; J1630; J1644; J1940; J1953; J2060; J2543; J3370; J3411; J3480; J7030; J7040; J7050; J7120; L0150; P9035; Q9967